=== PATIENT | male | born 1955 | race African-American/Black ===

== ENCOUNTER 2016-03-04 12:33 | Inpatient (IN) | payer MEDICAID ==
[~2016-03-04] VITALS: Ht 193 cm; Wt 129.3 kg
[~2016-03-04 12:33] MED LIST: BACTRIM DS TAB1 EAC1 ORAL; DILAUDID4 MG ORAL; EYE DROPS15 M1 OP; FLOMAX0.4 MG ORAL; METHADONE PO; OPANA ER40 M1 ORAL
[2016-03-04] MEDS ORDERED: Ketorolac 30mg Inj IV ONE (13:15)
[2016-03-04] MEDS ORDERED: Morphine Sulfate 4mg/ml Inj IVP ONE ×2 (13:15→15:00)
[2016-03-04 14:05] LABS: BASOPHILS % (AUTO) 0.6 % (0.0-2.0); EOSINOPHILS % (AUTO) 1.2 % (0.0-3.0); LYMPHOCYTES % (AUTO) 11.2 % (20.0-45.0); MEAN CORPUSCULAR HEMOGLOBIN 26.5 PG (27.0-31.0); MEAN CORPUSCULAR HGB CONC 31.7 G/DL (32.0-36.0); MEAN CORPUSCULAR VOLUME 84 FL (80-99); MEAN PLATELET VOLUME 9.1 FL (6.5-10.1); MONOCYTES % (AUTO) 9.3 % (1.0-10.0); NEUTROPHILS % (AUTO) 77.7 % (45.0-75.0); PLATELET COUNT 272 K/UL (150-450); RED BLOOD COUNT 5.44 M/UL (4.70-6.10); RED CELL DISTRIBUTION WIDTH 13.3 % (11.6-14.8); WHITE BLOOD COUNT 12.5 K/UL (4.8-10.8)
[2016-03-04 15:00] VITALS: BP 149/99
--- NOTE | 2016-03-04 15:16 | Diagnostic Imaging Report ---
Indication: PAIN Technique: Spiral acquisitions obtained through the left hip. No IV contrast, per trauma protocol. Multiplanar reconstructions were generated. Total dose length product 668 mGycm. CTDIvol(s) 26 mGy. Radiation dose was minimized using automated exposure control Comparison: None Findings: There is a fracture of the left femoral neck. This is posteriorly angulated, slightly anteriorly displaced No pelvic fracture demonstrated. There is some overlying contusion of the left lateral hip subcutaneous fat. The included pelvic viscera are remarkable for the presence of colonic diverticulosis. Impression: Positive for left femoral neck fracture Positive for overlying subcutaneous contusion Incidental finding of colonic diverticulosis Findings discussed by phone with Dr. Mora in the emergency room at the time of interpretation The CT scanner at [facility] is accredited by the [employer] and the scans are performed using protocols designed to limit radiation exposure to as low as reasonably achievable to attain images of sufficient resolution adequate for diagnostic evaluation.
[2016-03-04 15:18] LABS: ALANINE AMINOTRANSFERASE 26 U/L (3-41); ALBUMIN/GLOBULIN RATIO 0.8 (1.0-2.7); ANION GAP 17 (5-15); ASPARTATE AMINO TRANSFERASE 32 U/L (5-40); CALCIUM 9.5 mg/dL (8.6-10.2); CARBON DIOXIDE 24 mEQ/L (20-30); CHLORIDE 96 mEQ/L (98-107); CREATININE 0.6 mg/dL (0.7-1.2); GLOMERULAR FILTRATION RATE > 60 mL/min (>60); HEMOLYSIS 52; POTASSIUM 4.4 mEQ/L (3.4-4.9); SODIUM 137 mEQ/L (135-145); TOTAL PROTEIN 8.3 g/dL (6.6-8.7)
[2016-03-04 15:23] VITALS: BP 152/96
[2016-03-04 15:32] LABS: BILIRUBIN,DIRECT 0.3 mg/dL (0.1-0.3)
[2016-03-04] MEDS ORDERED: Mylanta II UD 30ml ORAL PRN (16:00)
[2016-03-04] MEDS ORDERED: Morphine Sulfate 2mg/ml Inj IVP PRN (16:00)
[2016-03-04] MEDS ORDERED: HYDROmorphone 4mg tab ORAL PRN (16:00)
[2016-03-04] MEDS ORDERED: LORazepam Inj 2mg/ml 1ml IV PRN (16:00)
[2016-03-04] MEDS ORDERED: Miralax 17gm pkt ORAL PRN (16:00)
--- NOTE | 2016-03-04 16:01 | History and Physical ---
History of Present Illness General Date patient seen: Mar 04, 2015 Reason for Hospitalization: Lower Extremity Injury Present Illness HPI 61 yo gentleman with pmhx debility HTN who presents to [facility] ED after mechanical fall, initial evaluation reveals a hip fracture and patient also has complaints regarding testicular swelling. Allergies: Coded Allergies: No Known Allergies (Unverified , 02/08/13) Medication History Scheduled Tamsulosin HCl (Flomax), 0.4 MG ORAL DAILY, (Reported) Scheduled PRN Hydromorphone HCl (Dilaudid), 8 MG ORAL THREE TIMES A DAY PRN for For Pain, ( Reported) Methadone HCl (Methadone HCl), 10 MG PO Q6HR PRN for For Pain, (Reported) Oxymorphone Hcl (Opana Er), 40 MG ORAL Q6HR PRN for For Pain, (Reported) Tetrahydrz/Dext 70/Peg 400/Pvp (Eye Drops), 15 ML OP TID PRN for Dry Eyes, ( Reported) Patient History Healthcare decision maker Resuscitation status Advanced Directive on File Review of Systems Genitourinary: Reports: dysuria, frequency, pain, urgency Physical Exam General Appearance: no apparent distress, lethargic Lines, tubes and drains: peripheral HEENT: normocephalic, atraumatic, anicteric, PERRL Neck: non-tender, pain on motion Respiratory/Chest: chest wall non-tender, lungs clear, normal breath sounds, no respiratory distress Breasts: no masses Cardiovascular/Chest: normal peripheral pulses, normal rate, regular rhythm Abdomen: normal bowel sounds, non tender, soft, no organomegaly Genitourinary/Rectal: other - teseticular swelling Extremities: normal range of motion, non-tender, normal inspection, no calf tenderness Skin Exam: normal pigmentation, warm/dry Neurologic: shelter advocate II-XII grossly normal, no motor/sensory deficits Last 24 Hour Vital Signs Date Time Temp Pulse Resp B/P Pulse Ox O2 Delivery O2 Flow Rate FiO2 03/04/16 15:23 98.1 80 17 152/96 93 Room Air 03/04/16 15:00 98.9 85 16 149/99 98 Room Air 03/04/16 13:58 99.3 03/04/16 13:57 99.3 03/04/16 12:21 99.3 94 18 98 Room Air Laboratory Tests Test 03/04/16 13:30 03/04/16 14:50 White Blood Count 12.5 K/UL (4.8-10.8) H Red Blood Count 5.44 M/UL (4.70-6.10) Hemoglobin 14.4 G/DL (14.2-18.0) Hematocrit 45.4 % (42.0-52.0) Mean Corpuscular Volume 84 FL (80-99) Mean Corpuscular Hemoglobin 26.5 PG (27.0-31.0) L Mean Corpuscular Hemoglobin Concent 31.7 G/DL (32.0-36.0) L Red Cell Distribution Width 13.3 % (11.6-14.8) Platelet Count 272 K/UL (150-450) Mean Platelet Volume 9.1 FL (6.5-10.1) Neutrophils (%) (Auto) 77.7 % (45.0-75.0) H Lymphocytes (%) (Auto) 11.2 % (20.0-45.0) L Monocytes (%) (Auto) 9.3 % (1.0-10.0) Eosinophils (%) (Auto) 1.2 % (0.0-3.0) Basophils (%) (Auto) 0.6 % (0.0-2.0) Sodium Level 137 mEQ/L (135-145) Potassium Level 4.4 mEQ/L (3.4-4.9) Chloride Level 96 mEQ/L (98-107) L Carbon Dioxide Level 24 mEQ/L (20-30) Anion Gap 17 (5-15) H Blood Urea Nitrogen 12 mg/dL (7-23) Creatinine 0.6 mg/dL (0.7-1.2) L Estimat Glomerular Filtration Rate > 60 mL/min (>60) Glucose Level 105 mg/dL (74-106) Calcium Level 9.5 mg/dL (8.6-10.2) Total Bilirubin 1.5 mg/dL (0.0-1.2) H Direct Bilirubin 0.3 mg/dL (0.1-0.3) Aspartate Amino Transf (AST/SGOT) 32 U/L (5-40) Alanine Aminotransferase (ALT/SGPT) 26 U/L (3-41) Alkaline Phosphatase 75 U/L (40-129) Total Protein 8.3 g/dL (6.6-8.7) Albumin 3.7 g/dL (3.5-5.2) Globulin 4.6 g/dL Albumin/Globulin Ratio 0.8 (1.0-2.7) L Height (Feet): 6 Height (Inches): 1.00 Weight (Pounds): 285 Medications Current Medications Medications (Trade) Dose Ordered Sig/Dmitriy Route PRN Reason Start Time Stop Time Status Last Admin Dose Admin Acetaminophen (Tylenol) 650 mg Q4H PRN ORAL fever 03/04/16 16:00 04/03/16 15:59 UNV Al Hydroxide/Mg Hydroxide (Mylanta II) 30 ml Q6H PRN ORAL dyspepsia 03/04/16 16:00 04/03/16 15:59 UNV Dextrose (Dextrose 50%) STAT PRN IV Hypoglycemia 03/04/16 16:00 04/03/16 15:59 UNV Heparin Sodium (Porcine) (Heparin 5000 units/ml) 5,000 units EVERY 12 HOURS SUBQ 03/04/16 21:00 04/03/16 20:59 UNV Lorazepam (Ativan 2mg/ml 1ml) 0.5 mg Q4H PRN IV For Anxiety 03/04/16 16:00 03/11/16 15:59 UNV Morphine Sulfate (Morphine Sulfate) 2 mg EVERY 4 HOURS PRN IVP For Pain 4-6 03/04/16 16:00 03/11/16 15:59 UNV Ondansetron HCl (Zofran) 4 mg Q6H PRN IVP Nausea & Vomiting 03/04/16 16:00 04/03/16 15:59 UNV Polyethylene Glycol (Miralax) 17 gm HSPRN PRN ORAL Constipation 03/04/16 16:00 04/03/16 15:59 UNV Zolpidem Tartrate (Ambien) 5 mg HSPRN PRN ORAL Insomnia 03/04/16 16:00 04/03/16 15:59 UNV Assessment/Plan Status: stable, progressing Assessment/Plan Assessment/Plan Assessment/Plan ASSESSMENT leukocytosis UTI possible epididymitis vs orchitis s/p mechanical fall left femoral neck fracture left hip pain BPH venous stasis BLE R foot ulcer ( POA) PLAN OF CARE Orthopedic evaluation Pain management empiric abx, ID consult urine cx + Staph aureus US scrotal/testicular - r/o epididymitis/orchitis nasima Epperson dc IVF , monitor DIEGO Muniz Mar 04, 2016 16:01
--- NOTE | 2016-03-04 17:23 | Emergency Room Report ---
History of Present Illness General Chief Complaint: Lower Extremity Injury Source: Patient, Medical Record Present Illness HPI Patient is a 61-year-old male brought in by ambulance after increased pain to his left hip. The patient had prior history of chronic pain to his knees. Patient had previously been hospitalized for degenerative arthritis of his knees. Patient reported falling several days ago and was assisted to his bed by time buyer. Patient reports not being able to ambulate. The patient states that he had not been having bowel movements. He denies any fevers. Allergies: Coded Allergies: No Known Allergies (Unverified , 02/08/13) Patient History Past Medical History: see triage record Reviewed Nursing Documentation: PMH: Agreed, PSxH: Agreed Nursing Documentation-PMH Past Medical History: No History, Except For Hx Cardiac Problems: No Hx Hypertension: No Hx Pacemaker: No Hx Asthma: No Hx COPD: No Hx Diabetes: No Hx Cancer: No Hx Gastrointestinal Problems: No Hx Dialysis: No - HERNIATED DISC IN BACK (X 3) Hx Neurological Problems: Yes - GENERALIZED BODY PAIN Hx Cerebrovascular Accident: No Hx Seizures: No Hx Weakness: Yes Review of Systems All Other Systems: negative except mentioned in HPI Physical Exam Vital Signs Date Time Temp Pulse Resp B/P Pulse Ox O2 Delivery O2 Flow Rate FiO2 03/04/16 12:21 99.3 94 18 98 Room Air 03/04/16 15:00 149/99 General Appearance: alert, GCS 15, moderate distress Neck: full range of motion, supple, thyroid normal Respiratory: chest non-tender, lungs clear, no rhonchi Cardiovascular #1: normal peripheral pulses, regular rate, rhythm, other - venous stasis changes Neurologic: alert, oriented x3, user interface engineer III-XII nml as tested Medical Decision Making Diagnostic Impression: Primary Impression: Fracture of femoral neck, left Additional Impressions: Chronic pain Fall ER Course Patient presented after a fall.Differential diagnosis included was not limited to neck fracture, CVA, close head injury, syncopal episode, basilar ischemia, hip fracture.Because of complexity of patient's case laboratory testing and imaging studies were ordered. The patient was noted to have the decreased range of motion of his left hip. CT of the the pelvis read by radiology showed left hip fracture at the femoral neck. The EKG showed normal sinus rhythm with a slightly prolonged QT interval QTC was 471 there are no acute ST or T wave change. Dr. Cartwright was contacted for inpatient management. Dr. Heriberto Shirley was contacted for orthopedic consult. The patient will likely require operative management of fracture. Labs Test 03/04/16 13:30 03/04/16 14:50 White Blood Count 12.5 K/UL (4.8-10.8) Red Blood Count 5.44 M/UL (4.70-6.10) Hemoglobin 14.4 G/DL (14.2-18.0) Hematocrit 45.4 % (42.0-52.0) Mean Corpuscular Volume 84 FL (80-99) Mean Corpuscular Hemoglobin 26.5 PG (27.0-31.0) Mean Corpuscular Hemoglobin Concent 31.7 G/DL (32.0-36.0) Red Cell Distribution Width 13.3 % (11.6-14.8) Platelet Count 272 K/UL (150-450) Mean Platelet Volume 9.1 FL (6.5-10.1) Neutrophils (%) (Auto) 77.7 % (45.0-75.0) Lymphocytes (%) (Auto) 11.2 % (20.0-45.0) Monocytes (%) (Auto) 9.3 % (1.0-10.0) Eosinophils (%) (Auto) 1.2 % (0.0-3.0) Basophils (%) (Auto) 0.6 % (0.0-2.0) Sodium Level 137 mEQ/L (135-145) Potassium Level 4.4 mEQ/L (3.4-4.9) Chloride Level 96 mEQ/L (98-107) Carbon Dioxide Level 24 mEQ/L (20-30) Anion Gap 17 (5-15) Blood Urea Nitrogen 12 mg/dL (7-23) Creatinine 0.6 mg/dL (0.7-1.2) Estimat Glomerular Filtration Rate > 60 mL/min (>60) Glucose Level 105 mg/dL (74-106) Calcium Level 9.5 mg/dL (8.6-10.2) Total Bilirubin 1.5 mg/dL (0.0-1.2) Direct Bilirubin 0.3 mg/dL (0.1-0.3) Aspartate Amino Transf (AST/SGOT) 32 U/L (5-40) Alanine Aminotransferase (ALT/SGPT) 26 U/L (3-41) Alkaline Phosphatase 75 U/L (40-129) Total Protein 8.3 g/dL (6.6-8.7) Albumin 3.7 g/dL (3.5-5.2) Globulin 4.6 g/dL Albumin/Globulin Ratio 0.8 (1.0-2.7) EKG Diagnostic Results Rate: normal Rhythm: NSR ST Segments: no acute changes Rhythm Strip Diag. Results EP Interpretation: yes Rhythm: NSR, no PVC's, no ectopy Last Vital Signs Date Time Temp Pulse Resp B/P Pulse Ox O2 Delivery O2 Flow Rate FiO2 03/04/16 15:23 98.1 80 17 152/96 93 Room Air Status: unchanged Disposition: ADMITTED INPATIENT Condition: Serious Referrals: [facility],REFERRING (PCP) Carroll Mora Mar 04, 2016 17:23
[2016-03-04 18:30] VITALS: BP 153/88
[2016-03-04 20:00] VITALS: BP 145/81
[2016-03-04] MEDS ORDERED: Morphine Sulfate 2mg/ml Inj IVP ONE (20:35)
[2016-03-04] MEDS: Heparin 5000 units/ml inj SUBQ SCH (20:48)
[2016-03-04] MEDS: Zolpidem 5mg tab ORAL PRN (21:46)
[2016-03-05] VITALS: BP 167/97
[2016-03-05] MEDS: Morphine Sulfate 2mg/ml Inj IVP PRN ×5 (01:54→18:05)
[2016-03-05 04:00] VITALS: BP 149/93
[2016-03-05 07:19] LABS: ALANINE AMINOTRANSFERASE 24 U/L (3-41); ALBUMIN/GLOBULIN RATIO 0.6 (1.0-2.7); ANION GAP 16 (5-15); ASPARTATE AMINO TRANSFERASE 34 U/L (5-40); CALCIUM 9.3 mg/dL (8.6-10.2); CARBON DIOXIDE 21 mEQ/L (20-30); CHLORIDE 98 mEQ/L (98-107); CREATININE 0.7 mg/dL (0.7-1.2); GLOMERULAR FILTRATION RATE > 60 mL/min (>60); HEMOLYSIS 0; POTASSIUM 3.5 mEQ/L (3.4-4.9); SODIUM 135 mEQ/L (135-145); TOTAL PROTEIN 8.4 g/dL (6.6-8.7)
[2016-03-05] MEDS: Tamsulosin 0.4mg cap ORAL SCH (08:13)
[2016-03-05] MEDS: Heparin 5000 units/ml inj SUBQ SCH ×2 (08:14→21:19)
[2016-03-05 08:21] VITALS: BP 155/85
--- NOTE | 2016-03-05 09:39 | Pulmonology Progress Note ---
Assessment/Plan Assessment/Plan ASSESSMENT s/p mechanical fal left femoral neck fracture left hip pain BPH venous stasis BLE R foot ulcer ( POA) PLAN OF CARE MS floor gentle IVF CT hip with evidence of left femoral neck fracture ortho eval done last night ( dr Shirley) discussed with ortho - surgery planned for Monday pain management dc Dilaudid po, already on Morphine antiemetic prn pain specialist consult ( acute on chronic pain) wound nurse eval re R foot ulcer Venous Duplex today DVT, GI prophylaxis Hold Heparin night before surgery start PT/OT after surgery continue Flomax addendum : at 1200 informed by charge nurse WBC -32.8 initiated septic workup, started on empiric abx, ID consult called -dr Cha case discussed and evaluated by supervising physician Subjective Allergies: Coded Allergies: No Known Allergies (Unverified , 02/08/13) Subjective c/o pain Left hip afebrile, no leucocytosis seen by ortho last night vomited x 3 earlier Objective Last 24 Hour Vital Signs Date Time Temp Pulse Resp B/P Pulse Ox O2 Delivery O2 Flow Rate FiO2 03/05/16 08:21 97.3 67 20 155/85 97 Room Air 03/05/16 04:22 100.0 03/05/16 04:00 102.0 104 19 149/93 97 Room Air 03/05/16 00:00 101.1 102 20 167/97 95 Room Air 03/04/16 23:58 101.1 03/04/16 21:15 101.8 03/04/16 20:00 101.8 79 19 145/81 97 Room Air 03/04/16 19:22 98.1 03/04/16 18:30 98.9 89 18 153/88 95 Room Air 03/04/16 17:45 80 17 152/96 93 Room Air 03/04/16 15:23 98.1 80 17 152/96 93 Room Air 03/04/16 15:00 98.9 85 16 149/99 98 Room Air 03/04/16 13:58 99.3 03/04/16 13:57 99.3 03/04/16 12:21 99.3 94 18 98 Room Air Intake and Output 03/04/16 03/05/16 19:00 07:00 Intake Total 120 ml 240 ml Output Total 700 ml Balance 120 ml -460 ml Intake Oral 120 ml 240 ml Output Urine Total 700 ml # Voids 2 General Appearance: no acute distress, other - A/A/O x 3 obese male in NAD HEENT: normocephalic, atraumatic, anicteric, mucous membranes moist Respiratory/Chest: lungs clear, normal breath sounds, no respiratory distress, no accessory muscle use Cardiovascular: normal peripheral pulses, normal rate, regular rhythm, no JVD Abdomen: normal bowel sounds, soft, non tender - obese Genitourinary: normal external genitalia Extremities: no edema, pedal pulses normal, other - Left hip with external rotation, mild TTP at left hip Skin: other - chronic venous stasis changesLE, R foot ulcer Neurologic/Psychiatric: abnormal gait, alert, oriented x 3, responsive, normal mood/affect Musculoskeletal: normal muscle bulk Laboratory Tests 03/04/16 13:30: White Blood Count 12.5H, Red Blood Count 5.44, Hemoglobin 14.4, Hematocrit 45.4 , Mean Corpuscular Volume 84, Mean Corpuscular Hemoglobin 26.5L, Mean Corpuscular Hemoglobin Concent 31.7L, Red Cell Distribution Width 13.3, Platelet Count 272, Mean Platelet Volume 9.1, Neutrophils (%) (Auto) 77.7H, Lymphocytes (%) (Auto) 11.2L, Monocytes (%) (Auto) 9.3, Eosinophils (%) (Auto) 1.2, Basophils (%) (Auto) 0.6 03/04/16 14:50: Sodium Level 137, Potassium Level 4.4, Chloride Level 96L, Carbon Dioxide Level 24, Anion Gap 17H, Blood Urea Nitrogen 12, Creatinine 0.6L, Estimat Glomerular Filtration Rate > 60, Glucose Level 105, Calcium Level 9.5, Total Bilirubin 1.5H , Direct Bilirubin 0.3, Aspartate Amino Transf (AST/SGOT) 32, Alanine Aminotransferase (ALT/SGPT) 26, Alkaline Phosphatase 75, Total Protein 8.3, Albumin 3.7, Globulin 4.6, Albumin/Globulin Ratio 0.8L 03/05/16 04:35: Sodium Level 135, Potassium Level 3.5, Chloride Level 98, Carbon Dioxide Level 21, Anion Gap 16H, Blood Urea Nitrogen 14, Creatinine 0.7, Estimat Glomerular Filtration Rate > 60, Glucose Level 159H, Calcium Level 9.3, Total Bilirubin 2.2H, Direct Bilirubin 1.0H, Aspartate Amino Transf (AST/SGOT) 34, Alanine Aminotransferase (ALT/SGPT) 24, Alkaline Phosphatase 80, Total Protein 8.4, Albumin 3.3L, Globulin 5.1, Albumin/Globulin Ratio 0.6L Current Medications Medications (Trade) Dose Ordered Sig/Dmitriy Route PRN Reason Start Time Stop Time Status Last Admin Dose Admin Acetaminophen (Tylenol) 650 mg Q4H PRN ORAL fever 03/04/16 16:00 04/03/16 15:59 03/05/16 03:23 Al Hydroxide/Mg Hydroxide (Mylanta II) 30 ml Q6H PRN ORAL dyspepsia 03/04/16 16:00 04/03/16 15:59 Clonidine HCl (Catapres) 0.1 mg Q4H PRN ORAL For High Blood Pressure 03/05/16 08:15 04/04/16 08:14 Dextrose (Dextrose 50%) STAT PRN IV Hypoglycemia 03/04/16 16:00 04/03/16 15:59 Heparin Sodium (Porcine) (Heparin 5000 units/ml) 5,000 units EVERY 12 HOURS SUBQ 03/04/16 21:00 04/03/16 20:59 03/05/16 08:14 Hydromorphone HCl (Dilaudid) 8 mg THREE TIMES A DAY PRN ORAL Moderate Pain (Pain Scale 4-6) 03/04/16 16:00 03/11/16 15:59 03/04/16 22:59 Lorazepam (Ativan 2mg/ml 1ml) 0.5 mg Q4H PRN IV For Anxiety 03/04/16 16:00 03/11/16 15:59 Morphine Sulfate (Morphine Sulfate) 4 mg Q4H PRN IVP Severe Pain (Pain Scale 7-10) 03/04/16 20:30 03/11/16 20:29 03/05/16 06:02 Ondansetron HCl (Zofran) 4 mg Q6H PRN IVP Nausea & Vomiting 03/04/16 16:00 04/03/16 15:59 03/05/16 08:13 Polyethylene Glycol (Miralax) 17 gm HSPRN PRN ORAL Constipation 03/04/16 16:00 04/03/16 15:59 Tamsulosin HCl (Flomax) 0.4 mg DAILY ORAL 03/05/16 09:00 04/04/16 08:59 03/05/16 08:13 Zolpidem Tartrate (Ambien) 5 mg HSPRN PRN ORAL Insomnia 03/04/16 16:00 04/03/16 15:59 03/04/16 21:46 Ted ([facility])Lorri NP Mar 05, 2016 09:39
--- NOTE | 2016-03-05 11:19 | Wound Care Consultation ---
Wound Assessment Wound Assessment #1: Wound Number: #1 Wound Present on Admission: Yes New Wound: No Status Change of Wound: No Wound Location Body Site Modif: right, medial Wound Location Body Site: foot Wound Type: vascular wound Manuel Test: Does not Manuel Wound Thickness: Full Thickness Wound Length: 3.0 Wound Width: 3.0 Wound Depth: 0.3 Percent of Wound [place]/Red: 100 Wound Drainage Description: Serosanguineous Wound Drainage Amount: Moderate Wound Drainage Odor: None/Absent Tissue Surrounding Wound: Macerated Wound General Appearance: Reddened, Draining Wound Assessment #2: Wound Number: #2 Wound Present on Admission: Yes New Wound: No Status Change of Wound: No Wound Location Body Site Modif: right Wound Location Body Site: toe - 1ST Wound Type: other - thick,dry, adhered 80%yellow, 20% black callus present to 1st toe. Manuel Test: Does not Manuel Wound Thickness: Full Thickness Wound Length: 5.0 Wound Width: 5.0 Wound Depth: utd Percent of Wound Bed Yellow/Wh: 80 Percent of Wound Black/Brown: 20 Wound Drainage Amount: None Wound Drainage Odor: None/Absent Tissue Surrounding Wound: Intact Wound General Appearance: Open to air Wound Assessment #3: Wound Number: #3 Wound Present on Admission: Yes New Wound: No Status Change of Wound: No Wound Location Body Site Modif: left Wound Location Body Site: toe - 1ST Wound Type: other - Thick,dry,adhered 80%yellow,20% black callus present to 1st toe Manuel Test: Does not Manuel Wound Thickness: Full Thickness Wound Length: 3.0 Wound Width: 3.0 Wound Depth: utd Percent of Wound Bed Yellow/Wh: 80 Percent of Wound Black/Brown: 20 Wound Drainage Amount: None Wound Drainage Odor: None/Absent Tissue Surrounding Wound: Intact Wound General Appearance: Open to air Wound Comment #1 Right Medial Foot Vascular Ulcer. #2 Right 1st toe Thick Callus. #3 Left 1st Toe Thick callus. Recommendation. -Apply Low air loss overlay. -Follow up with Podiatry. -Local wound care as ordered. -Turn and reposition. -Offload both feet and heels. -Heel protectors if needed. -Optimize Nutrition. -Keep clean and dry. -Assess and follow up with MD if any changes noted. BRIAN DUPONT Mar 05, 2016 11:19
[2016-03-05 11:55] VITALS: BP 137/76
[2016-03-05 11:59] LABS: MEAN CORPUSCULAR HEMOGLOBIN 27.3 PG (27.0-31.0); MEAN CORPUSCULAR VOLUME 83 FL (80-99); MEAN PLATELET VOLUME 8.5 FL (6.5-10.1); PLATELET COUNT 268 K/UL (150-450); RED BLOOD COUNT 5.17 M/UL (4.70-6.10); RED CELL DISTRIBUTION WIDTH 13.2 % (11.6-14.8); WHITE BLOOD COUNT 32.8 K/UL (4.8-10.8)
[2016-03-05 12:21] LABS: BAND NEUTROPHILS % (MANUAL) 7 % (0-8); BASOPHILS % (MANUAL) 0 % (0-2); EOSINOPHILS % (MANUAL) 0 % (0-3); LYMPHOCYTES % (MANUAL) 5 % (20-45); NEUTROPHILS % (MANUAL) 80 % (45-75); PLATELET ESTIMATE ADEQUATE; PLATELET MORPHOLOGY NORMAL; TOTAL CELLS COUNTED 100
--- NOTE | 2016-03-05 13:28 | Consultation ---
DATE OF CONSULTATION: 03/04/2016 CONSULTING PHYSICIAN: Campbell Shirley M.D. REQUESTING PHYSICIAN: Ken Cartwright M.D. CHIEF COMPLAINT: Left hip pain. HISTORY OF PRESENT ILLNESS: The patient is a 61-year-old gentleman, who sustained a mechanical fall approximately three days ago. He had progressive pain and difficulty ambulating. He presented to the ER where he was diagnosed with a displaced femoral neck fracture. Orthopedic consultation was obtained for further care and recommendation. PHYSICAL EXAMINATION: The patient has significant pain in the left hip with internal and external rotation. Posterior calf is soft. Neurovascular exam is normal. The left leg examination shows venous stasis ulcer, which is slowly healing and no drainage and no erythema or fluctuance. DIAGNOSTIC DATA: CT scan of the left hip is reviewed. It shows displaced femoral neck fracture with well maintained joint space. ASSESSMENT: Displaced left femoral neck fracture. DISCUSSION: At this point unfortunately, he is going to need a total hip arthroplasty. This is not one that could be fixed given the chronicity of his symptoms. The chance of nonunion with close reduction and percutaneous pinning is very high. At this point, we will try to optimize his medical situation in proceeding with surgery hopefully on Monday, if he is medically cleared. Campbell Shirley M.D. DR: LILY JOB#: [id number] CC: Ken Cartwright M.D. MTDD
[2016-03-05] MEDS: Vancomycin 1.5 GM/D5W 300 ML IVPB SCH ×4 (13:55→22:32)
[2016-03-05 15:46] VITALS: BP 131/72
[2016-03-05 16:20] LABS: APPEARANCE,URINE CLOUDY; KETONES,URINE 2+ (NEGATIVE); LEUKOCYTE ESTERASE ,URINE 2+ (NEGATIVE); NITRITE,URINE POSITIVE (NEGATIVE); PH,URINE 6 (4.5-8.0); PROTEIN,URINE 4+ (NEGATIVE); UROBILINOGEN,URINE 4 MG/DL (0.0-1.0)
[2016-03-05 16:51] LABS: BACTERIA,URINE MANY /HPF; SQUAMOUS EPITHELIAL CELL,UR OCCASIONAL /LPF (NONE/OCC); WBC,URINE 20-30 /HPF (0 - 0)
[2016-03-05 16:52] LABS: AMORPHOUS SEDIMENT,UR MANY /LPF
[2016-03-05] MEDS ORDERED: Tubing IV Secondary IV ONE (17:51)
[2016-03-05 20:00] VITALS: BP 134/76
[2016-03-05] MEDS: Morphine Sulfate 4mg/ml Inj IVP PRN (21:18)
[2016-03-05] MEDS: Zolpidem 5mg tab ORAL PRN (22:32)
[2016-03-06] VITALS: BP 135/68
[2016-03-06] MEDS: Morphine Sulfate 4mg/ml Inj IVP PRN ×3 (00:32→08:01)
[2016-03-06 04:00] VITALS: BP 140/75
[2016-03-06] MEDS: Vancomycin 1.5 GM/D5W 300 ML IVPB SCH ×6 (05:54→22:33)
[2016-03-06 07:19] LABS: MEAN CORPUSCULAR HEMOGLOBIN 26.4 PG (27.0-31.0); MEAN CORPUSCULAR HGB CONC 30.9 G/DL (32.0-36.0); MEAN CORPUSCULAR VOLUME 86 FL (80-99); MEAN PLATELET VOLUME 8.9 FL (6.5-10.1); PLATELET COUNT 264 K/UL (150-450); RED BLOOD COUNT 4.85 M/UL (4.70-6.10); RED CELL DISTRIBUTION WIDTH 13.2 % (11.6-14.8)
[2016-03-06 07:30] LABS: WHITE BLOOD COUNT 32.8 K/UL (4.8-10.8)
[2016-03-06 07:32] LABS: ANION GAP 15 (5-15); CALCIUM 9.3 mg/dL (8.6-10.2); CARBON DIOXIDE 27 mEQ/L (20-30); CHLORIDE 92 mEQ/L (98-107); CREATININE 0.6 mg/dL (0.7-1.2); GLOMERULAR FILTRATION RATE > 60 mL/min (>60); HEMOLYSIS 0; POTASSIUM 3.3 mEQ/L (3.4-4.9); SODIUM 134 mEQ/L (135-145)
[2016-03-06 08:00] VITALS: BP 133/61
[2016-03-06 08:06] LABS: INR 1.3 (0.9-1.1); PROTHROMBIN TIME 13.2 SEC (9.30-11.50)
[2016-03-06] MEDS: Tamsulosin 0.4mg cap ORAL SCH (08:50)
[2016-03-06] MEDS: Heparin 5000 units/ml inj SUBQ SCH ×2 (08:51→20:39)
[2016-03-06 09:55] LABS: BAND NEUTROPHILS % (MANUAL) 5 % (0-8); BASOPHILS % (MANUAL) 0 % (0-2); EOSINOPHILS % (MANUAL) 0 % (0-3); HYPOCHROMASIA 1+; LYMPHOCYTES % (MANUAL) 8 % (20-45); NEUTROPHILS % (MANUAL) 78 % (45-75); PLATELET ESTIMATE ADEQUATE; PLATELET MORPHOLOGY NORMAL; TOTAL CELLS COUNTED 100
--- NOTE | 2016-03-06 09:55 | General Progress Note ---
Assessment/Plan Assessment/Plan (1) Lumbar Herniated Disc (2) Lumbar DDD (3) Lumbar Spondylosis (4) Lumbar Radiculopathy (5) MJ OA and Pain (6) Left hip fx s/p fall (7) Narcotics Dependency He has been seen by Ortho. Pt will be discontinued off the Morphine IV. We will start Morphine ER 30mg Q12H ATC hold for oversedation Dilaudid 2mg IVPB Q4H PRN severe pain and Neurontin 300mg TID. Pt was d/w Dr. Das and concurred. Thank you for the courtesy of this consultation. Subjective Date patient seen: Mar 06, 2016 Time patient seen: 08:30 - am Constitutional: Reports: weakness, Denies: chills, diaphoresis, fever, malaise , no symptoms, other HEENT: Denies: blurred vision, double vision, ear discharge, ear pain, eye pain , mouth pain, mouth swelling, no symptoms, nose congestion, nose pain, other, tearing, throat pain, throat swelling Cardiovascular: Denies: chest pain, edema, irregular heart rate, lightheadedness, no symptoms, other, palpitations, syncope Respiratory: Denies: SOB at rest, SOB with excertion, cough, no symptoms, orthopnea, other, shortness of breath, sputum, stridor, wheezing Gastrointestinal/Abdominal: Reports: nausea, Denies: abdomen distended, abdominal pain, black stools, blood in stool, constipated, diarrhea, difficulty swallowing, no symptoms, other, poor appetite, poor fluid intake, rectal bleeding, tarry stools, vomiting Genitourinary: Denies: burning, discharge, flank pain, frequency, hematuria, incontinence, no symptoms, other, pain, urgency Neurologic/Psychiatric: Reports: numbness, weakness, Denies: anxiety, depressed , emotional problems, headache, no symptoms, other, paresthesia, pre-existing deficit, seizure, tingling, tremors Endocrine: Denies: excessive sweating, flushing, increased hunger, increased thirst, increased urine, intolerance to cold, intolerance to heat, no symptoms, other, unexplained weight gain, unexplained weight loss Hematologic/Lymphatic: Denies: anemia, easy bleeding, easy bruising, no symptoms, other Allergies: Coded Allergies: No Known Allergies (Unverified , 02/08/13) Subjective Patient is a known pt from prior admission and from the office. He has been admitted under the care of Dr. Cartwright after fall found to have a left hip facture. Pain is not tolerated on the current medications. Objective Last 24 Hour Vital Signs Date Time Temp Pulse Resp B/P Pulse Ox O2 Delivery O2 Flow Rate FiO2 03/06/16 08:31 98.8 03/06/16 08:00 98.2 94 18 133/61 94 Room Air 03/06/16 04:00 98.8 90 18 140/75 95 Room Air 03/06/16 00:00 97.7 88 18 135/68 96 Room Air 03/05/16 20:00 99.1 92 19 134/76 94 Room Air 03/05/16 15:46 98.4 93 20 131/72 95 Room Air 03/05/16 11:55 98.0 92 20 137/76 98 Room Air Intake and Output 03/05/16 03/06/16 19:00 07:00 Intake Total 1410 ml 1675 ml Output Total 1000 ml 1450 ml Balance 410 ml 225 ml Intake Oral 960 ml 800 ml IV Total 450 ml 875 ml Output Urine Total 1000 ml 1250 ml Emesis 200 ml Laboratory Tests 03/05/16 11:15: White Blood Count 32.8#*H, Red Blood Count 5.17, Hemoglobin 14.1L, Hematocrit 42.7, Mean Corpuscular Volume 83, Mean Corpuscular Hemoglobin 27.3, Mean Corpuscular Hemoglobin Concent 33.0, Red Cell Distribution Width 13.2, Platelet Count 268, Mean Platelet Volume 8.5, Neutrophils (%) (Auto) , Lymphocytes (%) ( Auto) , Monocytes (%) (Auto) , Eosinophils (%) (Auto) , Basophils (%) (Auto) , Differential Total Cells Counted 100, Neutrophils % (Manual) 80H, Lymphocytes % (Manual) 5L, Monocytes % (Manual) 8, Eosinophils % (Manual) 0, Basophils % ( Manual) 0, Band Neutrophils 7, Platelet Estimate Adequate, Platelet Morphology Normal, Red Blood Cell Morphology Normal 03/05/16 14:00: Urine Color Yellow, Urine Appearance Cloudy, Urine pH 6, Urine Specific Labelle 1.020, Urine Protein 4+H, Urine Glucose (UA) Negative, Urine Ketones 2+H, Urine Occult Blood 5+H, Urine Nitrite PositiveH, Urine Bilirubin 2+H, Urine Ictotest , Urine Urobilinogen 4H, Urine Leukocyte Esterase 2+H, Urine RBC 10-15H, Urine WBC 20-30H, Urine Squamous Epithelial Cells Occasional, Urine Amorphous Sediment ManyH, Urine Bacteria ManyH 03/06/16 04:35: White Blood Count 32.8*H, Red Blood Count 4.85, Hemoglobin 12.8L, Hematocrit 41.4L, Mean Corpuscular Volume 86, Mean Corpuscular Hemoglobin 26.4L, Mean Corpuscular Hemoglobin Concent 30.9L, Red Cell Distribution Width 13.2, Platelet Count 264, Mean Platelet Volume 8.9, Neutrophils (%) (Auto) , Lymphocytes (%) (Auto) , Monocytes (%) (Auto) , Eosinophils (%) (Auto) , Basophils (%) (Auto) , Neutrophils % (Manual) [Pending], Lymphocytes % (Manual) [Pending], Platelet Estimate [Pending], Platelet Morphology [Pending], Prothrombin Time 13.2H, Prothromb Time International Ratio 1.3H, Sodium Level 134L, Potassium Level 3.3L, Chloride Level 92L, Carbon Dioxide Level 27, Anion Gap 15, Blood Urea Nitrogen 11, Creatinine 0.6L, Estimat Glomerular Filtration Rate > 60, Glucose Level 119H, Calcium Level 9.3 Height (Feet): 6 Height (Inches): 1.00 Weight (Pounds): 285 General Appearance: no apparent distress, alert EENT: PERRL/EOMI, normal ENT inspection Neck: non-tender, normal alignment Cardiovascular: normal rate, regular rhythm Respiratory/Chest: chest wall non-tender, decreased breath sounds Abdomen: non tender Extremities: inflammation, swelling - tenderness to palpation of left hip Neurologic: alert, oriented x 3 LESLIE BRAY PTiffani Mar 06, 2016 09:54
[2016-03-06] MEDS: MS Contin 30mg tab ORAL SCH ×2 (10:50→21:47)
[2016-03-06] MEDS ORDERED: NS IVPB PRN (12:00)
[2016-03-06] MEDS ORDERED: HYDROMORPHONE IVPB PRN (12:00)
[2016-03-06] MEDS: HYDROMORPHONE IVPB PRN ×3 (12:08→20:34)
[2016-03-06] MEDS: NS IVPB PRN ×3 (12:08→20:34)
--- NOTE | 2016-03-06 14:06 | Consultation ---
Consult Note Consult Note ID Dic # [id number] Assessment/Plan A: Fever Leukocytosis UTI UCx : Staph TREVOR Probable epidemitis vs testicular abscess DJD P: cont pt on Cefepime and Vanco d# 2 Monitor CBC Monitor BMP Monitor Cultures ( Bl, Ur ) will hold Sx at this time US of testicles ADELFO JOHANSEN M.D. Mar 06, 2016 14:06
--- NOTE | 2016-03-06 14:14 | Pulmonology Progress Note ---
Assessment/Plan Assessment/Plan ASSESSMENT leukocytosis UTI possible epididymitis vs orchitis s/p mechanical fal left femoral neck fracture left hip pain BPH venous stasis BLE R foot ulcer ( POA) PLAN OF CARE [facility] floor empiric abx, ID consult urine cx + Staph aureus US scrotal/testicular - r/o epididymitis/orchitis replace K dc IVF , monitor lytes CT hip with evidence of left femoral neck fracture ortho eval done last night ( dr Shirley) discussed with ortho - surgery planned for Monday, inliue of infection need to be postponed and rescheduled when cleared by ID pain management pain specialist consult appreciated -acute on chronic pain antiemetic prn wound nurse eval re R foot ulcer Venous Duplex BLE DVT, GI prophylaxis Hold Heparin night before surgery start PT/OT after surgery continue Flomax addendum : at 1200 informed by charge nurse WBC -32.8 initiated septic workup, started on empiric abx, ID consult called -dr Cha case discussed and evaluated by supervising physician Subjective Allergies: Coded Allergies: No Known Allergies (Unverified , 02/08/13) Subjective afebrile, leucocytosis -32.8 no signs of respiratory distress pain intermittently controlled with analgesics regimen no further vomiting Objective Last 24 Hour Vital Signs Date Time Temp Pulse Resp B/P Pulse Ox O2 Delivery O2 Flow Rate FiO2 03/06/16 12:38 98.8 03/06/16 11:49 98.8 03/06/16 08:31 98.8 03/06/16 08:00 98.2 94 18 133/61 94 Room Air 03/06/16 04:00 98.8 90 18 140/75 95 Room Air 03/06/16 00:00 97.7 88 18 135/68 96 Room Air 03/05/16 20:00 99.1 92 19 134/76 94 Room Air 03/05/16 15:46 98.4 93 20 131/72 95 Room Air Intake and Output 03/05/16 03/06/16 19:00 07:00 Intake Total 1410 ml 1675 ml Output Total 1000 ml 1450 ml Balance 410 ml 225 ml Intake Oral 960 ml 800 ml IV Total 450 ml 875 ml Output Urine Total 1000 ml 1250 ml Emesis 200 ml Objective General Appearance: no acute distress, other - A/A/O x 3 obese male in NAD HEENT: normocephalic, atraumatic, anicteric, mucous membranes moist Respiratory/Chest: lungs clear, normal breath sounds, no respiratory distress, no accessory muscle use Cardiovascular: normal peripheral pulses, normal rate, regular rhythm, no JVD Abdomen: normal bowel sounds, soft, non tender - obese Genitourinary: scrotal edema, mild TTP, Extremities: no edema, pedal pulses normal, other - Left hip with external rotation, mild TTP at left hip Skin: other - chronic venous stasis changesLE, R foot ulcer Neurologic/Psychiatric: abnormal gait, alert, oriented x 3, responsive, normal mood/affect Musculoskeletal: normal muscle bulk Microbiology Date/Time Source Procedure Growth Status 03/05/16 14:00 Urine,Clean Catch Urine Culture - Preliminary Staphylococcus Aureus Resulted 03/04/16 20:03 Foot Right Gram Stain - Final Resulted 03/04/16 20:03 Foot Right Wound Culture Pending Resulted Laboratory Tests 03/06/16 04:35: White Blood Count 32.8*H, Red Blood Count 4.85, Hemoglobin 12.8L, Hematocrit 41.4L, Mean Corpuscular Volume 86, Mean Corpuscular Hemoglobin 26.4L, Mean Corpuscular Hemoglobin Concent 30.9L, Red Cell Distribution Width 13.2, Platelet Count 264, Mean Platelet Volume 8.9, Neutrophils (%) (Auto) , Lymphocytes (%) (Auto) , Monocytes (%) (Auto) , Eosinophils (%) (Auto) , Basophils (%) (Auto) , Differential Total Cells Counted 100, Neutrophils % ( Manual) 78H, Lymphocytes % (Manual) 8L, Monocytes % (Manual) 9, Eosinophils % ( Manual) 0, Basophils % (Manual) 0, Band Neutrophils 5, Platelet Estimate Adequate, Platelet Morphology Normal, Hypochromasia 1+, Prothrombin Time 13.2H, Prothromb Time International Ratio 1.3H, Sodium Level 134L, Potassium Level 3.3L , Chloride Level 92L, Carbon Dioxide Level 27, Anion Gap 15, Blood Urea Nitrogen 11, Creatinine 0.6L, Estimat Glomerular Filtration Rate > 60, Glucose Level 119H, Calcium Level 9.3 03/06/16 13:40: Vancomycin Level Trough [Pending] Current Medications Medications (Trade) Dose Ordered Sig/Dmitriy Route PRN Reason Start Time Stop Time Status Last Admin Dose Admin Acetaminophen (Tylenol) 650 mg Q4H PRN ORAL fever 03/04/16 16:00 04/03/16 15:59 03/06/16 05:55 Al Hydroxide/Mg Hydroxide (Mylanta II) 30 ml Q6H PRN ORAL dyspepsia 03/04/16 16:00 04/03/16 15:59 Cefepime HCl 1 gm/ Dextrose 50 ml @ 100 mls/hr EVERY 12 HOURS IVPB 03/05/16 21:00 03/12/16 20:59 03/06/16 08:50 Clonidine HCl 0.1 mg 0.1 mg Q4H PRN ORAL For High Blood Pressure 03/05/16 08:15 04/04/16 08:14 Dextrose (Dextrose 50%) STAT PRN IV Hypoglycemia 03/04/16 16:00 04/03/16 15:59 Gabapentin 300 mg 300 mg THREE TIMES A DAY ORAL 03/06/16 10:00 04/05/16 09:59 03/06/16 10:50 Heparin Sodium (Porcine) (Heparin 5000 units/ml) 5,000 units EVERY 12 HOURS SUBQ 03/04/16 21:00 04/03/16 20:59 03/06/16 08:51 Hydromorphone HCl/ Sodium Chloride (Dilaudid/Sodium Chloride 50ml bag) 51 ml @ 204 mls/hr Q4H PRN IVPB Severe Pain (Pain Scale 7-10) 03/06/16 12:00 03/13/16 11:59 03/06/16 12:08 Lorazepam (Ativan 2mg/ml 1ml) 0.5 mg Q4H PRN IV For Anxiety 03/04/16 16:00 03/11/16 15:59 03/06/16 02:06 Morphine Sulfate (MS Contin) 30 mg EVERY 12 HOURS ORAL 03/06/16 10:00 03/13/16 09:59 03/06/16 10:50 Ondansetron HCl (Zofran) 4 mg Q6H PRN IVP Nausea & Vomiting 03/04/16 16:00 04/03/16 15:59 03/06/16 04:03 Polyethylene Glycol (Miralax) 17 gm HSPRN PRN ORAL Constipation 03/04/16 16:00 04/03/16 15:59 Sodium Chloride (Sodium Chloride 1000ml bag) 1,000 ml @ 50 mls/hr Q20H IV 03/05/16 09:45 04/04/16 09:44 03/06/16 04:04 Tamsulosin HCl (Flomax) 0.4 mg DAILY ORAL 03/05/16 09:00 04/04/16 08:59 03/06/16 08:50 Vancomycin HCl 1 ea 1 ea DAILY PRN MISC Per rx protocol 03/05/16 12:15 04/04/16 12:14 Vancomycin HCl/ Dextrose (Vancomycin/D5W 250ml) 300 ml @ 150 mls/hr Q8H IVPB 03/05/16 14:00 03/10/16 13:59 03/06/16 05:54 Zolpidem Tartrate (Ambien) 5 mg HSPRN PRN ORAL Insomnia 03/04/16 16:00 04/03/16 15:59 03/05/16 22:32 Ted (Lydia)Lorri NP Mar 06, 2016 14:14
[2016-03-06] MEDS ORDERED: KCl 10% 40mEq/30ml liquid NG ONE (15:00)
[2016-03-06 16:00] VITALS: BP 140/84
[2016-03-06 20:00] VITALS: BP 137/79
[2016-03-07] VITALS: BP 135/79
[2016-03-07] MEDS: HYDROMORPHONE IVPB PRN ×3 (00:36→12:02)
[2016-03-07] MEDS: NS IVPB PRN ×3 (00:36→12:02)
[2016-03-07] MEDS: Zolpidem 5mg tab ORAL PRN (01:17)
--- NOTE | 2016-03-07 02:27 | Consultation ---
DATE OF CONSULTATION: REQUESTED BY: Nurse practitioner, Lorri Morales. REASON FOR CONSULTATION: Evaluation of the patient for sepsis possibly urinary tract infection, antibiotic management. HISTORY OF PRESENT ILLNESS: The patient is a 61-year-old male with multiple medical problems as below, who was admitted after the patient had a fall and was found to have a left hip fracture. The patient is scheduled for the surgery tomorrow, however, the patient's white blood cells increased. The patient has been complaining also of testicular pain and also gave a history of hematuria x2 prior to admission. The patient has been started on IV antibiotics. has improved in for further evaluation of the patient and antibiotic management. PAST MEDICAL HISTORY: 1. History of decreased hearing of the right ear. 2. History of BPH. 3. History of bilateral knee pain and DJD. ALLERGIES: No known drug allergies. MEDICATIONS: IV cefepime and vancomycin. REVIEW OF SYSTEMS: HEENT: No recent change in vision or hearing. Pulmonary: No cough or shortness of breath. Cardiovascular: No chest pain or palpitations. GI/Abdomen: No nausea or vomiting. Genitourinary: The patient has mild dysuria, history of hematuria. SOCIAL HISTORY: Negative for alcohol, drug abuse, or smoking. FAMILY HISTORY: Noncontributory. PHYSICAL EXAMINATION: VITAL SIGNS: Temperature 98.8, pulse 86, respiratory rate 18, blood pressure 133/61, and T-max is 101.8. HEENT: Mild pallor conjunctivae. No icterus. CHEST: Coarse breathing sounds. HEART: S1 and S2. ABDOMEN: Soft. EXTREMITIES: The patient has superficial ulceration of bilateral big toes. No discharge. No erythema. GENITOURINARY: The patient has swelling and tenderness of left testicle. NEUROLOGIC: Awake and alert. LABORATORY AND DIAGNOSTIC DATA: White blood cells 32, hemoglobin 12, and platelets 267,000. UA shows 20 to 30 white blood cells and 10 to 15 red blood cells. Urine nitrite is positive, and many bacteria. BUN [address] scan showed left femoral neck fracture. ASSESSMENT: The patient is a 61-year-old male with multiple medical problems, who came with left hip fracture. The patient has increase of white blood cells, a fever, pyuria and increase of swelling of the left testicle concerning for epididymitis and possible testicular abscess. The patient did benefit from broad-spectrum antibiotics . We will get further information from the cultures. Urine culture at this time is growing Staphylococcus aureus. PLAN: 1. We will continue the patient on IV vancomycin and cefepime. 2. Blood culture. 3. Urine culture. 4. Testicular ultrasound. 5. We will hold surgery for now until the patient's infection improves. 6. Monitor CBC and BMP. 7. The patient is further recommendations. Thank you, nurse practitioner, Dr. Morales, for allowing me to participate in the care of this patient. I will follow the patient with you during this hospitalization. John Cha M.D. DR: Ramesh JOB#: [id number] CC:
[2016-03-07 04:00] VITALS: BP 139/80
[2016-03-07] MEDS: Vancomycin 1.5 GM/D5W 300 ML IVPB SCH ×6 (06:22→21:57)
[2016-03-07 08:00] VITALS: BP 140/80
--- NOTE | 2016-03-07 08:33 | General Progress Note ---
Assessment/Plan Assessment/Plan (1) Lumbar Herniated Disc (2) Lumbar DDD (3) Lumbar Spondylosis (4) Lumbar Radiculopathy (5) MJ OA and Pain (6) Left hip fx s/p fall (7) Narcotics Dependency We will continue Morphine ER, Dilaudid and Neurontin. Pt was d/w Dr. Das and concurred. Subjective Date patient seen: Mar 07, 2016 Time patient seen: 07:30 - am Allergies: Coded Allergies: No Known Allergies (Unverified , 02/08/13) Subjective Constitutional: Reports: weakness, Denies: chills, diaphoresis, fever, malaise , no symptoms, other HEENT: Denies: blurred vision, double vision, ear discharge, ear pain, eye pain , mouth pain, mouth swelling, no symptoms, nose congestion, nose pain, other, tearing, throat pain, throat swelling Cardiovascular: Denies: chest pain, edema, irregular heart rate, lightheadedness, no symptoms, other, palpitations, syncope Respiratory: Denies: SOB at rest, SOB with excertion, cough, no symptoms, orthopnea, other, shortness of breath, sputum, stridor, wheezing Gastrointestinal/Abdominal: Reports: nausea, Denies: abdomen distended, abdominal pain, black stools, blood in stool, constipated, diarrhea, difficulty swallowing, no symptoms, other, poor appetite, poor fluid intake, rectal bleeding, tarry stools, vomiting Genitourinary: Denies: burning, discharge, flank pain, frequency, hematuria, incontinence, no symptoms, other, pain, urgency Neurologic/Psychiatric: Reports: numbness, weakness, Denies: anxiety, depressed , emotional problems, headache, no symptoms, other, paresthesia, pre-existing deficit, seizure, tingling, tremors Endocrine: Denies: excessive sweating, flushing, increased hunger, increased thirst, increased urine, intolerance to cold, intolerance to heat, no symptoms, other, unexplained weight gain, unexplained weight loss Hematologic/Lymphatic: Denies: anemia, easy bleeding, easy bruising, no symptoms, other Subjective: Pain as been unchanged and reduced on the current medication regimen to a 6/10, while on the medications. Objective Last 24 Hour Vital Signs Date Time Temp Pulse Resp B/P Pulse Ox O2 Delivery O2 Flow Rate FiO2 03/07/16 04:00 98.2 88 18 139/80 93 Room Air 03/07/16 00:00 98.4 89 18 135/79 92 Room Air 03/06/16 20:00 98.6 89 18 137/79 95 Room Air 03/06/16 16:00 98.2 94 20 140/84 94 Room Air 03/06/16 12:38 98.8 03/06/16 11:49 98.8 Intake and Output 03/06/16 03/07/16 19:00 07:00 Intake Total 801 ml 1462 ml Output Total 300 ml 1050 ml Balance 501 ml 412 ml Intake Oral 450 ml 1310 ml IV Total 351 ml 152 ml Output Urine Total 300 ml 1050 ml # Voids 1 2 Laboratory Tests 03/06/16 13:40: Vancomycin Level Trough 9.5 Height (Feet): 6 Height (Inches): 1.00 Weight (Pounds): 285 Objective General Appearance: no apparent distress, alert EENT: PERRL/EOMI, normal ENT inspection Neck: non-tender, normal alignment Cardiovascular: normal rate, regular rhythm Respiratory/Chest: chest wall non-tender, decreased breath sounds Abdomen: non tender Extremities: inflammation, swelling - tenderness to palpation of left hip Neurologic: alert, oriented x 3 LESLIE BRAY Mar 07, 2016 08:32
[2016-03-07] MEDS: Tamsulosin 0.4mg cap ORAL SCH (09:02)
[2016-03-07] MEDS: MS Contin 30mg tab ORAL SCH ×3 (09:03→21:09)
[2016-03-07] MEDS: Heparin 5000 units/ml inj SUBQ SCH ×2 (09:06→21:12)
[2016-03-07 10:55] LABS: MEAN CORPUSCULAR HEMOGLOBIN 27.2 PG (27.0-31.0); MEAN CORPUSCULAR HGB CONC 32.1 G/DL (32.0-36.0); MEAN CORPUSCULAR VOLUME 85 FL (80-99); MEAN PLATELET VOLUME 8.5 FL (6.5-10.1); PLATELET COUNT 275 K/UL (150-450); RED BLOOD COUNT 4.74 M/UL (4.70-6.10)
[2016-03-07 11:02] LABS: WHITE BLOOD COUNT 26.3 K/UL (4.8-10.8)
[2016-03-07 11:04] LABS: ANION GAP 15 (5-15); CALCIUM 8.7 mg/dL (8.6-10.2); CARBON DIOXIDE 26 mEQ/L (20-30); CHLORIDE 91 mEQ/L (98-107); CREATININE 0.5 mg/dL (0.7-1.2); GLOMERULAR FILTRATION RATE > 60 mL/min (>60); HEMOLYSIS 1; POTASSIUM 3.5 mEQ/L (3.4-4.9); SODIUM 132 mEQ/L (135-145)
[2016-03-07 12:00] VITALS: BP 143/82
[2016-03-07 12:01] LABS: BAND NEUTROPHILS % (MANUAL) 1 % (0-8); BASOPHILS % (MANUAL) 0 % (0-2); EOSINOPHILS % (MANUAL) 2 % (0-3); LYMPHOCYTES % (MANUAL) 6 % (20-45); NEUTROPHILS % (MANUAL) 88 % (45-75); PLATELET ESTIMATE ADEQUATE; PLATELET MORPHOLOGY NORMAL; TOTAL CELLS COUNTED 100
--- NOTE | 2016-03-07 17:30 | Pulmonology Progress Note ---
Assessment/Plan Problems: (1) Fracture of femoral neck, left (2) Sepsis (3) Scrotal fullness (4) Chronic pain Assessment/Plan IV antibiotics check wbc pain management urology and US of scrotum Subjective ROS Limited/Unobtainable: No Interval Events: c/o pain in hip, wants more frequent pain meds. Constitutional: Reports: no symptoms Allergies: Coded Allergies: No Known Allergies (Unverified , 02/08/13) Objective Last 24 Hour Vital Signs Date Time Temp Pulse Resp B/P Pulse Ox O2 Delivery O2 Flow Rate FiO2 03/07/16 12:00 100.2 85 19 143/82 95 Room Air 03/07/16 08:00 97.0 80 19 140/80 95 Room Air 03/07/16 04:00 98.2 88 18 139/80 93 Room Air 03/07/16 00:00 98.4 89 18 135/79 92 Room Air 03/06/16 20:00 98.6 89 18 137/79 95 Room Air Intake and Output 03/06/16 03/07/16 19:00 07:00 Intake Total 801 ml 1462 ml Output Total 300 ml 1050 ml Balance 501 ml 412 ml Intake Oral 450 ml 1310 ml IV Total 351 ml 152 ml Output Urine Total 300 ml 1050 ml # Voids 1 2 General Appearance: WD/WN HEENT: normocephalic Respiratory/Chest: chest wall non-tender, lungs clear Cardiovascular: normal peripheral pulses, normal rate Abdomen: normal bowel sounds, no organomegaly Extremities: no cyanosis 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9L, Hematocrit 40.1L, Mean Corpuscular Volume 85, Mean Corpuscular Hemoglobin 27.2, Mean Corpuscular Hemoglobin Concent 32.1, Red Cell Distribution Width 13.0, Platelet Count 275, Mean Platelet Volume 8.5, Neutrophils (%) (Auto) , Lymphocytes (%) ( Auto) , Monocytes (%) (Auto) , Eosinophils (%) (Auto) , Basophils (%) (Auto) , Differential Total Cells Counted 100, Neutrophils % (Manual) 88H, Lymphocytes % (Manual) 6L, Monocytes % (Manual) 3, Eosinophils % (Manual) 2, Basophils % ( Manual) 0, Band Neutrophils 1, Platelet Estimate Adequate, Platelet Morphology Normal, Red Blood Cell Morphology Normal, Sodium Level 132L, Potassium Level 3.5 , Chloride Level 91L, Carbon Dioxide Level 26, Anion Gap 15, Blood Urea Nitrogen 9, Creatinine 0.5L, Estimat Glomerular Filtration Rate > 60, Glucose Level 110H, Calcium Level 8.7 Current Medications Medications (Trade) Dose Ordered Sig/Dmitriy Route PRN Reason Start Time Stop Time Status Last Admin Dose Admin Acetaminophen (Tylenol) 650 mg Q4H PRN ORAL fever 03/04/16 16:00 04/03/16 15:59 03/06/16 05:55 Al Hydroxide/Mg Hydroxide (Mylanta II) 30 ml Q6H PRN ORAL dyspepsia 03/04/16 16:00 04/03/16 15:59 Cefepime HCl 1 gm/ Dextrose 50 ml @ 100 mls/hr EVERY 12 HOURS IVPB 03/05/16 21:00 03/12/16 20:59 03/07/16 09:02 Clonidine HCl (Catapres) 0.1 mg Q4H PRN ORAL For High Blood Pressure 03/05/16 08:15 04/04/16 08:14 Dextrose (Dextrose 50%) STAT PRN IV Hypoglycemia 03/04/16 16:00 04/03/16 15:59 Gabapentin 300 mg 300 mg THREE TIMES A DAY ORAL 03/06/16 10:00 04/05/16 09:59 03/07/16 14:40 Heparin Sodium (Porcine) (Heparin 5000 units/ml) 5,000 units EVERY 12 HOURS SUBQ 03/04/16 21:00 04/03/16 20:59 03/07/16 09:06 Hydromorphone HCl/ Sodium Chloride (Dilaudid/Sodium Chloride 50ml bag) 51 ml @ 204 mls/hr Q4H PRN IVPB Severe Pain (Pain Scale 7-10) 03/06/16 12:00 03/13/16 11:59 03/07/16 12:02 Lorazepam (Ativan 2mg/ml 1ml) 0.5 mg Q4H PRN IV For Anxiety 03/04/16 16:00 03/11/16 15:59 03/06/16 02:06 Morphine Sulfate (MS Contin) 30 mg EVERY 12 HOURS ORAL 03/06/16 10:00 03/13/16 09:59 03/07/16 10:02 Ondansetron HCl (Zofran) 4 mg Q6H PRN IVP Nausea & Vomiting 03/04/16 16:00 04/03/16 15:59 03/06/16 04:03 Polyethylene Glycol (Miralax) 17 gm HSPRN PRN ORAL Constipation 03/04/16 16:00 04/03/16 15:59 Tamsulosin HCl (Flomax) 0.4 mg DAILY ORAL 03/05/16 09:00 04/04/16 08:59 03/07/16 09:02 Vancomycin HCl 1 ea 1 ea DAILY PRN MISC Per rx protocol 03/05/16 12:15 04/04/16 12:14 Vancomycin HCl/ Dextrose (Vancomycin/D5W 250ml) 300 ml @ 150 mls/hr Q8H IVPB 03/05/16 14:00 03/10/16 13:59 03/07/16 14:41 Zolpidem Tartrate (Ambien) 5 mg HSPRN PRN ORAL Insomnia 03/04/16 16:00 04/03/16 15:59 03/07/16 01:17 DIEGO WALKER Mar 07, 2016 17:30
[2016-03-07] MEDS: HYDROmorphone 2 MG in NS 50 ML IVPB PRN (18:20)
[2016-03-07 18:22] VITALS: BP 118/72
--- NOTE | 2016-03-07 18:41 | Infectious Diseases Prog Note ---
Assessment/Plan Assessment/Plan ASSESSMENT: 61 y/o male with: Probable epididymitis vs testicular abscess r/o Janna's gangrene - US, urology pending MSSA UTI Sepsis Fever - improved Leukocytosis - improved Acute left femoral neck fracture - pending CATIA Chronic pain syndrome NKDA Full Code PLAN: continue Cefepime and Vanco d# 3 delay CATIA surgery urology eval f/u cultures f/u US Monitor CBC, temperatures Monitor BMP Subjective Allergies: Coded Allergies: No Known Allergies (Unverified , 02/08/13) Subjective fevers improved. c/o pain Objective Vital Signs Last 24 Hour Vital Signs Date Time Temp Pulse Resp B/P Pulse Ox O2 Delivery O2 Flow Rate FiO2 03/07/16 18:22 97.3 84 20 118/72 99 Room Air 03/07/16 12:00 100.2 85 19 143/82 95 Room Air 03/07/16 08:00 97.0 80 19 140/80 95 Room Air 03/07/16 04:00 98.2 88 18 139/80 93 Room Air 03/07/16 00:00 98.4 89 18 135/79 92 Room Air 03/06/16 20:00 98.6 89 18 137/79 95 Room Air Height (Feet): 6 Height (Inches): 1.00 Weight (Pounds): 285 General Appearance: no acute distress Respiratory/Chest: no respiratory distress Cardiovascular: normal rate, regular rhythm Abdomen: normal bowel sounds, soft, non tender, non distended Microbiology Date/Time Source Procedure Growth Status 03/05/16 11:15 Blood Blood Culture - Preliminary NO GROWTH AFTER 24 HOURS Resulted 03/05/16 11:00 Blood Blood Culture - Preliminary NO GROWTH AFTER 24 HOURS Resulted 03/05/16 14:00 Urine,Clean Catch Urine Culture - Final Staphylococcus Aureus Complete 03/04/16 20:03 Foot Right Gram Stain - Final Resulted 03/04/16 20:03 Wound Culture - Preliminary Gram Negative Bacillus 1 Staphylococcus Aureus Resulted Laboratory Tests Test 03/07/16 10:05 White Blood Count 26.3 K/UL (4.8-10.8) *H Red Blood Count 4.74 M/UL (4.70-6.10) Hemoglobin 12.9 G/DL (14.2-18.0) L Hematocrit 40.1 % (42.0-52.0) L Mean Corpuscular Volume 85 FL (80-99) Mean Corpuscular Hemoglobin 27.2 PG (27.0-31.0) Mean Corpuscular Hemoglobin Concent 32.1 G/DL (32.0-36.0) Red Cell Distribution Width 13.0 % (11.6-14.8) Platelet Count 275 K/UL (150-450) Mean Platelet Volume 8.5 FL (6.5-10.1) Neutrophils (%) (Auto) % (45.0-75.0) Lymphocytes (%) (Auto) % (20.0-45.0) Monocytes (%) (Auto) % (1.0-10.0) Eosinophils (%) (Auto) % (0.0-3.0) Basophils (%) (Auto) % (0.0-2.0) Differential Total Cells Counted 100 Neutrophils % (Manual) 88 % (45-75) H Lymphocytes % (Manual) 6 % (20-45) L Monocytes % (Manual) 3 % (1-10) Eosinophils % (Manual) 2 % (0-3) Basophils % (Manual) 0 % (0-2) Band Neutrophils 1 % (0-8) Platelet Estimate Adequate Platelet Morphology Normal Red Blood Cell Morphology Normal Sodium Level 132 mEQ/L (135-145) L Potassium Level 3.5 mEQ/L (3.4-4.9) Chloride Level 91 mEQ/L (98-107) L Carbon Dioxide Level 26 mEQ/L (20-30) Anion Gap 15 (5-15) Blood Urea Nitrogen 9 mg/dL (7-23) Creatinine 0.5 mg/dL (0.7-1.2) L Estimat Glomerular Filtration Rate > 60 mL/min (>60) Glucose Level 110 mg/dL (74-106) H Calcium Level 8.7 mg/dL (8.6-10.2) Current Medications Medications (Trade) Dose Ordered Sig/Dmitriy Route PRN Reason Start Time Stop Time Status Last Admin Dose Admin Acetaminophen (Tylenol) 650 mg Q4H PRN ORAL fever 03/04/16 16:00 04/03/16 15:59 03/06/16 05:55 Al Hydroxide/Mg Hydroxide (Mylanta II) 30 ml Q6H PRN ORAL dyspepsia 03/04/16 16:00 04/03/16 15:59 Cefepime HCl 1 gm/ Dextrose 50 ml @ 100 mls/hr EVERY 12 HOURS IVPB 03/05/16 21:00 03/12/16 20:59 03/07/16 09:02 Clonidine HCl (Catapres) 0.1 mg Q4H PRN ORAL For High Blood Pressure 03/05/16 08:15 04/04/16 08:14 Dextrose (Dextrose 50%) STAT PRN IV Hypoglycemia 03/04/16 16:00 04/03/16 15:59 Gabapentin 300 mg 300 mg THREE TIMES A DAY ORAL 03/06/16 10:00 04/05/16 09:59 03/07/16 17:46 Heparin Sodium (Porcine) (Heparin 5000 units/ml) 5,000 units EVERY 12 HOURS SUBQ 03/04/16 21:00 04/03/16 20:59 03/07/16 09:06 Hydromorphone HCl/ Sodium Chloride (Dilaudid/Sodium Chloride 50ml bag) 51 ml @ 204 mls/hr EVERY 3 HOURS PRN IVPB Severe Pain (Pain Scale 7-10) 03/07/16 18:00 03/14/16 17:59 03/07/16 18:20 Lorazepam (Ativan 2mg/ml 1ml) 0.5 mg Q4H PRN IV For Anxiety 03/04/16 16:00 03/11/16 15:59 03/06/16 02:06 Morphine Sulfate (MS Contin) 30 mg EVERY 12 HOURS ORAL 03/06/16 10:00 03/13/16 09:59 03/07/16 09:03 Ondansetron HCl (Zofran) 4 mg Q6H PRN IVP Nausea & Vomiting 03/04/16 16:00 04/03/16 15:59 03/06/16 04:03 Polyethylene Glycol (Miralax) 17 gm HSPRN PRN ORAL Constipation 03/04/16 16:00 04/03/16 15:59 Tamsulosin HCl (Flomax) 0.4 mg DAILY ORAL 03/05/16 09:00 04/04/16 08:59 03/07/16 09:02 Vancomycin HCl 1 ea 1 ea DAILY PRN MISC Per rx protocol 03/05/16 12:15 04/04/16 12:14 Vancomycin HCl/ Dextrose (Vancomycin/D5W 250ml) 300 ml @ 150 mls/hr Q8H IVPB 03/05/16 14:00 03/10/16 13:59 03/07/16 14:41 Zolpidem Tartrate (Ambien) 5 mg HSPRN PRN ORAL Insomnia 03/04/16 16:00 04/03/16 15:59 03/07/16 01:17 LINDSAY ABARCA Mar 07, 2016 18:41
[2016-03-07 20:00] VITALS: BP 145/80
[2016-03-08] VITALS: BP 122/80
[2016-03-08] MEDS: HYDROmorphone 2 MG in NS 50 ML IVPB PRN ×5 (00:06→20:46)
[2016-03-08] MEDS: Zolpidem 5mg tab ORAL PRN (00:07)
[2016-03-08 04:00] VITALS: BP 127/69
[2016-03-08] MEDS: Vancomycin 1.5 GM/D5W 300 ML IVPB SCH ×8 (06:29→14:00)
--- NOTE | 2016-03-08 08:24 | General Progress Note ---
Assessment/Plan Assessment/Plan (1) Lumbar Herniated Disc (2) Lumbar DDD (3) Lumbar Spondylosis (4) Lumbar Radiculopathy (5) MJ OA and Pain (6) Left hip fx s/p fall (7) Narcotics Dependency We will continue Morphine ER, Dilaudid and Neurontin. Pt was d/w Dr. Das and concurred. Subjective Date patient seen: Mar 08, 2016 Time patient seen: 08:00 - am Allergies: Coded Allergies: No Known Allergies (Unverified , 02/08/13) Subjective Constitutional: Reports: weakness, Denies: chills, diaphoresis, fever, malaise , no symptoms, other HEENT: Denies: blurred vision, double vision, ear discharge, ear pain, eye pain , mouth pain, mouth swelling, no symptoms, nose congestion, nose pain, other, tearing, throat pain, throat swelling Cardiovascular: Denies: chest pain, edema, irregular heart rate, lightheadedness, no symptoms, other, palpitations, syncope Respiratory: Denies: SOB at rest, SOB with excertion, cough, no symptoms, orthopnea, other, shortness of breath, sputum, stridor, wheezing Gastrointestinal/Abdominal: Reports: nausea, Denies: abdomen distended, abdominal pain, black stools, blood in stool, constipated, diarrhea, difficulty swallowing, no symptoms, other, poor appetite, poor fluid intake, rectal bleeding, tarry stools, vomiting Genitourinary: Denies: burning, discharge, flank pain, frequency, hematuria, incontinence, no symptoms, other, pain, urgency Neurologic/Psychiatric: Reports: numbness, weakness, Denies: anxiety, depressed , emotional problems, headache, no symptoms, other, paresthesia, pre-existing deficit, seizure, tingling, tremors Endocrine: Denies: excessive sweating, flushing, increased hunger, increased thirst, increased urine, intolerance to cold, intolerance to heat, no symptoms, other, unexplained weight gain, unexplained weight loss Hematologic/Lymphatic: Denies: anemia, easy bleeding, easy bruising, no symptoms, other Subjective: He continues to have pain which is a 8/10 reduced to a 5/10. worse with movement and is waiting for surgery. Objective Last 24 Hour Vital Signs Date Time Temp Pulse Resp B/P Pulse Ox O2 Delivery O2 Flow Rate FiO2 03/08/16 05:50 98.2 03/08/16 04:00 97.9 74 19 127/69 96 Room Air 03/08/16 00:00 98.4 78 18 122/80 96 Room Air 03/07/16 20:00 98.2 79 20 145/80 95 Room Air 03/07/16 18:22 97.3 84 20 118/72 99 Room Air 03/07/16 12:00 100.2 85 19 143/82 95 Room Air Intake and Output 03/07/16 03/08/16 19:00 07:00 Intake Total 291 ml 452 ml Output Total 700 ml 1200 ml Balance -409 ml -748 ml Intake Oral 240 ml IV Total 51 ml 452 ml Output Urine Total 700 ml 300 ml Gastric Drainage Total 900 ml # Voids 1 Laboratory Tests 03/07/16 10:05: White Blood Count 26.3*H, Red Blood Count 4.74, Hemoglobin 12.9L, Hematocrit 40.1L, Mean Corpuscular Volume 85, Mean Corpuscular Hemoglobin 27.2, Mean Corpuscular Hemoglobin Concent 32.1, Red Cell Distribution Width 13.0, Platelet Count 275, Mean Platelet Volume 8.5, Neutrophils (%) (Auto) , Lymphocytes (%) ( Auto) , Monocytes (%) (Auto) , Eosinophils (%) (Auto) , Basophils (%) (Auto) , Differential Total Cells Counted 100, Neutrophils % (Manual) 88H, Lymphocytes % (Manual) 6L, Monocytes % (Manual) 3, Eosinophils % (Manual) 2, Basophils % ( Manual) 0, Band Neutrophils 1, Platelet Estimate Adequate, Platelet Morphology Normal, Red Blood Cell Morphology Normal, Sodium Level 132L, Potassium Level 3.5 , Chloride Level 91L, Carbon Dioxide Level 26, Anion Gap 15, Blood Urea Nitrogen 9, Creatinine 0.5L, Estimat Glomerular Filtration Rate > 60, Glucose Level 110H, Calcium Level 8.7 Height (Feet): 6 Height (Inches): 1.00 Weight (Pounds): 285 Objective General Appearance: no apparent distress, alert EENT: PERRL/EOMI, normal ENT inspection Neck: non-tender, normal alignment Cardiovascular: normal rate, regular rhythm Respiratory/Chest: chest wall non-tender, decreased breath sounds Abdomen: non tender Extremities: inflammation, swelling - tenderness to palpation of left hip Neurologic: alert, oriented x 3 LESLIE BRAY Mar 08, 2016 08:24
[2016-03-08 08:35] VITALS: BP 139/78
[2016-03-08] MEDS: Heparin 5000 units/ml inj SUBQ SCH ×2 (08:56→20:52)
[2016-03-08] MEDS: MS Contin 30mg tab ORAL SCH ×2 (08:57→21:41)
[2016-03-08] MEDS: Tamsulosin 0.4mg cap ORAL SCH (08:58)
--- NOTE | 2016-03-08 09:01 | Diagnostic Imaging Report ---
Indications: Bilateral testicular pain and swelling Technique: Trans-scrotal real-time grayscale and duplex Doppler imaging was performed Findings: Comparison: 05/23/2009 Right testis 4.1 x 3 x 2.9 cm. diffusely heterogeneous parenchymal echogenicity again noted.. Right epididymis enlarged, heterogeneous, contains 5 mm cyst. Both demonstrate normal blood flow on duplex Doppler imaging. Normal adjacent fluid. Small varicocele. Scrotal wall edema. Left testis 5 x 3.3 x 3.5 cm. Diffusely heterogeneous parenchymal echogenicity again noted. Contains 2 mm cyst in the periphery. Questionable second 8 mm circumscribed hypoechoic focus in opposite periphery. Left epididymis enlarged, heterogeneous. Both demonstrate increased blood flow on duplex Doppler imaging. Noadjacent fluid. Moderate varicocele. Wall edema Impression: Right-sided findings compatible with persistent, chronic epididymo-orchitis with suggestion of mild testicular atrophy Left-sided findings compatible with persistent versus recurrent epididymo-orchitis, likely acute on chronic Small right epididymal, left testicular cysts Second hypoechoic nodule in the left testis questionable significance. Neoplasm not excludable. Bilateral varicoceles, left greater than right
[2016-03-08 11:36] LABS: MEAN CORPUSCULAR HEMOGLOBIN 26.3 PG (27.0-31.0); MEAN CORPUSCULAR HGB CONC 31.2 G/DL (32.0-36.0); MEAN CORPUSCULAR VOLUME 84 FL (80-99); MEAN PLATELET VOLUME 8.1 FL (6.5-10.1); PLATELET COUNT 312 K/UL (150-450); RED BLOOD COUNT 4.94 M/UL (4.70-6.10); RED CELL DISTRIBUTION WIDTH 13.5 % (11.6-14.8); WHITE BLOOD COUNT 19.7 K/UL (4.8-10.8)
[2016-03-08 12:04] VITALS: BP 136/72
[2016-03-08 12:15] LABS: BAND NEUTROPHILS % (MANUAL) 5 % (0-8); BASOPHILS % (MANUAL) 0 % (0-2); EOSINOPHILS % (MANUAL) 2 % (0-3); HYPOCHROMASIA 1+; LYMPHOCYTES % (MANUAL) 3 % (20-45); NEUTROPHILS % (MANUAL) 75 % (45-75); PLATELET ESTIMATE ADEQUATE; PLATELET MORPHOLOGY NORMAL; TOTAL CELLS COUNTED 100
[2016-03-08 12:30] LABS: OTHERS PATHOLOGIST COMMENT
--- NOTE | 2016-03-08 14:12 | Consultation ---
History of Present Illness General Date patient seen: Mar 08, 2016 Time patient seen: 13:30 Chief Complaint: scrotal swelling Present Illness HPI 61 yo male with hx of BPH, UTI, admitted for multiple medical issues including but not limited to cellulitis of foot. Noted acute onset of left scrotal swelling and pain. Had epididymitis before responded to abx. denies fever/ chills/nausea/vomiting Allergies: Coded Allergies: No Known Allergies (Unverified , 02/08/13) Medication History Scheduled Tamsulosin HCl (Flomax), 0.4 MG ORAL DAILY, (Reported) Scheduled PRN Hydromorphone HCl (Dilaudid), 8 MG ORAL THREE TIMES A DAY PRN for For Pain, ( Reported) Methadone HCl (Methadone HCl), 10 MG PO Q6HR PRN for For Pain, (Reported) Oxymorphone Hcl (Opana Er), 40 MG ORAL Q6HR PRN for For Pain, (Reported) Tetrahydrz/Dext 70/Peg 400/Pvp (Eye Drops), 15 ML OP TID PRN for Dry Eyes, ( Reported) Discontinued Medications Trimethoprim/Sulfamethoxazole 160/800* (Bactrim Ds Tablet*), 1 TAB ORAL TWICE A DAY Discontinued Reason: Therapy completed Patient History History Provided By: Patient Healthcare decision maker Resuscitation status Advanced Directive on File Past Medical/Surgical History Past Medical/Surgical History: (1) Cellulitis of right foot (2) Venous stasis of lower extremity (3) Pain in limb (4) OA (osteoarthritis) of knee (5) Drug abuse Review of Systems Constitutional: Reports: weakness Eye: Denies: acuity changes, blurred vision, discharge, double vision, eye pain , no symptoms, nose congestion, nose pain, other, see HPI, tearing ENT: Denies: ear discharge, ear pain, hearing loss, mouth pain, nasal discharge , no symptoms, nose congestion, nose pain, other, see HPI, throat pain, throat swelling Respiratory: Denies: CARDONA, cough, no symptoms, orthopnea, other, see HPI, shortness of breath, sputum, stridor, wheezing Cardiovascular: Denies: PND, chest pain, edema, no symptoms, other, palpitations, see HPI, syncope Gastrointestinal: Denies: abdominal pain, constipation, diarrhea, hematemesis, melena, nausea, no symptoms, other, see HPI, vomiting Genitourinary: Reports: other - scrotal pain Musculoskeletal: Denies: back pain, gout, joint pain, joint swelling, muscle pain, muscle stiffness, no symptoms, other, see HPI Skin: Denies: change in color, change in hair/nails, dryness, lesions, no symptoms, other, rash, see HPI Psychiatric: Denies: HI, SI, anxiety, depressed feelings, emotional problems, hallucinations, no symptoms, other, prior hx, see HPI Neurological: Denies: dizziness, focal weakness, headache, no symptoms, numbness, other, paresthesia, see HPI, seizure, syncope, tingling, tremors Endocrine: Denies: excessive sweating, flushing, increased thirst, increased urine, intolerance to temperature, no symptoms, other, see HPI, unexplained weight loss Hematologic/Lymphatic: Denies: anemia, blood clots, diathesis, easy bleeding, easy bruising, no symptoms, other, see HPI, swollen glands Physical Exam General Appearance: WD/WN HEENT: atraumatic Cardiovascular/Chest: normal rate, regular rhythm Abdomen: non tender, soft Genitourinary/Rectal: other - increased TTP on left testicle, firm Neurologic: alert, oriented x 3 Last 24 Hour Vital Signs Date Time Temp Pulse Resp B/P Pulse Ox O2 Delivery O2 Flow Rate FiO2 03/08/16 12:04 98.0 72 20 136/72 96 Room Air 03/08/16 08:35 97.8 75 20 139/78 96 Room Air 03/08/16 05:50 98.2 03/08/16 04:00 97.9 74 19 127/69 96 Room Air 03/08/16 00:00 98.4 78 18 122/80 96 Room Air 03/07/16 20:00 98.2 79 20 145/80 95 Room Air 03/07/16 18:22 97.3 84 20 118/72 99 Room Air Intake and Output 03/07/16 03/08/16 19:00 07:00 Intake Total 291 ml 452 ml Output Total 700 ml 1200 ml Balance -409 ml -748 ml Intake Oral 240 ml IV Total 51 ml 452 ml Output Urine Total 700 ml 300 ml Gastric Drainage Total 900 ml # Voids 1 Laboratory Tests Test 03/08/16 11:30 White Blood Count 19.7 K/UL (4.8-10.8) H Red Blood Count 4.94 M/UL (4.70-6.10) Hemoglobin 13.0 G/DL (14.2-18.0) L Hematocrit 41.7 % (42.0-52.0) L Mean Corpuscular Volume 84 FL (80-99) Mean Corpuscular Hemoglobin 26.3 PG (27.0-31.0) L Mean Corpuscular Hemoglobin Concent 31.2 G/DL (32.0-36.0) L Red Cell Distribution Width 13.5 % (11.6-14.8) Platelet Count 312 K/UL (150-450) Mean Platelet Volume 8.1 FL (6.5-10.1) Neutrophils (%) (Auto) % (45.0-75.0) Lymphocytes (%) (Auto) % (20.0-45.0) Monocytes (%) (Auto) % (1.0-10.0) Eosinophils (%) (Auto) % (0.0-3.0) Basophils (%) (Auto) % (0.0-2.0) Differential Total Cells Counted 100 Neutrophils % (Manual) 75 % (45-75) Lymphocytes % (Manual) 3 % (20-45) L Monocytes % (Manual) 15 % (1-10) H Eosinophils % (Manual) 2 % (0-3) Basophils % (Manual) 0 % (0-2) Band Neutrophils 5 % (0-8) Platelet Estimate Adequate Platelet Morphology Normal Hypochromasia 1+ Height (Feet): 6 Height (Inches): 1.00 Weight (Pounds): 285 Medications Current Medications Medications (Trade) Dose Ordered Sig/Dmitriy Route PRN Reason Start Time Stop Time Status Last Admin Dose Admin Acetaminophen (Tylenol) 650 mg Q4H PRN ORAL fever 03/04/16 16:00 04/03/16 15:59 03/06/16 05:55 Al Hydroxide/Mg Hydroxide (Mylanta II) 30 ml Q6H PRN ORAL dyspepsia 03/04/16 16:00 04/03/16 15:59 Cefepime HCl 1 gm/ Dextrose 50 ml @ 100 mls/hr EVERY 12 HOURS IVPB 03/05/16 21:00 03/12/16 20:59 03/08/16 08:59 Clonidine HCl (Catapres) 0.1 mg Q4H PRN ORAL For High Blood Pressure 03/05/16 08:15 04/04/16 08:14 Dextrose (Dextrose 50%) STAT PRN IV Hypoglycemia 03/04/16 16:00 04/03/16 15:59 Gabapentin 300 mg 300 mg THREE TIMES A DAY ORAL 03/06/16 10:00 04/05/16 09:59 03/08/16 13:48 Heparin Sodium (Porcine) (Heparin 5000 units/ml) 5,000 units EVERY 12 HOURS SUBQ 03/04/16 21:00 04/03/16 20:59 03/08/16 08:56 Hydromorphone HCl/ Sodium Chloride (Dilaudid/Sodium Chloride 50ml bag) 51 ml @ 204 mls/hr EVERY 3 HOURS PRN IVPB Severe Pain (Pain Scale 7-10) 03/07/16 18:00 03/14/16 17:59 03/08/16 10:21 Lorazepam (Ativan 2mg/ml 1ml) 0.5 mg Q4H PRN IV For Anxiety 03/04/16 16:00 03/11/16 15:59 03/06/16 02:06 Morphine Sulfate (MS Contin) 30 mg EVERY 12 HOURS ORAL 03/06/16 10:00 03/13/16 09:59 03/08/16 08:57 Ondansetron HCl (Zofran) 4 mg Q6H PRN IVP Nausea & Vomiting 03/04/16 16:00 04/03/16 15:59 03/06/16 04:03 Polyethylene Glycol (Miralax) 17 gm HSPRN PRN ORAL Constipation 03/04/16 16:00 04/03/16 15:59 Tamsulosin HCl (Flomax) 0.4 mg DAILY ORAL 03/05/16 09:00 04/04/16 08:59 03/08/16 08:58 Vancomycin HCl 1 ea 1 ea DAILY PRN MISC Per rx protocol 03/05/16 12:15 04/04/16 12:14 Vancomycin HCl/ Dextrose (Vancomycin/D5W 250ml) 300 ml @ 150 mls/hr Q8H IVPB 03/05/16 14:00 03/10/16 13:59 03/08/16 13:51 Zolpidem Tartrate (Ambien) 5 mg HSPRN PRN ORAL Insomnia 03/04/16 16:00 04/03/16 15:59 03/08/16 00:07 Objective Narrative Scrotal ultrasound: acute on chronic epididymo-orchitis. left more than right. no abscess, no hydrocele Assessment/Plan Status: stable Assessment/Plan 61 yo male with likely UTI mediated left epididymitis. UTI positive for MSSA. On appropriate abx. recommend 2 weeks culture specific abx, ice pack to area. 1. abx for 2 weeks depending on MSSA culture sensitivities 2. F/U 2 weeks office visit. 3. ice packs prn Teodoro Gupta M.D. Mar 08, 2016 14:12
[2016-03-08 16:00] VITALS: BP 137/109
--- NOTE | 2016-03-08 17:08 | Infectious Diseases Prog Note ---
Assessment/Plan Assessment/Plan ASSESSMENT: 61 y/o male with: Recurrent bilateral epididymitis - urology following - US: Right-sided findings compatible with persistent, chronic epididymo- orchitis, Left-sided findings compatible with persistent versus recurrent epididymo-orchitis, likely acute on chronic. Small right epididymal, left testicular cysts. Second hypoechoic nodule in the left testis questionable significance. Neoplasm not excludable. Bilateral varicoceles, left greater than right MSSA UTI Sepsis Fever - afebrile >24hrs Leukocytosis - improving Acute left femoral neck fracture - pending CATIA Chronic pain syndrome NKDA Full Code PLAN: de-escalate Cefepime and Vanco to ancef ABX d# 4 / based on cultures. Ok to complete course with PO keflex at discharge clear for CATIA tomorrow from ID standpoint outpt urology follow up f/u final cultures Monitor CBC, temperatures Monitor BMP d/w Dr. Cartwright Subjective Allergies: Coded Allergies: No Known Allergies (Unverified , 02/08/13) Subjective fevers resolved, WBC improved. c/o pain seen by urology Objective Vital Signs Last 24 Hour Vital Signs Date Time Temp Pulse Resp B/P Pulse Ox O2 Delivery O2 Flow Rate FiO2 03/08/16 16:00 97.7 75 22 137/109 95 Room Air 03/08/16 12:04 98.0 72 20 136/72 96 Room Air 03/08/16 08:35 97.8 75 20 139/78 96 Room Air 03/08/16 05:50 98.2 03/08/16 04:00 97.9 74 19 127/69 96 Room Air 03/08/16 00:00 98.4 78 18 122/80 96 Room Air 03/07/16 20:00 98.2 79 20 145/80 95 Room Air 03/07/16 18:22 97.3 84 20 118/72 99 Room Air Height (Feet): 6 Height (Inches): 1.00 Weight (Pounds): 285 General Appearance: no acute distress Respiratory/Chest: no respiratory distress Cardiovascular: normal rate, regular rhythm Abdomen: normal bowel sounds, soft, non tender, non distended Genitourinary: other - scrotal swelling Laboratory Tests Test 03/08/16 11:30 White Blood Count 19.7 K/UL (4.8-10.8) H Red Blood Count 4.94 M/UL (4.70-6.10) Hemoglobin 13.0 G/DL (14.2-18.0) L Hematocrit 41.7 % (42.0-52.0) L Mean Corpuscular Volume 84 FL (80-99) Mean Corpuscular Hemoglobin 26.3 PG (27.0-31.0) L Mean Corpuscular Hemoglobin Concent 31.2 G/DL (32.0-36.0) L Red Cell Distribution Width 13.5 % (11.6-14.8) Platelet Count 312 K/UL (150-450) Mean Platelet Volume 8.1 FL (6.5-10.1) Neutrophils (%) (Auto) % (45.0-75.0) Lymphocytes (%) (Auto) % (20.0-45.0) Monocytes (%) (Auto) % (1.0-10.0) Eosinophils (%) (Auto) % (0.0-3.0) Basophils (%) (Auto) % (0.0-2.0) Differential Total Cells Counted 100 Neutrophils % (Manual) 75 % (45-75) Lymphocytes % (Manual) 3 % (20-45) L Monocytes % (Manual) 15 % (1-10) H Eosinophils % (Manual) 2 % (0-3) Basophils % (Manual) 0 % (0-2) Band Neutrophils 5 % (0-8) Platelet Estimate Adequate Platelet Morphology Normal Hypochromasia 1+ Current Medications Medications (Trade) Dose Ordered Sig/Dmitriy Route PRN Reason Start Time Stop Time Status Last Admin Dose Admin Acetaminophen (Tylenol) 650 mg Q4H PRN ORAL fever 03/04/16 16:00 04/03/16 15:59 03/06/16 05:55 Al Hydroxide/Mg Hydroxide (Mylanta II) 30 ml Q6H PRN ORAL dyspepsia 03/04/16 16:00 04/03/16 15:59 Cefepime HCl 1 gm/ Dextrose 50 ml @ 100 mls/hr EVERY 12 HOURS IVPB 03/05/16 21:00 03/12/16 20:59 03/08/16 08:59 Clonidine HCl (Catapres) 0.1 mg Q4H PRN ORAL For High Blood Pressure 03/05/16 08:15 04/04/16 08:14 Dextrose (Dextrose 50%) STAT PRN IV Hypoglycemia 03/04/16 16:00 04/03/16 15:59 Gabapentin 300 mg 300 mg THREE TIMES A DAY ORAL 03/06/16 10:00 04/05/16 09:59 03/08/16 13:48 Heparin Sodium (Porcine) (Heparin 5000 units/ml) 5,000 units EVERY 12 HOURS SUBQ 03/04/16 21:00 04/03/16 20:59 03/08/16 08:56 Hydromorphone HCl/ Sodium Chloride (Dilaudid/Sodium Chloride 50ml bag) 51 ml @ 204 mls/hr EVERY 3 HOURS PRN IVPB Severe Pain (Pain Scale 7-10) 03/07/16 18:00 03/14/16 17:59 03/08/16 10:21 Lorazepam (Ativan 2mg/ml 1ml) 0.5 mg Q4H PRN IV For Anxiety 03/04/16 16:00 03/11/16 15:59 03/06/16 02:06 Morphine Sulfate (MS Contin) 30 mg EVERY 12 HOURS ORAL 03/06/16 10:00 03/13/16 09:59 03/08/16 08:57 Ondansetron HCl (Zofran) 4 mg Q6H PRN IVP Nausea & Vomiting 03/04/16 16:00 04/03/16 15:59 03/06/16 04:03 Polyethylene Glycol (Miralax) 17 gm HSPRN PRN ORAL Constipation 03/04/16 16:00 04/03/16 15:59 Tamsulosin HCl (Flomax) 0.4 mg DAILY ORAL 03/05/16 09:00 04/04/16 08:59 03/08/16 08:58 Vancomycin HCl 1 ea 1 ea DAILY PRN MISC Per rx protocol 03/05/16 12:15 04/04/16 12:14 Vancomycin HCl/ Dextrose (Vancomycin/D5W 250ml) 300 ml @ 150 mls/hr Q8H IVPB 03/05/16 14:00 03/10/16 13:59 03/08/16 06:29 Zolpidem Tartrate (Ambien) 5 mg HSPRN PRN ORAL Insomnia 03/04/16 16:00 04/03/16 15:59 03/08/16 00:07 LINDSAY ABARCA 10, 2017 17:08
--- NOTE | 2016-03-08 17:56 | Pulmonology Progress Note ---
Assessment/Plan Problems: (1) Fracture of femoral neck, left (2) Sepsis (3) Chronic epididymitis (4) Chronic pain (5) Scrotal fullness Assessment/Plan IV antibiotics check wbc, decreasing pain management urology consult and US of scrotum reviewed Pt is cleared from ID and medicine point of view to have surgery. Subjective ROS Limited/Unobtainable: No Interval Events: feeling better Constitutional: Reports: no symptoms HEENT: Repors: no symptoms Respiratory: Reports: no symptoms Allergies: Coded Allergies: No Known Allergies (Unverified , 02/08/13) Objective Last 24 Hour Vital Signs Date Time Temp Pulse Resp B/P Pulse Ox O2 Delivery O2 Flow Rate FiO2 03/08/16 16:00 97.7 75 22 137/109 95 Room Air 03/08/16 12:04 98.0 72 20 136/72 96 Room Air 03/08/16 08:35 97.8 75 20 139/78 96 Room Air 03/08/16 05:50 98.2 03/08/16 04:00 97.9 74 19 127/69 96 Room Air 03/08/16 00:00 98.4 78 18 122/80 96 Room Air 03/07/16 20:00 98.2 79 20 145/80 95 Room Air 03/07/16 18:22 97.3 84 20 118/72 99 Room Air Intake and Output 03/07/16 03/08/16 19:00 07:00 Intake Total 291 ml 452 ml Output Total 700 ml 1200 ml Balance -409 ml -748 ml Intake Oral 240 ml IV Total 51 ml 452 ml Output Urine Total 700 ml 300 ml Gastric Drainage Total 900 ml # Voids 1 General Appearance: WD/WN HEENT: normocephalic Respiratory/Chest: chest wall non-tender Cardiovascular: normal peripheral pulses, regular rhythm Abdomen: normal bowel sounds, soft, non tender Extremities: no cyanosis Skin: no rash Neurologic/Psychiatric: 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 normal, no motor/sensory deficits Laboratory Tests 03/08/16 11:30: White Blood Count 19.7H, Red Blood Count 4.94, Hemoglobin 13.0L, Hematocrit 41.7L, Mean Corpuscular Volume 84, Mean Corpuscular Hemoglobin 26.3L, Mean Corpuscular Hemoglobin Concent 31.2L, Red Cell Distribution Width 13.5, Platelet Count 312, Mean Platelet Volume 8.1, Neutrophils (%) (Auto) , Lymphocytes (%) (Auto) , Monocytes (%) (Auto) , Eosinophils (%) (Auto) , Basophils (%) (Auto) , Differential Total Cells Counted 100, Neutrophils % ( Manual) 75, Lymphocytes % (Manual) 3L, Monocytes % (Manual) 15H, Eosinophils % ( Manual) 2, Basophils % (Manual) 0, Band Neutrophils 5, Platelet Estimate Adequate, Platelet Morphology Normal, Hypochromasia 1+ Current Medications Medications (Trade) Dose Ordered Sig/Dmitriy Route PRN Reason Start Time Stop Time Status Last Admin Dose Admin Acetaminophen (Tylenol) 650 mg Q4H PRN ORAL fever 03/04/16 16:00 04/03/16 15:59 03/06/16 05:55 Al Hydroxide/Mg Hydroxide (Mylanta II) 30 ml Q6H PRN ORAL dyspepsia 03/04/16 16:00 04/03/16 15:59 Cefazolin Sodium/ Dextrose (Ancef/D5W 50ml) 50 ml @ 100 mls/hr Q8HR IVPB 03/08/16 22:00 03/15/16 21:59 UNV Clonidine HCl (Catapres) 0.1 mg Q4H PRN ORAL For High Blood Pressure 03/05/16 08:15 04/04/16 08:14 Dextrose (Dextrose 50%) STAT PRN IV Hypoglycemia 03/04/16 16:00 04/03/16 15:59 Gabapentin 300 mg 300 mg THREE TIMES A DAY ORAL 03/06/16 10:00 04/05/16 09:59 03/08/16 17:30 Heparin Sodium (Porcine) (Heparin 5000 units/ml) 5,000 units EVERY 12 HOURS SUBQ 03/04/16 21:00 04/03/16 20:59 03/08/16 08:56 Hydromorphone HCl 2 mg/Sodium Chloride 51 ml @ 204 mls/hr EVERY 3 HOURS PRN IVPB Severe Pain (Pain Scale 7-10) 03/07/16 18:00 03/14/16 17:59 03/08/16 17:31 Lorazepam (Ativan 2mg/ml 1ml) 0.5 mg Q4H PRN IV For Anxiety 03/04/16 16:00 03/11/16 15:59 03/06/16 02:06 Morphine Sulfate (MS Contin) 30 mg EVERY 12 HOURS ORAL 03/06/16 10:00 03/13/16 09:59 03/08/16 08:57 Ondansetron HCl (Zofran) 4 mg Q6H PRN IVP Nausea & Vomiting 03/04/16 16:00 04/03/16 15:59 03/06/16 04:03 Polyethylene Glycol (Miralax) 17 gm HSPRN PRN ORAL Constipation 03/04/16 16:00 04/03/16 15:59 Tamsulosin HCl (Flomax) 0.4 mg DAILY ORAL 03/05/16 09:00 04/04/16 08:59 03/08/16 08:58 Zolpidem Tartrate (Ambien) 5 mg HSPRN PRN ORAL Insomnia 03/04/16 16:00 04/03/16 15:59 03/08/16 00:07 DIEGO WALKER Mar 08, 2016 17:56
--- NOTE | 2016-03-08 18:05 | Cardiology Report ---
APPROVED REPORT EKG Measurement Heart [id number] [id number] Normal sinus rhythm Normal ECG
[2016-03-08 20:00] VITALS: BP 137/71
[2016-03-09 00:04] VITALS: BP 133/70
[2016-03-09] MEDS: HYDROmorphone 2 MG in D5W 50 ML IVPB PRN ×3 (00:10→06:23)
[2016-03-09] MEDS: Zolpidem 5mg tab ORAL PRN (00:12)
[2016-03-09 04:00] VITALS: BP 138/76
[2016-03-09 08:32] VITALS: BP 129/64
[2016-03-09] MEDS: Tamsulosin 0.4mg cap ORAL SCH (08:58)
[2016-03-09] MEDS: Heparin 5000 units/ml inj SUBQ SCH ×2 (09:03→20:54)
[2016-03-09] MEDS: MS Contin 30mg tab ORAL SCH ×2 (10:42→20:52)
[2016-03-09 11:54] VITALS: BP 132/65
[2016-03-09] MEDS: HYDROmorphone 4mg tab ORAL PRN ×3 (12:35→23:54)
--- NOTE | 2016-03-09 12:56 | Urology Progress Note ---
Assessment/Plan Status: stable Assessment/Plan left epididymitis. being treated appropriately. Patient has UTI noted on culture. 1. continue abx for 2 weeks Subjective Date patient seen: Mar 09, 2016 Time patient seen: 12:54 Constitutional: Denies: chills, diaphoresis, fever, malaise, no symptoms, other , weakness HEENT: Denies: blurred vision, double vision, ear discharge, ear pain, eye pain , mouth pain, mouth swelling, no symptoms, nose congestion, nose pain, other, tearing, throat pain, throat swelling Cardiovascular: Denies: chest pain, edema, irregular heart rate, lightheadedness, no symptoms, other, palpitations, syncope Respiratory: Denies: SOB at rest, SOB with excertion, cough, no symptoms, orthopnea, other, shortness of breath, sputum, stridor, wheezing Gastrointestinal/Abdominal: Denies: abdomen distended, abdominal pain, black stools, blood in stool, constipated, diarrhea, difficulty swallowing, nausea, no symptoms, other, poor appetite, poor fluid intake, rectal bleeding, tarry stools, vomiting Allergies: Coded Allergies: No Known Allergies (Unverified , 02/08/13) Subjective no change in scrotal symptoms Objective Last 24 Hour Vital Signs Date Time Temp Pulse Resp B/P Pulse Ox O2 Delivery O2 Flow Rate FiO2 03/09/16 11:54 98.4 75 20 132/65 96 Room Air 03/09/16 11:41 98.2 03/09/16 08:32 98.2 78 20 129/64 96 Room Air 03/09/16 06:53 97.9 03/09/16 04:00 97.9 75 18 138/76 96 Room Air 03/09/16 00:04 97.8 69 20 133/70 98 Room Air 03/08/16 20:00 97.7 70 23 137/71 98 Room Air 03/08/16 16:00 97.7 75 22 137/109 95 Room Air Intake and Output 03/08/16 03/09/16 19:00 07:00 Intake Total 360 ml 1178 ml Output Total 1050 ml 1790 ml Balance -690 ml -612 ml Intake Oral 360 ml 1025 ml IV Total 153 ml Output Urine Total 1050 ml 1790 ml # Voids 3 Height (Feet): 6 Height (Inches): 1.00 Weight (Pounds): 285 Genitourinary/Rectal: other - left hemiscrotum, tender/firm, no change from yesterday Teodoro Gupta M.D. Mar 09, 2016 12:56
[2016-03-09 15:24] LABS: MEAN CORPUSCULAR HEMOGLOBIN 25.8 PG (27.0-31.0); MEAN CORPUSCULAR HGB CONC 30.7 G/DL (32.0-36.0); MEAN CORPUSCULAR VOLUME 84 FL (80-99); MEAN PLATELET VOLUME 7.7 FL (6.5-10.1); PLATELET COUNT 370 K/UL (150-450); RED BLOOD COUNT 4.96 M/UL (4.70-6.10); RED CELL DISTRIBUTION WIDTH 13.5 % (11.6-14.8); WHITE BLOOD COUNT 18.1 K/UL (4.8-10.8)
[2016-03-09 16:30] VITALS: BP 130/68
--- NOTE | 2016-03-09 16:40 | Infectious Diseases Prog Note ---
Assessment/Plan Assessment/Plan ASSESSMENT: 61 y/o male with: Recurrent bilateral epididymitis - urology following - US: Right-sided findings compatible with persistent, chronic epididymo- orchitis, Left-sided findings compatible with persistent versus recurrent epididymo-orchitis, likely acute on chronic. Small right epididymal, left testicular cysts. Second hypoechoic nodule in the left testis questionable significance. Neoplasm not excludable. Bilateral varicoceles, left greater than right MSSA UTI Chronic right ankle, bilateral hallux ulcers, not grossly infected - WCx MSSA, qS-PSA = colonizers Sepsis Fever - resolved Leukocytosis - improving Acute left femoral neck fracture - pending CATIA Chronic pain syndrome NKDA Full Code PLAN: continue ancef d# 2 ( ABX d# ). Ok to complete course with PO keflex at discharge ( 03/08 SP Cefepime and Vancod# 4 ) clear for CATIA from ID standpoint outpt urology follow up f/u final cultures Monitor CBC, temperatures Monitor BMP Subjective Allergies: Coded Allergies: No Known Allergies (Unverified , 02/08/13) Subjective fevers resolved, WBC improved. c/o pain awaiting surgery Objective Vital Signs Last 24 Hour Vital Signs Date Time Temp Pulse Resp B/P Pulse Ox O2 Delivery O2 Flow Rate FiO2 03/09/16 16:30 98.2 72 20 130/68 96 Room Air 03/09/16 13:34 98.4 03/09/16 11:54 98.4 75 20 132/65 96 Room Air 03/09/16 11:41 98.2 03/09/16 08:32 98.2 78 20 129/64 96 Room Air 03/09/16 06:53 97.9 03/09/16 04:00 97.9 75 18 138/76 96 Room Air 03/09/16 00:04 97.8 69 20 133/70 98 Room Air 03/08/16 20:00 97.7 70 23 137/71 98 Room Air Height (Feet): 6 Height (Inches): 1.00 Weight (Pounds): 285 General Appearance: no acute distress Respiratory/Chest: no respiratory distress Cardiovascular: normal rate, regular rhythm Abdomen: normal bowel sounds, soft, non tender, non distended Genitourinary: other - testicular swelling, tenderness improved Laboratory Tests Test 03/09/16 14:50 White Blood Count 18.1 K/UL (4.8-10.8) H Red Blood Count 4.96 M/UL (4.70-6.10) Hemoglobin 12.8 G/DL (14.2-18.0) L Hematocrit 41.6 % (42.0-52.0) L Mean Corpuscular Volume 84 FL (80-99) Mean Corpuscular Hemoglobin 25.8 PG (27.0-31.0) L Mean Corpuscular Hemoglobin Concent 30.7 G/DL (32.0-36.0) L Red Cell Distribution Width 13.5 % (11.6-14.8) Platelet Count 370 K/UL (150-450) Mean Platelet Volume 7.7 FL (6.5-10.1) Neutrophils (%) (Auto) % (45.0-75.0) Lymphocytes (%) (Auto) % (20.0-45.0) Monocytes (%) (Auto) % (1.0-10.0) Eosinophils (%) (Auto) % (0.0-3.0) Basophils (%) (Auto) % (0.0-2.0) Neutrophils % (Manual) Pending Lymphocytes % (Manual) Pending Platelet Estimate Pending Platelet Morphology Pending Sodium Level Pending Potassium Level Pending Chloride Level Pending Carbon Dioxide Level Pending Blood Urea Nitrogen Pending Creatinine Pending Estimat Glomerular Filtration Rate Pending Glucose Level Pending Calcium Level Pending Current Medications Medications (Trade) Dose Ordered Sig/Dmitriy Route PRN Reason Start Time Stop Time Status Last Admin Dose Admin Acetaminophen (Tylenol) 650 mg Q4H PRN ORAL fever 03/04/16 16:00 04/03/16 15:59 03/06/16 05:55 Al Hydroxide/Mg Hydroxide (Mylanta II) 30 ml Q6H PRN ORAL dyspepsia 03/04/16 16:00 04/03/16 15:59 Cefazolin Sodium/ Dextrose (Ancef/D5W 50ml) 50 ml @ 100 mls/hr Q8HR IVPB 03/08/16 22:00 03/15/16 21:59 03/09/16 13:12 Clonidine HCl (Catapres) 0.1 mg Q4H PRN ORAL For High Blood Pressure 03/05/16 08:15 04/04/16 08:14 Dextrose (Dextrose 50%) STAT PRN IV Hypoglycemia 03/04/16 16:00 04/03/16 15:59 Gabapentin 300 mg 300 mg THREE TIMES A DAY ORAL 03/06/16 10:00 04/05/16 09:59 03/09/16 13:12 Heparin Sodium (Porcine) (Heparin 5000 units/ml) 5,000 units EVERY 12 HOURS SUBQ 03/04/16 21:00 04/03/16 20:59 03/09/16 09:03 Hydromorphone HCl (Dilaudid) 4 mg Q4H PRN ORAL severe pain 03/09/16 09:15 03/16/16 09:14 03/09/16 16:13 Lorazepam (Ativan 2mg/ml 1ml) 0.5 mg Q4H PRN IV For Anxiety 03/04/16 16:00 03/11/16 15:59 03/06/16 02:06 Morphine Sulfate (MS Contin) 30 mg EVERY 12 HOURS ORAL 03/06/16 10:00 03/13/16 09:59 03/09/16 10:42 Ondansetron HCl (Zofran) 4 mg Q6H PRN IVP Nausea & Vomiting 03/04/16 16:00 04/03/16 15:59 03/06/16 04:03 Polyethylene Glycol (Miralax) 17 gm HSPRN PRN ORAL Constipation 03/04/16 16:00 04/03/16 15:59 Tamsulosin HCl (Flomax) 0.4 mg DAILY ORAL 03/05/16 09:00 04/04/16 08:59 03/09/16 08:58 Zolpidem Tartrate (Ambien) 5 mg HSPRN PRN ORAL Insomnia 03/04/16 16:00 04/03/16 15:59 03/09/16 00:12 LINDSAY ABARCA Mar 09, 2016 16:40
[2016-03-09 16:46] LABS: ANION GAP 14 (5-15); CARBON DIOXIDE 28 mEQ/L (20-30); CHLORIDE 93 mEQ/L (98-107); CREATININE 0.5 mg/dL (0.7-1.2); GLOMERULAR FILTRATION RATE > 60 mL/min (>60); HEMOLYSIS 15; POTASSIUM 4.2 mEQ/L (3.4-4.9); SODIUM 135 mEQ/L (135-145)
[2016-03-09 16:59] LABS: BAND NEUTROPHILS % (MANUAL) 0 % (0-8); BASOPHILS % (MANUAL) 0 % (0-2); EOSINOPHILS % (MANUAL) 2 % (0-3); LYMPHOCYTES % (MANUAL) 17 % (20-45); NEUTROPHILS % (MANUAL) 68 % (45-75); PLATELET ESTIMATE ADEQUATE; PLATELET MORPHOLOGY NORMAL; TOTAL CELLS COUNTED 100
[2016-03-09] MEDS ORDERED: Tubing IV Secondary IV ONE (18:38)
[2016-03-09] MEDS ORDERED: 1/2 NS 1000ml IV ONE (18:38)
[2016-03-09] MEDS ORDERED: NS 275ml ONE (18:38)
--- NOTE | 2016-03-09 18:48 | Pulmonology Progress Note ---
Assessment/Plan Problems: (1) Fracture of femoral neck, left (2) Sepsis (3) Chronic epididymitis (4) Chronic pain (5) Scrotal fullness Assessment/Plan IV antibiotics check wbc, decreasing pain management urology consult and US of scrotum reviewed Pt is cleared from ID and medicine point of view to have surgery. Subjective ROS Limited/Unobtainable: No Constitutional: Reports: anorexia, fatigue Genitourinary: Reports: dysuria, urgency Musculoskeletal: Reports: pain, stiffness, swelling Allergies: Coded Allergies: No Known Allergies (Unverified , 02/08/13) Objective Last 24 Hour Vital Signs Date Time Temp Pulse Resp B/P Pulse Ox O2 Delivery O2 Flow Rate FiO2 03/09/16 17:12 98.2 03/09/16 16:30 98.2 72 20 130/68 96 Room Air 03/09/16 11:54 98.4 75 20 132/65 96 Room Air 03/09/16 11:41 98.2 03/09/16 08:32 98.2 78 20 129/64 96 Room Air 03/09/16 06:53 97.9 03/09/16 04:00 97.9 75 18 138/76 96 Room Air 03/09/16 00:04 97.8 69 20 133/70 98 Room Air 03/08/16 20:00 97.7 70 23 137/71 98 Room Air Intake and Output 03/08/16 03/09/16 19:00 07:00 Intake Total 360 ml 1178 ml Output Total 1050 ml 1790 ml Balance -690 ml -612 ml Intake Oral 360 ml 1025 ml IV Total 153 ml Output Urine Total 1050 ml 1790 ml # Voids 3 General Appearance: no acute distress HEENT: normocephalic, atraumatic, anicteric, PERRL Respiratory/Chest: chest wall non-tender, normal breath sounds, no respiratory distress Cardiovascular: normal peripheral pulses, normal rate, regular rhythm, no JVD Abdomen: normal bowel sounds, soft, non tender, no organomegaly, tender Genitourinary: other - severe pain upon palpation appears grossly swollen testicules bilaterally Extremities: no cyanosis Skin: no rash, lesions Neurologic/Psychiatric: 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 normal, no motor/sensory deficits Laboratory Tests 03/09/16 14:50: White Blood Count 18.1H, Red Blood Count 4.96, Hemoglobin 12.8L, Hematocrit 41.6L, Mean Corpuscular Volume 84, Mean Corpuscular Hemoglobin 25.8L, Mean Corpuscular Hemoglobin Concent 30.7L, Red Cell Distribution Width 13.5, Platelet Count 370, Mean Platelet Volume 7.7, Neutrophils (%) (Auto) , Lymphocytes (%) (Auto) , Monocytes (%) (Auto) , Eosinophils (%) (Auto) , Basophils (%) (Auto) , Differential Total Cells Counted 100, Neutrophils % ( Manual) 68, Lymphocytes % (Manual) 17L, Monocytes % (Manual) 13H, Eosinophils % (Manual) 2, Basophils % (Manual) 0, Band Neutrophils 0, Platelet Estimate Adequate, Platelet Morphology Normal, Red Blood Cell Morphology Normal, Sodium Level 135, Potassium Level 4.2, Chloride Level 93L, Carbon Dioxide Level 28, Anion Gap 14, Blood Urea Nitrogen 8, Creatinine 0.5L, Estimat Glomerular Filtration Rate > 60, Glucose Level 126H, Calcium Level 9.0 Current Medications Medications (Trade) Dose Ordered Sig/Dmitriy Route PRN Reason Start Time Stop Time Status Last Admin Dose Admin Acetaminophen (Tylenol) 650 mg Q4H PRN ORAL fever 03/04/16 16:00 04/03/16 15:59 03/06/16 05:55 Al Hydroxide/Mg Hydroxide (Mylanta II) 30 ml Q6H PRN ORAL dyspepsia 03/04/16 16:00 04/03/16 15:59 Cefazolin Sodium/ Dextrose (Ancef/D5W 50ml) 50 ml @ 100 mls/hr Q8HR IVPB 03/08/16 22:00 03/15/16 21:59 03/09/16 13:12 Clonidine HCl (Catapres) 0.1 mg Q4H PRN ORAL For High Blood Pressure 03/05/16 08:15 04/04/16 08:14 Dextrose (Dextrose 50%) STAT PRN IV Hypoglycemia 03/04/16 16:00 04/03/16 15:59 Gabapentin 300 mg 300 mg THREE TIMES A DAY ORAL 03/06/16 10:00 04/05/16 09:59 03/09/16 17:15 Heparin Sodium (Porcine) (Heparin 5000 units/ml) 5,000 units EVERY 12 HOURS SUBQ 03/04/16 21:00 04/03/16 20:59 03/09/16 09:03 Hydromorphone HCl (Dilaudid) 4 mg Q4H PRN ORAL severe pain 03/09/16 09:15 03/16/16 09:14 03/09/16 16:13 Lorazepam (Ativan 2mg/ml 1ml) 0.5 mg Q4H PRN IV For Anxiety 03/04/16 16:00 03/11/16 15:59 03/06/16 02:06 Morphine Sulfate (MS Contin) 30 mg EVERY 12 HOURS ORAL 03/06/16 10:00 03/13/16 09:59 03/09/16 10:42 Ondansetron HCl (Zofran) 4 mg Q6H PRN IVP Nausea & Vomiting 03/04/16 16:00 04/03/16 15:59 03/06/16 04:03 Polyethylene Glycol (Miralax) 17 gm HSPRN PRN ORAL Constipation 03/04/16 16:00 04/03/16 15:59 Tamsulosin HCl (Flomax) 0.4 mg DAILY ORAL 03/05/16 09:00 04/04/16 08:59 03/09/16 08:58 Zolpidem Tartrate (Ambien) 5 mg HSPRN PRN ORAL Insomnia 03/04/16 16:00 04/03/16 15:59 03/09/16 00:12 DIEGO WALKER Mar 09, 2016 18:48
--- NOTE | 2016-03-09 18:57 | Progress Note ---
DATE: 03/09/2016 SUBJECTIVE: The patient is diagnosed with left femoral neck fracture. He is pending operative fixation. He had medical issues as well as increased leukocytosis. This has not been managed and it has been improved. He has been cleared by the Infectious Disease. He still has significant pain in the left hip area and difficulty ambulating. OBJECTIVE: Examination shows short and internally rotated left leg. Posterior calf is soft. Neurovascular exam is normal. ASSESSMENT: Femoral neck fracture. DISCUSSION: At this point, he is medically optimized. Additionally, he has been cleared by Infectious Disease. Leukocytosis improved. What I am going to do is proceed with a left total hip arthroplasty on Monday. We are going to order the special equipment and put him on the schedule. Risks, limitations, expectations, and complications related to procedure were discussed in detail again with the patient. All questions were addressed. We will proceed with surgery. The patient will be scheduled. Campbell Shirley M.D. DR: LILY JOB#: [id number] CC:
[2016-03-09 20:00] VITALS: BP 140/74
--- NOTE | 2016-03-09 21:02 | General Progress Note ---
Assessment/Plan Assessment/Plan (1) Lumbar Herniated Disc (2) Lumbar DDD (3) Lumbar Spondylosis (4) Lumbar Radiculopathy (5) MJ OA and Pain (6) Left hip fx s/p fall (7) Narcotics Dependency We will continue Morphine ER, Dilaudid changed to 4mg PO 1 tab Q4H PRN pain and Neurontin. Pt was d/w Dr. Das and concurred. Subjective Date patient seen: Mar 09, 2016 Time patient seen: 07:30 - am Allergies: Coded Allergies: No Known Allergies (Unverified , 02/08/13) Subjective Constitutional: Reports: weakness, Denies: chills, diaphoresis, fever, malaise , no symptoms, other HEENT: Denies: blurred vision, double vision, ear discharge, ear pain, eye pain , mouth pain, mouth swelling, no symptoms, nose congestion, nose pain, other, tearing, throat pain, throat swelling Cardiovascular: Denies: chest pain, edema, irregular heart rate, lightheadedness, no symptoms, other, palpitations, syncope Respiratory: Denies: SOB at rest, SOB with excertion, cough, no symptoms, orthopnea, other, shortness of breath, sputum, stridor, wheezing Gastrointestinal/Abdominal: Reports: nausea, Denies: abdomen distended, abdominal pain, black stools, blood in stool, constipated, diarrhea, difficulty swallowing, no symptoms, other, poor appetite, poor fluid intake, rectal bleeding, tarry stools, vomiting Genitourinary: Denies: burning, discharge, flank pain, frequency, hematuria, incontinence, no symptoms, other, pain, urgency Neurologic/Psychiatric: Reports: numbness, weakness, Denies: anxiety, depressed , emotional problems, headache, no symptoms, other, paresthesia, pre-existing deficit, seizure, tingling, tremors Endocrine: Denies: excessive sweating, flushing, increased hunger, increased thirst, increased urine, intolerance to cold, intolerance to heat, no symptoms, other, unexplained weight gain, unexplained weight loss Hematologic/Lymphatic: Denies: anemia, easy bleeding, easy bruising, no symptoms, other Subjective: Pain has been severe more so with movement. The Dilaudid IVPB was changed to Q3H PRN, I d/w pt about changing to tabs and he agrees. Objective Last 24 Hour Vital Signs Date Time Temp Pulse Resp B/P Pulse Ox O2 Delivery O2 Flow Rate FiO2 03/09/16 17:12 98.2 03/09/16 16:30 98.2 72 20 130/68 96 Room Air 03/09/16 11:54 98.4 75 20 132/65 96 Room Air 03/09/16 11:41 98.2 03/09/16 08:32 98.2 78 20 129/64 96 Room Air 03/09/16 06:53 97.9 03/09/16 04:00 97.9 75 18 138/76 96 Room Air 03/09/16 00:04 97.8 69 20 133/70 98 Room Air Intake and Output 03/08/16 03/09/16 18:59 06:59 Intake Total 360 ml 1178 ml Output Total 1050 ml 1790 ml Balance -690 ml -612 ml Intake Oral 360 ml 1025 ml IV Total 153 ml Output Urine Total 1050 ml 1790 ml # Voids 3 Laboratory Tests 03/09/16 14:50: White Blood Count 18.1H, Red Blood Count 4.96, Hemoglobin 12.8L, Hematocrit 41.6L, Mean Corpuscular Volume 84, Mean Corpuscular Hemoglobin 25.8L, Mean Corpuscular Hemoglobin Concent 30.7L, Red Cell Distribution Width 13.5, Platelet Count 370, Mean Platelet Volume 7.7, Neutrophils (%) (Auto) , Lymphocytes (%) (Auto) , Monocytes (%) (Auto) , Eosinophils (%) (Auto) , Basophils (%) (Auto) , Differential Total Cells Counted 100, Neutrophils % ( Manual) 68, Lymphocytes % (Manual) 17L, Monocytes % (Manual) 13H, Eosinophils % (Manual) 2, Basophils % (Manual) 0, Band Neutrophils 0, Platelet Estimate Adequate, Platelet Morphology Normal, Red Blood Cell Morphology Normal, Sodium Level 135, Potassium Level 4.2, Chloride Level 93L, Carbon Dioxide Level 28, Anion Gap 14, Blood Urea Nitrogen 8, Creatinine 0.5L, Estimat Glomerular Filtration Rate > 60, Glucose Level 126H, Calcium Level 9.0 Height (Feet): 6 Height (Inches): 1.00 Weight (Pounds): 285 Objective General Appearance: no apparent distress, alert EENT: PERRL/EOMI, normal ENT inspection Neck: non-tender, normal alignment Cardiovascular: normal rate, regular rhythm Respiratory/Chest: chest wall non-tender, decreased breath sounds Abdomen: non tender Extremities: inflammation, swelling - tenderness to palpation of left hip Neurologic: alert, oriented x 3 LESLIE BRAY Mar 09, 2016 21:02
[2016-03-10] VITALS (7 sets, daily range): BP systolic 126–154; BP diastolic 70–86
[2016-03-10] MEDS: Zolpidem 5mg tab ORAL PRN (02:21)
[2016-03-10] MEDS: HYDROmorphone 4mg tab ORAL PRN ×4 (05:26→22:45)
[2016-03-10] MEDS: Tamsulosin 0.4mg cap ORAL SCH (08:30)
[2016-03-10] MEDS: MS Contin 30mg tab ORAL SCH ×2 (08:31→20:34)
[2016-03-10] MEDS: Heparin 5000 units/ml inj SUBQ SCH ×2 (08:34→20:35)
--- NOTE | 2016-03-10 08:56 | General Progress Note ---
Assessment/Plan Assessment/Plan (1) Lumbar Herniated Disc (2) Lumbar DDD (3) Lumbar Spondylosis (4) Lumbar Radiculopathy (5) MJ OA and Pain (6) Left hip fx s/p fall (7) Narcotics Dependency We will continue Morphine ER, Dilaudid and Neurontin. Pt was d/w Dr. Das and concurred. Subjective Date patient seen: Mar 10, 2016 Time patient seen: 08:15 - am Allergies: Coded Allergies: No Known Allergies (Unverified , 02/08/13) Subjective Constitutional: Reports: weakness, Denies: chills, diaphoresis, fever, malaise , no symptoms, other HEENT: Denies: blurred vision, double vision, ear discharge, ear pain, eye pain , mouth pain, mouth swelling, no symptoms, nose congestion, nose pain, other, tearing, throat pain, throat swelling Cardiovascular: Denies: chest pain, edema, irregular heart rate, lightheadedness, no symptoms, other, palpitations, syncope Respiratory: Denies: SOB at rest, SOB with excertion, cough, no symptoms, orthopnea, other, shortness of breath, sputum, stridor, wheezing Gastrointestinal/Abdominal: Reports: nausea, Denies: abdomen distended, abdominal pain, black stools, blood in stool, constipated, diarrhea, difficulty swallowing, no symptoms, other, poor appetite, poor fluid intake, rectal bleeding, tarry stools, vomiting Genitourinary: Denies: burning, discharge, flank pain, frequency, hematuria, incontinence, no symptoms, other, pain, urgency Neurologic/Psychiatric: Reports: numbness, weakness, Denies: anxiety, depressed , emotional problems, headache, no symptoms, other, paresthesia, pre-existing deficit, seizure, tingling, tremors Endocrine: Denies: excessive sweating, flushing, increased hunger, increased thirst, increased urine, intolerance to cold, intolerance to heat, no symptoms, other, unexplained weight gain, unexplained weight loss Hematologic/Lymphatic: Denies: anemia, easy bleeding, easy bruising, no symptoms, other Subjective: He continues to c/o pain worse with movement and reduced to a 6/10 on the current medications. Objective Last 24 Hour Vital Signs Date Time Temp Pulse Resp B/P Pulse Ox O2 Delivery O2 Flow Rate FiO2 03/10/16 08:20 97.8 85 20 146/84 96 Room Air 03/10/16 06:25 98.1 03/10/16 04:00 99.7 76 18 149/75 96 Room Air 03/10/16 00:00 98.1 74 18 143/78 97 Room Air 03/09/16 21:51 98.2 03/09/16 20:00 98.7 73 20 140/74 94 Room Air 03/09/16 16:30 98.2 72 20 130/68 96 Room Air 03/09/16 11:54 98.4 75 20 132/65 96 Room Air Intake and Output 03/09/16 03/10/16 19:00 07:00 Intake Total 1160 ml 675 ml Output Total 960 ml 1280 ml Balance 200 ml -605 ml Intake Oral 960 ml 475 ml IV Total 200 ml 200 ml Output Urine Total 960 ml 1280 ml Laboratory Tests 03/09/16 14:50: White Blood Count 18.1H, Red Blood Count 4.96, Hemoglobin 12.8L, Hematocrit 41.6L, Mean Corpuscular Volume 84, Mean Corpuscular Hemoglobin 25.8L, Mean Corpuscular Hemoglobin Concent 30.7L, Red Cell Distribution Width 13.5, Platelet Count 370, Mean Platelet Volume 7.7, Neutrophils (%) (Auto) , Lymphocytes (%) (Auto) , Monocytes (%) (Auto) , Eosinophils (%) (Auto) , Basophils (%) (Auto) , Differential Total Cells Counted 100, Neutrophils % ( Manual) 68, Lymphocytes % (Manual) 17L, Monocytes % (Manual) 13H, Eosinophils % (Manual) 2, Basophils % (Manual) 0, Band Neutrophils 0, Platelet Estimate Adequate, Platelet Morphology Normal, Red Blood Cell Morphology Normal, Sodium Level 135, Potassium Level 4.2, Chloride Level 93L, Carbon Dioxide Level 28, Anion Gap 14, Blood Urea Nitrogen 8, Creatinine 0.5L, Estimat Glomerular Filtration Rate > 60, Glucose Level 126H, Calcium Level 9.0 Height (Feet): 6 Height (Inches): 1.00 Weight (Pounds): 285 Objective General Appearance: no apparent distress, alert EENT: PERRL/EOMI, normal ENT inspection Neck: non-tender, normal alignment Cardiovascular: normal rate, regular rhythm Respiratory/Chest: chest wall non-tender, decreased breath sounds Abdomen: non tender Extremities: inflammation, swelling - tenderness to palpation of left hip Neurologic: alert, oriented x 3 LESLIE BRAY Mar 10, 2016 08:56
[2016-03-10 12:42] LABS: BASOPHILS % (AUTO) 1.1 % (0.0-2.0); LYMPHOCYTES % (AUTO) 9.9 % (20.0-45.0); MEAN CORPUSCULAR HEMOGLOBIN 27.3 PG (27.0-31.0); MEAN CORPUSCULAR HGB CONC 33.1 G/DL (32.0-36.0); MEAN CORPUSCULAR VOLUME 83 FL (80-99); MEAN PLATELET VOLUME 8.6 FL (6.5-10.1); MONOCYTES % (AUTO) 10.4 % (1.0-10.0); NEUTROPHILS % (AUTO) 77.6 % (45.0-75.0); PLATELET COUNT 385 K/UL (150-450); RED BLOOD COUNT 4.78 M/UL (4.70-6.10); RED CELL DISTRIBUTION WIDTH 12.7 % (11.6-14.8); WHITE BLOOD COUNT 16.4 K/UL (4.8-10.8)
[2016-03-10 13:17] LABS: ANION GAP 17 (5-15); CALCIUM 9.6 mg/dL (8.6-10.2); CARBON DIOXIDE 25 mEQ/L (20-30); CHLORIDE 95 mEQ/L (98-107); CREATININE 0.6 mg/dL (0.7-1.2); GLOMERULAR FILTRATION RATE > 60 mL/min (>60); HEMOLYSIS 0; POTASSIUM 3.9 mEQ/L (3.4-4.9); SODIUM 137 mEQ/L (135-145)
--- NOTE | 2016-03-10 14:18 | Anethesia Preoperative Eval ---
Anesthesia Pre-op PMH/ROS General Date of Evaluation: Mar 10, 2016 Time of Evaluation: 13:36 Anesthesiologist: Jimmy ASA Score: ASA 3 Mallampati Score Class I : Soft palate, uvula, fauces, pillars visible Class II: Soft palate, uvula, fauces visible Class III: Soft palate, base of uvula visible Class IV: Only hard plate visible Mallampati Classification: Class III Surgeon: Casper Diagnosis: L Hip Fracture Surgical Procedure: L THR Anesthesia History: none Social History: drug use Family History: no anesthesia problems Allergies: Coded Allergies: No Known Allergies (Unverified , 02/08/13) Medications: see eMAR Past Medical History Cardiovascular: Reports: HTN Gastrointestinal/Genitourinary: Reports: other - BPH Neurologic/Psychiatric: Reports: other - IVDA Musculoskeletal/Integumentary: Reports: OA, other - L Hip Fracture Other: obesity - BMI 38 Anesthesia Pre-op Phys. Exam Physician Exam Last Vital Signs Date Time Temp Pulse Resp B/P Pulse Ox O2 Delivery O2 Flow Rate FiO2 03/10/16 12:15 98.0 78 20 143/70 97 Room Air Constitutional: NAD Neurologic: CN 2-12 intact Cardiovascular: RRR Respiratory: CTA Gastrointestinal: S/NT/ND Airway Exam Mallampati Score: Class III MO: limited ROM: limited Teeth: missing, intact Anesthesia Pre-op A/P Labs Hematology Test 03/09/16 14:50 03/10/16 12:00 White Blood Count 18.1 K/UL (4.8-10.8) H 16.4 K/UL (4.8-10.8) H Red Blood Count 4.96 M/UL (4.70-6.10) 4.78 M/UL (4.70-6.10) Hemoglobin 12.8 G/DL (14.2-18.0) L 13.1 G/DL (14.2-18.0) L Hematocrit 41.6 % (42.0-52.0) L 39.5 % (42.0-52.0) L Mean Corpuscular Volume 84 FL (80-99) 83 FL (80-99) Mean Corpuscular Hemoglobin 25.8 PG (27.0-31.0) L 27.3 PG (27.0-31.0) Mean Corpuscular Hemoglobin Concent 30.7 G/DL (32.0-36.0) L 33.1 G/DL (32.0-36.0) Red Cell Distribution Width 13.5 % (11.6-14.8) 12.7 % (11.6-14.8) Platelet Count 370 K/UL (150-450) 385 K/UL (150-450) Mean Platelet Volume 7.7 FL (6.5-10.1) 8.6 FL (6.5-10.1) Neutrophils (%) (Auto) % (45.0-75.0) 77.6 % (45.0-75.0) H Lymphocytes (%) (Auto) % (20.0-45.0) 9.9 % (20.0-45.0) L Monocytes (%) (Auto) % (1.0-10.0) 10.4 % (1.0-10.0) H Eosinophils (%) (Auto) % (0.0-3.0) 1.0 % (0.0-3.0) Basophils (%) (Auto) % (0.0-2.0) 1.1 % (0.0-2.0) Differential Total Cells Counted 100 Neutrophils % (Manual) 68 % (45-75) Lymphocytes % (Manual) 17 % (20-45) L Monocytes % (Manual) 13 % (1-10) H Eosinophils % (Manual) 2 % (0-3) Basophils % (Manual) 0 % (0-2) Band Neutrophils 0 % (0-8) Platelet Estimate Adequate Platelet Morphology Normal Red Blood Cell Morphology Normal Chemistry Test 03/09/16 14:50 03/10/16 12:00 Sodium Level 135 mEQ/L (135-145) 137 mEQ/L (135-145) Potassium Level 4.2 mEQ/L (3.4-4.9) 3.9 mEQ/L (3.4-4.9) Chloride Level 93 mEQ/L (98-107) L 95 mEQ/L (98-107) L Carbon Dioxide Level 28 mEQ/L (20-30) 25 mEQ/L (20-30) Anion Gap 14 (5-15) 17 (5-15) H Blood Urea Nitrogen 8 mg/dL (7-23) 9 mg/dL (7-23) Creatinine 0.5 mg/dL (0.7-1.2) L 0.6 mg/dL (0.7-1.2) L Estimat Glomerular Filtration Rate > 60 mL/min (>60) > 60 mL/min (>60) Glucose Level 126 mg/dL (74-106) H 114 mg/dL (74-106) H Calcium Level 9.0 mg/dL (8.6-10.2) 9.6 mg/dL (8.6-10.2) Risk Assessment & Plan Assessment: ASA 3 Plan: GA, Spinal Status Change Before Surgery: No Pre-Antibiotics Drug: Leonardo Jimenez MD Mar 10, 2016 14:18
--- NOTE | 2016-03-10 15:53 | Infectious Diseases Prog Note ---
Assessment/Plan Assessment/Plan ASSESSMENT: 61 y/o male with: Recurrent bilateral epididymitis - urology following - US: Right-sided findings compatible with persistent, chronic epididymo- orchitis, Left-sided findings compatible with persistent versus recurrent epididymo-orchitis, likely acute on chronic. Small right epididymal, left testicular cysts. Second hypoechoic nodule in the left testis questionable significance. Neoplasm not excludable. Bilateral varicoceles, left greater than right MSSA UTI Chronic right ankle, bilateral hallux ulcers, not grossly infected - WCx MSSA, qS-PSA = colonizers Sepsis Fever - resolved Leukocytosis - improving Acute left femoral neck fracture - pending CATIA Chronic pain syndrome NKDA Full Code PLAN: continue ancef d# 3 ( ABX d# ). Ok to complete course with PO keflex at discharge ( 03/08 SP Cefepime and Vancod# 4 ) clear for CATIA from ID standpoint outpt urology follow up f/u final cultures Monitor CBC, temperatures Monitor BMP Subjective Allergies: Coded Allergies: No Known Allergies (Unverified , 02/08/13) Subjective fevers resolved, WBC improved. c/o pain awaiting surgery Objective Vital Signs Last 24 Hour Vital Signs Date Time Temp Pulse Resp B/P Pulse Ox O2 Delivery O2 Flow Rate FiO2 03/10/16 14:08 98.0 03/10/16 12:15 98.0 78 20 143/70 97 Room Air 03/10/16 09:30 97.8 03/10/16 08:20 97.8 85 20 146/84 96 Room Air 03/10/16 04:00 99.7 76 18 149/75 96 Room Air 03/10/16 00:00 98.1 74 18 143/78 97 Room Air 03/09/16 20:00 98.7 73 20 140/74 94 Room Air 03/09/16 16:30 98.2 72 20 130/68 96 Room Air Height (Feet): 6 Height (Inches): 1.00 Weight (Pounds): 285 General Appearance: no acute distress Respiratory/Chest: no respiratory distress Cardiovascular: normal rate, regular rhythm Abdomen: normal bowel sounds, soft, non tender, non distended Laboratory Tests Test 03/10/16 12:00 White Blood Count 16.4 K/UL (4.8-10.8) H Red Blood Count 4.78 M/UL (4.70-6.10) Hemoglobin 13.1 G/DL (14.2-18.0) L Hematocrit 39.5 % (42.0-52.0) L Mean Corpuscular Volume 83 FL (80-99) Mean Corpuscular Hemoglobin 27.3 PG (27.0-31.0) Mean Corpuscular Hemoglobin Concent 33.1 G/DL (32.0-36.0) Red Cell Distribution Width 12.7 % (11.6-14.8) Platelet Count 385 K/UL (150-450) Mean Platelet Volume 8.6 FL (6.5-10.1) Neutrophils (%) (Auto) 77.6 % (45.0-75.0) H Lymphocytes (%) (Auto) 9.9 % (20.0-45.0) L Monocytes (%) (Auto) 10.4 % (1.0-10.0) H Eosinophils (%) (Auto) 1.0 % (0.0-3.0) Basophils (%) (Auto) 1.1 % (0.0-2.0) Sodium Level 137 mEQ/L (135-145) Potassium Level 3.9 mEQ/L (3.4-4.9) Chloride Level 95 mEQ/L (98-107) L Carbon Dioxide Level 25 mEQ/L (20-30) Anion Gap 17 (5-15) H Blood Urea Nitrogen 9 mg/dL (7-23) Creatinine 0.6 mg/dL (0.7-1.2) L Estimat Glomerular Filtration Rate > 60 mL/min (>60) Glucose Level 114 mg/dL (74-106) H Calcium Level 9.6 mg/dL (8.6-10.2) Current Medications Medications (Trade) Dose Ordered Sig/Dmitriy Route PRN Reason Start Time Stop Time Status Last Admin Dose Admin Acetaminophen (Tylenol) 650 mg Q4H PRN ORAL fever 03/04/16 16:00 04/03/16 15:59 03/06/16 05:55 Al Hydroxide/Mg Hydroxide (Mylanta II) 30 ml Q6H PRN ORAL dyspepsia 03/04/16 16:00 04/03/16 15:59 Cefazolin Sodium/ Dextrose (Ancef/D5W 50ml) 50 ml @ 100 mls/hr Q8HR IVPB 03/08/16 22:00 03/15/16 21:59 03/10/16 05:04 Clonidine HCl (Catapres) 0.1 mg Q4H PRN ORAL For High Blood Pressure 03/05/16 08:15 04/04/16 08:14 Dextrose (Dextrose 50%) STAT PRN IV Hypoglycemia 03/04/16 16:00 04/03/16 15:59 Gabapentin 300 mg 300 mg THREE TIMES A DAY ORAL 03/06/16 10:00 04/05/16 09:59 03/10/16 13:09 Heparin Sodium (Porcine) (Heparin 5000 units/ml) 5,000 units EVERY 12 HOURS SUBQ 03/04/16 21:00 04/03/16 20:59 03/10/16 08:34 Hydromorphone HCl (Dilaudid) 4 mg Q4H PRN ORAL severe pain 03/09/16 09:15 03/16/16 09:14 03/10/16 13:09 Lorazepam (Ativan 2mg/ml 1ml) 0.5 mg Q4H PRN IV For Anxiety 03/04/16 16:00 03/11/16 15:59 03/06/16 02:06 Morphine Sulfate (MS Contin) 30 mg EVERY 12 HOURS ORAL 03/06/16 10:00 03/13/16 09:59 03/10/16 08:31 Ondansetron HCl (Zofran) 4 mg Q6H PRN IVP Nausea & Vomiting 03/04/16 16:00 04/03/16 15:59 03/06/16 04:03 Polyethylene Glycol (Miralax) 17 gm HSPRN PRN ORAL Constipation 03/04/16 16:00 04/03/16 15:59 Tamsulosin HCl (Flomax) 0.4 mg DAILY ORAL 03/05/16 09:00 04/04/16 08:59 03/10/16 08:30 Zolpidem Tartrate (Ambien) 5 mg HSPRN PRN ORAL Insomnia 03/04/16 16:00 04/03/16 15:59 03/10/16 02:21 LINDSAY ABARCA Mar 10, 2016 15:53
--- NOTE | 2016-03-10 19:15 | Pulmonology Progress Note ---
Assessment/Plan Problems: (1) Fracture of femoral neck, left (2) Sepsis (3) Chronic epididymitis (4) Chronic pain (5) Scrotal fullness Assessment/Plan IV antibiotics check wbc, decreasing pain management urology consult and US of scrotum reviewed Pt is cleared from ID and medicine point of view to have surgery. Subjective ROS Limited/Unobtainable: No Constitutional: Reports: anorexia, chills, fatigue, fever Genitourinary: Reports: dysuria, frequency, urgency Skin: Reports: rash, ulcer Musculoskeletal: Reports: pain, stiffness, swelling Allergies: Coded Allergies: No Known Allergies (Unverified , 02/08/13) Objective Last 24 Hour Vital Signs Date Time Temp Pulse Resp B/P Pulse Ox O2 Delivery O2 Flow Rate FiO2 03/10/16 16:18 97.9 79 20 126/86 96 Room Air 03/10/16 14:08 98.0 03/10/16 12:15 98.0 78 20 143/70 97 Room Air 03/10/16 09:30 97.8 03/10/16 08:20 97.8 85 20 146/84 96 Room Air 03/10/16 04:00 99.7 76 18 149/75 96 Room Air 03/10/16 00:00 98.1 74 18 143/78 97 Room Air 03/09/16 20:00 98.7 73 20 140/74 94 Room Air Intake and Output 03/09/16 03/10/16 19:00 07:00 Intake Total 1160 ml 675 ml Output Total 960 ml 1280 ml Balance 200 ml -605 ml Intake Oral 960 ml 475 ml IV Total 200 ml 200 ml Output Urine Total 960 ml 1280 ml General Appearance: no acute distress HEENT: normocephalic, atraumatic, mucous membranes moist Respiratory/Chest: chest wall non-tender, decreased breath sounds, accessory muscle use Cardiovascular: normal peripheral pulses, normal rate, regular rhythm Abdomen: normal bowel sounds, soft, non tender, no organomegaly, non distended Genitourinary: other - scrotal swelling Extremities: no cyanosis Skin: rash, lesions 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, no motor/sensory deficits Laboratory Tests 03/10/16 12:00: White Blood Count 16.4H, Red Blood Count 4.78, Hemoglobin 13.1L, Hematocrit 39.5L, Mean Corpuscular Volume 83, Mean Corpuscular Hemoglobin 27.3, Mean Corpuscular Hemoglobin Concent 33.1, Red Cell Distribution Width 12.7, Platelet Count 385, Mean Platelet Volume 8.6, Neutrophils (%) (Auto) 77.6H, Lymphocytes ( %) (Auto) 9.9L, Monocytes (%) (Auto) 10.4H, Eosinophils (%) (Auto) 1.0, Basophils (%) (Auto) 1.1, Sodium Level 137, Potassium Level 3.9, Chloride Level 95L, Carbon Dioxide Level 25, Anion Gap 17H, Blood Urea Nitrogen 9, Creatinine 0.6L, Estimat Glomerular Filtration Rate > 60, Glucose Level 114H, Calcium Level 9.6 Current Medications Medications (Trade) Dose Ordered Sig/Dmitriy Route PRN Reason Start Time Stop Time Status Last Admin Dose Admin Acetaminophen (Tylenol) 650 mg Q4H PRN ORAL fever 03/04/16 16:00 04/03/16 15:59 03/06/16 05:55 Al Hydroxide/Mg Hydroxide (Mylanta II) 30 ml Q6H PRN ORAL dyspepsia 03/04/16 16:00 04/03/16 15:59 Cefazolin Sodium/ Dextrose (Ancef/D5W 50ml) 50 ml @ 100 mls/hr Q8HR IVPB 03/08/16 22:00 03/15/16 21:59 03/10/16 05:04 Cephalexin (Keflex) 500 mg FOUR TIMES A DAY ORAL 03/10/16 21:00 03/17/16 20:59 UNV Clonidine HCl (Catapres) 0.1 mg Q4H PRN ORAL For High Blood Pressure 03/05/16 08:15 04/04/16 08:14 Dextrose (Dextrose 50%) STAT PRN IV Hypoglycemia 03/04/16 16:00 04/03/16 15:59 Gabapentin 300 mg 300 mg THREE TIMES A DAY ORAL 03/06/16 10:00 04/05/16 09:59 03/10/16 17:18 Heparin Sodium (Porcine) (Heparin 5000 units/ml) 5,000 units EVERY 12 HOURS SUBQ 03/04/16 21:00 04/03/16 20:59 03/10/16 08:34 Heparin Sodium/ Sodium Chloride (Heparin 2000 units/Ns 1000ml premix) 2,000 unit ONCE ONCE INJ 03/10/16 16:00 03/10/16 16:01 UNV Hydromorphone HCl (Dilaudid) 4 mg Q4H PRN ORAL severe pain 03/09/16 09:15 03/16/16 09:14 03/10/16 17:17 Lidocaine HCl (Xylocaine 1% 30ml) 30 ml ONCE ONCE INJ 03/10/16 16:00 03/10/16 16:01 UNV Lorazepam (Ativan 2mg/ml 1ml) 0.5 mg Q4H PRN IV For Anxiety 03/04/16 16:00 03/11/16 15:59 03/06/16 02:06 Morphine Sulfate (MS Contin) 30 mg EVERY 12 HOURS ORAL 03/06/16 10:00 03/13/16 09:59 03/10/16 08:31 Ondansetron HCl (Zofran) 4 mg Q6H PRN IVP Nausea & Vomiting 03/04/16 16:00 04/03/16 15:59 03/06/16 04:03 Polyethylene Glycol (Miralax) 17 gm HSPRN PRN ORAL Constipation 03/04/16 16:00 04/03/16 15:59 Tamsulosin HCl (Flomax) 0.4 mg DAILY ORAL 03/05/16 09:00 04/04/16 08:59 03/10/16 08:30 Zolpidem Tartrate (Ambien) 5 mg HSPRN PRN ORAL Insomnia 03/04/16 16:00 04/03/16 15:59 03/10/16 02:21 DIEGO WALKER Mar 10, 2016 19:15
[2016-03-10] MEDS: Cephalexin 500mg cap ORAL SCH (21:17)
[2016-03-11] VITALS (10 sets, daily range): BP systolic 95–139; BP diastolic 38–88
[2016-03-11] MEDS: Zolpidem 5mg tab ORAL PRN (01:10)
[2016-03-11] MEDS: HYDROmorphone 4mg tab ORAL PRN ×3 (03:18→21:06)
[2016-03-11] MEDS: MS Contin 30mg tab ORAL SCH (08:15)
[2016-03-11] MEDS: Tamsulosin 0.4mg cap ORAL SCH (08:16)
[2016-03-11] MEDS: Cephalexin 500mg cap ORAL SCH ×4 (08:16→21:06)
[2016-03-11] MEDS: Heparin 2000 units/Ns 1000ml INJ ONE ×2 (08:42→10:00)
[2016-03-11] MEDS: Heparin 5000 units/ml inj SUBQ SCH ×2 (08:43→21:00)
[2016-03-11] MEDS ORDERED: Bacitracin 50000 Units Vial ONE (09:04)
[2016-03-11] MEDS ORDERED: Lidocaine 1% Plain 30 ml INJ ONE (10:00)
--- NOTE | 2016-03-11 10:08 | General Progress Note ---
Assessment/Plan Assessment/Plan (1) Lumbar Herniated Disc (2) Lumbar DDD (3) Lumbar Spondylosis (4) Lumbar Radiculopathy (5) MJ OA and Pain (6) Left hip fx s/p fall (7) Narcotics Dependency Will be going for THR later this morning medications and pain will be reassessed after surgery. We will continue Morphine ER, Dilaudid and Neurontin. Pt was d/w Dr. Das and concurred. Subjective Date patient seen: Mar 11, 2016 Time patient seen: 08:30 - am Allergies: Coded Allergies: No Known Allergies (Unverified , 02/08/13) Subjective Constitutional: Reports: weakness, Denies: chills, diaphoresis, fever, malaise , no symptoms, other HEENT: Denies: blurred vision, double vision, ear discharge, ear pain, eye pain , mouth pain, mouth swelling, no symptoms, nose congestion, nose pain, other, tearing, throat pain, throat swelling Cardiovascular: Denies: chest pain, edema, irregular heart rate, lightheadedness, no symptoms, other, palpitations, syncope Respiratory: Denies: SOB at rest, SOB with excertion, cough, no symptoms, orthopnea, other, shortness of breath, sputum, stridor, wheezing Gastrointestinal/Abdominal: Reports: nausea, Denies: abdomen distended, abdominal pain, black stools, blood in stool, constipated, diarrhea, difficulty swallowing, no symptoms, other, poor appetite, poor fluid intake, rectal bleeding, tarry stools, vomiting Genitourinary: Denies: burning, discharge, flank pain, frequency, hematuria, incontinence, no symptoms, other, pain, urgency Neurologic/Psychiatric: Reports: numbness, weakness, Denies: anxiety, depressed , emotional problems, headache, no symptoms, other, paresthesia, pre-existing deficit, seizure, tingling, tremors Endocrine: Denies: excessive sweating, flushing, increased hunger, increased thirst, increased urine, intolerance to cold, intolerance to heat, no symptoms, other, unexplained weight gain, unexplained weight loss Hematologic/Lymphatic: Denies: anemia, easy bleeding, easy bruising, no symptoms, other Subjective: Pain has been well tolerated on the Morphine ER and Dilaudid. He will be going for Hip replacement later this morning. Objective Last 24 Hour Vital Signs Date Time Temp Pulse Resp B/P Pulse Ox O2 Delivery O2 Flow Rate FiO2 03/11/16 08:21 97.7 79 20 120/85 96 Room Air 03/10/16 23:45 96.6 74 18 154/82 97 Room Air 03/10/16 20:00 98.1 78 18 148/74 95 Room Air 03/10/16 16:18 97.9 79 20 126/86 96 Room Air 03/10/16 14:08 98.0 03/10/16 12:15 98.0 78 20 143/70 97 Room Air Intake and Output 03/10/16 03/11/16 18:59 06:59 Intake Total 1200 ml 475 ml Output Total 1000 ml 600 ml Balance 200 ml -125 ml Intake Oral 1200 ml 475 ml Output Urine Total 1000 ml 600 ml # Voids 5 # Bowel Movements 1 1 Laboratory Tests 03/10/16 12:00: White Blood Count 16.4H, Red Blood Count 4.78, Hemoglobin 13.1L, Hematocrit 39.5L, Mean Corpuscular Volume 83, Mean Corpuscular Hemoglobin 27.3, Mean Corpuscular Hemoglobin Concent 33.1, Red Cell Distribution Width 12.7, Platelet Count 385, Mean Platelet Volume 8.6, Neutrophils (%) (Auto) 77.6H, Lymphocytes ( %) (Auto) 9.9L, Monocytes (%) (Auto) 10.4H, Eosinophils (%) (Auto) 1.0, Basophils (%) (Auto) 1.1, Sodium Level 137, Potassium Level 3.9, Chloride Level 95L, Carbon Dioxide Level 25, Anion Gap 17H, Blood Urea Nitrogen 9, Creatinine 0.6L, Estimat Glomerular Filtration Rate > 60, Glucose Level 114H, Calcium Level 9.6 Height (Feet): 6 Height (Inches): 4.00 Weight (Pounds): 285 Objective General Appearance: no apparent distress, alert EENT: PERRL/EOMI, normal ENT inspection Neck: non-tender, normal alignment Cardiovascular: normal rate, regular rhythm Respiratory/Chest: chest wall non-tender, decreased breath sounds Abdomen: non tender Extremities: inflammation, swelling - tenderness to palpation of left hip Neurologic: alert, oriented x 3 LESLIE BRAY Mar 11, 2016 10:08
[2016-03-11] MEDS ORDERED: Duramorph PF 5mg/10ml amp ONE (10:21)
[2016-03-11] MEDS ORDERED: Propofol 10mg/ml 20ml IV ONE (10:21)
[2016-03-11] MEDS ORDERED: Kenalog-10 5ml Inj ONE (10:29)
[2016-03-11] MEDS ORDERED: Morphine Sulfate PF 10 ML ONE (10:29)
[2016-03-11] MEDS ORDERED: Bupivacaine w/Epi 0.25% 30ml Vial INJ ONE (10:30)
[2016-03-11] MEDS ORDERED: Ketorolac 30mg Inj ONE (10:30)
[2016-03-11] MEDS ORDERED: Dexamethasone 4mg/ml vial ONE (11:00)
[2016-03-11] MEDS ORDERED: NS Irrig 1000ml ONE (11:00)
[2016-03-11] MEDS ORDERED: fentaNYL 100 mcg/2 mL IV ONE (11:00)
[2016-03-11] MEDS ORDERED: Sterile Water Irrig 1000ml IRRIG ONE (11:00)
[2016-03-11] MEDS ORDERED: Duramorph PF 10mg/10ml amp EPIDUR ONE (11:30)
[2016-03-11] MEDS ORDERED: Vancomycin 1gm inj IVPB ONE (11:42)
--- NOTE | 2016-03-11 12:21 | Anethesia Preoperative Eval ---
Anesthesia Pre-op PMH/ROS General Date of Evaluation: Mar 11, 2016 Time of Evaluation: 11:06 Anesthesiologist: Kelly ASA Score: ASA 3 Mallampati Score Class I : Soft palate, uvula, fauces, pillars visible Class II: Soft palate, uvula, fauces visible Class III: Soft palate, base of uvula visible Class IV: Only hard plate visible Mallampati Classification: Class II Surgeon: Casper Diagnosis: Hip Fracture Surgical Procedure: Total Hip replacement Anesthesia History: none Family History: no anesthesia problems Allergies: Coded Allergies: No Known Allergies (Unverified , 02/08/13) Past Medical History Cardiovascular: Reports: CAD, HTN Pulmonary: Reports: COPD Gastrointestinal/Genitourinary: Denies: CRI, ESRD, GERD, other Neurologic/Psychiatric: Denies: CVA, TIA, dementia, depression/anxiety, other Endocrine: Denies: DM, hypothyroidism, other, steroids HEENT: Denies: [place] (L), [place] (R), cataract (L), cataract (R), glaucoma, other Hematology/Immune: Denies: DVT, anemia, bleeding disorder, other Musculoskeletal/Integumentary: Reports: DJD Anesthesia Pre-op Phys. Exam Physician Exam Last Vital Signs Date Time Temp Pulse Resp B/P Pulse Ox O2 Delivery O2 Flow Rate FiO2 03/11/16 09:14 97.7 03/11/16 08:21 79 20 120/85 96 Room Air Constitutional: other - pain poorly controlled Neurologic: CN 2-12 intact Cardiovascular: RRR Respiratory: other - distant Airway Exam Mallampati Score: Class III MO: full NAPOLEON ARROYO M.D. Mar 11, 2016 12:21
[2016-03-11] MEDS ORDERED: Norco 5mg/325mg tab ORAL PRN ×2 (12:30→12:45)
[2016-03-11] MEDS ORDERED: fentaNYL 100 mcg/2 mL IV PRN (12:30)
[2016-03-11] MEDS ORDERED: Hydromorphone 0.5mg/0.5ml inj IVP PRN (12:30)
[2016-03-11] MEDS ORDERED: Ketorolac 30mg Inj IV PRN (12:30)
[2016-03-11] MEDS: D5 1/2NS w/KCl 20mEq 1,000 ML IV SCH ×3 (12:42→22:42)
--- NOTE | 2016-03-11 12:42 | Operative Note - PDOC ---
Operative Note Operative Note Pre-op Diagnosis: left femoral neck fracture Procedure: left breana Post-op Diagnosis: same as pre-op Operative Findings: consistent w/pre-op dx studies Anesthesia: regional Specimen: none Complications: none Condition: stable Estimated Blood Loss: none Implant(s) used?: Yes SUSAN BATRES Mar 11, 2016 12:42
--- NOTE | 2016-03-11 12:42 | Pre-Procedure Note/Attestation ---
Pre-Procedure Note/Attestation Complete Prior to Procedure Planned Procedure: left Procedure Narrative: breana Indications for Procedure Pre-Operative Diagnosis: left femoral neck fracture Attestation I attest that I discussed the nature of the procedure; its benefits; risks and complications; and alternatives (and the risks and benefits of such alternatives ), prior to the procedure, with the patient (or the patient's legal technical support representative). I attest that, if there was a reasonable possibility of needing a blood transfusion, the patient (or the patient's legal technical support representative) was given the [facility] standardized written summary, pursuant to the Wilbert Deborah Blood Safety Act ([place] Health and Safety Code # 1645, as amended). I attest that I re-evaluated the patient just prior to the surgery and that there has been no change in the patient's H&P, except as documented below: SUSAN BATRES Mar 11, 2016 12:42
[2016-03-11] MEDS ORDERED: Morphine Sulfate 4mg/ml Inj IVP PRN (12:45)
[2016-03-11] MEDS ORDERED: Milk of Magnesia 30ml Ud ORAL PRN (12:45)
[2016-03-11] MEDS ORDERED: Norco 7.5mg/325mg tab ORAL PRN (12:45)
[2016-03-11] MEDS ORDERED: Morphine Sulfate 2mg/ml Inj IVP PRN (12:45)
--- NOTE | 2016-03-11 12:58 | Immediate Post-Op Evaluation ---
Immediate Post-Op Evalulation Immediate Post-Op Evalulation Procedure: Total hip Replacement Date of Evaluation: Mar 11, 2016 Time of Evaluation: 12:55 IV Fluids: 1l Blood Products: 0 Estimated Blood Loss: 20 Urinary Output: 200 Blood Pressure Systolic: 126 Blood Pressure Diastolic: 74 Pulse Rate: 90 Respiratory Rate: 20 O2 Sat by Pulse Oximetry: 98 Temperature (Fahrenheit): 98 Pain Score (1-10): 2 Nausea: No Vomiting: No Complications na Patient Status: awake Hydration Status: adequate Drug: ancef 2 G Given Within 1 Hr of Incision: Yes Time Given: 11:15 NAPOLEON ARROYO M.D. Mar 11, 2016 12:57
[2016-03-11] MEDS ORDERED: Docusate 100mg cap ORAL SCH (13:00)
--- NOTE | 2016-03-11 14:08 | Infectious Diseases Prog Note ---
Assessment/Plan Assessment/Plan ASSESSMENT: 61 y/o male with: Recurrent bilateral epididymitis - urology following - US: Right-sided findings compatible with persistent, chronic epididymo- orchitis, Left-sided findings compatible with persistent versus recurrent epididymo-orchitis, likely acute on chronic. Small right epididymal, left testicular cysts. Second hypoechoic nodule in the left testis questionable significance. Neoplasm not excludable. Bilateral varicoceles, left greater than right MSSA UTI Chronic right ankle, bilateral hallux ulcers, not grossly infected - WCx MSSA, qS-PSA = colonizers Sepsis Fever - recurrent x1 Leukocytosis - improved. No repeat CBC Acute left femoral neck fracture SP CATIA 03/11 Chronic pain syndrome NKDA Full Code PLAN: continue ancef-->keflex d# 4 ( ABX d# ). IV vancomycin per SCIP ( 03/08 SP Cefepime and Vancod# 4 ) outpt urology follow up f/u final cultures Monitor CBC, temperatures Monitor BMP Subjective Allergies: Coded Allergies: No Known Allergies (Unverified , 02/08/13) Subjective recurrent fever x1 SP CATIA Objective Vital Signs Last 24 Hour Vital Signs Date Time Temp Pulse Resp B/P Pulse Ox O2 Delivery O2 Flow Rate FiO2 03/11/16 13:45 98.5 80 17 133/70 100 Nasal Cannula 3.0 03/11/16 13:30 78 15 133/81 100 Nasal Cannula 3.0 03/11/16 13:25 79 16 128/75 100 Nasal Cannula 3.0 03/11/16 13:15 80 15 139/76 99 Nasal Cannula 3.0 03/11/16 13:05 82 14 130/70 100 Simple Mask 6.0 03/11/16 13:00 77 14 138/84 100 Simple Mask 6.0 03/11/16 12:57 90 20 98 03/11/16 12:53 101.0 82 15 131/88 100 Simple Mask 6.0 03/11/16 09:14 97.7 03/11/16 08:21 97.7 79 20 120/85 96 Room Air 03/10/16 23:45 96.6 74 18 154/82 97 Room Air 03/10/16 20:00 98.1 78 18 148/74 95 Room Air 03/10/16 16:18 97.9 79 20 126/86 96 Room Air 03/10/16 14:08 98.0 Height (Feet): 6 Height (Inches): 4.00 Weight (Pounds): 285 General Appearance: no acute distress Respiratory/Chest: no respiratory distress Cardiovascular: normal rate, regular rhythm Abdomen: normal bowel sounds, soft, non tender, non distended Current Medications Medications (Trade) Dose Ordered Sig/Dmitriy Route PRN Reason Start Time Stop Time Status Last Admin Dose Admin Acetaminophen (Tylenol) 650 mg Q4H PRN ORAL fever 03/04/16 16:00 04/03/16 15:59 03/06/16 05:55 Acetaminophen/ Hydrocodone Bitart ([place] 5/325) 1 tab Q1H PRN ORAL Mild Pain (Pain Scale 1-3) 03/11/16 12:30 03/11/16 16:00 Acetaminophen/ Hydrocodone Bitart ([place] 5/325) 2 tab Q6H PRN ORAL Severe Pain (Pain Scale 7-10) 03/11/16 12:45 03/18/16 12:44 UNV Acetaminophen/ Hydrocodone Bitart ([place] 7.5/325) 1 ea Q4H PRN ORAL Moderate Pain (Pain Scale 4-6) 03/11/16 12:45 03/18/16 12:44 UNV Al Hydroxide/Mg Hydroxide (Mylanta II) 30 ml Q6H PRN ORAL dyspepsia 03/04/16 16:00 04/03/16 15:59 Cephalexin (Keflex) 500 mg FOUR TIMES A DAY ORAL 03/10/16 21:00 03/17/16 20:59 03/11/16 08:16 Clonidine HCl (Catapres) 0.1 mg Q4H PRN ORAL For High Blood Pressure 03/05/16 08:15 04/04/16 08:14 Dextrose (Dextrose 50%) STAT PRN IV Hypoglycemia 03/04/16 16:00 04/03/16 15:59 Dextrose/ Electrolytes 1,000 ml @ 200 mls/hr Q5H IV 03/11/16 12:42 04/10/16 12:41 UNV Docusate Sodium (Colace) 100 mg THREE TIMES A DAY ORAL 03/11/16 13:00 04/10/16 12:59 UNV Enoxaparin Sodium (Lovenox) 40 mg DAILY SUBQ 03/12/16 09:00 03/22/16 08:59 UNV Fentanyl Citrate (Sublimaze 100 mcg/2 mL) 25 mcg Q10M PRN IV Moderate Pain (Pain Scale 4-6) 03/11/16 12:30 03/11/16 16:00 Gabapentin (Neurontin) 300 mg THREE TIMES A DAY ORAL 03/06/16 10:00 04/05/16 09:59 03/11/16 08:16 Heparin Sodium (Porcine) (Heparin 5000 units/ml) 5,000 units EVERY 12 HOURS SUBQ 03/04/16 21:00 04/03/16 20:59 03/10/16 08:34 Hydromorphone HCl (Dilaudid) 0.5 mg Q15M PRN IVP Severe Pain (Pain Scale 7-10) 03/11/16 12:30 03/11/16 16:00 Hydromorphone HCl (Dilaudid) 4 mg Q4H PRN ORAL severe pain 03/09/16 09:15 03/16/16 09:14 03/11/16 03:18 Ketorolac Tromethamine 15 mg 15 mg Q1H PRN IV Moderate Breakthru Pain (5-7) 03/11/16 12:30 03/11/16 16:00 Lorazepam (Ativan 2mg/ml 1ml) 0.5 mg Q4H PRN IV For Anxiety 03/04/16 16:00 03/11/16 15:59 03/06/16 02:06 Magnesium Hydroxide (Mom) 30 ml DAILYPRN PRN ORAL Constipation 03/11/16 12:45 04/10/16 12:44 UNV Morphine Sulfate (Morphine Sulfate) 2 mg Q3H PRN IVP Moderate Pain (Pain Scale 4-6) 03/11/16 12:45 03/18/16 12:44 UNV Morphine Sulfate (Morphine Sulfate) 4 mg Q3H PRN IVP Severe Pain (Pain Scale 7-10) 03/11/16 12:45 03/18/16 12:44 UNV Ondansetron HCl (Zofran) 4 mg Q6H PRN IVP Nausea & Vomiting 03/04/16 16:00 04/03/16 15:59 03/06/16 04:03 Ondansetron HCl (Zofran) 4 mg Q6HR PRN IVP Nausea & Vomiting 03/11/16 12:45 2/12/17 12:44 UNV Oxycodone HCl (OxyCONTIN) 20 mg EVERY 12 HOURS ORAL 03/11/16 21:00 03/18/16 20:59 UNV Oxycodone HCl (Roxicodone) 5 mg Q4H PRN ORAL Breakthrough Pain 03/11/16 12:45 03/18/16 12:44 UNV Polyethylene Glycol (Miralax) 17 gm HSPRN PRN ORAL Constipation 03/04/16 16:00 04/03/16 15:59 Tamsulosin HCl (Flomax) 0.4 mg DAILY ORAL 03/05/16 09:00 04/04/16 08:59 03/11/16 08:16 Temazepam (Restoril) 7.5 mg DAILY PRN ORAL Insomnia 03/11/16 12:45 03/18/16 12:44 UNV Vancomycin HCl/ Dextrose (Vancomycin/D5W 250ml) 250 ml @ 167 mls/hr EVERY 12 HOURS IV 03/11/16 21:00 03/11/16 22:30 UNV Zolpidem Tartrate (Ambien) 5 mg HSPRN PRN ORAL Insomnia 03/04/16 16:00 04/03/16 15:59 03/11/16 01:10 LINDSAY ABARCA Mar 11, 2016 14:08
--- NOTE | 2016-03-11 16:53 | Pulmonology Progress Note ---
Assessment/Plan Problems: (1) Fracture of femoral neck, left (2) Sepsis (3) Chronic epididymitis (4) Chronic pain (5) Scrotal fullness Assessment/Plan IV antibiotics check wbc, decreasing pain management urology consult and US of scrotum reviewed Pt is cleared from ID and medicine point of view to have surgery. Subjective Musculoskeletal: Reports: pain, stiffness Allergies: Coded Allergies: No Known Allergies (Unverified , 02/08/13) Objective Last 24 Hour Vital Signs Date Time Temp Pulse Resp B/P Pulse Ox O2 Delivery O2 Flow Rate FiO2 03/11/16 13:45 98.5 80 17 133/70 100 Nasal Cannula 3.0 03/11/16 13:30 78 15 133/81 100 Nasal Cannula 3.0 03/11/16 13:25 79 16 128/75 100 Nasal Cannula 3.0 03/11/16 13:15 80 15 139/76 99 Nasal Cannula 3.0 03/11/16 13:05 82 14 130/70 100 Simple Mask 6.0 03/11/16 13:00 77 14 138/84 100 Simple Mask 6.0 03/11/16 12:57 90 20 98 03/11/16 12:53 101.0 82 15 131/88 100 Simple Mask 6.0 03/11/16 09:14 97.7 03/11/16 08:21 97.7 79 20 120/85 96 Room Air 03/10/16 23:45 96.6 74 18 154/82 97 Room Air 03/10/16 20:00 98.1 78 18 148/74 95 Room Air Intake and Output 03/10/16 03/11/16 19:00 07:00 Intake Total 1200 ml 475 ml Output Total 1000 ml 600 ml Balance 200 ml -125 ml Intake Oral 1200 ml 475 ml Output Urine Total 1000 ml 600 ml # Voids 5 # Bowel Movements 1 1 General Appearance: no acute distress HEENT: normocephalic, atraumatic, PERRL Respiratory/Chest: chest wall non-tender, decreased breath sounds, accessory muscle use Cardiovascular: normal peripheral pulses, normal rate, regular rhythm, no JVD Abdomen: normal bowel sounds, soft, non tender, no organomegaly Genitourinary: normal external genitalia Extremities: no cyanosis Skin: no rash, no lesions 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, no motor/sensory deficits Current Medications Medications (Trade) Dose Ordered Sig/Dmitriy Route PRN Reason Start Time Stop Time Status Last Admin Dose Admin Acetaminophen (Tylenol) 650 mg Q4H PRN ORAL fever 03/04/16 16:00 04/03/16 15:59 03/06/16 05:55 Acetaminophen/ Hydrocodone Bitart ([place] 5/325) 2 tab Q6H PRN ORAL Severe Pain (Pain Scale 7-10) 03/11/16 12:45 03/18/16 12:44 Acetaminophen/ Hydrocodone Bitart ([place] 7.5/325) 1 ea Q4H PRN ORAL Moderate Pain (Pain Scale 4-6) 03/11/16 12:45 03/18/16 12:44 Al Hydroxide/Mg Hydroxide (Mylanta II) 30 ml Q6H PRN ORAL dyspepsia 03/04/16 16:00 04/03/16 15:59 Cephalexin 500 mg 500 mg FOUR TIMES A DAY ORAL 03/10/16 21:00 03/17/16 20:59 03/11/16 08:16 Clonidine HCl (Catapres) 0.1 mg Q4H PRN ORAL For High Blood Pressure 03/05/16 08:15 04/04/16 08:14 Dextrose (Dextrose 50%) STAT PRN IV Hypoglycemia 03/04/16 16:00 04/03/16 15:59 Dextrose/ Electrolytes 1,000 ml @ 200 mls/hr Q5H IV 03/11/16 12:42 04/10/16 12:41 03/11/16 16:51 Docusate Sodium (Colace) 100 mg THREE TIMES A DAY ORAL 03/11/16 18:00 04/10/16 17:59 Enoxaparin Sodium (Lovenox) 40 mg DAILY SUBQ 03/12/16 09:00 03/22/16 08:59 Gabapentin (Neurontin) 300 mg THREE TIMES A DAY ORAL 03/06/16 10:00 04/05/16 09:59 03/11/16 08:16 Heparin Sodium (Porcine) (Heparin 5000 units/ml) 5,000 units EVERY 12 HOURS SUBQ 03/04/16 21:00 04/03/16 20:59 03/10/16 08:34 Hydromorphone HCl (Dilaudid) 4 mg Q4H PRN ORAL severe pain 03/09/16 09:15 03/16/16 09:14 03/11/16 16:51 Magnesium Hydroxide (Mom) 30 ml DAILYPRN PRN ORAL Constipation 03/11/16 12:45 04/10/16 12:44 Morphine Sulfate (Morphine Sulfate) 2 mg Q3H PRN IVP Moderate Pain (Pain Scale 4-6) 03/11/16 12:45 03/18/16 12:44 Morphine Sulfate (Morphine Sulfate) 4 mg Q3H PRN IVP Severe Pain (Pain Scale 7-10) 03/11/16 12:45 03/18/16 12:44 Ondansetron HCl (Zofran) 4 mg Q6H PRN IVP Nausea & Vomiting 03/11/16 12:45 04/10/16 12:44 Ondansetron HCl (Zofran) 4 mg Q6H PRN IVP Nausea & Vomiting 03/04/16 16:00 04/03/16 15:59 03/06/16 04:03 Oxycodone HCl (OxyCONTIN) 20 mg EVERY 12 HOURS ORAL 03/11/16 21:00 03/18/16 20:59 Oxycodone HCl (Roxicodone) 5 mg Q4H PRN ORAL Breakthrough Pain 03/11/16 12:45 03/18/16 12:44 Polyethylene Glycol (Miralax) 17 gm HSPRN PRN ORAL Constipation 03/04/16 16:00 04/03/16 15:59 Tamsulosin HCl (Flomax) 0.4 mg DAILY ORAL 03/05/16 09:00 04/04/16 08:59 03/11/16 08:16 Temazepam (Restoril) 7.5 mg QHS PRN ORAL Insomnia 03/11/16 12:45 03/18/16 12:44 Vancomycin HCl/ Dextrose (Vancomycin/D5W 250ml) 250 ml @ 167 mls/hr EVERY 12 HOURS IVPB 03/11/16 21:00 03/11/16 22:30 Zolpidem Tartrate (Ambien) 5 mg HSPRN PRN ORAL Insomnia 03/04/16 16:00 04/03/16 15:59 03/11/16 01:10 DIEGO WALKER Mar 11, 2016 16:53
[2016-03-11] MEDS: Docusate 100mg cap ORAL SCH (17:22)
[2016-03-11] MEDS: oxyCODONE 5mg IR tab ORAL PRN (18:14)
[2016-03-11] MEDS: oxyCONTIN 20mg tab ORAL SCH (21:00)
[2016-03-12] MEDS: oxyCONTIN 20mg tab ORAL SCH ×3 (00:29→12:53)
[2016-03-12] MEDS: Zolpidem 5mg tab ORAL PRN (00:34)
[2016-03-12] MEDS: HYDROmorphone 4mg tab ORAL PRN ×6 (03:24→23:50)
[2016-03-12] MEDS: D5 1/2NS w/KCl 20mEq 1,000 ML IV SCH ×4 (03:42→17:33)
--- NOTE | 2016-03-12 04:08 | Operative Note - Dictated ---
DATE OF OPERATION: 03/11/2016 PREOPERATIVE DIAGNOSIS: Left femoral neck fracture. POSTOPERATIVE DIAGNOSIS: Left femoral neck fracture. PROCEDURE: Left total hip arthroplasty. SURGEON: Campbell Shirley M.D. ANESTHESIA: General. INDICATION FOR PROCEDURE: The patient is a pleasant gentleman, who sustained mechanical fall, who is diagnosed with left femoral neck fracture. He is indicative of operative fixation. Risks, limitations, expectations, and complications of procedure were discussed in detail including the possibility of an partial hip replacement versus full hip replacement. All questions were addressed. Given his age and activity level, we elected to undergo total hip replacement. Risks, limitations, expectations, and complication of procedure were discussed in detail. All questions addressed. DESCRIPTION OF PROCEDURE: An informed consent was obtained. The patient was taken to the operative room and placed under general anesthesia. The patient was then carefully placed in the beach-chair position. Right hip was prepped and draped in a sterile manner. Time-out was performed. Ancef was administered. The patient then carefully placed in lateral decubitus position. The posterolateral skin incision was then marked out. The skin was incised. Fascia also was incised. Piriformis and short external rotators were teed and capsule was tagged with #2 FiberWire. I then sutured the neck cut below the femoral neck was performed. Femoral head was removed. Sequential reaming up to 54 was performed and a 56 cup was selected and placed in approximately 45 degrees abduction and 15 degrees of anteversion. Neutral liner was also placed. Once that was completed, sequential broaching up to size 8 was performed and 8-0 head neck option was selected. Hip was reduced. Flexed to 120 degrees of flexion, and internal rotation to 45 extension with flexion at 90, and extension external rotation was stable. With a trial with a +4 neck was selected this improved the stability with the hip flexed to 90 degrees and internal rotation to 60. It is felt that there is +4 neck option was reasonable and it seemed to improve stability clinically. At this point, the trial components removed. Final implants were impacted into place. The capsule was to be passed into the greater trochanter. fascia mckenna was closed with #1 Vicryl suture, 2-0 Vicryl suture, and 3-0 Monocryl suture. Dermabond dressing were applied. The patient was awoken and taken to recovery room with stable vital signs. ESTIMATED BLOOD LOSS: 50 mL. COMPLICATIONS: None. SPECIMENS: Femoral head. IMPLANTS: Ryder 56 acetabular component, 8 high offset Accolade stem with a +4 head and neck combo. Campbell Shirley M.D. DR: JOSE JOB#: [id number] CC: CARMELLA
[2016-03-12 04:15] VITALS: BP 120/75
[2016-03-12] MEDS: oxyCODONE 5mg IR tab ORAL PRN ×3 (08:12→21:39)
[2016-03-12 08:19] VITALS: BP 137/77
[2016-03-12] MEDS: Cephalexin 500mg cap ORAL SCH ×4 (08:25→20:39)
[2016-03-12] MEDS: Tamsulosin 0.4mg cap ORAL SCH (08:25)
[2016-03-12] MEDS: Enoxaparin 40mg Inj SUBQ SCH (08:26)
--- NOTE | 2016-03-12 08:29 | Diagnostic Imaging Report ---
Indication: pain Findings: Single AP view of the pelvis was performed. There is a bipolar left moe-arthroplasty demonstrated. On the single projection obtained there is no significant abnormality identified. A Cortes catheter is present. A single view of the right hip is unremarkable. The upper part of the pelvis is not imaged on this study. Impression: Status post recent left hip hemiarthroplasty
[2016-03-12] MEDS: Heparin 5000 units/ml inj SUBQ SCH (09:00)
[2016-03-12] MEDS: Docusate 100mg cap ORAL SCH ×3 (09:43→17:33)
--- NOTE | 2016-03-12 09:47 | 48 Hour Post Anesthesia Eval ---
Post Anesthesia Evaluation Procedure: Total hip Replacement Date of Evaluation: Mar 12, 2016 Time of Evaluation: 09:43 Blood Pressure Systolic: 124 0: 72 Pulse Rate: 68 Respiratory Rate: 20 Temperature (Fahrenheit): 97.6 O2 Sat by Pulse Oximetry: 98 Airway: patent Nausea: No Vomiting: No Pain Intensity: 2 Hydration Status: adequate Cardiopulmonary Status: stable Mental Status/LOC: patient returned to baseline Follow-up Care/Observations: n/a Post-Anesthesia Complications: none Follow-up care needed: N/A JAMES CANNON M.D. Mar 12, 2016 09:47
--- NOTE | 2016-03-12 11:12 | Wound Care Consultation ---
Wound Assessment Wound Assessment #1: Wound Number: #1 Wound Present on Admission: Yes New Wound: No Status Change of Wound: No Wound Location Body Site Modif: right, medial Wound Location Body Site: foot Wound Type: vascular wound Manuel Test: Does not Manuel Wound Thickness: Full Thickness Wound Length: 2.0 Wound Width: 2.0 Wound Depth: utd Percent of Wound Bed Yellow/Wh: 100 Wound Drainage Amount: None Wound Drainage Odor: None/Absent Tissue Surrounding Wound: Intact Wound General Appearance: Clean/Dry - noted significant decrease in size , scar tissue appearing. Wound Assessment #2: Wound Number: #2 Wound Present on Admission: Yes New Wound: No Status Change of Wound: No Wound Location Body Site Modif: right Wound Location Body Site: toe - 1st toe Wound Type: other - callus Manuel Test: Does not Manuel Wound Thickness: Full Thickness Wound Length: 3.0 Wound Width: 3.0 Percent of Wound Bed Yellow/Wh: 100 - dry thick callus noted with good progress. Wound Drainage Amount: None Wound Drainage Odor: None/Absent Tissue Surrounding Wound: Intact Wound General Appearance: Open to air Wound Assessment #3: Wound Number: #3 Wound Present on Admission: Yes New Wound: No Status Change of Wound: No Wound Location Body Site Modif: left Wound Location Body Site: toe - 1st Wound Type: other - callus Manuel Test: Does not Manuel Wound Thickness: Full Thickness Wound Length: 2.0 Wound Width: 2.0 Wound Depth: utd Percent of Wound Bed Yellow/Wh: 100 - dry callus noted with good progress. noted decrease in size, surrouding skin intact,moist, no s/s of infection. Wound Drainage Amount: None Wound Drainage Odor: None/Absent Tissue Surrounding Wound: Intact Wound General Appearance: Open to air Wound Comment Upon assessment noted good progress to right medial foot wound, noted decrease in size, current wound treatment is effective, no s/s of infection to site, no foul odor, no erythema present, surrounding skin color WNL, skin temperature WNL , patient tolerated treatment well as ordered, denies any pain to site at this time. Right and left 1st toe callus remains present dry , intact, continue to keep moisturized. no s/s of infection to callus sites. BRIAN DUPONT Mar 12, 2016 11:12
[2016-03-12 11:51] VITALS: BP 147/96
[2016-03-12 15:54] VITALS: BP 120/74
--- NOTE | 2016-03-12 16:10 | Pulmonology Progress Note ---
Assessment/Plan Problems: (1) Fracture of femoral neck, left (2) Sepsis (3) Chronic epididymitis (4) Chronic pain (5) Scrotal fullness Assessment/Plan IV antibiotics check wbc, decreasing pain management urology consult and US of scrotum reviewed Pt is cleared from ID and medicine point of view to have surgery. Subjective Allergies: Coded Allergies: No Known Allergies (Unverified , 02/08/13) Objective Last 24 Hour Vital Signs Date Time Temp Pulse Resp B/P Pulse Ox O2 Delivery O2 Flow Rate FiO2 03/12/16 15:54 98.2 83 20 120/74 96 Room Air 03/12/16 11:51 97.0 82 20 147/96 98 Room Air 03/12/16 09:47 68 20 98 03/12/16 08:19 98.2 83 20 137/77 97 Room Air 03/12/16 04:15 96.5 84 19 120/75 95 Room Air 03/11/16 23:45 98.2 80 19 127/68 95 Room Air Intake and Output 03/11/16 03/12/16 19:00 07:00 Intake Total 1550 ml 2777 ml Output Total 500 ml 775 ml Balance 1050 ml 2002 ml Intake Oral 860 ml IV Total 1550 ml 1917 ml Output Urine Total 500 ml 775 ml Estimated Blood Loss 0 ml General Appearance: no acute distress HEENT: normocephalic, atraumatic, PERRL Respiratory/Chest: chest wall non-tender, decreased breath sounds, accessory muscle use Cardiovascular: normal peripheral pulses, normal rate, regular rhythm, no JVD Abdomen: normal bowel sounds, soft, non tender, no organomegaly Genitourinary: other - scrotal edema Extremities: no cyanosis Skin: rash, lesions 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, no motor/sensory deficits Microbiology Date/Time Source Procedure Growth Status 03/11/16 10:00 Stool Clostridium difficile Toxin Assay - Final Complete Current Medications Medications (Trade) Dose Ordered Sig/Dmitriy Route PRN Reason Start Time Stop Time Status Last Admin Dose Admin Acetaminophen (Tylenol) 650 mg Q4H PRN ORAL fever 03/04/16 16:00 04/03/16 15:59 03/06/16 05:55 Acetaminophen/ Hydrocodone Bitart ([place] 5/325) 2 tab Q6H PRN ORAL Severe Pain (Pain Scale 7-10) 03/11/16 12:45 03/18/16 12:44 Acetaminophen/ Hydrocodone Bitart ([place] 7.5/325) 1 ea Q4H PRN ORAL Moderate Pain (Pain Scale 4-6) 03/11/16 12:45 03/18/16 12:44 Al Hydroxide/Mg Hydroxide (Mylanta II) 30 ml Q6H PRN ORAL dyspepsia 03/04/16 16:00 04/03/16 15:59 Cephalexin 500 mg 500 mg FOUR TIMES A DAY ORAL 03/10/16 21:00 03/17/16 20:59 03/12/16 13:29 Clonidine HCl (Catapres) 0.1 mg Q4H PRN ORAL For High Blood Pressure 03/05/16 08:15 04/04/16 08:14 Dextrose (Dextrose 50%) STAT PRN IV Hypoglycemia 03/04/16 16:00 04/03/16 15:59 Dextrose/ Electrolytes (D5 0.45%NS W/ KCl 20mEq) 1,000 ml @ 200 mls/hr Q5H IV 03/11/16 12:42 04/10/16 12:41 03/12/16 12:43 Docusate Sodium (Colace) 100 mg THREE TIMES A DAY ORAL 03/11/16 18:00 04/10/16 17:59 03/12/16 13:30 Enoxaparin Sodium (Lovenox) 40 mg DAILY SUBQ 03/12/16 09:00 03/22/16 08:59 03/12/16 08:26 Gabapentin (Neurontin) 300 mg THREE TIMES A DAY ORAL 03/06/16 10:00 04/05/16 09:59 03/12/16 13:29 Hydromorphone HCl (Dilaudid) 4 mg Q3H PRN ORAL severe pain 03/11/16 18:00 03/18/16 17:59 03/12/16 09:43 Magnesium Hydroxide (Mom) 30 ml DAILYPRN PRN ORAL Constipation 03/11/16 12:45 04/10/16 12:44 Morphine Sulfate (Morphine Sulfate) 2 mg Q3H PRN IVP Moderate Pain (Pain Scale 4-6) 03/11/16 12:45 03/18/16 12:44 Morphine Sulfate (Morphine Sulfate) 4 mg Q3H PRN IVP Severe Pain (Pain Scale 7-10) 03/11/16 12:45 03/18/16 12:44 Ondansetron HCl (Zofran) 4 mg Q6H PRN IVP Nausea & Vomiting 03/11/16 12:45 04/10/16 12:44 Ondansetron HCl (Zofran) 4 mg Q6H PRN IVP Nausea & Vomiting 03/04/16 16:00 04/03/16 15:59 03/12/16 12:09 Oxycodone HCl (OxyCONTIN) 20 mg EVERY 12 HOURS ORAL 03/11/16 21:00 03/18/16 20:59 03/12/16 12:53 Oxycodone HCl (Roxicodone) 5 mg Q4H PRN ORAL Breakthrough Pain 03/11/16 12:45 03/18/16 12:44 03/12/16 08:12 Polyethylene Glycol (Miralax) 17 gm HSPRN PRN ORAL Constipation 03/04/16 16:00 04/03/16 15:59 Tamsulosin HCl (Flomax) 0.4 mg DAILY ORAL 03/05/16 09:00 04/04/16 08:59 03/12/16 08:25 Temazepam (Restoril) 7.5 mg QHS PRN ORAL Insomnia 03/11/16 12:45 03/18/16 12:44 Zolpidem Tartrate (Ambien) 5 mg HSPRN PRN ORAL Insomnia 03/04/16 16:00 04/03/16 15:59 03/12/16 00:34 DIEGO WALKER Mar 12, 2016 16:10
[2016-03-12 20:00] VITALS: BP 156/79
[2016-03-13] VITALS: BP 157/87
[2016-03-13] MEDS: oxyCODONE 5mg IR tab ORAL PRN (01:52)
[2016-03-13] MEDS: HYDROmorphone 4mg tab ORAL PRN ×3 (03:10→17:17)
[2016-03-13 04:00] VITALS: BP 139/85
[2016-03-13 08:37] VITALS: BP 129/73
[2016-03-13] MEDS: Docusate 100mg cap ORAL SCH ×3 (09:19→17:16)
[2016-03-13] MEDS: Tamsulosin 0.4mg cap ORAL SCH (09:19)
[2016-03-13] MEDS: Enoxaparin 40mg Inj SUBQ SCH (09:20)
[2016-03-13] MEDS: oxyCONTIN 20mg tab ORAL SCH ×3 (09:20→21:11)
[2016-03-13] MEDS: Cephalexin 500mg cap ORAL SCH ×4 (09:21→21:10)
--- NOTE | 2016-03-13 10:03 | General Progress Note ---
Assessment/Plan Assessment/Plan (1) Lumbar Herniated Disc (2) Lumbar DDD (3) Lumbar Spondylosis (4) Lumbar Radiculopathy (5) MJ OA and Pain (6) Left hip fx s/p fall (7) Narcotics Dependency (8) Left total hip arthroplasty We will continued on Dilaudid Q3H PRN and Neurontin. Oxycontin 20mg will be changed to Q8H, [place], Oxycodone and Morphine IV will be discontinued. Pt was d/ w Dr. Das and concurred. Subjective Date patient seen: Mar 13, 2016 Time patient seen: 07:15 - am Allergies: Coded Allergies: No Known Allergies (Unverified , 02/08/13) Subjective Constitutional: Reports: weakness, Denies: chills, diaphoresis, fever, malaise , no symptoms, other HEENT: Denies: blurred vision, double vision, ear discharge, ear pain, eye pain , mouth pain, mouth swelling, no symptoms, nose congestion, nose pain, other, tearing, throat pain, throat swelling Cardiovascular: Denies: chest pain, edema, irregular heart rate, lightheadedness, no symptoms, other, palpitations, syncope Respiratory: Denies: SOB at rest, SOB with excertion, cough, no symptoms, orthopnea, other, shortness of breath, sputum, stridor, wheezing Gastrointestinal/Abdominal: Reports: nausea, Denies: abdomen distended, abdominal pain, black stools, blood in stool, constipated, diarrhea, difficulty swallowing, no symptoms, other, poor appetite, poor fluid intake, rectal bleeding, tarry stools, vomiting Genitourinary: Denies: burning, discharge, flank pain, frequency, hematuria, incontinence, no symptoms, other, pain, urgency Neurologic/Psychiatric: Reports: numbness, weakness, Denies: anxiety, depressed , emotional problems, headache, no symptoms, other, paresthesia, pre-existing deficit, seizure, tingling, tremors Endocrine: Denies: excessive sweating, flushing, increased hunger, increased thirst, increased urine, intolerance to cold, intolerance to heat, no symptoms, other, unexplained weight gain, unexplained weight loss Hematologic/Lymphatic: Denies: anemia, easy bleeding, easy bruising, no symptoms, other Subjective: Pt is s/p THR and reports his pain has been severe and is unable to ambulate. Medications were changed by ortho. I d/w him about medication regimen. He understands. Objective Last 24 Hour Vital Signs Date Time Temp Pulse Resp B/P Pulse Ox O2 Delivery O2 Flow Rate FiO2 03/13/16 08:37 97.9 94 18 129/73 95 Room Air 03/13/16 07:53 95.9 03/13/16 05:25 95.9 03/13/16 04:00 98.9 99 22 139/85 94 Room Air 03/13/16 00:00 95.9 98 22 157/87 97 Room Air 03/12/16 20:00 99.3 92 22 156/79 97 Room Air 03/12/16 15:54 98.2 83 20 120/74 96 Room Air 03/12/16 11:51 97.0 82 20 147/96 98 Room Air Intake and Output 03/12/16 03/13/16 19:00 07:00 Intake Total 2720 ml 480 ml Output Total 2000 ml 1600 ml Balance 720 ml -1120 ml Intake Oral 1320 ml 480 ml IV Total 1400 ml Output Urine Total 2000 ml 1600 ml Height (Feet): 6 Height (Inches): 4.00 Weight (Pounds): 285 Objective General Appearance: no apparent distress, alert EENT: PERRL/EOMI, normal ENT inspection Neck: non-tender, normal alignment Cardiovascular: normal rate, regular rhythm Respiratory/Chest: chest wall non-tender, decreased breath sounds Abdomen: non tender Extremities: swelling - tenderness to palpation of left hip Neurologic: alert, oriented x 3 LESLIE BRAY Mar 13, 2016 10:03
--- NOTE | 2016-03-13 10:20 | Infectious Diseases Prog Note ---
Assessment/Plan Assessment/Plan ASSESSMENT: 61 y/o male with: Recurrent bilateral epididymitis - improving, urology following - US: Right-sided findings compatible with persistent, chronic epididymo- orchitis, Left-sided findings compatible with persistent versus recurrent epididymo-orchitis, likely acute on chronic. Small right epididymal, left testicular cysts. Second hypoechoic nodule in the left testis questionable significance. Neoplasm not excludable. Bilateral varicoceles, left greater than right MSSA UTI Chronic right ankle, bilateral hallux ulcers, not grossly infected - WCx MSSA, qS-PSA = colonizers Sepsis Fever - recurrent x1 resolved Leukocytosis - improved. No repeat CBC Acute left femoral neck fracture SP CATIA 03/11 Chronic pain syndrome NKDA Full Code PLAN: continue ancef-->keflex d# 6 ( ABX d# ). ( SP IV vancomycin per SCIP ) ( 03/08 SP Cefepime and Vancod# 4 ) outpt urology follow up Monitor CBC, temperatures, re-culture if acute change Monitor BMP Subjective Allergies: Coded Allergies: No Known Allergies (Unverified , 02/08/13) Subjective recurrent fever x1 resolved c/o hip pain no labs Objective Vital Signs Last 24 Hour Vital Signs Date Time Temp Pulse Resp B/P Pulse Ox O2 Delivery O2 Flow Rate FiO2 03/13/16 08:37 97.9 94 18 129/73 95 Room Air 03/13/16 07:53 95.9 03/13/16 05:25 95.9 03/13/16 04:00 98.9 99 22 139/85 94 Room Air 03/13/16 00:00 95.9 98 22 157/87 97 Room Air 03/12/16 20:00 99.3 92 22 156/79 97 Room Air 03/12/16 15:54 98.2 83 20 120/74 96 Room Air 03/12/16 11:51 97.0 82 20 147/96 98 Room Air Height (Feet): 6 Height (Inches): 4.00 Weight (Pounds): 285 General Appearance: no acute distress Respiratory/Chest: no respiratory distress Cardiovascular: normal rate, regular rhythm Abdomen: normal bowel sounds, soft, non tender, non distended Microbiology Date/Time Source Procedure Growth Status 03/11/16 10:00 Stool Clostridium difficile Toxin Assay - Final Complete Current Medications Medications (Trade) Dose Ordered Sig/Dmitriy Route PRN Reason Start Time Stop Time Status Last Admin Dose Admin Acetaminophen (Tylenol) 650 mg Q4H PRN ORAL fever 03/04/16 16:00 04/03/16 15:59 03/06/16 05:55 Al Hydroxide/Mg Hydroxide (Mylanta II) 30 ml Q6H PRN ORAL dyspepsia 03/04/16 16:00 04/03/16 15:59 Cephalexin (Keflex) 500 mg FOUR TIMES A DAY ORAL 03/10/16 21:00 03/17/16 20:59 03/13/16 09:21 Clonidine HCl (Catapres) 0.1 mg Q4H PRN ORAL For High Blood Pressure 03/05/16 08:15 04/04/16 08:14 Dextrose (Dextrose 50%) STAT PRN IV Hypoglycemia 03/04/16 16:00 04/03/16 15:59 Docusate Sodium (Colace) 100 mg THREE TIMES A DAY ORAL 03/11/16 18:00 04/10/16 17:59 03/13/16 09:19 Enoxaparin Sodium (Lovenox) 40 mg DAILY SUBQ 03/12/16 09:00 03/22/16 08:59 03/13/16 09:20 Gabapentin (Neurontin) 300 mg THREE TIMES A DAY ORAL 03/06/16 10:00 04/05/16 09:59 03/13/16 09:19 Hydromorphone HCl (Dilaudid) 4 mg Q3H PRN ORAL severe pain 03/11/16 18:00 03/18/16 17:59 03/13/16 06:54 Magnesium Hydroxide (Mom) 30 ml DAILYPRN PRN ORAL Constipation 03/11/16 12:45 04/10/16 12:44 Ondansetron HCl (Zofran) 4 mg Q6H PRN IVP Nausea & Vomiting 03/11/16 12:45 04/10/16 12:44 Ondansetron HCl (Zofran) 4 mg Q6H PRN IVP Nausea & Vomiting 03/04/16 16:00 04/03/16 15:59 03/12/16 12:09 Oxycodone HCl (OxyCONTIN) 20 mg Q8H ORAL 03/13/16 13:00 03/20/16 12:59 UNV Polyethylene Glycol (Miralax) 17 gm HSPRN PRN ORAL Constipation 03/04/16 16:00 04/03/16 15:59 Tamsulosin HCl (Flomax) 0.4 mg DAILY ORAL 03/05/16 09:00 04/04/16 08:59 03/13/16 09:19 Temazepam (Restoril) 7.5 mg QHS PRN ORAL Insomnia 03/11/16 12:45 03/18/16 12:44 Zolpidem Tartrate (Ambien) 5 mg HSPRN PRN ORAL Insomnia 03/04/16 16:00 04/03/16 15:59 03/12/16 00:34 LINDSAY ABARCA Mar 13, 2016 10:20
[2016-03-13 12:00] VITALS: BP 163/82
[2016-03-13 16:00] VITALS: BP 138/72
--- NOTE | 2016-03-13 19:10 | Pulmonology Progress Note ---
Assessment/Plan Problems: (1) Fracture of femoral neck, left (2) Sepsis (3) Chronic epididymitis (4) Chronic pain (5) Scrotal fullness Assessment/Plan IV antibiotics check wbc, decreasing pain management urology consult and US of scrotum reviewed Pt is cleared from ID and medicine point of view to have surgery. Subjective Constitutional: Reports: anorexia, fatigue HEENT: Repors: no symptoms - neck pain and stiffness Neurologic: Reports: confusion, weakness Allergies: Coded Allergies: No Known Allergies (Unverified , 02/08/13) Objective Last 24 Hour Vital Signs Date Time Temp Pulse Resp B/P Pulse Ox O2 Delivery O2 Flow Rate FiO2 03/13/16 16:00 98.4 90 24 138/72 97 03/13/16 12:58 163/82 03/13/16 12:00 97.9 92 20 163/82 95 Room Air 03/13/16 08:37 97.9 94 18 129/73 95 Room Air 03/13/16 07:53 95.9 03/13/16 05:25 95.9 03/13/16 04:00 98.9 99 22 139/85 94 Room Air 03/13/16 00:00 95.9 98 22 157/87 97 Room Air 03/12/16 20:00 99.3 92 22 156/79 97 Room Air Intake and Output 03/12/16 03/13/16 19:00 07:00 Intake Total 2720 ml 480 ml Output Total 2000 ml 1600 ml Balance 720 ml -1120 ml Intake Oral 1320 ml 480 ml IV Total 1400 ml Output Urine Total 2000 ml 1600 ml General Appearance: no acute distress HEENT: normocephalic, atraumatic, PERRL Respiratory/Chest: chest wall non-tender, decreased breath sounds, accessory muscle use, crackles/rales Cardiovascular: normal peripheral pulses, normal rate, regular rhythm, no JVD Abdomen: normal bowel sounds, soft, non tender, no organomegaly, non distended Genitourinary: other - scrotal edema and inflammation Extremities: no cyanosis Skin: rash, lesions 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1 mg Q4H PRN ORAL For High Blood Pressure 03/05/16 08:15 04/04/16 08:14 03/13/16 12:58 Dextrose (Dextrose 50%) STAT PRN IV Hypoglycemia 03/04/16 16:00 04/03/16 15:59 Docusate Sodium (Colace) 100 mg THREE TIMES A DAY ORAL 03/11/16 18:00 04/10/16 17:59 03/13/16 17:16 Enoxaparin Sodium (Lovenox) 40 mg DAILY SUBQ 03/12/16 09:00 03/22/16 08:59 03/13/16 09:20 Gabapentin (Neurontin) 300 mg THREE TIMES A DAY ORAL 03/06/16 10:00 04/05/16 09:59 03/13/16 17:16 Hydromorphone HCl (Dilaudid) 4 mg Q3H PRN ORAL severe pain 03/11/16 18:00 03/18/16 17:59 03/13/16 17:17 Magnesium Hydroxide (Mom) 30 ml DAILYPRN PRN ORAL Constipation 03/11/16 12:45 04/10/16 12:44 Ondansetron HCl (Zofran) 4 mg Q6H PRN IVP Nausea & Vomiting 03/11/16 12:45 04/10/16 12:44 Oxycodone HCl (OxyCONTIN) 20 mg Q8H ORAL 03/13/16 14:00 03/20/16 13:59 03/13/16 12:58 Polyethylene Glycol (Miralax) 17 gm HSPRN PRN ORAL Constipation 03/04/16 16:00 04/03/16 15:59 Tamsulosin HCl (Flomax) 0.4 mg DAILY ORAL 03/05/16 09:00 04/04/16 08:59 03/13/16 09:19 Temazepam (Restoril) 7.5 mg QHS PRN ORAL Insomnia 03/11/16 12:45 03/18/16 12:44 Zolpidem Tartrate (Ambien) 5 mg HSPRN PRN ORAL Insomnia 03/04/16 16:00 04/03/16 15:59 03/12/16 00:34 DIEGO WALKER Mar 13, 2016 19:10
[2016-03-13 20:00] VITALS: BP 124/82
[2016-03-14] VITALS: BP 138/76
[2016-03-14] MEDS: HYDROmorphone 4mg tab ORAL PRN ×5 (00:05→23:43)
[2016-03-14] MEDS: Zolpidem 5mg tab ORAL PRN ×2 (02:39→23:39)
[2016-03-14 04:12] VITALS: BP 147/79
[2016-03-14] MEDS: oxyCONTIN 20mg tab ORAL SCH ×3 (06:31→22:11)
--- NOTE | 2016-03-14 07:51 | General Progress Note ---
Assessment/Plan Assessment/Plan (1) Lumbar Herniated Disc (2) Lumbar DDD (3) Lumbar Spondylosis (4) Lumbar Radiculopathy (5) MJ OA and Pain (6) Left hip fx s/p fall (7) Narcotics Dependency (8) Left total hip arthroplasty We will continued on Dilaudid, Neurontin and Oxycontin. Pt was d/w Dr. Das and concurred. Subjective Date patient seen: Mar 14, 2016 Time patient seen: 07:45 - am Allergies: Coded Allergies: No Known Allergies (Unverified , 02/08/13) Subjective Constitutional: Reports: weakness, Denies: chills, diaphoresis, fever, malaise , no symptoms, other HEENT: Denies: blurred vision, double vision, ear discharge, ear pain, eye pain , mouth pain, mouth swelling, no symptoms, nose congestion, nose pain, other, tearing, throat pain, throat swelling Cardiovascular: Denies: chest pain, edema, irregular heart rate, lightheadedness, no symptoms, other, palpitations, syncope Respiratory: Denies: SOB at rest, SOB with excertion, cough, no symptoms, orthopnea, other, shortness of breath, sputum, stridor, wheezing Gastrointestinal/Abdominal: Reports: nausea, Denies: abdomen distended, abdominal pain, black stools, blood in stool, constipated, diarrhea, difficulty swallowing, no symptoms, other, poor appetite, poor fluid intake, rectal bleeding, tarry stools, vomiting Genitourinary: Denies: burning, discharge, flank pain, frequency, hematuria, incontinence, no symptoms, other, pain, urgency Neurologic/Psychiatric: Reports: numbness, weakness, Denies: anxiety, depressed , emotional problems, headache, no symptoms, other, paresthesia, pre-existing deficit, seizure, tingling, tremors Endocrine: Denies: excessive sweating, flushing, increased hunger, increased thirst, increased urine, intolerance to cold, intolerance to heat, no symptoms, other, unexplained weight gain, unexplained weight loss Hematologic/Lymphatic: Denies: anemia, easy bleeding, easy bruising, no symptoms, other Subjective: Pt is in bed in no acute distress. Pain does reach 8/10 at it worse worse with movement. The pain has been reduced and tolerated on the increase of Oxycontin and continues to use the Dilaudid. Objective Last 24 Hour Vital Signs Date Time Temp Pulse Resp B/P Pulse Ox O2 Delivery O2 Flow Rate FiO2 03/14/16 04:15 99.6 03/14/16 04:12 99.6 94 22 147/79 97 Room Air 03/14/16 00:00 96.1 93 22 138/76 96 Room Air 03/13/16 20:00 97.9 93 20 124/82 94 Room Air 03/13/16 16:00 98.4 90 24 138/72 97 03/13/16 12:58 163/82 03/13/16 12:00 97.9 92 20 163/82 95 Room Air 03/13/16 08:37 97.9 94 18 129/73 95 Room Air Intake and Output 03/13/16 03/14/16 19:00 07:00 Intake Total 740 ml 660 ml Output Total 1600 ml 1150 ml Balance -860 ml -490 ml Intake Oral 740 ml 660 ml Output Urine Total 1600 ml 1150 ml # Bowel Movements 1 Height (Feet): 6 Height (Inches): 4.00 Weight (Pounds): 285 Objective General Appearance: no apparent distress, alert EENT: PERRL/EOMI, normal ENT inspection Neck: non-tender, normal alignment Cardiovascular: normal rate, regular rhythm Respiratory/Chest: chest wall non-tender, decreased breath sounds Abdomen: non tender Extremities: swelling - tenderness to palpation of left hip Neurologic: alert, oriented x 3 LESLIE BRAY Mar 14, 2016 07:51
[2016-03-14 08:09] VITALS: BP 130/78
[2016-03-14] MEDS: Cephalexin 500mg cap ORAL SCH ×4 (08:34→20:53)
[2016-03-14] MEDS: Docusate 100mg cap ORAL SCH ×3 (08:34→18:52)
[2016-03-14] MEDS: Tamsulosin 0.4mg cap ORAL SCH (08:34)
[2016-03-14] MEDS: Enoxaparin 40mg Inj SUBQ SCH (08:38)
[2016-03-14 11:53] VITALS: BP 161/89
[2016-03-14 16:00] VITALS: BP 146/77
--- NOTE | 2016-03-14 16:24 | Pulmonology Progress Note ---
Assessment/Plan Problems: (1) Fracture of femoral neck, left (2) Sepsis (3) Chronic epididymitis (4) Chronic pain (5) Scrotal fullness Assessment/Plan IV antibiotics check wbc, decreasing pain management urology consult and US of scrotum reviewed Pt is cleared from ID and medicine point of view to have surgery. Subjective ROS Limited/Unobtainable: Yes Neurologic: Reports: headache, weakness Allergies: Coded Allergies: No Known Allergies (Unverified , 02/08/13) Objective Last 24 Hour Vital Signs Date Time Temp Pulse Resp B/P Pulse Ox O2 Delivery O2 Flow Rate FiO2 03/14/16 13:00 161/89 03/14/16 11:53 99.0 90 18 161/89 96 Room Air 03/14/16 08:09 98.1 95 18 130/78 94 Room Air 03/14/16 04:15 99.6 03/14/16 04:12 99.6 94 22 147/79 97 Room Air 03/14/16 00:00 96.1 93 22 138/76 96 Room Air 03/13/16 20:00 97.9 93 20 124/82 94 Room Air Intake and Output 03/13/16 03/14/16 19:00 07:00 Intake Total 740 ml 660 ml Output Total 1600 ml 1150 ml Balance -860 ml -490 ml Intake Oral 740 ml 660 ml Output Urine Total 1600 ml 1150 ml # Bowel Movements 1 General Appearance: no acute distress HEENT: normocephalic, PERRL, other - neck brace c-spine stabilization Respiratory/Chest: chest wall non-tender, decreased breath sounds, accessory muscle use Cardiovascular: normal peripheral pulses, normal rate, regular rhythm, no JVD Abdomen: normal bowel sounds, soft, non tender, no organomegaly, non distended Genitourinary: other - scrotal swelling and edema Extremities: no cyanosis Skin: no rash 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, responsive, abnormal CN, motor weakness Current Medications Medications (Trade) Dose Ordered Sig/Dmitriy Route PRN Reason Start Time Stop Time Status Last Admin Dose Admin Acetaminophen (Tylenol) 650 mg Q4H PRN ORAL fever 03/04/16 16:00 04/03/16 15:59 03/06/16 05:55 Al Hydroxide/Mg Hydroxide (Mylanta II) 30 ml Q6H PRN ORAL dyspepsia 1/6/17 16:00 04/03/16 15:59 Cephalexin (Keflex) 500 mg FOUR TIMES A DAY ORAL 03/10/16 21:00 03/17/16 20:59 03/14/16 13:03 Clonidine HCl (Catapres) 0.1 mg Q4H PRN ORAL For High Blood Pressure 03/05/16 08:15 04/04/16 08:14 03/14/16 13:00 Dextrose (Dextrose 50%) STAT PRN IV Hypoglycemia 03/04/16 16:00 04/03/16 15:59 Docusate Sodium (Colace) 100 mg THREE TIMES A DAY ORAL 03/11/16 18:00 04/10/16 17:59 03/14/16 13:00 Enoxaparin Sodium (Lovenox) 40 mg DAILY SUBQ 03/12/16 09:00 03/22/16 08:59 03/14/16 08:38 Gabapentin (Neurontin) 300 mg THREE TIMES A DAY ORAL 03/06/16 10:00 04/05/16 09:59 03/14/16 13:01 Hydromorphone HCl (Dilaudid) 4 mg Q3H PRN ORAL severe pain 03/11/16 18:00 03/18/16 17:59 03/14/16 10:57 Magnesium Hydroxide (Mom) 30 ml DAILYPRN PRN ORAL Constipation 03/11/16 12:45 04/10/16 12:44 Ondansetron HCl (Zofran) 4 mg Q6H PRN IVP Nausea & Vomiting 03/11/16 12:45 04/10/16 12:44 Oxycodone HCl (OxyCONTIN) 20 mg Q8H ORAL 03/13/16 14:00 03/20/16 13:59 03/14/16 13:00 Polyethylene Glycol (Miralax) 17 gm HSPRN PRN ORAL Constipation 03/04/16 16:00 04/03/16 15:59 Tamsulosin HCl (Flomax) 0.4 mg DAILY ORAL 03/05/16 09:00 04/04/16 08:59 03/14/16 08:34 Temazepam (Restoril) 7.5 mg QHS PRN ORAL Insomnia 03/11/16 12:45 03/18/16 12:44 Zolpidem Tartrate (Ambien) 5 mg HSPRN PRN ORAL Insomnia 03/04/16 16:00 04/03/16 15:59 03/14/16 02:39 DIEGO WALKER Mar 14, 2016 16:24
--- NOTE | 2016-03-14 17:20 | Infectious Diseases Prog Note ---
Assessment/Plan Assessment/Plan ASSESSMENT: 61 y/o male with: Recurrent bilateral epididymitis - improving, urology following - US: Right-sided findings compatible with persistent, chronic epididymo- orchitis, Left-sided findings compatible with persistent versus recurrent epididymo-orchitis, likely acute on chronic. Small right epididymal, left testicular cysts. Second hypoechoic nodule in the left testis questionable significance. Neoplasm not excludable. Bilateral varicoceles, left greater than right MSSA UTI Chronic right ankle, bilateral hallux ulcers, not grossly infected - WCx MSSA, qS-PSA = colonizers Sepsis Fever - recurrent x1 resolved Leukocytosis - improved. No repeat CBC Acute left femoral neck fracture SP CATIA 03/11 Chronic pain syndrome NKDA Full Code PLAN: continue ancef-->keflex d# 7 ( ABX d# ). ( SP IV vancomycin per SCIP ) ( 03/08 SP Cefepime and Vancod# 4 ) outpt urology follow up Monitor CBC, temperatures, re-culture if acute change Monitor BMP Subjective Allergies: Coded Allergies: No Known Allergies (Unverified , 02/08/13) Subjective remains afebrile. pain better controlled Objective Vital Signs Last 24 Hour Vital Signs Date Time Temp Pulse Resp B/P Pulse Ox O2 Delivery O2 Flow Rate FiO2 03/14/16 16:00 97.3 96 24 146/77 98 Room Air 03/14/16 13:00 161/89 03/14/16 11:53 99.0 90 18 161/89 96 Room Air 03/14/16 08:09 98.1 95 18 130/78 94 Room Air 03/14/16 04:15 99.6 03/14/16 04:12 99.6 94 22 147/79 97 Room Air 03/14/16 00:00 96.1 93 22 138/76 96 Room Air 03/13/16 20:00 97.9 93 20 124/82 94 Room Air Height (Feet): 6 Height (Inches): 4.00 Weight (Pounds): 285 General Appearance: no acute distress Respiratory/Chest: no respiratory distress Cardiovascular: normal rate, regular rhythm Abdomen: normal bowel sounds, soft, non tender, non distended Current Medications Medications (Trade) Dose Ordered Sig/Dmitriy Route PRN Reason Start Time Stop Time Status Last Admin Dose Admin Acetaminophen (Tylenol) 650 mg Q4H PRN ORAL fever 03/04/16 16:00 04/03/16 15:59 03/06/16 05:55 Al Hydroxide/Mg Hydroxide (Mylanta II) 30 ml Q6H PRN ORAL dyspepsia 03/04/16 16:00 04/03/16 15:59 Cephalexin (Keflex) 500 mg FOUR TIMES A DAY ORAL 03/10/16 21:00 03/17/16 20:59 03/14/16 13:03 Clonidine HCl (Catapres) 0.1 mg Q4H PRN ORAL For High Blood Pressure 03/05/16 08:15 04/04/16 08:14 03/14/16 13:00 Dextrose (Dextrose 50%) STAT PRN IV Hypoglycemia 03/04/16 16:00 04/03/16 15:59 Docusate Sodium (Colace) 100 mg THREE TIMES A DAY ORAL 03/11/16 18:00 04/10/16 17:59 03/14/16 13:00 Enoxaparin Sodium (Lovenox) 40 mg DAILY SUBQ 03/12/16 09:00 03/22/16 08:59 03/14/16 08:38 Gabapentin (Neurontin) 300 mg THREE TIMES A DAY ORAL 03/06/16 10:00 04/05/16 09:59 03/14/16 13:01 Hydromorphone HCl (Dilaudid) 4 mg Q3H PRN ORAL severe pain 03/11/16 18:00 03/18/16 17:59 03/14/16 10:57 Magnesium Hydroxide (Mom) 30 ml DAILYPRN PRN ORAL Constipation 03/11/16 12:45 04/10/16 12:44 Ondansetron HCl (Zofran) 4 mg Q6H PRN IVP Nausea & Vomiting 03/11/16 12:45 04/10/16 12:44 Oxycodone HCl (OxyCONTIN) 20 mg Q8H ORAL 03/13/16 14:00 03/20/16 13:59 03/14/16 13:00 Polyethylene Glycol (Miralax) 17 gm HSPRN PRN ORAL Constipation 03/04/16 16:00 04/03/16 15:59 Tamsulosin HCl (Flomax) 0.4 mg DAILY ORAL 03/05/16 09:00 2/6/17 08:59 03/14/16 08:34 Temazepam (Restoril) 7.5 mg QHS PRN ORAL Insomnia 03/11/16 12:45 03/18/16 12:44 Zolpidem Tartrate (Ambien) 5 mg HSPRN PRN ORAL Insomnia 03/04/16 16:00 04/03/16 15:59 03/14/16 02:39 LINDSAY ABARCA Mar 14, 2016 17:20
[2016-03-14 20:00] VITALS: BP 139/91
[2016-03-15 00:12] VITALS: BP 168/68
[2016-03-15 00:32] VITALS: BP 149/70
[2016-03-15] MEDS: HYDROmorphone 4mg tab ORAL PRN ×3 (03:50→16:25)
[2016-03-15 04:05] VITALS: BP 123/68
[2016-03-15] MEDS: oxyCONTIN 20mg tab ORAL SCH ×2 (05:31→14:42)
[2016-03-15] MEDS: Docusate 100mg cap ORAL SCH ×3 (08:06→17:43)
[2016-03-15] MEDS: Cephalexin 500mg cap ORAL SCH ×3 (08:06→17:44)
[2016-03-15] MEDS: Tamsulosin 0.4mg cap ORAL SCH (08:06)
[2016-03-15 08:07] VITALS: BP 122/60
[2016-03-15] MEDS: Enoxaparin 40mg Inj SUBQ SCH (08:07)
--- NOTE | 2016-03-15 08:07 | General Progress Note ---
Assessment/Plan Assessment/Plan (1) Lumbar Herniated Disc (2) Lumbar DDD (3) Lumbar Spondylosis (4) Lumbar Radiculopathy (5) MJ OA and Pain (6) Left hip fx s/p fall (7) Narcotics Dependency (8) Left total hip arthroplasty We will continued on Dilaudid, Neurontin and Oxycontin. Pt was d/w Dr. Das and concurred. Subjective Date patient seen: Mar 15, 2016 Time patient seen: 07:00 - am Allergies: Coded Allergies: No Known Allergies (Unverified , 02/08/13) Subjective Constitutional: Reports: weakness, Denies: chills, diaphoresis, fever, malaise , no symptoms, other HEENT: Denies: blurred vision, double vision, ear discharge, ear pain, eye pain , mouth pain, mouth swelling, no symptoms, nose congestion, nose pain, other, tearing, throat pain, throat swelling Cardiovascular: Denies: chest pain, edema, irregular heart rate, lightheadedness, no symptoms, other, palpitations, syncope Respiratory: Denies: SOB at rest, SOB with excertion, cough, no symptoms, orthopnea, other, shortness of breath, sputum, stridor, wheezing Gastrointestinal/Abdominal: Reports: nausea, Denies: abdomen distended, abdominal pain, black stools, blood in stool, constipated, diarrhea, difficulty swallowing, no symptoms, other, poor appetite, poor fluid intake, rectal bleeding, tarry stools, vomiting Genitourinary: Denies: burning, discharge, flank pain, frequency, hematuria, incontinence, no symptoms, other, pain, urgency Neurologic/Psychiatric: Reports: numbness, weakness, Denies: anxiety, depressed , emotional problems, headache, no symptoms, other, paresthesia, pre-existing deficit, seizure, tingling, tremors Endocrine: Denies: excessive sweating, flushing, increased hunger, increased thirst, increased urine, intolerance to cold, intolerance to heat, no symptoms, other, unexplained weight gain, unexplained weight loss Hematologic/Lymphatic: Denies: anemia, easy bleeding, easy bruising, no symptoms, other Subjective: He continues to have pain which has been tolerated on the Oxycontin and Dilaudid. Now pain is a 6/10. Objective Last 24 Hour Vital Signs Date Time Temp Pulse Resp B/P Pulse Ox O2 Delivery O2 Flow Rate FiO2 03/15/16 04:05 97.0 90 20 123/68 94 Room Air 03/15/16 00:32 99.0 96 20 149/70 95 Room Air 03/15/16 00:12 99.0 96 20 168/68 95 Room Air 03/14/16 20:00 98.1 84 20 139/91 100 Room Air 03/14/16 16:00 97.3 96 24 146/77 98 Room Air 03/14/16 13:00 161/89 03/14/16 11:53 99.0 90 18 161/89 96 Room Air 03/14/16 08:09 98.1 95 18 130/78 94 Room Air Intake and Output 03/14/16 03/15/16 19:00 07:00 Intake Total 720 ml 1000 ml Output Total 800 ml 1000 ml Balance -80 ml 0 ml Intake Oral 720 ml 1000 ml Output Urine Total 800 ml 1000 ml # Voids 2 Height (Feet): 6 Height (Inches): 4.00 Weight (Pounds): 285 Objective General Appearance: no apparent distress, alert EENT: PERRL/EOMI, normal ENT inspection Neck: non-tender, normal alignment Cardiovascular: normal rate, regular rhythm Respiratory/Chest: chest wall non-tender, decreased breath sounds Abdomen: non tender Extremities: swelling - tenderness to palpation of left hip Neurologic: alert, oriented x 3 LESLIE BRAY PTiffani Mar 15, 2016 08:07
[2016-03-15 12:00] VITALS: BP 129/67
--- NOTE | 2016-03-15 15:20 | Infectious Diseases Prog Note ---
Assessment/Plan Assessment/Plan ASSESSMENT: 61 y/o male with: Recurrent bilateral epididymitis - improving, urology following - US: Right-sided findings compatible with persistent, chronic epididymo- orchitis, Left-sided findings compatible with persistent versus recurrent epididymo-orchitis, likely acute on chronic. Small right epididymal, left testicular cysts. Second hypoechoic nodule in the left testis questionable significance. Neoplasm not excludable. Bilateral varicoceles, left greater than right MSSA UTI Chronic right ankle, bilateral hallux ulcers, not grossly infected - WCx MSSA, qS-PSA = colonizers Sepsis Fever - recurrent x1 resolved Leukocytosis - improved. No repeat CBC Acute left femoral neck fracture SP CATIA 03/11 Chronic pain syndrome NKDA Full Code PLAN: ok to DC on PO keflex x3 more days from ID standpoint ( ABX d# ). ( SP IV vancomycin per SCIP ) ( 03/08 SP Cefepime and Vancod# 4 ) outpt urology follow up Monitor CBC, temperatures, re-culture if acute change Monitor BMP Subjective Allergies: Coded Allergies: No Known Allergies (Unverified , 02/08/13) Subjective remains afebrile. for possible DC Objective Vital Signs Last 24 Hour Vital Signs Date Time Temp Pulse Resp B/P Pulse Ox O2 Delivery O2 Flow Rate FiO2 03/15/16 12:00 98.3 81 18 129/67 96 Room Air 03/15/16 08:07 97.6 82 20 122/60 95 Room Air 03/15/16 04:05 97.0 90 20 123/68 94 Room Air 03/15/16 00:32 99.0 96 20 149/70 95 Room Air 03/15/16 00:12 99.0 96 20 168/68 95 Room Air 03/14/16 20:00 98.1 84 20 139/91 100 Room Air 03/14/16 16:00 97.3 96 24 146/77 98 Room Air Height (Feet): 6 Height (Inches): 4.00 Weight (Pounds): 285 General Appearance: no acute distress Respiratory/Chest: no respiratory distress Cardiovascular: normal rate, regular rhythm Abdomen: normal bowel sounds, soft, non tender, non distended Current Medications Medications (Trade) Dose Ordered Sig/Dmitriy Route PRN Reason Start Time Stop Time Status Last Admin Dose Admin Acetaminophen (Tylenol) 650 mg Q4H PRN ORAL fever 03/04/16 16:00 04/03/16 15:59 03/06/16 05:55 Al Hydroxide/Mg Hydroxide (Mylanta II) 30 ml Q6H PRN ORAL dyspepsia 03/04/16 16:00 04/03/16 15:59 Cephalexin (Keflex) 500 mg FOUR TIMES A DAY ORAL 03/10/16 21:00 03/17/16 20:59 03/15/16 13:44 Clonidine HCl (Catapres) 0.1 mg Q4H PRN ORAL For High Blood Pressure 03/05/16 08:15 04/04/16 08:14 03/14/16 13:00 Dextrose (Dextrose 50%) STAT PRN IV Hypoglycemia 03/04/16 16:00 04/03/16 15:59 Docusate Sodium (Colace) 100 mg THREE TIMES A DAY ORAL 03/11/16 18:00 04/10/16 17:59 03/15/16 13:43 Enoxaparin Sodium (Lovenox) 40 mg DAILY SUBQ 03/12/16 09:00 03/22/16 08:59 03/15/16 08:07 Gabapentin (Neurontin) 300 mg THREE TIMES A DAY ORAL 03/06/16 10:00 04/05/16 09:59 03/15/16 13:43 Hydromorphone HCl (Dilaudid) 4 mg Q3H PRN ORAL severe pain 03/11/16 18:00 03/18/16 17:59 03/15/16 08:08 Magnesium Hydroxide (Mom) 30 ml DAILYPRN PRN ORAL Constipation 03/11/16 12:45 04/10/16 12:44 Ondansetron HCl (Zofran) 4 mg Q6H PRN IVP Nausea & Vomiting 03/11/16 12:45 04/10/16 12:44 Oxycodone HCl (OxyCONTIN) 20 mg Q8H ORAL 03/13/16 14:00 03/20/16 13:59 03/15/16 14:42 Polyethylene Glycol (Miralax) 17 gm HSPRN PRN ORAL Constipation 03/04/16 16:00 04/03/16 15:59 Tamsulosin HCl (Flomax) 0.4 mg DAILY ORAL 03/05/16 09:00 04/04/16 08:59 03/15/16 08:06 Temazepam (Restoril) 7.5 mg QHS PRN ORAL Insomnia 03/11/16 12:45 03/18/16 12:44 Zolpidem Tartrate (Ambien) 5 mg HSPRN PRN ORAL Insomnia 03/04/16 16:00 04/03/16 15:59 03/14/16 23:39 LINDSAY ABARCA Mar 15, 2016 15:20
[2016-03-15 16:00] VITALS: BP 129/72
--- NOTE | 2016-03-15 16:49 | Pulmonology Progress Note ---
Assessment/Plan Problems: (1) Fracture of femoral neck, left (2) Sepsis (3) Chronic epididymitis (4) Chronic pain (5) Scrotal fullness Assessment/Plan IV antibiotics check wbc, decreasing pain management urology consult and US of scrotum reviewed Pt is cleared from ID and medicine point of view to have surgery. Subjective Respiratory: Reports: dyspnea at rest, productive cough, shortness of breath, sputum Genitourinary: Reports: dysuria, frequency, nocturia, urgency Allergies: Coded Allergies: No Known Allergies (Unverified , 02/08/13) Objective Last 24 Hour Vital Signs Date Time Temp Pulse Resp B/P Pulse Ox O2 Delivery O2 Flow Rate FiO2 03/15/16 16:00 98.2 88 18 129/72 96 Room Air 03/15/16 12:00 98.3 81 18 129/67 96 Room Air 03/15/16 08:07 97.6 82 20 122/60 95 Room Air 03/15/16 04:05 97.0 90 20 123/68 94 Room Air 03/15/16 00:32 99.0 96 20 149/70 95 Room Air 03/15/16 00:12 99.0 96 20 168/68 95 Room Air 03/14/16 20:00 98.1 84 20 139/91 100 Room Air Intake and Output 03/14/16 03/15/16 19:00 07:00 Intake Total 720 ml 1000 ml Output Total 800 ml 1000 ml Balance -80 ml 0 ml Intake Oral 720 ml 1000 ml Output Urine Total 800 ml 1000 ml # Voids 2 General Appearance: no acute distress HEENT: normocephalic, atraumatic, PERRL Respiratory/Chest: chest wall non-tender, decreased breath sounds, accessory muscle use Cardiovascular: normal peripheral pulses, normal rate, regular rhythm, no JVD Abdomen: normal bowel sounds, soft, non tender, no organomegaly Genitourinary: other - scrotal edema and irritation Extremities: no cyanosis Neurologic/Psychiatric: clinical nurse occupational medicine II-XII grossly normal, no motor/sensory deficits Current Medications Medications (Trade) Dose Ordered Sig/Dmitriy Route PRN Reason Start Time Stop Time Status Last Admin Dose Admin Acetaminophen (Tylenol) 650 mg Q4H PRN ORAL fever 03/04/16 16:00 04/03/16 15:59 03/06/16 05:55 Al Hydroxide/Mg Hydroxide (Mylanta II) 30 ml Q6H PRN ORAL dyspepsia 03/04/16 16:00 04/03/16 15:59 Cephalexin (Keflex) 500 mg FOUR TIMES A DAY ORAL 03/10/16 21:00 03/17/16 20:59 03/15/16 13:44 Clonidine HCl (Catapres) 0.1 mg Q4H PRN ORAL For High Blood Pressure 03/05/16 08:15 04/04/16 08:14 03/14/16 13:00 Dextrose (Dextrose 50%) STAT PRN IV Hypoglycemia 03/04/16 16:00 04/03/16 15:59 Docusate Sodium (Colace) 100 mg THREE TIMES A DAY ORAL 03/11/16 18:00 04/10/16 17:59 03/15/16 13:43 Enoxaparin Sodium (Lovenox) 40 mg DAILY SUBQ 03/12/16 09:00 03/22/16 08:59 03/15/16 08:07 Gabapentin (Neurontin) 300 mg THREE TIMES A DAY ORAL 03/06/16 10:00 04/05/16 09:59 03/15/16 13:43 Hydromorphone HCl (Dilaudid) 4 mg Q3H PRN ORAL severe pain 03/11/16 18:00 03/18/16 17:59 03/15/16 16:25 Magnesium Hydroxide (Mom) 30 ml DAILYPRN PRN ORAL Constipation 03/11/16 12:45 04/10/16 12:44 Ondansetron HCl (Zofran) 4 mg Q6H PRN IVP Nausea & Vomiting 03/11/16 12:45 04/10/16 12:44 Oxycodone HCl (OxyCONTIN) 20 mg Q8H ORAL 03/13/16 14:00 03/20/16 13:59 03/15/16 14:42 Polyethylene Glycol (Miralax) 17 gm HSPRN PRN ORAL Constipation 03/04/16 16:00 04/03/16 15:59 Tamsulosin HCl (Flomax) 0.4 mg DAILY ORAL 03/05/16 09:00 04/04/16 08:59 03/15/16 08:06 Temazepam (Restoril) 7.5 mg QHS PRN ORAL Insomnia 03/11/16 12:45 03/18/16 12:44 Zolpidem Tartrate (Ambien) 5 mg HSPRN PRN ORAL Insomnia 03/04/16 16:00 04/03/16 15:59 03/14/16 23:39 DIEGO WALKER Mar 15, 2016 16:49
[2016-03-15] MEDS ORDERED: Tubing IV Secondary IV ONE (19:04)
[2016-03-15] MEDS ORDERED: NS 275ml ONE (19:04)
[2016-03-16] MEDS ORDERED: CEPHALEXIN500 MG ORAL (11:42)
--- NOTE | 2016-03-16 11:50 | Discharge Summary ---
Discharge Summary Hospital Course Date of Admission Mar 04, 2016 at 15:23 Date of Discharge Mar 15, 2016 at 19:05 Admitting Diagnosis Left hip fracture HPI Bryce Lu is a 61 year old male who was admitted on Mar 04, 2016 at 15:23 for Left Hip Fracture Hospital Course dc summary dictated #[id number] Discharge Medications New Medications: Cephalexin* (Keflex*) 500 Mg Capsule 500 MG ORAL EVERY 6 HOURS, #12 CAP Continued Medications: Hydromorphone HCl (Dilaudid) 4 Mg Tab 8 MG ORAL THREE TIMES A DAY PRN for For Pain, #20 TAB 0 Refills Methadone HCl (Methadone HCl) 10 Mg/1 Ml Disp.syrin 10 MG PO Q6HR PRN for For Pain, EA Oxymorphone Hcl (Opana Er) 40 Mg Tab.er.12h 40 MG ORAL Q6HR PRN for For Pain, #30 TAB 0 Refills Tamsulosin HCl (Flomax) 0.4 Mg Cap 0.4 MG ORAL DAILY, #30 CAP 0 Refills Tetrahydrz/Dext 70/Peg 400/Pvp (Eye Drops) 15 Ml Drops 15 ML OP TID PRN for Dry Eyes, ML Discharge Condition Upon Discharge: improving, stable Discharge Disposition Patient was discharged to SNF/Subacute Facility(03) Discharge Diagnoses: Ted (Lydia)Lorri NP Mar 16, 2016 11:50
--- NOTE | 2016-03-17 01:07 | Discharge Summary 2 SIG ---
DATE OF ADMISSION: 03/04/2016 DATE OF DISCHARGE: 03/15/2016 The patient is admitted under Dr. Cartwright. REASON FOR ADMISSION: 61-year-old male, was brought by ambulance with increased pain in the left hip. The patient chronically with chronic pain in bilateral knees due to degenerative arthritis of both knees. The patient reported a slip and fall a few days ago, and was assisted to his bed. The patient reported not being able to ambulate after that event. CT of the pelvis revealed left hip fracture of the femoral neck. The patient was admitted for further management. HOSPITAL COURSE: Surgery consult requested, surgeon seen and evaluated the patient and confirmed that the patient needs the surgery. Initially surgery was planned for 03/07/2016. The patient was started on gentle IV fluids. Pain management provided. Pain specialist consulted and followed the patient throughout the stay in the hospital. Wound nurse evaluation requested regarding right foot ulcer. Venous duplex of bilateral lower extremities was negative. DVT and GI prophylaxis provided. The next day the patient had leukocytosis of 32.8. Septic workup initiated. The patient was started on empiric antibiotics. ID consult requested, and the surgeon notified. Surgery was postponed until cleared by medical doctor and ID. Urinalysis revealed urine culture with Staphylococcus aureus. Testicular ultrasound revealed chronic right epididymo-orchitis and left persistent versus recurrent epididymal orchitis, likely acute on chronic. The patient was treated with antibiotics. Urology consult was requested. Urologist confirmed the need for treatment. Leukocytosis was trending donw. Finally, the ID and primary medical doctor cleared the patient for surgery. The patient undergone on the 03/11/2016 left total hip arthroplasty. The patient's course of recovery was uneventful. Pain was managed with the current regimen. Pain specialist followed. The patient was working with the physical and occupational therapy. Fall precautions were maintained. The bowel regimen instituted and the patient was able to have bowel movement. Urinates freely. ID cleared for discharge on oral antibiotics . Wound care as per wound care nurse recommendations. DISCHARGE MEDICATIONS: See medication reconciliation list. FINAL DIAGNOSES: 1. Status post mechanical fall. 2. Left femoral neck fracture. 3. Left hip pain status post left total hip arthroplasty on 03/11/2016. 4. Sepsis. 5. Recurrent bilateral epididymal orchitis with acute on chronic left epididymo-orchitis. 6. Urinary tract infection. 7. Venous stasis of bilateral lower extremities. 8. Right foot ulcer, present on admission. 9. Chronic pain syndrome. 10. Benign prostatic hypertrophy. DISCHARGE INSTRUCTIONS: The patient is [facility] for [facility] and OT. Continue oral antibiotic as specified by ID. Ken Cartwright M.D. Lorri DietrichUnited Health ServicesYuki N.PCal DR: SARA JOB#: [id number] CC: CARMELLA
--- NOTE | 2016-03-25 10:03 | Diagnostic Imaging Report ---
APPROVED REPORT CPT Code: 41979 Present Symptoms Lower Extremity Pain: Bilateral Shortness of breath BILATERAL: Imaging reveals a patent deep venous system bilaterally. There is no evidence of thrombus within the femoral, popliteal or tibial segments. The greater saphenous veins are also within normal limits. Doppler indicates normal spontaneous flow within these segments.
== END 2016-03-15 19:05 | DRG 301 ==
LOC: ENRESERVDT → ENRESERVTM → EDBD 12:33 → EMR 13:00 → 4W 15:23 → EDBEDREQ 15:40 → 4W 03-06 15:30
PROC: 0SRB01A Replacement of Left Hip Joint with Metal Synthetic Substitute, Uncemented, Open Approach (ICD-10-PCS; principal; 2016-03-11 11:15)
DX: S72.002A Fracture of unspecified part of neck of left femur, initial encounter for closed fracture (principal); A41.9 Sepsis, unspecified organism; N39.0 Urinary tract infection, site not specified; F11.20 Opioid dependence, uncomplicated; N40.0 Benign prostatic hyperplasia without lower urinary tract symptoms; D72.829 Elevated white blood cell count, unspecified; W01.0XXA Fall on same level from slipping, tripping and stumbling without subsequent striking against object, initial encounter; I10 Essential (primary) hypertension; I87.8 Other specified disorders of veins; M17.0 Bilateral primary osteoarthritis of knee; N45.3 Epididymo-orchitis; G89.4 Chronic pain syndrome; I83.029 Varicose veins of left lower extremity with ulcer of unspecified site; L97.929 Non-pressure chronic ulcer of unspecified part of left lower leg with unspecified severity; L03.115 Cellulitis of right lower limb; B95.61 Methicillin susceptible Staphylococcus aureus infection as the cause of diseases classified elsewhere; M51.16 Intervertebral disc disorders with radiculopathy, lumbar region; M47.896 Other spondylosis, lumbar region; L97.319 Non-pressure chronic ulcer of right ankle with unspecified severity; L97.529 Non-pressure chronic ulcer of other part of left foot with unspecified severity; L97.519 Non-pressure chronic ulcer of other part of right foot with unspecified severity
CPT/HCPCS: 36415; 72170; 76870; 80048; 80053; 80202; 81001; 82248; 85007; 85025; 85610; 87040; 87070; 87086; 87181; 87205; 87493; 93005; 93970; 94003; 94150; J2405

== ENCOUNTER 2018-09-11 03:09 | Inpatient (IN) | payer MEDICAID ==
[~2018-09-11] VITALS: Ht 193 cm; Wt 130.2 kg
[~2018-09-11 03:09] MED LIST changes: +CEPHALEXIN500 MG ORAL
[2018-09-11] MEDS ORDERED: GABAPENTIN100 MG ORAL (03:14)
[2018-09-11 03:15] VITALS: BP 178/78
--- NOTE | 2018-09-11 03:15 | NUR ---
ED Nurse Note: Pt BIBA from home c/o 12/06 bilateral knee pain as well as R medial ankle pain r/t ulcer. Pt is diaphoretic, restless, moaning and having difficulty keeping eyes open or answering questions. Pt's pupils are pinpoint. Pt stated taking dilauded, morphine and gabapentin at home. VSS. A&Ox2
[2018-09-11 04:05] LABS: BASOPHILS % (AUTO) 0.5 % (0.0-2.0); HEMATOCRIT 40.9 % (42.0-52.0); HEMOGLOBIN 12.9 G/DL (14.2-18.0); LYMPHOCYTES % (AUTO) 4.9 % (20.0-45.0); MEAN CORPUSCULAR VOLUME 82 FL (80-99); MONOCYTES % (AUTO) 9.6 % (1.0-10.0); NEUTROPHILS % (AUTO) 84.1 % (45.0-75.0); PLATELET COUNT 237 K/UL (150-450); RED BLOOD COUNT 4.96 M/UL (4.70-6.10); RED CELL DISTRIBUTION WIDTH 13.9 % (11.6-14.8)
[2018-09-11 04:22] LABS: APPEARANCE,URINE CLEAR; BILIRUBIN, URINE NEGATIVE (NEGATIVE); GLUCOSE, URINE (UA) NEGATIVE (NEGATIVE); KETONES,URINE NEGATIVE (NEGATIVE); LEUKOCYTE ESTERASE ,URINE NEGATIVE (NEGATIVE); NITRITE,URINE NEGATIVE (NEGATIVE); PH,URINE 5 (4.5-8.0); PROTEIN,URINE 3+ (NEGATIVE); UROBILINOGEN,URINE 1 MG/DL (0.0-1.0)
[2018-09-11 04:24] LABS: ANION GAP 8 mmol/L (5-15); BLOOD UREA NITROGEN 15 mg/dL (7-18); CALCIUM 9.2 MG/DL (8.5-10.1); CARBON DIOXIDE 27 MMOL/L (21-32); CHLORIDE 103 MMOL/L (98-107); CREATININE 0.9 MG/DL (0.55-1.30); POTASSIUM 3.8 MMOL/L (3.5-5.1); SODIUM 138 MMOL/L (136-145)
[2018-09-11 04:25] LABS: COLOR,URINE YELLOW
[2018-09-11 04:35] LABS: ALANINE AMINOTRANSFERASE 46 U/L (12-78); ALBUMIN 3.7 G/DL (3.4-5.0); ALBUMIN/GLOBULIN RATIO 0.8 (1.0-2.7); ALKALINE PHOSPHATASE 89 U/L (46-116); ASPARTATE AMINO TRANSFERASE 46 U/L (15-37); BILIRUBIN,TOTAL 0.7 MG/DL (0.2-1.0)
[2018-09-11] MEDS ORDERED: Piperacillin/Tazobactam 3.375 GM in NS 110 ML IVPB ONE (05:00)
--- NOTE | 2018-09-11 05:34 | Emergency Room Report ---
History of Present Illness General Chief Complaint: Pain Source: Patient Present Illness HPI 63-year-old male presents ED for evaluation. Brought in by EMS from home. Having generalized pain to his lower extremities. History of arthritis. States there is an ulcer on his right leg which is causing him lots of pain. Per EMS patient does appear somewhat lethargic and diaphoretic. Patient admits to taking pain medication prior to arrival. Denies fevers or chills. States that he did have wound care initially for his leg but does not have it at this time. No other aggravating relieving factors. Denies any other associated symptoms Allergies: Coded Allergies: No Known Allergies (Unverified , 02/08/13) Patient History Past Medical History: none Past Surgical History: none Pertinent Family History: none Social History: Denies: smoking, alcohol use, drug use Immunizations: UTD Reviewed Nursing Documentation: PMH: Agreed; PSxH: Agreed Nursing Documentation-PMH Past Medical History: No History, Except For Hx Cardiac Problems: No Hx Hypertension: No Hx Pacemaker: No Hx Asthma: No Hx COPD: No Hx Diabetes: No Hx Cancer: No Hx Gastrointestinal Problems: No Hx Dialysis: No Hx Neurological Problems: Yes - GENERALIZED BODY PAIN Hx Cerebrovascular Accident: No Hx Seizures: No Hx Weakness: Yes Review of Systems All Other Systems: negative except mentioned in HPI Physical Exam Vital Signs Date Time Temp Pulse Resp B/P (MAP) Pulse Ox O2 Delivery O2 Flow Rate FiO2 09/11/18 03:10 99.0 108 14 178/78 (111) 98 Room Air Sp02 EP Interpretation: reviewed, normal General Appearance: no apparent distress, GCS 15, non-toxic, lethargic, obese Head: normocephalic Eyes: bilateral eye normal inspection, bilateral eye PERRL ENT: normal ENT inspection Neck: normal inspection Respiratory: chest non-tender, lungs clear, normal breath sounds, speaking full sentences Cardiovascular #1: regular rate, rhythm, no edema Gastrointestinal: normal inspection Rectal: deferred Genitourinary: no CVA tenderness Musculoskeletal: tender - bilateral knees Neurologic: other - lethargic Psychiatric: other - lethargic Skin: other - 3x3cm ulcer to R ankle. surrounding erythema/induration Lymphatic: no adenopathy Medical Decision Making Diagnostic Impression: Primary Impression: Venous stasis of lower extremity Additional Impressions: Ankle ulcer Qualified Codes: L97.319 - Non-pressure chronic ulcer of right ankle with unspecified severity Substance abuse ER Course Hospital Course 63 yo M presents to ED with bilateral knee pain. ulcer to R ankle Differential diagnoses include: Cellulitis, abscess, rash. Clinical course Patient placed on stretcher. After initial history and physical I ordered labs , blood Cx, UA, IVFs, wound culture labs reviewed - leukocytosis, Hb/Hct stable, no electrolyte abnormalities, lactic acid 2. Utox + cocaine + opiates CXR - no acute process antibiotics given. Case discussed with Dr King and he agreed to accept the patient to his service for further care and support Diagnosis - venous stasis of lower extremity, ankle ulcer, substance abuse Patient admitted to floor in serious condition Labs Test 09/11/18 03:50 09/11/18 04:14 09/11/18 05:00 White Blood Count 12.0 K/UL (4.8-10.8) Red Blood Count 4.96 M/UL (4.70-6.10) Hemoglobin 12.9 G/DL (14.2-18.0) Hematocrit 40.9 % (42.0-52.0) Mean Corpuscular Volume 82 FL (80-99) Mean Corpuscular Hemoglobin 26.1 PG (27.0-31.0) Mean Corpuscular Hemoglobin Concent 31.6 G/DL (32.0-36.0) Red Cell Distribution Width 13.9 % (11.6-14.8) Platelet Count 237 K/UL (150-450) Mean Platelet Volume 7.5 FL (6.5-10.1) Neutrophils (%) (Auto) 84.1 % (45.0-75.0) Lymphocytes (%) (Auto) 4.9 % (20.0-45.0) Monocytes (%) (Auto) 9.6 % (1.0-10.0) Eosinophils (%) (Auto) 1.0 % (0.0-3.0) Basophils (%) (Auto) 0.5 % (0.0-2.0) Sodium Level 138 MMOL/L (136-145) Potassium Level 3.8 MMOL/L (3.5-5.1) Chloride Level 103 MMOL/L (98-107) Carbon Dioxide Level 27 MMOL/L (21-32) Anion Gap 8 mmol/L (5-15) Blood Urea Nitrogen 15 mg/dL (7-18) Creatinine 0.9 MG/DL (0.55-1.30) Estimat Glomerular Filtration Rate > 60 mL/min (>60) Glucose Level 133 MG/DL (74-106) Lactic Acid Level 2.00 mmol/L (0.4-2.0) 0.80 mmol/L (0.4-2.0) Calcium Level 9.2 MG/DL (8.5-10.1) Total Bilirubin 0.7 MG/DL (0.2-1.0) Aspartate Amino Transf (AST/SGOT) 46 U/L (15-37) Alanine Aminotransferase (ALT/SGPT) 46 U/L (12-78) Alkaline Phosphatase 89 U/L (46-116) Pro-B-Type Natriuretic Peptide 248 pg/mL (0-125) Total Protein 8.3 G/DL (6.4-8.2) Albumin 3.7 G/DL (3.4-5.0) Globulin 4.6 g/dL Albumin/Globulin Ratio 0.8 (1.0-2.7) Urine Color Yellow Urine Appearance Clear Urine pH 5 (4.5-8.0) Urine Specific Smoot 1.025 (1.005-1.035) Urine Protein 3+ (NEGATIVE) Urine Glucose (UA) Negative (NEGATIVE) Urine Ketones Negative (NEGATIVE) Urine Blood 1+ (NEGATIVE) Urine Nitrite Negative (NEGATIVE) Urine Bilirubin Negative (NEGATIVE) Urine Urobilinogen 1 MG/DL (0.0-1.0) Urine Leukocyte Esterase Negative (NEGATIVE) Urine RBC 0-2 /HPF (0 - 0) Urine WBC 0 /HPF (0 - 0) Urine Squamous Epithelial Cells Few /LPF (NONE/OCC) Urine Bacteria None /HPF (NONE) Urine Opiates Screen Positive (NEGATIVE) Urine Barbiturates Screen Negative (NEGATIVE) Phencyclidine (PCP) Screen Negative (NEGATIVE) Urine Amphetamines Screen Negative (NEGATIVE) Urine Benzodiazepines Screen Negative (NEGATIVE) Urine Cocaine Screen Positive (NEGATIVE) Urine Marijuana (THC) Screen Negative (NEGATIVE) Chest X-Ray Diagnostic Results Chest X-Ray Diagnostic Results : Chest X-Ray Ordered: Yes # of Views/Limited/Complete: 1 View Indication: Other EP Interpretation: Yes Interpretation: no consolidation, no effusion, no pneumothorax, no acute cardiopulmonary disease Impression: No acute disease Electronically Signed by: Electronically signed by Noe Flores MD Last Vital Signs Date Time Temp Pulse Resp B/P (MAP) Pulse Ox O2 Delivery O2 Flow Rate FiO2 09/11/18 03:15 99.0 98 14 178/78 98 Room Air Status: improved Disposition: ADMITTED INPATIENT Condition: Serious Referrals: [facility],REFERRING (PCP) Noe Flores MD Sep 11, 2018 05:34
--- NOTE | 2018-09-11 05:47 | NUR ---
TRANSFER TO FLOOR: Patient transferred to as ordered, per Dr King. Report given to PAVEL Grey. Belongings and medications given to . Family and or S/O informed of transfer.
--- NOTE | 2018-09-11 06:30 | NUR ---
NURSE NOTES: Patient admitted alert and oriented x4, from ER for ulcer/joint pain and R foot ulcer. Skin assessment done. Wound pictures taken. IV in the right hand 22g intact. On room air. No complaint of pain or discomfort. No signs of respiratory distress. MRSA swab done per ER nurse. Oriented to wound, belongings checked and signed with the patient. Bed in lowest position, with call light in reach. Will continue to monitor.
--- NOTE | 2018-09-11 07:01 | NUR ---
NURSE NOTES: Called MD regarding admission orders. said he would be in the unit this morning to put in admission orders.
--- NOTE | 2018-09-11 07:55 | NUR ---
HAND-OFF: Report given to PAVEL Christian.
--- NOTE | 2018-09-11 07:55 | NUR ---
NURSE NOTES: Patient asleep, on room air, no sign of distress and shortness of breath; no sign of chest pain; IV R-Hand flushes well; PM nurse didn't receive admission order, will follow up on that; side rails up x2, breaks engaged, bed at lowest position, call light within reach; will keep monitoring.
[2018-09-11 08:00] VITALS: BP 122/68
[2018-09-11] MEDS: Enoxaparin 40mg Inj SUBQ SCH (09:19)
[2018-09-11] MEDS: Morphine Sulfate 2mg/ml Inj(IV/IM USE ONLY) IVP PRN ×2 (09:32→21:02)
--- NOTE | 2018-09-11 09:45 | History and Physical Report ---
DATE OF ADMISSION: 09/11/2018 REASON FOR ADMISSION: 1. Right ankle pain. 2. Right ankle ulcer. HISTORY OF PRESENT ILLNESS: The patient is a 63-year-old gentleman brought in by EMS from his home for evaluation of his lower extremities. The patient has had previous admissions for the same concern of worsening ulcer on his right ankle. He says that it has been causing a lot of pain. Drug screen was positive for opioids and cocaine. The patient denies any chest pain, nausea, vomiting, or diarrhea. The patient is hungry and requesting breakfast emergently. PAST MEDICAL HISTORY: 1. Opioid dependency. 2. Neuropathy. 3. Right ankle ulcer/cellulitis. PAST SURGICAL HISTORY: None. ALLERGIES: No known drug allergies.. FAMILY HISTORY: Noncontributory. SOCIAL HISTORY: Positive for illicit drug use. Denies alcohol or tobacco use. REVIEW OF SYSTEMS: NEUROLOGIC: The patient denies headache, change in vision, syncope, or presyncopal episodes. CARDIOVASCULAR: No current chest pain, palpitations, or angina. PULMONARY: No difficulty breathing, productive cough, or sputum. GASTROINTESTINAL/GENITOURINARY: No change in urine or bowel habits. No nausea, vomiting, or diarrhea. ENDOCRINOLOGY: No night sweats, fevers, or chills. MUSCULOSKELETAL: The patient is feeling weak, tired, and fatigued. PHYSICAL EXAMINATION: VITAL SIGNS: Blood pressure 178/78, pulse oximetry 98 percent on room air, respiratory rate 14, pulse 98, and temperature 99. GENERAL: The patient is awake, alert, and not in distress. HEENT: Extraocular muscles intact. No lymphadenopathy noted. Oropharyngeal mucosa is clear and dry. CARDIOVASCULAR: S1, S2. No rubs or gallops. PULMONARY: Clear to auscultation bilaterally. No rales, rhonchi or wheezes. ABDOMEN: Nondistended and nontender. EXTREMITY: Right ankle bandaged and erythematous up to knee. Left leg erythematous from ankle up to knee. LABORATORY DATA: Labs dated 09/11/2018, sodium 138, potassium 3.8, and creatinine 0.9. Toxicology screen positive for opioids and cocaine. White cell count 12, hemoglobin 12.9, and platelet count 237,000. ASSESSMENT AND PLAN: 1. Right ankle ulcer/cellulitis. The patient has been given IV antibiotics and cultures ordered in the emergency room. Infectious Disease has been consulted. Continue tailoring antibiotic therapy. Wound Care has also been asked to evaluate the patient for possible surgical evaluation. 2. Hypertension. Adjust medications as appropriate. 3. Narcotic dependency, opioid in nature along with cocaine positive. At this time, we will be very careful using any pain medications and we will use low doses of intravenous morphine as needed. 4. DVT prophylaxis with Lovenox. Eron King MD DR: SONG JOB#: [id number] CC:
--- NOTE | 2018-09-11 11:08 | NUR ---
NURSE NOTES: Patient is saying been getting Morphine Sulfate 30Mg x2/day and also Dilaudid 4Mgx2/day. I communicated the matter MD King, and gave me to put the order for Pain management Physician consult, ALDO Wynn notified.
[2018-09-11 12:00] VITALS: BP 123/71
--- NOTE | 2018-09-11 13:09 | Diagnostic Imaging Report ---
Indication: Shortness of breath for one day Technique: One view of the chest Comparison: none Findings: The heart is upper limits normal in size. There are bilateral mild interstitial congestive changes. No focal airspace consolidation. The pleural spaces are clear The aorta is tortuous. Impression: Mild interstitial congestion.
--- NOTE | 2018-09-11 14:37 | NUR ---
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 IS:NS x2.4l IVLG ZOSYN 110ml IVPB ADMITTED TO MED/SURG DCP: RETURN HOME
--- NOTE | 2018-09-11 15:00 | NUR ---
RD ASSESSMENT & RECOMMENDATIONS SEE CARE ACTIVITY FOR COMPLETE ASSESSMENT DAILY ESTIMATED NEEDS: Needs based on Wound/ 96kg abw 25-30 kcals/kg 2142-8030 total kcals 1.25-1.5 g protein/kg 120-144 g total protein 25-30 mL/kg 1821-4192 total fluid mLs NUTRITION DIAGNOSIS: 1) Increase kcal and protein needs r/t wound healing as evidenced by R foot ulcer, pending eval. CURRENT DIET:Regular PO DIET RECOMMENDATIONS: Regular as tolerated ADDITIONAL RECOMMENDATIONS: * Standing wt for accurate CBW * Wound healing: add MVI x 1, Vit C 500mg QD add ZnSO4 220mg QD x 10 days add Amador 1ptk BID .
--- NOTE | 2018-09-11 15:27 | NUR ---
NURSE NOTES: Wound care provide on the Right Foot by Wound care nurse and Primary nurse; NS, TeraHoney, Alginate, ABD and Kerlix used. Patient tolerated well. Wound care nurse recommended physician consult for wound. I communicated Wound Care nurse's recommendation to MD King. Waiting for order.
--- NOTE | 2018-09-11 15:33 | NUR ---
NURSE NOTES: Family member brought patient's cell phone charge. Primary nurse included the charge on the list of belonging that patient had.
[2018-09-11 16:00] VITALS: BP 125/67
--- NOTE | 2018-09-11 16:10 | NUR ---
NURSE NOTES:WOUND CARE NOTES:Pt presented on admission with Full thickness ulcer medial R malleolus (L)6.5cm x (W)6.2cm x(D)0.3cm. Scattered slough within base of wound with small area of necrosis(10%) at distal end of wound bed. Edges are macerated . Small amt serous exudate noted. Smaller ulcer proximally but within close proximity noted(L)0.5cm x (W)0.3cm.100% yellow slough at base of wound .Edges are macerated. Xerosis skin noted to padmini-areas of wounds. Pt verbalized having wounds for a year and stated he has been treating wounds himself. Denied having been seen by physician to treat wounds. Pt stated wound exudes heavily at times. Both lower extremities are edematous. Haemosiderin noted to both lower ext. Plantar aspects of both feet and both heels are callused and dry. Recommendations:Cleanse wound with Saline.Apply Therahoney with Calcium Alginate. Apply Cavilon Skin Barrier periwound. Cover with ABD Pad and wrap with Kerlix from Base of toes Daily and prn. Off-load heels with Pillow.
--- NOTE | 2018-09-11 17:31 | Consultation ---
History of Present Illness General Date patient seen: Sep 11, 2018 Chief Complaint: Pain Present Illness HPI 63 y/o M with hx of arthritis, R ankle ulcer/cellulitis, neuropathy, opioid dependency presented to ED on 09/11 with generalized pain in lower extremities, R leg ulcer. Per EMS, patient appeared lethargic and diaphoretic. Denied f/c, n/v/d. Allergies: Coded Allergies: No Known Allergies (Unverified , 02/08/13) Medication History Scheduled Cephalexin* (Keflex*), 500 MG ORAL EVERY 6 HOURS Gabapentin* (Gabapentin*), Unknown Dose ORAL THREE TIMES A DAY, (Reported) Tamsulosin HCl (Flomax), 0.4 MG ORAL DAILY, (Reported) Scheduled PRN Hydromorphone HCl (Dilaudid), 8 MG ORAL THREE TIMES A DAY PRN for For Pain, ( Reported) Methadone HCl (Methadone HCl), 10 MG PO Q6HR PRN for For Pain, (Reported) Oxymorphone Hcl (Opana Er), 40 MG ORAL Q6HR PRN for For Pain, (Reported) Tetrahydrz/Dext 70/Peg 400/Pvp (Eye Drops), 15 ML OP TID PRN for Dry Eyes, ( Reported) Patient History Healthcare decision maker Resuscitation status Advanced Directive on File Patient History Narrative Pmhx: as above Shx: Positive for illicit drug use. Denies alcohol or tobacco use. Fhx: non contributory Review of Systems All Other Systems: negative except mentioned in HPI Physical Exam Physical Exam Narrative GENERAL: The patient is awake, alert, and not in distress. HEENT: Extraocular muscles intact. No lymphadenopathy noted. Oropharyngeal mucosa is clear and dry. CARDIOVASCULAR: S1, S2. No rubs or gallops. PULMONARY: Clear to auscultation bilaterally. No rales, rhonchi or wheezes. ABDOMEN: Nondistended and nontender. EXTREMITY: Right ankle bandaged and erythematous up to knee. Left leg erythematous from ankle up to knee. Last 24 Hour Vital Signs Date Time Temp Pulse Resp B/P (MAP) Pulse Ox O2 Delivery O2 Flow Rate FiO2 09/11/18 17:07 60 125/67 09/11/18 16:00 97.6 60 18 125/67 (86) 98 09/11/18 12:00 97.8 61 18 123/71 (88) 95 09/11/18 10:02 98.9 09/11/18 09:17 73 122/68 09/11/18 09:00 Room Air 09/11/18 08:00 98.9 73 18 122/68 (86) 96 09/11/18 07:00 Room Air 09/11/18 05:47 99.0 98 14 178 98 Room Air 09/11/18 03:15 99.0 98 14 178 98 Room Air 09/11/18 03:10 99.0 108 14 178 (111) 98 Room Air Intake and Output 09/10/18 09/11/18 18:59 06:59 # Voids 1 Laboratory Tests Test 09/11/18 03:50 09/11/18 04:14 09/11/18 05:00 White Blood Count 12.0 K/UL (4.8-10.8) H Red Blood Count 4.96 M/UL (4.70-6.10) Hemoglobin 12.9 G/DL (14.2-18.0) L Hematocrit 40.9 % (42.0-52.0) L Mean Corpuscular Volume 82 FL (80-99) Mean Corpuscular Hemoglobin 26.1 PG (27.0-31.0) L Mean Corpuscular Hemoglobin Concent 31.6 G/DL (32.0-36.0) L Red Cell Distribution Width 13.9 % (11.6-14.8) Platelet Count 237 K/UL (150-450) Mean Platelet Volume 7.5 FL (6.5-10.1) Neutrophils (%) (Auto) 84.1 % (45.0-75.0) H Lymphocytes (%) (Auto) 4.9 % (20.0-45.0) L Monocytes (%) (Auto) 9.6 % (1.0-10.0) Eosinophils (%) (Auto) 1.0 % (0.0-3.0) Basophils (%) (Auto) 0.5 % (0.0-2.0) Sodium Level 138 MMOL/L (136-145) Potassium Level 3.8 MMOL/L (3.5-5.1) Chloride Level 103 MMOL/L (98-107) Carbon Dioxide Level 27 MMOL/L (21-32) Anion Gap 8 mmol/L (5-15) Blood Urea Nitrogen 15 mg/dL (7-18) Creatinine 0.9 MG/DL (0.55-1.30) Estimat Glomerular Filtration Rate > 60 mL/min (>60) Glucose Level 133 MG/DL (74-106) H Lactic Acid Level 2.00 mmol/L (0.4-2.0) 0.80 mmol/L (0.4-2.0) Calcium Level 9.2 MG/DL (8.5-10.1) Total Bilirubin 0.7 MG/DL (0.2-1.0) Aspartate Amino Transf (AST/SGOT) 46 U/L (15-37) H Alanine Aminotransferase (ALT/SGPT) 46 U/L (12-78) Alkaline Phosphatase 89 U/L (46-116) Pro-B-Type Natriuretic Peptide 248 pg/mL (0-125) H Total Protein 8.3 G/DL (6.4-8.2) H Albumin 3.7 G/DL (3.4-5.0) Globulin 4.6 g/dL Albumin/Globulin Ratio 0.8 (1.0-2.7) L Urine Color Yellow Urine Appearance Clear Urine pH 5 (4.5-8.0) Urine Specific [place] 1.025 (1.005-1.035) Urine Protein 3+ (NEGATIVE) H Urine Glucose (UA) Negative (NEGATIVE) Urine Ketones Negative (NEGATIVE) Urine Blood 1+ (NEGATIVE) H Urine Nitrite Negative (NEGATIVE) Urine Bilirubin Negative (NEGATIVE) Urine Urobilinogen 1 MG/DL (0.0-1.0) H Urine Leukocyte Esterase Negative (NEGATIVE) Urine RBC 0-2 /HPF (0 - 0) H Urine WBC 0 /HPF (0 - 0) Urine Squamous Epithelial Cells Few /LPF (NONE/OCC) Urine Bacteria None /HPF (NONE) Urine Opiates Screen Positive (NEGATIVE) H Urine Barbiturates Screen Negative (NEGATIVE) Phencyclidine (PCP) Screen Negative (NEGATIVE) Urine Amphetamines Screen Negative (NEGATIVE) Urine Benzodiazepines Screen Negative (NEGATIVE) Urine Cocaine Screen Positive (NEGATIVE) H Urine Marijuana (THC) Screen Negative (NEGATIVE) Height (Feet): 6 Height (Inches): 4.00 Weight (Pounds): 180 Medications Current Medications Medications (Trade) Dose Ordered Sig/Dmitriy Route PRN Reason Start Time Stop Time Status Last Admin Dose Admin Acetaminophen (Tylenol) 650 mg Q4H PRN ORAL Mild Pain (Pain Scale 1-3) 09/11/18 08:30 10/11/18 08:29 Amlodipine Besylate (Norvasc) 5 mg BID ORAL 09/11/18 09:00 10/11/18 08:59 09/11/18 17:07 Dextrose (Dextrose 50%) 25 ml Q30M PRN IV Hypoglycemia 09/11/18 08:30 10/11/18 08:29 Dextrose (Dextrose 50%) 50 ml Q30M PRN IV Hypoglycemia 09/11/18 08:30 10/11/18 08:29 Enoxaparin Sodium (Lovenox) 40 mg DAILY SUBQ 09/11/18 09:00 10/11/18 08:59 09/11/18 09:19 Famotidine (Pepcid) 40 mg DAILY ORAL 09/11/18 09:00 10/11/18 08:59 09/11/18 09:17 Gabapentin (Neurontin) 100 mg THREE TIMES A DAY ORAL 09/11/18 09:00 10/11/18 08:59 09/11/18 12:16 Morphine Sulfate (Morphine Sulfate) 1 mg Q4H PRN IVP For Pain 09/11/18 08:30 09/18/18 08:29 09/11/18 09:32 Tamsulosin HCl (Flomax) 0.4 mg BEDTIME ORAL 09/11/18 21:00 10/11/18 20:59 Assessment/Plan Assessment/Plan: Abx: Zosyn x 09/11 Assessment: Afebrile Mild leukocytosis -u/a neg -CXR: Mild interstitial congestion. R ankle ulcer w/ mild surrounding cellulitis arthritis R ankle ulcer/cellulitis neuropathy opioid dependency -UDS + cocaine Plan: -Start Ancef for cellulitis -f/u cx -Monitor CBC/CMP, temperatures -wound care per hospital protocol Thank you for this consultation. Will continue to follow along with you. Discussed with Gabrielle Mckeon M.D. Sep 11, 2018 17:31
--- NOTE | 2018-09-11 19:30 | NUR ---
NURSE NOTES: Patient is asleep, no signs of pain, not in acute respiratory distress. Call light in reach. Bed in lowest position. Needs in reach. Will continue to monitor.
--- NOTE | 2018-09-11 19:33 | NUR ---
HAND-OFF: Report given to PAVEL Baird.
[2018-09-11 20:00] VITALS: BP 138/60
[2018-09-11] MEDS: Tamsulosin 0.4mg cap ORAL SCH (20:59)
[2018-09-11] MEDS: ceFAZolin sod 2 GM in D5W 110 ML IVPB SCH (22:07)
[2018-09-12] VITALS: BP 139/62
[2018-09-12] MEDS: Morphine Sulfate 2mg/ml Inj(IV/IM USE ONLY) IVP PRN ×2 (02:29→06:30)
--- NOTE | 2018-09-12 02:51 | NUR ---
NURSE NOTES: Dressing changed on the right foot.
[2018-09-12 04:00] VITALS: BP 142/65
[2018-09-12] MEDS: ceFAZolin sod 2 GM in D5W 110 ML IVPB SCH ×3 (06:27→21:15)
[2018-09-12 06:48] LABS: ANION GAP 8 mmol/L (5-15); BLOOD UREA NITROGEN 10 mg/dL (7-18); CALCIUM 8.8 MG/DL (8.5-10.1); CARBON DIOXIDE 26 MMOL/L (21-32); CHLORIDE 109 MMOL/L (98-107); CREATININE 0.7 MG/DL (0.55-1.30); POTASSIUM 3.8 MMOL/L (3.5-5.1); SODIUM 143 MMOL/L (136-145)
[2018-09-12 06:56] LABS: BASOPHILS % (AUTO) 0.7 % (0.0-2.0); EOSINOPHILS % (AUTO) 1.3 % (0.0-3.0); HEMATOCRIT 33.7 % (42.0-52.0); HEMOGLOBIN 10.7 G/DL (14.2-18.0); LYMPHOCYTES % (AUTO) 26.4 % (20.0-45.0); MEAN CORPUSCULAR VOLUME 83 FL (80-99); MONOCYTES % (AUTO) 15.2 % (1.0-10.0); NEUTROPHILS % (AUTO) 56.6 % (45.0-75.0); PLATELET COUNT 200 K/UL (150-450); RED BLOOD COUNT 4.08 M/UL (4.70-6.10); RED CELL DISTRIBUTION WIDTH 13.8 % (11.6-14.8); WHITE BLOOD COUNT 6.6 K/UL (4.8-10.8)
--- NOTE | 2018-09-12 07:17 | NUR ---
HAND-OFF: Report given to PAVEL Christian.
[2018-09-12 08:00] VITALS: BP 164/68
--- NOTE | 2018-09-12 08:01 | NUR ---
NURSE NOTES: Patient awake, alert x4; on room air, no sign of distress and shortness of breath; IV R-Hand 24G TKO, dressing dry and intact on the R-Foot; bed at lowest position, side rails up x2, breaks engaged; call light within reach; will keep monitoring.
--- NOTE | 2018-09-12 08:36 | General Progress Note ---
Assessment/Plan Assessment/Plan: (1) Lumbar Herniated Disc (2) Lumbar DDD (3) Lumbar Spondylosis (4) Lumbar Radiculopathy (5) Narcotics Dependency (6) Cocaine abuse We will continued on Morphine IV and will be started on Morphine ER 30mg BID ATC hold for oversedation and Dilaudid 4mg PO 1 tab Q4H PRN severe pain D/w patient about stoppage of illegal substances and entering into a detox program as an out. Pt seems to understand Pt was d/w Dr. Das and concurred. Subjective Date patient seen: Sep 12, 2018 Time patient seen: 07:30 - am Allergies: Coded Allergies: No Known Allergies (Unverified , 02/08/13) Subjective Constitutional: Reports: weakness, Denies: chills, diaphoresis, fever, malaise , no symptoms, other HEENT: Denies: blurred vision, double vision, ear discharge, ear pain, eye pain , mouth pain, mouth swelling, no symptoms, nose congestion, nose pain, other, tearing, throat pain, throat swelling Cardiovascular: Denies: chest pain, edema, irregular heart rate, lightheadedness, no symptoms, other, palpitations, syncope Respiratory: Denies: SOB at rest, SOB with excertion, cough, no symptoms, orthopnea, other, shortness of breath, sputum, stridor, wheezing Gastrointestinal/Abdominal: Reports: nausea, Denies: abdomen distended, abdominal pain, black stools, blood in stool, constipated, diarrhea, difficulty swallowing, no symptoms, other, poor appetite, poor fluid intake, rectal bleeding, tarry stools, vomiting Genitourinary: Denies: burning, discharge, flank pain, frequency, hematuria, incontinence, no symptoms, other, pain, urgency Neurologic/Psychiatric: Reports: numbness, weakness, Denies: anxiety, depressed , emotional problems, headache, no symptoms, other, paresthesia, pre-existing deficit, seizure, tingling, tremors Endocrine: Denies: excessive sweating, flushing, increased hunger, increased thirst, increased urine, intolerance to cold, intolerance to heat, no symptoms, other, unexplained weight gain, unexplained weight loss Hematologic/Lymphatic: Denies: anemia, easy bleeding, easy bruising, no symptoms, other Subjective: Patient is a known patient from prior admissions. He was admitted started on Morphine 1mg IV Q4H PRN with minimal pain relief. As an Out pt is on Morphine ER 30mg BID and Dilaudid 4mg BID seen on [facility] PDMP report. Was found to be positive of cocaine on UDS. We were consulted for patient to have adequate pain control while here in the hospital. Objective Last 24 Hour Vital Signs Date Time Temp Pulse Resp B/P (MAP) Pulse Ox O2 Delivery O2 Flow Rate FiO2 09/12/18 08:00 98.8 70 18 164/68 (100) 95 09/12/18 04:00 99.3 55 18 142/65 (90) 100 09/12/18 00:00 98.0 63 20 139/62 (87) 98 09/11/18 21:00 Room Air 09/11/18 20:00 98.4 60 20 138/60 (86) 94 09/11/18 17:07 60 125/67 09/11/18 16:00 97.6 60 18 125/67 (86) 98 09/11/18 12:00 97.8 61 18 123/71 (88) 95 09/11/18 10:02 98.9 09/11/18 09:17 73 122/68 09/11/18 09:00 Room Air Intake and Output 09/11/18 09/12/18 19:00 07:00 Intake Total 480 ml 110 ml Output Total 550 ml 2500 ml Balance -70 ml -2390 ml Intake Oral 480 ml IV Total 110 ml Output Urine Total 550 ml 2500 ml # Bowel Movements 1 1 Laboratory Tests 09/12/18 05:25: White Blood Count 6.6, Red Blood Count 4.08L, Hemoglobin 10.7L, Hematocrit 33.7L , Mean Corpuscular Volume 83, Mean Corpuscular Hemoglobin 26.4L, Mean Corpuscular Hemoglobin Concent 31.9L, Red Cell Distribution Width 13.8, Platelet Count 200, Mean Platelet Volume 7.4, Neutrophils (%) (Auto) 56.6, Lymphocytes (%) (Auto) 26.4, Monocytes (%) (Auto) 15.2H, Eosinophils (%) (Auto) 1.3, Basophils (%) (Auto) 0.7, Sodium Level 143, Potassium Level 3.8, Chloride Level 109H, Carbon Dioxide Level 26, Anion Gap 8, Blood Urea Nitrogen 10, Creatinine 0.7, Estimat Glomerular Filtration Rate > 60, Glucose Level 91, Calcium Level 8.8 Height (Feet): 6 Height (Inches): 4.00 Weight (Pounds): 287 Objective General Appearance: no apparent distress, alert EENT: PERRL/EOMI, normal ENT inspection Neck: non-tender, normal alignment Cardiovascular: normal rate, regular rhythm Respiratory/Chest: chest wall non-tender, decreased breath sounds Abdomen: non tender Extremities: swelling - tenderness to palpation of left hip Neurologic: alert, oriented x 3 Jeffrey Wynn Sep 12, 2018 08:36
[2018-09-12] MEDS: Enoxaparin 40mg Inj SUBQ SCH (08:42)
[2018-09-12] MEDS ORDERED: Morphine Sulfate 2mg/ml Inj(IV/IM USE ONLY) IVP PRN (09:00)
--- NOTE | 2018-09-12 09:04 | Nephrology Progress Note ---
Assessment/Plan Assessment/Plan: A/P 1. Right ankle ulcer/cellulitis. - IV Abx per ID and gen surgery for wound mgmt 2. Hypertension. stable. Cocaine +ve. Adjust meds prn 3. Narcotic dependency, opioid in nature along with cocaine positive. - per pain mgmt 4. DVT prophylaxis with Lovenox. Subjective Date patient seen: Sep 12, 2018 Time patient seen: 09:02 ROS Limited/Unobtainable: No Allergies: Coded Allergies: No Known Allergies (Unverified , 02/08/13) Subjective Patient resting well and in no distress Objective Last 24 Hour Vital Signs Date Time Temp Pulse Resp B/P (MAP) Pulse Ox O2 Delivery O2 Flow Rate FiO2 09/12/18 08:41 70 164/68 09/12/18 08:00 98.8 70 18 164/68 (100) 95 09/12/18 04:00 99.3 55 18 142/65 (90) 100 09/12/18 00:00 98.0 63 20 139/62 (87) 98 09/11/18 21:00 Room Air 09/11/18 20:00 98.4 60 20 138/60 (86) 94 09/11/18 17:07 60 125/67 09/11/18 16:00 97.6 60 18 125/67 (86) 98 09/11/18 12:00 97.8 61 18 123/71 (88) 95 09/11/18 10:02 98.9 09/11/18 09:17 73 122/68 Intake and Output 09/11/18 09/12/18 19:00 07:00 Intake Total 480 ml 110 ml Output Total 550 ml 2500 ml Balance -70 ml -2390 ml Intake Oral 480 ml IV Total 110 ml Output Urine Total 550 ml 2500 ml # Bowel Movements 1 1 Laboratory Tests 09/12/18 05:25: White Blood Count 6.6, Red Blood Count 4.08L, Hemoglobin 10.7L, Hematocrit 33.7L , Mean Corpuscular Volume 83, Mean Corpuscular Hemoglobin 26.4L, Mean Corpuscular Hemoglobin Concent 31.9L, Red Cell Distribution Width 13.8, Platelet Count 200, Mean Platelet Volume 7.4, Neutrophils (%) (Auto) 56.6, Lymphocytes (%) (Auto) 26.4, Monocytes (%) (Auto) 15.2H, Eosinophils (%) (Auto) 1.3, Basophils (%) (Auto) 0.7, Sodium Level 143, Potassium Level 3.8, Chloride Level 109H, Carbon Dioxide Level 26, Anion Gap 8, Blood Urea Nitrogen 10, Creatinine 0.7, Estimat Glomerular Filtration Rate > 60, Glucose Level 91, Calcium Level 8.8 Height (Feet): 6 Height (Inches): 4.00 Weight (Pounds): 287 General Appearance: no apparent distress EENT: normal ENT inspection Neck: normal alignment, supple Cardiovascular: normal rate, regular rhythm Respiratory/Chest: lungs clear, normal breath sounds Abdomen: non tender, soft Edema: 1+ Arm (L), 1+ Arm (R), 1+ Leg (L), 1+ Leg (R), 1+ Pedal (L), 1+ Pedal ( R), 1+ Generalized Eron King MD Sep 12, 2018 09:04
--- NOTE | 2018-09-12 09:51 | NUR ---
*-* INSURANCE *-* ALL AVAILABLE CLINICALS AND REVIEW FAXED TO: DENISE VIVAR:DEMOND Stoner:[phone]
[2018-09-12] MEDS: MS Contin 15mg tab ORAL SCH ×2 (09:55→21:11)
[2018-09-12] MEDS: Carvedilol 6.25mg Tab ORAL SCH ×2 (09:56→21:00)
[2018-09-12 12:00] VITALS: BP 124/69
--- NOTE | 2018-09-12 12:16 | NUR ---
INSURANCE UPDATED CLINICALS and REVIEW HAVE BEEN FAXED PLEASE FAX THE REVIEW AND CLINICAL TO: [facility] AYAD ROMERO:DEMOND Stoner:[phone]
--- NOTE | 2018-09-12 13:24 | Infectious Diseases Prog Note ---
Assessment/Plan Assessment/Plan Abx: Zosyn x 09/11 Assessment: Afebrile Mild leukocytosis, SP -u/a neg -CXR: Mild interstitial congestion. -Bcx NTD R ankle ulcer w/ mild surrounding cellulitis -wound cx GNR arthritis R ankle ulcer/cellulitis neuropathy opioid dependency -UDS + cocaine Plan: -Cont Ancef #2/ for cellulitis -f/u cx -Monitor CBC/CMP, temperatures -wound care per hospital protocol Thank you for this consultation. Will continue to follow along with you. Discussed with RN. Subjective Allergies: Coded Allergies: No Known Allergies (Unverified , 02/08/13) Subjective afebrile no leukocytosis Bcx NTD Objective Vital Signs Last 24 Hour Vital Signs Date Time Temp Pulse Resp B/P (MAP) Pulse Ox O2 Delivery O2 Flow Rate FiO2 09/12/18 12:00 96.8 53 18 124/69 (87) 95 09/12/18 10:25 98.8 09/12/18 09:56 70 164/68 09/12/18 09:00 Room Air 09/12/18 08:41 70 164/68 09/12/18 08:00 98.8 70 18 164/68 (100) 95 09/12/18 04:00 99.3 55 18 142/65 (90) 100 09/12/18 00:00 98.0 63 20 139/62 (87) 98 09/11/18 21:00 Room Air 09/11/18 20:00 98.4 60 20 138/60 (86) 94 09/11/18 17:07 60 125/67 09/11/18 16:00 97.6 60 18 125/67 (86) 98 Height (Feet): 6 Height (Inches): 4.00 Weight (Pounds): 287 Objective GENERAL: The patient is awake, alert, and not in distress. HEENT: Extraocular muscles intact. No lymphadenopathy noted. Oropharyngeal mucosa is clear and dry. CARDIOVASCULAR: S1, S2. No rubs or gallops. PULMONARY: Clear to auscultation bilaterally. No rales, rhonchi or wheezes. ABDOMEN: Nondistended and nontender. EXTREMITY: Right ankle bandaged and erythematous up to knee. Left leg erythematous from ankle up to knee. Microbiology Date/Time Source Procedure Growth Status 09/11/18 03:40 Blood Blood Culture - Preliminary NO GROWTH AFTER 24 HOURS Resulted 09/11/18 03:15 Blood Blood Culture - Preliminary NO GROWTH AFTER 24 HOURS Resulted 09/11/18 05:30 Ankle Right Gram Stain - Final Resulted 09/11/18 05:30 Wound Culture - Preliminary Gram Negative Qasim Resulted Laboratory Tests Test 09/12/18 05:25 White Blood Count 6.6 K/UL (4.8-10.8) Red Blood Count 4.08 M/UL (4.70-6.10) L Hemoglobin 10.7 G/DL (14.2-18.0) L Hematocrit 33.7 % (42.0-52.0) L Mean Corpuscular Volume 83 FL (80-99) Mean Corpuscular Hemoglobin 26.4 PG (27.0-31.0) L Mean Corpuscular Hemoglobin Concent 31.9 G/DL (32.0-36.0) L Red Cell Distribution Width 13.8 % (11.6-14.8) Platelet Count 200 K/UL (150-450) Mean Platelet Volume 7.4 FL (6.5-10.1) Neutrophils (%) (Auto) 56.6 % (45.0-75.0) Lymphocytes (%) (Auto) 26.4 % (20.0-45.0) Monocytes (%) (Auto) 15.2 % (1.0-10.0) H Eosinophils (%) (Auto) 1.3 % (0.0-3.0) Basophils (%) (Auto) 0.7 % (0.0-2.0) Sodium Level 143 MMOL/L (136-145) Potassium Level 3.8 MMOL/L (3.5-5.1) Chloride Level 109 MMOL/L (98-107) H Carbon Dioxide Level 26 MMOL/L (21-32) Anion Gap 8 mmol/L (5-15) Blood Urea Nitrogen 10 mg/dL (7-18) Creatinine 0.7 MG/DL (0.55-1.30) Estimat Glomerular Filtration Rate > 60 mL/min (>60) Glucose Level 91 MG/DL (74-106) Calcium Level 8.8 MG/DL (8.5-10.1) Current Medications Medications (Trade) Dose Ordered Sig/Dmitriy Route PRN Reason Start Time Stop Time Status Last Admin Dose Admin Acetaminophen (Tylenol) 650 mg Q4H PRN ORAL Mild Pain (Pain Scale 1-3) 09/11/18 08:30 10/11/18 08:29 Amlodipine Besylate (Norvasc) 5 mg BID ORAL 09/11/18 09:00 10/11/18 08:59 09/12/18 08:41 Carvedilol (Coreg) 6.25 mg EVERY 12 HOURS ORAL 09/12/18 09:15 10/12/18 09:14 09/12/18 09:56 Cefazolin Sodium 2 gm/Dextrose 110 ml @ 220 mls/hr Q8HR IVPB 09/11/18 22:00 09/18/18 21:59 09/12/18 06:27 Dextrose (Dextrose 50%) 25 ml Q30M PRN IV Hypoglycemia 09/11/18 08:30 10/11/18 08:29 Dextrose (Dextrose 50%) 50 ml Q30M PRN IV Hypoglycemia 09/11/18 08:30 10/11/18 08:29 Enoxaparin Sodium (Lovenox) 40 mg DAILY SUBQ 09/11/18 09:00 10/11/18 08:59 09/12/18 08:42 Famotidine (Pepcid) 40 mg DAILY ORAL 09/11/18 09:00 10/11/18 08:59 09/12/18 08:41 Gabapentin (Neurontin) 100 mg THREE TIMES A DAY ORAL 09/11/18 09:00 10/11/18 08:59 09/12/18 12:38 Hydromorphone HCl (Dilaudid) 4 mg Q4H PRN ORAL severe pain 09/12/18 08:50 09/19/18 08:49 Morphine Sulfate (MS Contin) 30 mg Q12HR ORAL 09/12/18 09:00 09/19/18 08:59 09/12/18 09:55 Morphine Sulfate (Morphine Sulfate) 1 mg Q4H PRN IVP MODERATE PAIN 09/12/18 09:00 09/18/18 08:29 Tamsulosin HCl (Flomax) 0.4 mg BEDTIME ORAL 09/11/18 21:00 10/11/18 20:59 09/11/18 20:59 Gabrielle Oro M.D. Sep 12, 2018 13:24
[2018-09-12] MEDS: HYDROmorphone 4mg tab ORAL PRN ×2 (14:47→23:21)
[2018-09-12 16:00] VITALS: BP 112/52
--- NOTE | 2018-09-12 16:24 | Consultation ---
History of Present Illness General Date patient seen: Sep 12, 2018 Reason for Hospitalization: Pain Present Illness HPI This is a very pleasant 63-year-old male with chronic long-standing wound on his right lower extremity ulcer who presented to the emergency room [facility] complaining of worsening right lower extremity pain discomfort and overall generalized weakness. On admission patient was identified to have abnormal labs and cellulitis of the right lower extremity around a chronic wound. Surgery was called to evaluate and assist with care. Patient seen, patient evaluate, chart reviewed. When patient seen he states that he has had an ulcer on his lower extremity for over a year now that occasionally gets better and worse. He states that intermittently every few months he has an episode of cellulitis requiring antibiotics and care. States that he does not receive good care to his wound as he attempts to care for himself sometimes but also neglected. No nausea vomiting fever chills. Otherwise well. Allergies: Coded Allergies: No Known Allergies (Unverified , 02/08/13) Medication History Scheduled Cephalexin* (Keflex*), 500 MG ORAL EVERY 6 HOURS Gabapentin* (Gabapentin*), Unknown Dose ORAL THREE TIMES A DAY, (Reported) Tamsulosin HCl (Flomax), 0.4 MG ORAL DAILY, (Reported) Scheduled PRN Hydromorphone HCl (Dilaudid), 8 MG ORAL THREE TIMES A DAY PRN for For Pain, ( Reported) Methadone HCl (Methadone HCl), 10 MG PO Q6HR PRN for For Pain, (Reported) Oxymorphone Hcl (Opana Er), 40 MG ORAL Q6HR PRN for For Pain, (Reported) Tetrahydrz/Dext 70/Peg 400/Pvp (Eye Drops), 15 ML OP TID PRN for Dry Eyes, ( Reported) Patient History History Provided By: Patient, Medical Record, PMD Healthcare decision maker Resuscitation status Advanced Directive on File Past Medical/Surgical History Past Medical/Surgical History: (1) Hyponatremia (2) Leukocytosis (3) Cellulitis and abscess (4) Cellulitis of left upper extremity (5) Calluse (6) Lumbar radiculopathy (7) DDD (degenerative disc disease), lumbar (8) Narcotic dependence (9) Sepsis (10) Scrotal fullness (11) Pain in limb (12) Drug abuse (13) OA (osteoarthritis) of knee (14) Cellulitis of right foot (15) Femoral neck fracture (16) Chronic epididymitis (17) Chronic pain (18) Substance abuse (19) Venous stasis of lower extremity (20) Ankle ulcer Review of Systems Review of Symptoms General ROS: no weight loss or fever Psychological ROS: no depression or mood changes, no memory loss Ophthalmic ROS: no visual changes or eye irritation ENT ROS: no nasal congestion, hearing loss, dizziness Allergy and Immunology ROS: no allergic symptoms or urticaria Hematological and Lymphatic ROS: no swollen glands, unusual bleeding or bruising Endocrine ROS: no polyuria, polydipsia, weight changes, temperature intolerance Respiratory ROS: no cough, shortness of breath, or wheezing Cardiovascular ROS: no chest pain or dyspnea on exertion Gastrointestinal ROS: denies abdominal pain, no bright red blood in stool. Musculoskeletal ROS: no myalgias or arthralgias Neurological ROS: no TIA or stroke symptoms Dermatological ROS: no new or changing skin lesions, rashes or pruritis Physical Exam Physical Exam General appearance: alert, cooperative, no distress, appears stated age Head: Normocephalic, without obvious abnormality, atraumatic Eyes: conjunctivae/corneas clear. PERRL, EOM's intact. Fundi benign Throat: Lips, mucosa, and tongue normal. Teeth and gums normal Neck: supple, symmetrical, trachea midline, no adenopathy, thyroid: not enlarged, symmetric, no tenderness/mass/nodules, no carotid bruit and no JVD Lungs: clear to auscultation bilaterally Heart: regular rate and rhythm, S1, S2 normal, no murmur, click, rub or gallop Abdomen: soft, non-tender. Bowel sounds normal. No masses, no organomegaly Extremities: extremities normal, atraumatic, no cyanosis, edema, ulcer, cellulitis, skin changes Pulses: 2+ and symmetric Skin: Skin color, texture, turgor normal. No rashes or lesions Neurologic: Grossly normal Last 24 Hour Vital Signs Date Time Temp Pulse Resp B/P (MAP) Pulse Ox O2 Delivery O2 Flow Rate FiO2 09/12/18 16:00 97.7 52 18 112/52 (72) 95 09/12/18 15:17 96.8 09/12/18 12:00 96.8 53 18 124/69 (87) 95 09/12/18 10:25 98.8 09/12/18 09:56 70 164/68 09/12/18 09:00 Room Air 09/12/18 08:41 70 164/68 09/12/18 08:00 98.8 70 18 164/68 (100) 95 09/12/18 04:00 99.3 55 18 142/65 (90) 100 09/12/18 00:00 98.0 63 20 139/62 (87) 98 09/11/18 21:00 Room Air 09/11/18 20:00 98.4 60 20 138/60 (86) 94 09/11/18 17:07 60 125/67 Intake and Output 09/11/18 09/12/18 19:00 07:00 Intake Total 480 ml 110 ml Output Total 550 ml 2500 ml Balance -70 ml -2390 ml Intake Oral 480 ml IV Total 110 ml Output Urine Total 550 ml 2500 ml # Bowel Movements 1 1 Laboratory Tests Test 09/12/18 05:25 White Blood Count 6.6 K/UL (4.8-10.8) Red Blood Count 4.08 M/UL (4.70-6.10) L Hemoglobin 10.7 G/DL (14.2-18.0) L Hematocrit 33.7 % (42.0-52.0) L Mean Corpuscular Volume 83 FL (80-99) Mean Corpuscular Hemoglobin 26.4 PG (27.0-31.0) L Mean Corpuscular Hemoglobin Concent 31.9 G/DL (32.0-36.0) L Red Cell Distribution Width 13.8 % (11.6-14.8) Platelet Count 200 K/UL (150-450) Mean Platelet Volume 7.4 FL (6.5-10.1) Neutrophils (%) (Auto) 56.6 % (45.0-75.0) Lymphocytes (%) (Auto) 26.4 % (20.0-45.0) Monocytes (%) (Auto) 15.2 % (1.0-10.0) H Eosinophils (%) (Auto) 1.3 % (0.0-3.0) Basophils (%) (Auto) 0.7 % (0.0-2.0) Sodium Level 143 MMOL/L (136-145) Potassium Level 3.8 MMOL/L (3.5-5.1) Chloride Level 109 MMOL/L (98-107) H Carbon Dioxide Level 26 MMOL/L (21-32) Anion Gap 8 mmol/L (5-15) Blood Urea Nitrogen 10 mg/dL (7-18) Creatinine 0.7 MG/DL (0.55-1.30) Estimat Glomerular Filtration Rate > 60 mL/min (>60) Glucose Level 91 MG/DL (74-106) Calcium Level 8.8 MG/DL (8.5-10.1) Height (Feet): 6 Height (Inches): 4.00 Weight (Pounds): 287 Medications Current Medications Medications (Trade) Dose Ordered Sig/Dmitriy Route PRN Reason Start Time Stop Time Status Last Admin Dose Admin Acetaminophen (Tylenol) 650 mg Q4H PRN ORAL Mild Pain (Pain Scale 1-3) 09/11/18 08:30 10/11/18 08:29 Amlodipine Besylate (Norvasc) 5 mg BID ORAL 09/11/18 09:00 10/11/18 08:59 09/12/18 08:41 Carvedilol (Coreg) 6.25 mg EVERY 12 HOURS ORAL 09/12/18 09:15 10/12/18 09:14 09/12/18 09:56 Cefazolin Sodium 2 gm/Dextrose 110 ml @ 220 mls/hr Q8HR IVPB 09/11/18 22:00 09/18/18 21:59 09/12/18 14:42 Dextrose (Dextrose 50%) 25 ml Q30M PRN IV Hypoglycemia 09/11/18 08:30 10/11/18 08:29 Dextrose (Dextrose 50%) 50 ml Q30M PRN IV Hypoglycemia 09/11/18 08:30 10/11/18 08:29 Enoxaparin Sodium (Lovenox) 40 mg DAILY SUBQ 09/11/18 09:00 10/11/18 08:59 09/12/18 08:42 Famotidine (Pepcid) 40 mg DAILY ORAL 09/11/18 09:00 10/11/18 08:59 09/12/18 08:41 Gabapentin (Neurontin) 100 mg THREE TIMES A DAY ORAL 09/11/18 09:00 10/11/18 08:59 09/12/18 12:38 Hydromorphone HCl (Dilaudid) 4 mg Q4H PRN ORAL severe pain 09/12/18 08:50 09/19/18 08:49 09/12/18 14:47 Morphine Sulfate (MS Contin) 30 mg Q12HR ORAL 09/12/18 09:00 09/19/18 08:59 09/12/18 09:55 Morphine Sulfate (Morphine Sulfate) 1 mg Q4H PRN IVP MODERATE PAIN 09/12/18 09:00 09/18/18 08:29 Tamsulosin HCl (Flomax) 0.4 mg BEDTIME ORAL 09/11/18 21:00 10/11/18 20:59 09/11/18 20:59 Assessment/Plan Problem List: (1) Venous stasis of lower extremity Assessment & Plan: US ordered ICD Codes: I87.8 - Venous stasis of lower extremity SNOMED: 62002670 (2) Pain in limb ICD Codes: M79.609 - Pain in limb SNOMED: 66045043 (3) Cellulitis and abscess ICD Codes: L03.90 - Cellulitis and abscess SNOMED: 28525146 (4) Cellulitis of right foot Assessment & Plan: Pt presented on admission with Full thickness ulcer medial R malleolus (L)6.5cm x (W)6.2cm x(D)0.3cm. Scattered slough within base of wound with small area of necrosis(10%) at distal end of wound bed. Edges are macerated . Small amt serous exudate noted. Smaller ulcer proximally but within close proximity noted(L)0.5cm x (W)0.3cm.100% yellow slough at base of wound .Edges are macerated. Xerosis skin noted to padmini-areas of wounds. Pt verbalized having wounds for a year and stated he has been treating wounds himself. Denied having been seen by physician to treat wounds. Pt stated wound exudes heavily at times. Both lower extremities are edematous. Haemosiderin noted to both lower ext. Plantar aspects of both feet and both heels are callused and dry. Recommendations: Cleanse wound with Saline.Apply Therahoney with Calcium Alginate. Apply Cavilon Skin Barrier periwound Cover with ABD Pad and wrap with Kerlix from Base of toes Daily and prn. Off-load heels with Pillow. IV abx as per ID will monitor ICD Codes: L03.115 - Cellulitis of right lower limb SNOMED: 875671682 (5) Ankle ulcer ICD Codes: L97.309 - Ankle ulcer SNOMED: 564144016 Qualifiers: Qualified Codes: L97.319 - Non-pressure chronic ulcer of right ankle with unspecified severity Harman Varela Sep 12, 2018 16:24
--- NOTE | 2018-09-12 19:04 | NUR ---
HAND-OFF: Report given to PAVEL Baird.
--- NOTE | 2018-09-12 19:28 | NUR ---
NURSE NOTES: Patient asleep in bed, no respiratory distress noted. site technician at bedside. Call light and needs in reach. Will continue to monitor.
[2018-09-12 20:30] VITALS: BP 133/71
[2018-09-12] MEDS: Tamsulosin 0.4mg cap ORAL SCH (21:10)
--- NOTE | 2018-09-12 23:48 | NUR ---
NURSE NOTES: Patient moved to Bed 2 with the same bed, in the same room. All belongings with the patient.
[2018-09-13] VITALS: BP 135/53
[2018-09-13 04:01] VITALS: BP 145/71
[2018-09-13] MEDS: HYDROmorphone 4mg tab ORAL PRN ×4 (04:06→21:59)
[2018-09-13] MEDS: ceFAZolin sod 2 GM in D5W 110 ML IVPB SCH ×3 (05:03→21:59)
--- NOTE | 2018-09-13 07:37 | NUR ---
HAND-OFF: Report given to PAVEL Lopez.
--- NOTE | 2018-09-13 08:00 | NUR ---
NURSE NOTES: Patient alert and oriented respirations s unlabored. Dressing on right lower leg intact.patient eating breakfast.call light within reach.
--- NOTE | 2018-09-13 08:23 | Nephrology Progress Note ---
Assessment/Plan Assessment/Plan: A/P 1. Right ankle ulcer/cellulitis. - IV Abx per ID - gen surgery for wound mgmt 2. Hypertension. stable. Cocaine +ve. 3. Narcotic dependency, opioid in nature along with cocaine positive. - per pain mgmt 4. DVT prophylaxis with Lovenox. DC patient once cleared by ID and wound care Subjective Date patient seen: Sep 13, 2018 Time patient seen: 08:21 ROS Limited/Unobtainable: No Allergies: Coded Allergies: No Known Allergies (Unverified , 02/08/13) Subjective Patient resting well. No complaints Objective Last 24 Hour Vital Signs Date Time Temp Pulse Resp B/P (MAP) Pulse Ox O2 Delivery O2 Flow Rate FiO2 09/13/18 04:01 98.5 60 20 145/71 (95) 95 09/13/18 00:00 98.4 62 17 135/53 (80) 95 09/12/18 21:00 Room Air 09/12/18 21:00 56 133/71 09/12/18 20:30 98.5 56 19 133/71 (91) 94 09/12/18 17:17 52 112/52 09/12/18 16:00 97.7 52 18 112/52 (72) 95 09/12/18 15:17 96.8 09/12/18 12:00 96.8 53 18 124/69 (87) 95 09/12/18 10:25 98.8 09/12/18 09:56 70 164/68 09/12/18 09:00 Room Air 09/12/18 08:41 70 164/68 Intake and Output 09/12/18 09/13/18 19:00 07:00 Intake Total 720 ml 810 ml Balance 720 ml 810 ml Intake Oral 500 ml 700 ml IV Total 220 ml 110 ml # Voids 4 # Bowel Movements 1 Height (Feet): 6 Height (Inches): 4.00 Weight (Pounds): 287 General Appearance: no apparent distress, alert EENT: normal ENT inspection Neck: normal alignment, supple Cardiovascular: normal rate, regularly irregular Respiratory/Chest: lungs clear, normal breath sounds Abdomen: non tender, soft Edema: no edema noted Arm (L), no edema noted Arm (R), no edema noted Leg (L), no edema noted Leg (R), no edema noted Pedal (L), no edema noted Pedal (R), no edema noted Generalized Eron King MD Sep 13, 2018 08:23
--- NOTE | 2018-09-13 08:38 | General Progress Note ---
Assessment/Plan Assessment/Plan: (1) Lumbar Herniated Disc (2) Lumbar DDD (3) Lumbar Spondylosis (4) Lumbar Radiculopathy (5) Narcotics Dependency (6) Cocaine abuse We will continued on Morphine IV, Morphine ER and Dilaudid Pt was d/w Dr. Das and concurred. Subjective Date patient seen: Sep 13, 2018 Time patient seen: 07:00 - am Allergies: Coded Allergies: No Known Allergies (Unverified , 02/08/13) Subjective Constitutional: Reports: weakness, Denies: chills, diaphoresis, fever, malaise , no symptoms, other HEENT: Denies: blurred vision, double vision, ear discharge, ear pain, eye pain , mouth pain, mouth swelling, no symptoms, nose congestion, nose pain, other, tearing, throat pain, throat swelling Cardiovascular: Denies: chest pain, edema, irregular heart rate, lightheadedness, no symptoms, other, palpitations, syncope Respiratory: Denies: SOB at rest, SOB with excertion, cough, no symptoms, orthopnea, other, shortness of breath, sputum, stridor, wheezing Gastrointestinal/Abdominal: Reports: nausea, Denies: abdomen distended, abdominal pain, black stools, blood in stool, constipated, diarrhea, difficulty swallowing, no symptoms, other, poor appetite, poor fluid intake, rectal bleeding, tarry stools, vomiting Genitourinary: Denies: burning, discharge, flank pain, frequency, hematuria, incontinence, no symptoms, other, pain, urgency Neurologic/Psychiatric: Reports: numbness, weakness, Denies: anxiety, depressed , emotional problems, headache, no symptoms, other, paresthesia, pre-existing deficit, seizure, tingling, tremors Endocrine: Denies: excessive sweating, flushing, increased hunger, increased thirst, increased urine, intolerance to cold, intolerance to heat, no symptoms, other, unexplained weight gain, unexplained weight loss Hematologic/Lymphatic: Denies: anemia, easy bleeding, easy bruising, no symptoms, other Subjective: Patient reports that this pain has been tolerated on the Morphine ER and dilaudid now pain is at a moderate level. No new complaints at this time. Objective Last 24 Hour Vital Signs Date Time Temp Pulse Resp B/P (MAP) Pulse Ox O2 Delivery O2 Flow Rate FiO2 09/13/18 04:01 98.5 60 20 145/71 (95) 95 09/13/18 00:00 98.4 62 17 135/53 (80) 95 09/12/18 21:00 Room Air 09/12/18 21:00 56 133/71 09/12/18 20:30 98.5 56 19 133/71 (91) 94 09/12/18 17:17 52 112/52 09/12/18 16:00 97.7 52 18 112/52 (72) 95 09/12/18 15:17 96.8 09/12/18 12:00 96.8 53 18 124/69 (87) 95 09/12/18 10:25 98.8 09/12/18 09:56 70 164/68 09/12/18 09:00 Room Air 09/12/18 08:41 70 164/68 Intake and Output 09/12/18 09/13/18 19:00 07:00 Intake Total 720 ml 810 ml Balance 720 ml 810 ml Intake Oral 500 ml 700 ml IV Total 220 ml 110 ml # Voids 4 # Bowel Movements 1 Height (Feet): 6 Height (Inches): 4.00 Weight (Pounds): 287 Objective General Appearance: no apparent distress, alert EENT: PERRL/EOMI, normal ENT inspection Neck: non-tender, normal alignment Cardiovascular: normal rate, regular rhythm Respiratory/Chest: chest wall non-tender, decreased breath sounds Abdomen: non tender Extremities: swelling - tenderness to palpation of left hip Neurologic: alert, oriented x 3 Jeffrey Wynn Sep 13, 2018 08:38
[2018-09-13 08:58] VITALS: BP 125/52
[2018-09-13] MEDS: Carvedilol 6.25mg Tab ORAL SCH ×2 (09:03→20:27)
[2018-09-13] MEDS: MS Contin 15mg tab ORAL SCH ×2 (09:03→20:28)
[2018-09-13] MEDS: Enoxaparin 40mg Inj SUBQ SCH (09:05)
[2018-09-13 12:19] VITALS: BP 133/62
--- NOTE | 2018-09-13 13:17 | Infectious Diseases Prog Note ---
Assessment/Plan Assessment/Plan Assessment: Afebrile Mild leukocytosis, SP -u/a neg -CXR: Mild interstitial congestion. -Bcx NTD R ankle ulcer w/ mild surrounding cellulitis -wound cx PsA (white S), gamma hemolytic strep sp, diptheroids; likely colonizers arthritis R ankle ulcer/cellulitis neuropathy opioid dependency -UDS + cocaine Plan: -Cont Ancef #3/7 for cellulitis -09/11 SP Zosyn x1 -f/u cx -Monitor CBC/CMP, temperatures -wound care per hospital protocol Thank you for this consultation. Will continue to follow along with you. Discussed with RN. Subjective Allergies: Coded Allergies: No Known Allergies (Unverified , 02/08/13) Subjective afebrile no leukocytosis Bcx NTD Objective Vital Signs Last 24 Hour Vital Signs Date Time Temp Pulse Resp B/P (MAP) Pulse Ox O2 Delivery O2 Flow Rate FiO2 09/13/18 12:19 98.1 56 18 133/62 (85) 96 09/13/18 09:04 64 125/52 09/13/18 09:03 64 125/52 09/13/18 09:00 Room Air 09/13/18 08:58 98.2 64 18 125/52 (76) 94 09/13/18 04:01 98.5 60 20 145/71 (95) 95 09/13/18 00:00 98.4 62 17 135/53 (80) 95 09/12/18 21:00 Room Air 09/12/18 21:00 56 133/71 09/12/18 20:30 98.5 56 19 133/71 (91) 94 09/12/18 17:17 52 112/52 09/12/18 16:00 97.7 52 18 112/52 (72) 95 09/12/18 15:17 96.8 Height (Feet): 6 Height (Inches): 4.00 Weight (Pounds): 287 Objective GENERAL: The patient is awake, alert, and not in distress. HEENT: Extraocular muscles intact. No lymphadenopathy noted. Oropharyngeal mucosa is clear and dry. CARDIOVASCULAR: S1, S2. No rubs or gallops. PULMONARY: Clear to auscultation bilaterally. No rales, rhonchi or wheezes. ABDOMEN: Nondistended and nontender. EXTREMITY: Right ankle bandaged and erythematous up to knee. Left leg erythematous from ankle up to knee. Microbiology Date/Time Source Procedure Growth Status 09/11/18 03:40 Blood Blood Culture - Preliminary NO GROWTH AFTER 48 HOURS Resulted 09/11/18 03:15 Blood Blood Culture - Preliminary NO GROWTH AFTER 48 HOURS Resulted 09/11/18 05:30 Ankle Right Gram Stain - Final Resulted 09/11/18 05:30 Wound Culture - Preliminary Pseudomonas Aeruginosa Strep Species, Gamma-Hemolytic Diphtheroids Resulted Current Medications Medications (Trade) Dose Ordered Sig/Dmitriy Route PRN Reason Start Time Stop Time Status Last Admin Dose Admin Acetaminophen (Tylenol) 650 mg Q4H PRN ORAL Mild Pain (Pain Scale 1-3) 09/11/18 08:30 10/11/18 08:29 Amlodipine Besylate (Norvasc) 5 mg BID ORAL 09/11/18 09:00 10/11/18 08:59 09/13/18 09:04 Carvedilol (Coreg) 6.25 mg EVERY 12 HOURS ORAL 09/12/18 09:15 10/12/18 09:14 09/13/18 09:03 Cefazolin Sodium 2 gm/Dextrose 110 ml @ 220 mls/hr Q8HR IVPB 09/11/18 22:00 09/18/18 21:59 09/13/18 05:03 Dextrose (Dextrose 50%) 25 ml Q30M PRN IV Hypoglycemia 09/11/18 08:30 10/11/18 08:29 Dextrose (Dextrose 50%) 50 ml Q30M PRN IV Hypoglycemia 09/11/18 08:30 10/11/18 08:29 Enoxaparin Sodium (Lovenox) 40 mg DAILY SUBQ 09/11/18 09:00 10/11/18 08:59 09/13/18 09:05 Famotidine (Pepcid) 40 mg DAILY ORAL 09/11/18 09:00 10/11/18 08:59 09/13/18 09:07 Gabapentin (Neurontin) 100 mg THREE TIMES A DAY ORAL 09/11/18 09:00 10/11/18 08:59 09/13/18 09:04 Hydromorphone HCl (Dilaudid) 4 mg Q4H PRN ORAL severe pain 09/12/18 08:50 09/19/18 08:49 09/13/18 11:43 Morphine Sulfate (MS Contin) 30 mg Q12HR ORAL 09/12/18 09:00 09/19/18 08:59 09/13/18 09:03 Morphine Sulfate (Morphine Sulfate) 1 mg Q4H PRN IVP MODERATE PAIN 09/12/18 09:00 09/18/18 08:29 Tamsulosin HCl (Flomax) 0.4 mg BEDTIME ORAL 09/11/18 21:00 10/11/18 20:59 09/12/18 21:10 Gabrielle Oro M.D. Sep 13, 2018 13:17
--- NOTE | 2018-09-13 15:02 | NUR ---
*-* INSURANCE *-* UPDATED HAVE BEEN FAXED TO [facility]:DEMOND F:[phone]
[2018-09-13] MEDS ORDERED: Artificial Tears 1.4% Op Soln BOTH EYES PRN (15:30)
--- NOTE | 2018-09-13 15:54 | Surgery Progress Note ---
Surgery Progress Note Subjective Additional Comments patient seen and examined. doing well. no acute events comfortable no complaints Objective Last 24 Hour Vital Signs Date Time Temp Pulse Resp B/P (MAP) Pulse Ox O2 Delivery O2 Flow Rate FiO2 09/13/18 12:19 98.1 56 18 133/62 (85) 96 09/13/18 09:04 64 125/52 09/13/18 09:03 64 125/52 09/13/18 09:00 Room Air 09/13/18 08:58 98.2 64 18 125/52 (76) 94 09/13/18 04:01 98.5 60 20 145/71 (95) 95 09/13/18 00:00 98.4 62 17 135/53 (80) 95 09/12/18 21:00 Room Air 09/12/18 21:00 56 133/71 09/12/18 20:30 98.5 56 19 133/71 (91) 94 09/12/18 17:17 52 112/52 09/12/18 16:00 97.7 52 18 112/52 (72) 95 I&O Intake and Output 09/12/18 09/13/18 19:00 07:00 Intake Total 720 ml 810 ml Balance 720 ml 810 ml Intake Oral 500 ml 700 ml IV Total 220 ml 110 ml # Voids 4 # Bowel Movements 1 Dressing: other Wound: other Cardiovascular: RSR Respiratory: clear Abdomen: soft, present bowel sounds Extremities: no cyanosis Plan Problems: (1) Venous stasis of lower extremity Assessment & Plan: US ordered - no dvt arterial duplex ordered (2) Pain in limb (3) Cellulitis and abscess (4) Cellulitis of right foot Assessment & Plan: Pt presented on admission with Full thickness ulcer medial R malleolus (L)6.5cm x (W)6.2cm x(D)0.3cm. Scattered slough within base of wound with small area of necrosis(10%) at distal end of wound bed. Edges are macerated . Small amt serous exudate noted. Smaller ulcer proximally but within close proximity noted(L)0.5cm x (W)0.3cm.100% yellow slough at base of wound .Edges are macerated. Xerosis skin noted to padmini-areas of wounds. Pt verbalized having wounds for a year and stated he has been treating wounds himself. Denied having been seen by physician to treat wounds. Pt stated wound exudes heavily at times. Both lower extremities are edematous. Haemosiderin noted to both lower ext. Plantar aspects of both feet and both heels are callused and dry. Recommendations: Cleanse wound with Saline.Apply Therahoney with Calcium Alginate. Apply Cavilon Skin Barrier periwound Cover with ABD Pad and wrap with Kerlix from Base of toes Daily and prn. Off-load heels with Pillow. IV abx as per ID will monitor (5) Ankle ulcer Harman Varela Sep 13, 2018 15:54
[2018-09-13 16:11] VITALS: BP 127/55
--- NOTE | 2018-09-13 17:06 | NUR ---
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 ANCEF WOUND CARE MED/SURG STATUS
--- NOTE | 2018-09-13 18:00 | NUR ---
NURSE NOTES: Patient ate dinner,no complaints at this time,call light within reach.
--- NOTE | 2018-09-13 19:15 | NUR ---
HAND-OFF: Report given to LUPE ZHAO.
--- NOTE | 2018-09-13 19:57 | NUR ---
NURSE NOTES: Received patient awake,alert,verbal,resting in bed comfortably without complaints.
[2018-09-13 20:17] VITALS: BP 140/76
[2018-09-13] MEDS: Tamsulosin 0.4mg cap ORAL SCH (20:27)
--- NOTE | 2018-09-13 22:09 | NUR ---
NURSE NOTES: Patient refused wound dressing changed.
[2018-09-14] VITALS: BP 137/78
[2018-09-14] MEDS: HYDROmorphone 4mg tab ORAL PRN ×5 (02:23→22:20)
[2018-09-14 04:08] VITALS: BP 159/77
[2018-09-14] MEDS: ceFAZolin sod 2 GM in D5W 110 ML IVPB SCH ×3 (05:20→21:19)
[2018-09-14 07:00] LABS: BASOPHILS % (AUTO) 1.1 % (0.0-2.0); EOSINOPHILS % (AUTO) 1.7 % (0.0-3.0); LYMPHOCYTES % (AUTO) 28.2 % (20.0-45.0); MEAN CORPUSCULAR VOLUME 83 FL (80-99); MONOCYTES % (AUTO) 10.3 % (1.0-10.0); NEUTROPHILS % (AUTO) 58.7 % (45.0-75.0); PLATELET COUNT 264 K/UL (150-450); RED BLOOD COUNT 4.55 M/UL (4.70-6.10); RED CELL DISTRIBUTION WIDTH 13.6 % (11.6-14.8); WHITE BLOOD COUNT 7.5 K/UL (4.8-10.8)
[2018-09-14 07:04] LABS: ANION GAP 6 mmol/L (5-15); BLOOD UREA NITROGEN 13 mg/dL (7-18); CALCIUM 9.1 MG/DL (8.5-10.1); CARBON DIOXIDE 30 MMOL/L (21-32); CHLORIDE 103 MMOL/L (98-107); CREATININE 0.8 MG/DL (0.55-1.30); POTASSIUM 4.3 MMOL/L (3.5-5.1); SODIUM 139 MMOL/L (136-145)
--- NOTE | 2018-09-14 07:09 | NUR ---
HAND-OFF: Report given to Jessica Stone RN.
--- NOTE | 2018-09-14 07:49 | NUR ---
NURSE NOTES: Patient is awake ad alert,respirations unlabored.Dressing to left foot intact,patient sitting up in bed and eating breakfast.Call light within reach.
--- NOTE | 2018-09-14 08:12 | General Progress Note ---
Assessment/Plan Assessment/Plan: (1) Lumbar Herniated Disc (2) Lumbar DDD (3) Lumbar Spondylosis (4) Lumbar Radiculopathy (5) Narcotics Dependency (6) Cocaine abuse We will continued on Morphine IV, Morphine ER and Dilaudid Pt was d/w Dr. Das and concurred. Subjective Date patient seen: Sep 14, 2018 Time patient seen: 07:00 - am Allergies: Coded Allergies: No Known Allergies (Unverified , 02/08/13) Subjective Constitutional: Reports: weakness, Denies: chills, diaphoresis, fever, malaise , no symptoms, other HEENT: Denies: blurred vision, double vision, ear discharge, ear pain, eye pain , mouth pain, mouth swelling, no symptoms, nose congestion, nose pain, other, tearing, throat pain, throat swelling Cardiovascular: Denies: chest pain, edema, irregular heart rate, lightheadedness, no symptoms, other, palpitations, syncope Respiratory: Denies: SOB at rest, SOB with excertion, cough, no symptoms, orthopnea, other, shortness of breath, sputum, stridor, wheezing Gastrointestinal/Abdominal: Reports: nausea, Denies: abdomen distended, abdominal pain, black stools, blood in stool, constipated, diarrhea, difficulty swallowing, no symptoms, other, poor appetite, poor fluid intake, rectal bleeding, tarry stools, vomiting Genitourinary: Denies: burning, discharge, flank pain, frequency, hematuria, incontinence, no symptoms, other, pain, urgency Neurologic/Psychiatric: Reports: numbness, weakness, Denies: anxiety, depressed , emotional problems, headache, no symptoms, other, paresthesia, pre-existing deficit, seizure, tingling, tremors Endocrine: Denies: excessive sweating, flushing, increased hunger, increased thirst, increased urine, intolerance to cold, intolerance to heat, no symptoms, other, unexplained weight gain, unexplained weight loss Hematologic/Lymphatic: Denies: anemia, easy bleeding, easy bruising, no symptoms, other Subjective: Patient is in bed and continues to report pain which has been tolerated on the Morphine as scheduled and 5 doses of the Dilaudid in the last 24hrs. He has no new complaints at this time./ Objective Last 24 Hour Vital Signs Date Time Temp Pulse Resp B/P (MAP) Pulse Ox O2 Delivery O2 Flow Rate FiO2 09/14/18 06:47 98.2 09/14/18 04:08 98.2 50 20 159/77 (104) 100 09/14/18 00:00 97.9 92 20 137/78 (97) 97 09/13/18 20:58 97.6 09/13/18 20:27 56 140/76 09/13/18 20:17 97.6 56 20 140/76 (97) 96 09/13/18 20:05 Room Air 09/13/18 18:00 50 127/55 09/13/18 16:11 98.1 50 18 127/55 (79) 94 09/13/18 12:19 98.1 56 18 133/62 (85) 96 09/13/18 09:04 64 125/52 09/13/18 09:03 64 125/52 09/13/18 09:00 Room Air 09/13/18 08:58 98.2 64 18 125/52 (76) 94 Intake and Output 09/13/18 09/14/18 19:00 07:00 Intake Total 960 ml 220 ml Output Total 1175 ml 800 ml Balance -215 ml -580 ml Intake Oral 960 ml IV Total 220 ml Output Urine Total 1175 ml 800 ml # Voids 3 Laboratory Tests 09/14/18 06:00: White Blood Count 7.5, Red Blood Count 4.55L, Hemoglobin 12.0L, Hematocrit 38.0L , Mean Corpuscular Volume 83, Mean Corpuscular Hemoglobin 26.4L, Mean Corpuscular Hemoglobin Concent 31.6L, Red Cell Distribution Width 13.6, Platelet Count 264, Mean Platelet Volume 7.6, Neutrophils (%) (Auto) 58.7, Lymphocytes (%) (Auto) 28.2, Monocytes (%) (Auto) 10.3H, Eosinophils (%) (Auto) 1.7, Basophils (%) (Auto) 1.1, Sodium Level 139, Potassium Level 4.3, Chloride Level 103, Carbon Dioxide Level 30, Anion Gap 6, Blood Urea Nitrogen 13, Creatinine 0.8, Estimat Glomerular Filtration Rate > 60, Glucose Level 97, Calcium Level 9.1 Height (Feet): 6 Height (Inches): 4.00 Weight (Pounds): 287 Objective General Appearance: no apparent distress, alert EENT: PERRL/EOMI, normal ENT inspection Neck: non-tender, normal alignment Cardiovascular: normal rate, regular rhythm Respiratory/Chest: chest wall non-tender, decreased breath sounds Abdomen: non tender Extremities: swelling - tenderness to palpation of left hip Neurologic: alert, oriented x 3 Jeffrey Wynn Sep 14, 2018 08:12
--- NOTE | 2018-09-14 08:12 | Nephrology Progress Note ---
Assessment/Plan Assessment/Plan: A/P 1. Right ankle ulcer/cellulitis. - IV Abx per ID, gen surgery for wound mgmt 2. Hypertension. stable. Cocaine +ve. 3. Narcotic dependency, opioid in nature along with cocaine positive. - per pain mgmt 4. DVT prophylaxis with Lovenox. DC patient once cleared by ID Subjective Date patient seen: Sep 14, 2018 Time patient seen: 08:10 ROS Limited/Unobtainable: No Allergies: Coded Allergies: No Known Allergies (Unverified , 02/08/13) Subjective Patient improving. No overt distress Objective Last 24 Hour Vital Signs Date Time Temp Pulse Resp B/P (MAP) Pulse Ox O2 Delivery O2 Flow Rate FiO2 09/14/18 06:47 98.2 09/14/18 04:08 98.2 50 20 159/77 (104) 100 09/14/18 00:00 97.9 92 20 137/78 (97) 97 09/13/18 20:58 97.6 09/13/18 20:27 56 140/76 09/13/18 20:17 97.6 56 20 140/76 (97) 96 09/13/18 20:05 Room Air 09/13/18 18:00 50 127/55 09/13/18 16:11 98.1 50 18 127/55 (79) 94 09/13/18 12:19 98.1 56 18 133/62 (85) 96 09/13/18 09:04 64 125/52 09/13/18 09:03 64 125/52 09/13/18 09:00 Room Air 09/13/18 08:58 98.2 64 18 125/52 (76) 94 Intake and Output 09/13/18 09/14/18 19:00 07:00 Intake Total 960 ml 220 ml Output Total 1175 ml 800 ml Balance -215 ml -580 ml Intake Oral 960 ml IV Total 220 ml Output Urine Total 1175 ml 800 ml # Voids 3 Laboratory Tests 09/14/18 06:00: White Blood Count 7.5, Red Blood Count 4.55L, Hemoglobin 12.0L, Hematocrit 38.0L , Mean Corpuscular Volume 83, Mean Corpuscular Hemoglobin 26.4L, Mean Corpuscular Hemoglobin Concent 31.6L, Red Cell Distribution Width 13.6, Platelet Count 264, Mean Platelet Volume 7.6, Neutrophils (%) (Auto) 58.7, Lymphocytes (%) (Auto) 28.2, Monocytes (%) (Auto) 10.3H, Eosinophils (%) (Auto) 1.7, Basophils (%) (Auto) 1.1, Sodium Level 139, Potassium Level 4.3, Chloride Level 103, Carbon Dioxide Level 30, Anion Gap 6, Blood Urea Nitrogen 13, Creatinine 0.8, Estimat Glomerular Filtration Rate > 60, Glucose Level 97, Calcium Level 9.1 Height (Feet): 6 Height (Inches): 4.00 Weight (Pounds): 287 General Appearance: no apparent distress EENT: normal ENT inspection Neck: normal alignment Cardiovascular: normal rate, regular rhythm Respiratory/Chest: lungs clear, normal breath sounds Abdomen: non tender, soft Edema: no edema noted Arm (L), no edema noted Arm (R), no edema noted Leg (L), no edema noted Leg (R), no edema noted Pedal (L), no edema noted Pedal (R), no edema noted Generalized Eron King MD Sep 14, 2018 08:12
[2018-09-14 08:27] VITALS: BP 120/59
[2018-09-14] MEDS: Carvedilol 6.25mg Tab ORAL SCH ×2 (08:36→21:20)
[2018-09-14] MEDS: MS Contin 15mg tab ORAL SCH ×2 (08:36→21:20)
[2018-09-14] MEDS: Enoxaparin 40mg Inj SUBQ SCH (08:38)
--- NOTE | 2018-09-14 09:47 | NUR ---
*-* INSURANCE *-* ALL CLINICALS AND REVIEWS HAVE BEEN FAXED TO: IPA: [employer] ([employer]) P: [phone] F: [phone] (FAX CLINICALS) & [facility] WILL TRACK FOR FACILITY FAX CLINICALS TO [phone]
[2018-09-14 12:09] VITALS: BP 125/67
--- NOTE | 2018-09-14 14:01 | NUR ---
[facility] [employer] ESTATE ATTORNEY SI:ANKLE ULCER . LUMBAR HERNIATED DISC VS: BP 159/77, P 50, T 97.2, RR 20, SpO2 95 RBC 4.55, H&H 12.0/38.0 IS:GABAPENTIN 100mg DILAUDID 4mg LOVENOX 40mg MORPHINE SULFATE 30mg COREG 6.25mg CEFAZOLIN 110ml IVPB MED/SURG STATUS
--- NOTE | 2018-09-14 14:46 | Infectious Diseases Prog Note ---
Assessment/Plan Assessment/Plan Assessment: Afebrile Mild leukocytosis, SP -u/a neg -CXR: Mild interstitial congestion. -Bcx NTD R ankle ulcer w/ mild surrounding cellulitis -wound cx PsA (white S), gamma hemolytic strep sp, diptheroids; likely colonizers arthritis R ankle ulcer/cellulitis neuropathy opioid dependency -UDS + cocaine Plan: -Cont Ancef #4/ for cellulitis -ok to discharge on PO Keflex 500mg bid for 4 more days -09/11 SP Zosyn x1 -f/u cx -Monitor CBC/CMP, temperatures -wound care per hospital protocol Thank you for this consultation. Will continue to follow along with you. Discussed with RN. Subjective Allergies: Coded Allergies: No Known Allergies (Unverified , 02/08/13) Subjective afebrile no leukocytosis Bcx NTD Objective Vital Signs Last 24 Hour Vital Signs Date Time Temp Pulse Resp B/P (MAP) Pulse Ox O2 Delivery O2 Flow Rate FiO2 09/14/18 12:09 97.2 56 18 125/67 (86) 95 09/14/18 09:00 Room Air 09/14/18 08:36 62 120/59 09/14/18 08:27 98.7 62 18 120/59 (79) 95 09/14/18 06:47 98.2 09/14/18 04:08 98.2 50 20 159/77 (104) 100 09/14/18 00:00 97.9 92 20 137/78 (97) 97 09/13/18 20:58 97.6 09/13/18 20:27 56 140/76 09/13/18 20:17 97.6 56 20 140/76 (97) 96 09/13/18 20:05 Room Air 09/13/18 18:00 50 127/55 09/13/18 16:11 98.1 50 18 127/55 (79) 94 Height (Feet): 6 Height (Inches): 4.00 Weight (Pounds): 287 Objective GENERAL: The patient is awake, alert, and not in distress. HEENT: Extraocular muscles intact. No lymphadenopathy noted. Oropharyngeal mucosa is clear and dry. CARDIOVASCULAR: S1, S2. No rubs or gallops. PULMONARY: Clear to auscultation bilaterally. No rales, rhonchi or wheezes. ABDOMEN: Nondistended and nontender. EXTREMITY: Right ankle bandaged and erythematous up to knee. Left leg erythematous from ankle up to knee. Laboratory Tests Test 09/14/18 06:00 White Blood Count 7.5 K/UL (4.8-10.8) Red Blood Count 4.55 M/UL (4.70-6.10) L Hemoglobin 12.0 G/DL (14.2-18.0) L Hematocrit 38.0 % (42.0-52.0) L Mean Corpuscular Volume 83 FL (80-99) Mean Corpuscular Hemoglobin 26.4 PG (27.0-31.0) L Mean Corpuscular Hemoglobin Concent 31.6 G/DL (32.0-36.0) L Red Cell Distribution Width 13.6 % (11.6-14.8) Platelet Count 264 K/UL (150-450) Mean Platelet Volume 7.6 FL (6.5-10.1) Neutrophils (%) (Auto) 58.7 % (45.0-75.0) Lymphocytes (%) (Auto) 28.2 % (20.0-45.0) Monocytes (%) (Auto) 10.3 % (1.0-10.0) H Eosinophils (%) (Auto) 1.7 % (0.0-3.0) Basophils (%) (Auto) 1.1 % (0.0-2.0) Sodium Level 139 MMOL/L (136-145) Potassium Level 4.3 MMOL/L (3.5-5.1) Chloride Level 103 MMOL/L (98-107) Carbon Dioxide Level 30 MMOL/L (21-32) Anion Gap 6 mmol/L (5-15) Blood Urea Nitrogen 13 mg/dL (7-18) Creatinine 0.8 MG/DL (0.55-1.30) Estimat Glomerular Filtration Rate > 60 mL/min (>60) Glucose Level 97 MG/DL (74-106) Calcium Level 9.1 MG/DL (8.5-10.1) Current Medications Medications (Trade) Dose Ordered Sig/Dmitriy Route PRN Reason Start Time Stop Time Status Last Admin Dose Admin Acetaminophen (Tylenol) 650 mg Q4H PRN ORAL Mild Pain (Pain Scale 1-3) 09/11/18 08:30 10/11/18 08:29 Amlodipine Besylate (Norvasc) 5 mg BID ORAL 09/11/18 09:00 10/11/18 08:59 09/13/18 09:04 Artificial Tears (Akwa-Tears) 2 drop Q2H PRN BOTH EYES Dry Eyes 09/13/18 15:30 10/13/18 15:29 09/14/18 11:42 Carvedilol (Coreg) 6.25 mg EVERY 12 HOURS ORAL 09/12/18 09:15 10/12/18 09:14 09/14/18 08:36 Cefazolin Sodium 2 gm/Dextrose 110 ml @ 220 mls/hr Q8HR IVPB 09/11/18 22:00 09/18/18 21:59 09/14/18 14:15 Dextrose (Dextrose 50%) 25 ml Q30M PRN IV Hypoglycemia 09/11/18 08:30 10/11/18 08:29 Dextrose (Dextrose 50%) 50 ml Q30M PRN IV Hypoglycemia 09/11/18 08:30 10/11/18 08:29 Enoxaparin Sodium (Lovenox) 40 mg DAILY SUBQ 09/11/18 09:00 10/11/18 08:59 09/14/18 08:38 Famotidine (Pepcid) 40 mg DAILY ORAL 09/11/18 09:00 10/11/18 08:59 09/14/18 08:41 Gabapentin (Neurontin) 100 mg THREE TIMES A DAY ORAL 09/11/18 09:00 10/11/18 08:59 09/14/18 13:42 Hydromorphone HCl (Dilaudid) 4 mg Q4H PRN ORAL severe pain 09/12/18 08:50 09/19/18 08:49 09/14/18 11:38 Morphine Sulfate (MS Contin) 30 mg Q12HR ORAL 09/12/18 09:00 09/19/18 08:59 09/14/18 08:36 Morphine Sulfate (Morphine Sulfate) 1 mg Q4H PRN IVP MODERATE PAIN 09/12/18 09:00 09/18/18 08:29 Tamsulosin HCl (Flomax) 0.4 mg BEDTIME ORAL 09/11/18 21:00 10/11/18 20:59 09/13/18 20:27 Gabrielle Oro M.D. Sep 14, 2018 14:46
[2018-09-14] MEDS ORDERED: CEPHALEXIN500 MG ORAL (14:59)
--- NOTE | 2018-09-14 15:03 | Surgery Progress Note ---
Surgery Progress Note Subjective Symptoms: improved Objective Last 24 Hour Vital Signs Date Time Temp Pulse Resp B/P (MAP) Pulse Ox O2 Delivery O2 Flow Rate FiO2 09/14/18 12:09 97.2 56 18 125/67 (86) 95 09/14/18 09:00 Room Air 09/14/18 08:36 62 120/59 09/14/18 08:27 98.7 62 18 120/59 (79) 95 09/14/18 06:47 98.2 09/14/18 04:08 98.2 50 20 159/77 (104) 100 09/14/18 00:00 97.9 92 20 137/78 (97) 97 09/13/18 20:58 97.6 09/13/18 20:27 56 140/76 09/13/18 20:17 97.6 56 20 140/76 (97) 96 09/13/18 20:05 Room Air 09/13/18 18:00 50 127/55 09/13/18 16:11 98.1 50 18 127/55 (79) 94 I&O Intake and Output 09/13/18 09/14/18 19:00 07:00 Intake Total 960 ml 220 ml Output Total 1175 ml 800 ml Balance -215 ml -580 ml Intake Oral 960 ml IV Total 220 ml Output Urine Total 1175 ml 800 ml # Voids 3 Dressing: dry Wound: clean Cardiovascular: RSR Respiratory: clear Abdomen: soft, non-tender, present bowel sounds, non-distended Extremities: no cyanosis Laboratory Tests Test 09/14/18 06:00 White Blood Count 7.5 K/UL (4.8-10.8) Red Blood Count 4.55 M/UL (4.70-6.10) L Hemoglobin 12.0 G/DL (14.2-18.0) L Hematocrit 38.0 % (42.0-52.0) L Mean Corpuscular Volume 83 FL (80-99) Mean Corpuscular Hemoglobin 26.4 PG (27.0-31.0) L Mean Corpuscular Hemoglobin Concent 31.6 G/DL (32.0-36.0) L Red Cell Distribution Width 13.6 % (11.6-14.8) Platelet Count 264 K/UL (150-450) Mean Platelet Volume 7.6 FL (6.5-10.1) Neutrophils (%) (Auto) 58.7 % (45.0-75.0) Lymphocytes (%) (Auto) 28.2 % (20.0-45.0) Monocytes (%) (Auto) 10.3 % (1.0-10.0) H Eosinophils (%) (Auto) 1.7 % (0.0-3.0) Basophils (%) (Auto) 1.1 % (0.0-2.0) Sodium Level 139 MMOL/L (136-145) Potassium Level 4.3 MMOL/L (3.5-5.1) Chloride Level 103 MMOL/L (98-107) Carbon Dioxide Level 30 MMOL/L (21-32) Anion Gap 6 mmol/L (5-15) Blood Urea Nitrogen 13 mg/dL (7-18) Creatinine 0.8 MG/DL (0.55-1.30) Estimat Glomerular Filtration Rate > 60 mL/min (>60) Glucose Level 97 MG/DL (74-106) Calcium Level 9.1 MG/DL (8.5-10.1) Plan Problems: (1) Venous stasis of lower extremity Assessment & Plan: US ordered - no dvt arterial duplex ordered (2) Pain in limb (3) Cellulitis and abscess (4) Cellulitis of right foot Assessment & Plan: Pt presented on admission with Full thickness ulcer medial R malleolus (L)6.5cm x (W)6.2cm x(D)0.3cm. Scattered slough within base of wound with small area of necrosis(10%) at distal end of wound bed. Edges are macerated . Small amt serous exudate noted. Smaller ulcer proximally but within close proximity noted(L)0.5cm x (W)0.3cm.100% yellow slough at base of wound .Edges are macerated. Xerosis skin noted to padmini-areas of wounds. Pt verbalized having wounds for a year and stated he has been treating wounds himself. Denied having been seen by physician to treat wounds. Pt stated wound exudes heavily at times. Both lower extremities are edematous. Haemosiderin noted to both lower ext. Plantar aspects of both feet and both heels are callused and dry. Recommendations: Cleanse wound with Saline.Apply Therahoney with Calcium Alginate. Apply Cavilon Skin Barrier periwound Cover with ABD Pad and wrap with Kerlix from Base of toes Daily and prn. Off-load heels with Pillow. IV abx as per ID will monitor (5) Ankle ulcer Harman Varela Sep 14, 2018 15:03
[2018-09-14 17:00] VITALS: BP 147/83
--- NOTE | 2018-09-14 17:52 | NUR ---
NURSE NOTES: notified regarding patient discharge,patient asking if he will have Home Health services for dressing change.DR Marcano state he will be in tomorrow DR will discuss with DR Varela regarding wound care. DR Marcano state that there is a issue with patient insurance.Patient will stay until tomorrow when DR Marcano see patient.
--- NOTE | 2018-09-14 18:34 | NUR ---
Social Service Note Discharge order entered at [address] King. Nursing informed CM that patient may require home health upon discharge at 1800 however home health order not obtained from MD. Primary nurse indicated Dr. King will see patient tomorrow. SW spoke with [employer] after CM Izabella, who states [facility] to provide auth for home health. SW unable to reach an after hours CM from [facility]. planner faxed referral to [facility] [phone] (p) however they will require authorization and MD order. Recommend dressing change teaching be provided to patient.
--- NOTE | 2018-09-14 19:20 | NUR ---
HAND-OFF: Report given to LUPE ZHAO
--- NOTE | 2018-09-14 20:00 | NUR ---
NURSE NOTES: Received patient awake,alert,verbal,resting in bed watching television.
[2018-09-14 20:05] VITALS: BP 127/63
[2018-09-14] MEDS: Tamsulosin 0.4mg cap ORAL SCH (21:20)
[2018-09-15] VITALS: BP 118/57
[2018-09-15] MEDS: HYDROmorphone 4mg tab ORAL PRN ×3 (03:57→17:17)
[2018-09-15 04:00] VITALS: BP 129/63
[2018-09-15] MEDS: ceFAZolin sod 2 GM in D5W 110 ML IVPB SCH ×2 (05:40→13:08)
[2018-09-15 08:00] VITALS: BP 142/76
--- NOTE | 2018-09-15 08:00 | NUR ---
NURSE NOTES: Patient awake alert x4, on room air, no sign of distress and shortness of breath; no sign of chest pain; dressing on the Right-Lower leg dry and intact. IV FRA 22G TKO; head of the bed elevated, side rails up x2, breaks engaged; patient's own cane within reach; call light within reach; will keep monitoring.
--- NOTE | 2018-09-15 08:02 | NUR ---
HAND-OFF: Report given to Anahi Gomez RN.
--- NOTE | 2018-09-15 08:43 | Nephrology Progress Note ---
Assessment/Plan Assessment/Plan: A/P 1. Right ankle ulcer/cellulitis. - IV Abx per ID, gen surgery for wound mgmt - DC today 2. Hypertension. stable. Cocaine +ve. 3. Narcotic dependency, opioid in nature along with cocaine positive. - per pain mgmt 4. DVT prophylaxis with Lovenox. DC patient today if OK with surgery with wound care instructions Subjective Date patient seen: Sep 15, 2018 Time patient seen: 08:40 ROS Limited/Unobtainable: No Allergies: Coded Allergies: No Known Allergies (Unverified , 02/08/13) Subjective Patient doing well Objective Last 24 Hour Vital Signs Date Time Temp Pulse Resp B/P (MAP) Pulse Ox O2 Delivery O2 Flow Rate FiO2 09/15/18 04:28 97.4 09/15/18 04:00 97.4 51 19 129/63 (85) 95 09/15/18 00:00 98.2 57 19 118/57 (77) 95 09/14/18 21:59 Room Air 09/14/18 21:58 98.5 09/14/18 21:20 54 127/63 09/14/18 20:05 98.5 54 19 127/63 (84) 95 09/14/18 18:00 79 119/53 09/14/18 17:00 98.1 51 20 147/83 (104) 09/14/18 12:09 97.2 56 18 125/67 (86) 95 09/14/18 09:00 Room Air Intake and Output 09/14/18 09/15/18 19:00 07:00 Intake Total 960 ml 220 ml Output Total 1500 ml Balance -540 ml 220 ml Intake Oral 960 ml IV Total 220 ml Output Urine Total 1500 ml # Voids 5 Height (Feet): 6 Height (Inches): 4.00 Weight (Pounds): 287 General Appearance: no apparent distress, alert EENT: normal ENT inspection Neck: normal alignment, supple Cardiovascular: normal rate, regular rhythm Respiratory/Chest: lungs clear, normal breath sounds Abdomen: non tender, soft Edema: no edema noted Arm (L), no edema noted Arm (R), no edema noted Leg (L), no edema noted Leg (R), no edema noted Pedal (L), no edema noted Pedal (R), no edema noted Generalized Eron King MD Sep 15, 2018 08:43
[2018-09-15] MEDS: Carvedilol 6.25mg Tab ORAL SCH (08:55)
[2018-09-15] MEDS: MS Contin 15mg tab ORAL SCH (08:55)
[2018-09-15] MEDS: Enoxaparin 40mg Inj SUBQ SCH (08:57)
[2018-09-15 12:00] VITALS: BP 134/82
--- NOTE | 2018-09-15 14:59 | Surgery Progress Note ---
Surgery Progress Note Subjective Additional Comments no acute events discussed discharge plan with patient. he has chronic wound and states he does not receive adequate care for it. he attempts to take care of it himself but states he does not. overall has improved while inpatient with care but will need continued outpatient care okay to d/c from surgical standpoint i gave clear instructions for care to patient he is also instructed to follow up with PCP and outpatiet clinic anneliese upon discharge will provide some supplies until can obtain care as outpatient f/u with pcp thank you Objective Last 24 Hour Vital Signs Date Time Temp Pulse Resp B/P (MAP) Pulse Ox O2 Delivery O2 Flow Rate FiO2 09/15/18 12:00 98.6 53 18 134/82 (99) 94 09/15/18 11:54 98.2 09/15/18 09:25 98.2 09/15/18 09:00 Room Air 09/15/18 08:55 62 142/76 09/15/18 08:55 62 142/76 09/15/18 08:00 98.2 62 19 142/76 (98) 94 09/15/18 04:00 97.4 51 19 129/63 (85) 95 09/15/18 00:00 98.2 57 19 118/57 (77) 95 09/14/18 21:59 Room Air 09/14/18 21:20 54 127/63 09/14/18 20:05 98.5 54 19 127/63 (84) 95 09/14/18 18:00 79 119/53 09/14/18 17:00 98.1 51 20 147/83 (104) I&O Intake and Output 09/14/18 09/15/18 19:00 07:00 Intake Total 960 ml 220 ml Output Total 1500 ml Balance -540 ml 220 ml Intake Oral 960 ml IV Total 220 ml Output Urine Total 1500 ml # Voids 5 Plan Problems: (1) Venous stasis of lower extremity Assessment & Plan: US ordered - no dvt arterial duplex ordered (2) Pain in limb (3) Cellulitis and abscess (4) Cellulitis of right foot Assessment & Plan: Pt presented on admission with Full thickness ulcer medial R malleolus (L)6.5cm x (W)6.2cm x(D)0.3cm. Scattered slough within base of wound with small area of necrosis(10%) at distal end of wound bed. Edges are macerated . Small amt serous exudate noted. Smaller ulcer proximally but within close proximity noted(L)0.5cm x (W)0.3cm.100% yellow slough at base of wound .Edges are macerated. Xerosis skin noted to padmini-areas of wounds. Pt verbalized having wounds for a year and stated he has been treating wounds himself. Denied having been seen by physician to treat wounds. Pt stated wound exudes heavily at times. Both lower extremities are edematous. Haemosiderin noted to both lower ext. Plantar aspects of both feet and both heels are callused and dry. Recommendations: Cleanse wound with Saline.Apply Therahoney with Calcium Alginate. Apply Cavilon Skin Barrier periwound Cover with ABD Pad and wrap with Kerlix from Base of toes Daily and prn. Off-load heels with Pillow. IV abx as per ID will monitor (5) Ankle ulcer Harman Varela Sep 15, 2018 14:59
[2018-09-15 16:00] VITALS: BP 129/67
[2018-09-15 17:17] VITALS: BP 129/67
--- NOTE | 2018-09-15 19:01 | NUR ---
NURSE NOTES: Patient discharged around 183, left the floor by wheelchair with primary nonfarm animal caretaker nurse. Patient's belongings crossed matched and signed by patient and nurse. Prescribed medication order and printed package given. Wound care provided and pictures taken upon discharge. Wound care supplies provided. IV access and name tag removed. Patient was stable upon discharge.
--- NOTE | 2018-09-16 15:26 | Diagnostic Imaging Report ---
APPROVED REPORT CPT Code: 66313 Symptoms Comments: Right foot cellulitis BILATERAL: Common femoral artery waveform analysis is within normal limits at rest. Color flow duplex sonography reveals patency of the superficial femoral, popliteal, and tibial arteries, there is no evidence of stenosis or occlusion within these segments. Doppler tibial artery waveform analysis is within normal limits, bilaterally. There is no evidence of significant arterial occlusive disease, bilaterally.
--- NOTE | 2018-09-16 15:27 | Diagnostic Imaging Report ---
APPROVED REPORT CPT Code: 60704 Present Symptoms Comments: BILATERAL LEGS PAIN. BILATERAL: Imaging reveals a patent deep venous system bilaterally. There is no evidence of thrombus within the femoral, popliteal or tibial segments. The greater saphenous veins are also within normal limits. Doppler indicates normal spontaneous flow within these segments.
--- NOTE | 2018-09-17 09:09 | Discharge Summary ---
Discharge Summary Discharge Summary _ DATE OF ADMISSION: 09/11/2018 DATE OF DISCHARGE: 09/15/2018 DISCHARGED BY: dr. Tompkins REASON FOR ADMISSION: 53 years old male with past medical history of right ankle ulcer, neuropathy, opioid dependency, presented from home for evaluation of his lower extremity. Patient reported ulcer in his right ankle , that was causing him pain. Patient denied chest pain , nausea, vomiting , diarrhea. Upon evaluation blood pressure was slightly elevated 178/78 , and patient was tachycardic with heart rate of 108 Laboratory work-up revealed mild leukocytosis WBC 12, hemoglobin 12.9, hematocrit 40.9, stable platelet count. Stable electrolytes and renal parameters. Glucose 133. Lactic acid 2.0. Urinalysis revealed no evidence of urinary tract infection, +3 protein. Urine toxicology screen was positive for opiates and cocaine. EKG revealed sinus tachycardia, no acute ischemic changes. Chest x-ray revealed no acute cardiopulmonary pathology. Patient started on empiric antibiotic and admitted to medical surgical floor for further management. CONSULTANTS: ID specialist Dr. Oro surgery Dr. Varela pain specialist Dr. Das HOSPITAL COURSE: Patient admitted to medical surgical floor and started on empiric antibiotics. ID specialist followed. Blood cultures were negative. Wound culture revealed Pseudomonas and Enterococci. Antibiotic regimen was optimized as per ID specialist recommendation. Leukocytosis resolved, no fevers. While in the hospital patient was on IV Ancef and discharged on oral Keflex to complete the course of treatment as outpatient at home. Venous duplex bilateral lower extremity revealed no evidence of acute DVT. Arterial duplex bilateral lower extremity reveal no evidence of significant arterial occlusive disease bilaterally. Wound care provided as per surgeon recommendation. Pain management was addressed as per pain specialist recommendation. DVT and GI prophylaxis provided. Neurontin continued. Blood pressure was managed with beta-timothy and remained stable. Patient clinically stabilized and was ready for discharge home. Patient was counseled on abstinence from illicit street drugs. FINAL DIAGNOSES: Right ankle ulcer with mild surrounding cellulitis Hypertension Venous stasis of lower extremity Neuropathy Opioid dependency Cocaine abuse Lumbar DDD Lumbar radiculopathy DISCHARGE MEDICATIONS: See Medication Reconciliation list. DISCHARGE INSTRUCTIONS: Patient was discharged home. Follow up with primary care provider in one week. I have been assigned to dictate discharge summary for this account. I was not involved in the patient's management. Lorri Jean NP Sep 17, 2018 09:09
--- NOTE | 2018-09-17 13:17 | NUR ---
*-* INSURANCE *-* UPDATED CLINICALS AND REVIEWS HAVE BEEN FAXED TO: IPA: [employer] ([employer]) P: [phone] F: [phone] (FAX CLINICALS) & [facility] WILL TRACK FOR FACILITY FAX CLINICALS TO [phone]
== END 2018-09-15 18:40 | disposition home or self-care (01) | DRG 380 ==
LOC: EDBD 03:09 → EMR 03:25 → 4E 03:55 → EDBEDREQ 05:09 → 4E 09-12 20:53
DX: L97.318 Non-pressure chronic ulcer of right ankle with other specified severity (principal); F11.20 Opioid dependence, uncomplicated; L03.115 Cellulitis of right lower limb; I87.8 Other specified disorders of veins; G62.9 Polyneuropathy, unspecified; F14.10 Cocaine abuse, uncomplicated; M51.16 Intervertebral disc disorders with radiculopathy, lumbar region
CPT/HCPCS: 36415; 71045; 80048; 80053; 80307; 81003; 83605; 83880; 85025; 87040; 87070; 87181; 87205; 93925; 93970; 96361; 96365; 99285

== ENCOUNTER 2019-11-28 22:46 | Inpatient (IN) | payer MEDICARE, MEDICAID ==
[~2019-11-28] VITALS: Ht 193 cm; Wt 112.1 kg
[~2019-11-28 22:46] MED LIST changes: +GABAPENTIN100 MG ORAL
--- NOTE | 2019-11-28 22:56 | NUR ---
ED Nurse Note: Pt walked in to ED c/o right ankle pain x7-8 years, chronic pain. AAOx4, verbally responsive. Afebrile. No SOB, on room air.
[2019-11-28 23:00] VITALS: BP 145/76
--- NOTE | 2019-11-28 23:10 | NUR ---
ED Nurse Note: ERMD at bedside
[2019-11-28] MEDS ORDERED: Cefepime HCl 1 GM in NS 55 ML IV ONE (23:30)
[2019-11-28] MEDS ORDERED: Vancomycin 750 MG in NS 275 ML IVPB ONE (23:30)
[2019-11-28] MEDS ORDERED: cefTRIAXone 2 GM in NS 110 ML IV ONE (23:30)
--- NOTE | 2019-11-28 23:30 | NUR ---
ED Nurse Note: pt taken to xray and ct
--- NOTE | 2019-11-29 00:20 | NUR ---
ED Nurse Note: all medications administered, pt tolerated well no ss of distress noted. will continue to monitor.
--- NOTE | 2019-11-29 00:25 | NUR ---
ED Nurse Note: all blood work sent to lab
--- NOTE | 2019-11-29 00:35 | Diagnostic Imaging Report ---
EXAM: CT Right Lower Extremity Without Intravenous Contrast, Ankle CLINICAL HISTORY: OSTEOMY TECHNIQUE: Axial computed tomography images of the right ankle without intravenous contrast. CTDI is 3.3 mGy and DLP is 142.4 mGy-cm. One or more of the following dose reduction techniques were used: automated exposure control, adjustment of the mA and/or kV according to patient size, use of iterative reconstruction technique. COMPARISON: Right ankle radiograph dated 08/29/13. FINDINGS: Bones/joints: The patient is status post amputation at this distal phalanx of the right first toe. At the site of amputation no destructive bony lesion is seen. Degenerative changes of the ankle. No acute fracture. No dislocation. Soft tissues: There is edema involving the cutaneous and subcutaneous tissue of the right ankle and foot consistent with cellulitis. Other findings: No abscess. No other fluid collection. IMPRESSION: 1. 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 No CT evidence of osteomyelitis. No abscess collection. 2. Cellulitis of the right ankle foot with degenerative changes of the ankle.
[2019-11-29 00:37] LABS: EOSINOPHILS % (AUTO) 1.3 % (0.0-3.0); HEMATOCRIT 37.4 % (42.0-52.0); HEMOGLOBIN 12.4 G/DL (14.2-18.0); LYMPHOCYTES % (AUTO) 17.5 % (20.0-45.0); MEAN CORPUSCULAR VOLUME 82 FL (80-99); MONOCYTES % (AUTO) 14.1 % (1.0-10.0); NEUTROPHILS % (AUTO) 65.1 % (45.0-75.0); PLATELET COUNT 190 K/UL (150-450); RED BLOOD COUNT 4.57 M/UL (4.70-6.10); RED CELL DISTRIBUTION WIDTH 13.8 % (11.6-14.8); WHITE BLOOD COUNT 7.7 K/UL (4.8-10.8)
[2019-11-29 00:48] LABS: ANION GAP 6 mmol/L (5-15); BLOOD UREA NITROGEN 11 mg/dL (7-18); CALCIUM 8.9 MG/DL (8.5-10.1); CARBON DIOXIDE 30 MMOL/L (21-32); CHLORIDE 105 MMOL/L (98-107); CREATININE 0.8 MG/DL (0.55-1.30); POTASSIUM 4.3 MMOL/L (3.5-5.1); SODIUM 140 MMOL/L (136-145)
[2019-11-29 00:51] LABS: INR 1.1 (0.9-1.1)
[2019-11-29 00:59] LABS: ALANINE AMINOTRANSFERASE 40 U/L (12-78); ALBUMIN 3.3 G/DL (3.4-5.0); ALBUMIN/GLOBULIN RATIO 0.7 (1.0-2.7); ALKALINE PHOSPHATASE 69 U/L (46-116); ASPARTATE AMINO TRANSFERASE 30 U/L (15-37); BILIRUBIN,TOTAL 0.5 MG/DL (0.2-1.0)
[2019-11-29 01:30] VITALS: BP 136/76
--- NOTE | 2019-11-29 02:16 | NUR ---
ED Nurse Note: Report given to Chen on MS unit.
--- NOTE | 2019-11-29 02:24 | NUR ---
ER DISCHARGE NOTE: Patient is cleared to be discharged to MS unit per ERMD, pt is aox4, 98% on room air, with stable vital signs. pt was able to verbalize understanding. pt is able to ambulate with steady gait with use of personal cane. pt took all belongings. report given to Chen on MS unit. Pt transferred to unit with 1 [employer].
--- NOTE | 2019-11-29 02:26 | Emergency Room Report ---
History of Present Illness General Chief Complaint: Lower Extremity Injury Source: Patient Present Illness HPI 64-year-old male with past medical history of venous stasis presents with nonhealing right ankle ulceration. Patient was sent by his guitar technician due to failure of outpatient antibiotic. Patient has been taking antibiotic with the last one given about a month ago. He has had worsening swelling and edema to the right medial ankle. He has tried to do wound care at home, however it saturates through the gauze. He was told to come to the emergency department for further evaluation. He endorses intermittent fevers and chills and nausea. Denies chest pain, abdominal pain, cough, hemoptysis or other symptoms. The patient's symptoms were gradual onset, severity was moderate, duration since 30 days, but worse over the last 1 week. Quality: Swollen with leaking Past medical history: Chronic venous stasis Past surgical history: Right ankle debridement Smoking: Denies Alcohol use: Denies Drug use: Denies Review of systems: CONST: ++ fevers ++ chills, No night sweats PULMONARY: No productive cough, No shortness of breath CARDIAC: No chest pain, No palpitations GI: No vomiting, No diarrhea , No melena_or_BRBPR : No dysuria, No hematuria, No discharge NEURO: No new_focal_weakness_or_numbness, No confusion, No vision changes 14 point Review of Systems is otherwise negative except per HPI Physical Exam: GENERAL: Awake_alert_ nontoxic, no acute distress Spo2 94% on RA -normal EYES: Extraocular muscles are intact. Conjunctivae clear. Lids without swelling ENT: External nose and ear normal_in_appearance. Oropharynx clear. Head_atraumatic, Moist_oral_mucosa NECK: No JVD. No meningismus. No thyromegaly. Supple. Trachea midline RESP: Normal respiratory effort. Symmetric rise. No stridor. Clear_to_auscultation_No_rales_No_wheezes CARDIAC: Regular rate and regular rhytm. No_significant pedal edema. ABDOMEN: Soft. Nondistended. Nontender_No_rebound_or_guarding. MSK: Normal muscle tone, without rigidity. Extremities without asymmetric deformity or swelling. SKIN: Warm and dry. No visible cyanosis or pallor Chronic venous stasis to the bilateral lower extremity. Ulcerative lesion to the right medial ankle with serosanguineous drainage. There is surrounding cellulitis and macerated wound edges. No palpable crepitus. There is a trace amount of edema in comparison to the left, however negative Homans sign. Pulses are plus 2 out of 4 bilateral lower extremity No exquisite pain with movement in plantar or dorsiflexion of the right lower ankle Fungal infection of right great toe NEUROLOGIC: Alert, oriented x3. Motor_and_sensation_grossly_intact. No truncal ataxia. Gait_normal Psych: Normal mood and affect, normal judgment and insight - COORDINATION OF CARE Case was discussed with: Patient , Patient's Physician Any labs and imaging that were ordered were interpreted as part of the medical decision making: Medical Decision Making/Plan: Differential diagnosis includes renal failure, congestive heart failure, ar thritis, venous stasis without evidence of: Soft tissue infection such as cellulitis or abscess, compartment syndrome, septic arthritis, arterial occlusion, deep venous thrombosis, among others. Patient is afebrile with stable vital signs. Exam is notable for large right medial ankle ulceration with surrounding cellulitis and mild edema. It does not extend up to the calf. Low suspicion for deep venous thrombosis. I did review patient's previous wound cultures and grew polymicrobial, with Pseudomonas. He has failed outpatient antibiotics and is now here at the request of his guitar technician. Today he was treated with vancomycin and cefepime as his previous wound cultures were sensitive to this. CT scan of the right ankle is negative for necrotizing fasciitis or osteomyelitis. He will need to be continued on antibiotics as inpatient and seen by wound management, most likely podiatry for debridement. Distally the patient has capillary refill <2 seconds and strong pulses. There is no pallor or pain out of proportion to exam. There is mild swelling with negative Homans sign The patient has no significant DVT risk factors or known hypercoagulable disorder. No evidence of arterial occlusion or deep venous thrombosis. The associated joints have full range of motion without any significant pain or restriction in mobility. There is no crepitus or pain out of proportion to exam and the patient is afebrile and nontoxic. No evidence of septic arthritis, necrotizing fasciitis, or soft tissue infection such as abscess or cellulitis. No trauma, no injury , compartments are soft, the patient is able to bear weight and has no neurologic deficits. No evidence of fracture, dislocation or compartment syndrome at this time. I spoke with Dr. Reddy, and reviewed the patients presentation, workup, results, and treatment. They will admit the patient for further care and evaluation, and assume care of the patient at this time. Allergies: Coded Allergies: No Known Allergies (Unverified , 02/08/13) COVID-19 Screening Contact w/high risk pt: No Experienced COVID-19 symptoms?: No COVID-19 Testing performed SENIOR WRITER: No Nursing Documentation-PMH Hx Cardiac Problems: Yes - BPH, chronic pain Hx Hypertension: No Hx Pacemaker: No Hx Asthma: No Hx COPD: No Hx Diabetes: No Hx Cancer: No Hx Gastrointestinal Problems: No Hx Dialysis: No History Of Psychiatric Problem: No Hx Neurological Problems: No Hx Cerebrovascular Accident: No Hx Seizures: No Hx Weakness: Yes Physical Exam Vital Signs Date Time Temp Pulse Resp B/P (MAP) Pulse Ox O2 Delivery O2 Flow Rate FiO2 11/28/19 22:51 98.2 84 20 142/80 (100) 94 Room Air Sp02 EP Interpretation: reviewed, normal Medical Decision Making Diagnostic Impression: Primary Impression: Cellulitis of right foot Additional Impression: Ankle ulcer CT/MRI/US Diagnostic Results CT/MRI/US Diagnostic Results : Impression CT Right Lower Extremity Without Intravenous Contrast, Ankle COMPARISON: Right ankle radiograph dated 08/29/13. FINDINGS: Bones/joints: The patient is status post amputation at this distal phalanx of the right first toe. At the site of amputation no destructive bony lesion is seen. Degenerative changes of the ankle. No acute fracture. No dislocation. Soft tissues: There is edema involving the cutaneous and subcutaneous tissue of the right ankle and foot consistent with cellulitis. Other findings: No abscess. No other fluid collection. IMPRESSION: 1. 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 No CT evidence of osteomyelitis. No abscess collection. 2. Cellulitis of the right ankle foot with degenerative changes of the ankle. Reevaluation Time: 02:26 Last Vital Signs Date Time Temp Pulse Resp B/P (MAP) Pulse Ox O2 Delivery O2 Flow Rate FiO2 11/29/19 01:30 98.2 81 18 136/76 99 Room Air Status: improved Disposition: ADMITTED INPATIENT Admit Decision Time: 23:19 Condition: Stable Referrals: NON PHYSICIAN (PCP) Jeannette Holloway D.O. Nov 29, 2019 02:26
--- NOTE | 2019-11-29 02:40 | NUR ---
NURSE NOTES: ADMITTED 64 YEAR OLD MALE TO ROOM 411 BED 1 VIA GURNEY FROM EMERGENCY DEPARTMENT WITH DIAGNOSIS RIGHT ANKLE OSTEOMYELITIS, ADMITTING MD DR. CARRIZALES. PATIENT AWAKE, ALERT/ORIENTED X4, VERBALLY RESPONSIVE, DENIES PAIN. NO SIGNS AND SYMPTOMS OF ACUTE CARDIO RESPIRATORY DISTRESS/SHORTNESS OF BREATH, DENIES CHEST PAIN, NOTED WITH TRACE EDEMA TO BILATERAL LOWER EXTREMITIES/NON PITTED. DENIES GI DISCOMFORT, NO N/V/D, URINAL PROVIDED. PATIENT NOTED WITH VASCULAR ULCER TO RIGHT MEDIAL ANKLE, CALLUS NOTED TO LEFT GREAT TOE - RIGHT GREAT TOE NOTED WITH DRY BLOOD, PATIENT STATED THAT HE REMOVED SKIN FROM WHAT WAS A CALLUS, APPEAR TO BE FUNGUS COVERING ANTERIOR ASPECT OF TOE. ORIENTATED PATIENT TO ROOM/ENVIRONMENT. SIDE RAILS UP X2 FOR MOBILITY, CANE AT BEDSIDE, BED IN LOWEST POSITION FOR SAFETY, ENCOURAGED PATIENT TO UTILIZE CALL LIGHT FOR ASSISTANCE, VERBALIZED UNDERSTANDING. VSS. NAD.
[2019-11-29] MEDS ORDERED: OXYCONTIN20 MG ORAL (03:21)
--- NOTE | 2019-11-29 03:30 | NUR ---
NURSE NOTES: MESSAGE LEFT FOR DR. CARRIZALES REGARDING ADMITTING ORDERS-
[2019-11-29 04:00] VITALS: BP 124/73
[2019-11-29] MEDS ORDERED: Albuterol/Ipratropium 3ml neb HHN PRN (07:15)
[2019-11-29] MEDS ORDERED: Miralax 17gm pkt ORAL PRN (07:15)
--- NOTE | 2019-11-29 07:15 | NUR ---
NURSE NOTES: Received report from MIKE Siddiqui. Patient was admitted on previous shift. Patient is AAO x 4, able to make needs known, ambulatory using a cane, unsteady gait. Pt has no c/o pain at this time, on RA in no apparent respiratory distress. Pt is continent x 2, uses bathroom independdently. LBM on 11/28/19. Pt has callus of R great toe and L great toe. Pt apparently peeled his L great toe which cause trauma to tissue and created open wound. pIV to L hand 20g, asymptomatic. Bed in lowest position, locked, call light within reach. Will continue POC.
[2019-11-29] MEDS ORDERED: HYDROmorphone 2mg tab ORAL PRN (07:45)
[2019-11-29 08:00] VITALS: BP 128/61
[2019-11-29] MEDS ORDERED: Tetrahydrozoline 0.05% Opth 15ml BOTH EYES PRN (08:00)
[2019-11-29] MEDS: Tamsulosin 0.4mg cap ORAL SCH (08:48)
[2019-11-29] MEDS ORDERED: Cefepime HCl 2 GM in D5W 110 ML IV SCH (09:00)
[2019-11-29] MEDS ORDERED: Heparin 5000 units/ml inj SUBQ SCH (09:00)
[2019-11-29 12:00] VITALS: BP 130/67
--- NOTE | 2019-11-29 12:04 | Consultation ---
History of Present Illness General Date patient seen: Nov 29, 2019 Chief Complaint: Lower Extremity Injury Present Illness HPI 64-year-old male with past medical history of venous stasis presented to ER with CC of nonhealing and worsening right ankle ulceration. 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 He has had worsening swelling and edema to the right medial ankle. He has intermittent fevers and chills and nausea. Allergies: Coded Allergies: No Known Allergies (Unverified , 02/08/13) Medication History Scheduled Cephalexin* (Keflex*), 500 MG ORAL EVERY 6 HOURS Cephalexin* (Keflex*), 500 MG ORAL QID, (Reported) Gabapentin* (Gabapentin*), Unknown Dose ORAL THREE TIMES A DAY, (Reported) Tamsulosin HCl (Flomax), 0.4 MG ORAL DAILY, (Reported) Scheduled PRN Hydromorphone HCl (Dilaudid), 8 MG ORAL THREE TIMES A DAY PRN for For Pain, (Reported) Methadone HCl (Methadone HCl), 10 MG PO Q6HR PRN for For Pain, (Reported) Oxycodone Hcl Er* (Oxycontin*), 30 MG ORAL EVERY 12 HOURS PRN for Severe Pain (Pain Scale 7-10), (Reported) Oxymorphone Hcl (Opana Er), 40 MG ORAL Q6HR PRN for For Pain, (Reported) Tetrahydrz/Dext 70/Peg 400/Pvp (Eye Drops), 15 ML OP TID PRN for Dry Eyes, (Reported) Patient History Healthcare decision maker Resuscitation status Advanced Directive on File Past Medical/Surgical History Past Medical/Surgical History: (1) Ankle ulcer (2) Chronic epididymitis (3) DDD (degenerative disc disease), lumbar (4) OA (osteoarthritis) of knee (5) Narcotic dependence (6) Lumbar radiculopathy Review of Systems All Other Systems: negative except mentioned in HPI Physical Exam General Appearance: WD/WN, no apparent distress Lines, tubes and drains: peripheral HEENT: normocephalic, atraumatic Neck: non-tender, supple Respiratory/Chest: chest wall non-tender, lungs clear Cardiovascular/Chest: normal peripheral pulses, normal rate Abdomen: normal bowel sounds Genitourinary/Rectal: normal genital exam Extremities: normal range of motion Last 24 Hour Vital Signs Date Time Temp Pulse Resp B/P (MAP) Pulse Ox O2 Delivery O2 Flow Rate FiO2 11/29/19 08:00 98.4 62 16 128/61 (83) 98 11/29/19 04:00 98.3 72 18 124/73 (90) 96 11/29/19 02:24 98.3 61 18 118/72 96 Room Air 11/29/19 01:30 98.2 81 18 136/76 99 Room Air 11/28/19 23:00 98.2 79 18 145/76 96 Room Air 11/28/19 22:51 98.2 84 20 142/80 (100) 94 Room Air Intake and Output 11/28/19 11/29/19 19:00 07:00 Intake Total 665 ml Balance 665 ml Intake Oral 500 ml IV Total 165 ml # Voids 2 Laboratory Tests Test 11/29/19 00:07 White Blood Count 7.7 K/UL (4.8-10.8) Red Blood Count 4.57 M/UL (4.70-6.10) L Hemoglobin 12.4 G/DL (14.2-18.0) L Hematocrit 37.4 % (42.0-52.0) L Mean Corpuscular Volume 82 FL (80-99) Mean Corpuscular Hemoglobin 27.0 PG (27.0-31.0) Mean Corpuscular Hemoglobin Concent 33.0 G/DL (32.0-36.0) Red Cell Distribution Width 13.8 % (11.6-14.8) Platelet Count 190 K/UL (150-450) Mean Platelet Volume 8.1 FL (6.5-10.1) Neutrophils (%) (Auto) 65.1 % (45.0-75.0) Lymphocytes (%) (Auto) 17.5 % (20.0-45.0) L Monocytes (%) (Auto) 14.1 % (1.0-10.0) H Eosinophils (%) (Auto) 1.3 % (0.0-3.0) Basophils (%) (Auto) 2.0 % (0.0-2.0) Erythrocyte Sedimentation Rate 60 MM/HR (0-20) H Prothrombin Time 12.0 SEC (9.30-11.50) H Prothromb Time International Ratio 1.1 (0.9-1.1) Activated Partial Thromboplast Time 28 SEC (23-33) Sodium Level 140 MMOL/L (136-145) Potassium Level 4.3 MMOL/L (3.5-5.1) Chloride Level 105 MMOL/L (98-107) Carbon Dioxide Level 30 MMOL/L (21-32) Anion Gap 6 mmol/L (5-15) Blood Urea Nitrogen 11 mg/dL (7-18) Creatinine 0.8 MG/DL (0.55-1.30) Estimat Glomerular Filtration Rate > 60 mL/min (>60) Glucose Level 112 MG/DL (74-106) H Lactic Acid Level 1.40 mmol/L (0.4-2.0) Calcium Level 8.9 MG/DL (8.5-10.1) Total Bilirubin 0.5 MG/DL (0.2-1.0) Aspartate Amino Transf (AST/SGOT) 30 U/L (15-37) Alanine Aminotransferase (ALT/SGPT) 40 U/L (12-78) Alkaline Phosphatase 69 U/L (46-116) C-Reactive Protein, Quantitative 1.2 mg/dL (0.00-0.90) H Total Protein 7.9 G/DL (6.4-8.2) Albumin 3.3 G/DL (3.4-5.0) L Globulin 4.6 g/dL Albumin/Globulin Ratio 0.7 (1.0-2.7) L Height (Feet): 6 Height (Inches): 4.00 Weight (Pounds): 239 Medications Current Medications Medications (Trade) Dose Ordered Sig/Dmitriy Route PRN Reason Start Time Stop Time Status Last Admin Dose Admin Acetaminophen (Tylenol) 650 mg Q4H PRN ORAL fever 11/29/19 07:15 12/29/19 07:14 Acetaminophen (Tylenol) 650 mg Q6H PRN ORAL Mild Pain (Pain Scale 1-3) 11/29/19 07:45 12/29/19 07:44 Albuterol/ Ipratropium (Albuterol/ Ipratropium) 3 ml Q4H PRN HHN Shortness of Breath 11/29/19 07:15 12/04/19 07:14 Cefepime HCl 2 gm/ Dextrose 110 ml @ 220 mls/hr EVERY 12 HOURS IV 11/29/19 09:00 12/06/19 08:59 11/29/19 08:49 Dextrose (Dextrose 50%) 25 ml Q30M PRN IV Hypoglycemia 11/29/19 07:15 02/27/20 07:14 Dextrose (Dextrose 50%) 50 ml Q30M PRN IV Hypoglycemia 11/29/19 07:15 02/27/20 07:14 Gabapentin (Neurontin) 300 mg THREE TIMES A DAY ORAL 11/29/19 09:00 12/29/19 08:59 11/29/19 08:48 Heparin Sodium (Porcine) (Heparin 5000 units/ml) 5,000 units EVERY 8 HOURS SUBQ 11/29/19 14:00 01/13/20 13:59 Hydromorphone HCl (Dilaudid) 2 mg Q4H PRN ORAL For Pain 11/29/19 07:45 12/06/19 07:44 11/29/19 08:48 Ondansetron HCl (Zofran) 4 mg Q6H PRN IVP Nausea & Vomiting 11/29/19 07:15 12/29/19 07:14 Polyethylene Glycol (Miralax) 17 gm DAILYPRN PRN ORAL Constipation 11/29/19 07:15 12/29/19 07:14 Tamsulosin HCl (Flomax) 0.4 mg DAILY ORAL 11/29/19 09:00 12/29/19 08:59 11/29/19 08:48 Temazepam (Restoril) 15 mg HSPRN PRN ORAL Insomnia 11/29/19 07:15 12/06/19 07:14 Tetrahydrozoline HCl (Visine With Dropper) 1 drop TIDPRN PRN BOTH EYES Dry Eyes 11/29/19 08:00 02/27/20 07:59 Vancomycin HCl (Vanco pharmacy to dose) 1 ea DAILY PRN MISC . 11/29/19 07:15 12/29/19 07:14 Vancomycin HCl 1 gm/Sodium Chloride 250 ml @ 167.007 mls/hr Q12HR@0000,1200 IVPB 11/29/19 12:00 12/04/19 11:59 Assessment/Plan Problem List: (1) Ankle ulcer ICD Codes: L97.309 - Ankle ulcer SNOMED: 473912512 (2) Cellulitis of right foot ICD Codes: L03.115 - Cellulitis of right lower limb SNOMED: 113182595 (3) Lumbar radiculopathy ICD Codes: M54.16 - Lumbar radiculopathy SNOMED: 865018208 Assessment/Plan: wound care podiatry to see iv abx rule out osteomyelitis ID consult pain management symptomatic treatment dvt prophylaxis. Ken Cartwright MD Nov 29, 2019 12:04
--- NOTE | 2019-11-29 12:15 | NUR ---
NURSE NOTES: S/w Dr. Rod and confirmed that wound culture needed to be collected on next dressing change (tomorrow, 11/30/19).
--- NOTE | 2019-11-29 12:21 | Consultation ---
History of Present Illness General Date patient seen: Nov 29, 2019 Reason for Hospitalization: Lower Extremity Injury Present Illness HPI This is a very pleasant 64-year-old male with past medical history of venous stasis ulcer who presents with nonhealing right ankle ulceration. 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 He has tried to do wound care at home, however it saturates through the gauze. He was told to come to the emergency department for further evaluation. He endorses intermittent fevers and chills and nausea. Denies chest pain, abdominal pain, cough, hemoptysis or other symptoms. surgery called to evaluate and assist with care. Allergies: Coded Allergies: No Known Allergies (Unverified , 02/08/13) COVID-19 Screening Contact w/high risk pt: No Experienced COVID-19 symptoms?: No Medication History Scheduled Cephalexin* (Keflex*), 500 MG ORAL EVERY 6 HOURS Cephalexin* (Keflex*), 500 MG ORAL QID, (Reported) Gabapentin* (Gabapentin*), Unknown Dose ORAL THREE TIMES A DAY, (Reported) Tamsulosin HCl (Flomax), 0.4 MG ORAL DAILY, (Reported) Scheduled PRN Hydromorphone HCl (Dilaudid), 8 MG ORAL THREE TIMES A DAY PRN for For Pain, (Reported) Methadone HCl (Methadone HCl), 10 MG PO Q6HR PRN for For Pain, (Reported) Oxycodone Hcl Er* (Oxycontin*), 30 MG ORAL EVERY 12 HOURS PRN for Severe Pain (Pain Scale 7-10), (Reported) Oxymorphone Hcl (Opana Er), 40 MG ORAL Q6HR PRN for For Pain, (Reported) Tetrahydrz/Dext 70/Peg 400/Pvp (Eye Drops), 15 ML OP TID PRN for Dry Eyes, (Reported) Patient History History Provided By: Patient, Medical Record, PMD Healthcare decision maker Resuscitation status Advanced Directive on File Past Medical/Surgical History Past Medical/Surgical History: (1) Venous stasis of lower extremity (2) Lumbar radiculopathy (3) Femoral neck fracture (4) Hyponatremia (5) Narcotic dependence (6) Sepsis (7) DDD (degenerative disc disease), lumbar (8) OA (osteoarthritis) of knee (9) Cellulitis of left upper extremity (10) Chronic epididymitis (11) Ankle ulcer (12) Cellulitis of right foot Review of Systems Review of Symptoms General ROS: no weight loss ++fever Psychological ROS: no depression or mood changes, no memory loss Ophthalmic ROS: no visual changes or eye irritation ENT ROS: no nasal congestion, hearing loss, dizziness Allergy and Immunology ROS: no allergic symptoms or urticaria Hematological and Lymphatic ROS: no swollen glands, unusual bleeding or bruising Endocrine ROS: no polyuria, polydipsia, weight changes, temperature intolerance Respiratory ROS: no cough, shortness of breath, or wheezing Cardiovascular ROS: no chest pain or dyspnea on exertion Gastrointestinal ROS: denies abdominal pain, bright red blood in stool. Musculoskeletal ROS: no myalgias or arthralgias Neurological ROS: no TIA or stroke symptoms Dermatological ROS: no new or changing skin lesions, rashes or pruritis Physical Exam Physical Exam General appearance: alert, cooperative, no distress, appears stated age Head: Normocephalic, without obvious abnormality, atraumatic Eyes: conjunctivae/corneas clear. PERRL, EOM's intact. Fundi benign Throat: Lips, mucosa, and tongue normal. Teeth and gums normal Neck: supple, symmetrical, trachea midline, no adenopathy, thyroid: not enlarged, symmetric, no tenderness/mass/nodules, no carotid bruit and no JVD Lungs: clear to auscultation bilaterally Heart: regular rate and rhythm, S1, S2 normal, no murmur, click, rub or gallop Abdomen: soft, non-tender. Bowel sounds normal. No masses, no organomegaly Extremities: extremities r ++ wound with cellulitis and edema Pulses: 2+ and symmetric Skin: Skin color, texture, turgor normal. No rashes or lesions Neurologic: Grossly normal Last 24 Hour Vital Signs Date Time Temp Pulse Resp B/P (MAP) Pulse Ox O2 Delivery O2 Flow Rate FiO2 11/29/19 08:00 98.4 62 16 128/61 (83) 98 11/29/19 04:00 98.3 72 18 124/73 (90) 96 11/29/19 02:24 98.3 61 18 118/72 96 Room Air 11/29/19 01:30 98.2 81 18 136/76 99 Room Air 11/28/19 23:00 98.2 79 18 145/76 96 Room Air 11/28/19 22:51 98.2 84 20 142/80 (100) 94 Room Air Intake and Output 11/28/19 11/29/19 19:00 07:00 Intake Total 665 ml Balance 665 ml Intake Oral 500 ml IV Total 165 ml # Voids 2 Laboratory Tests Test 11/29/19 00:07 White Blood Count 7.7 K/UL (4.8-10.8) Red Blood Count 4.57 M/UL (4.70-6.10) L Hemoglobin 12.4 G/DL (14.2-18.0) L Hematocrit 37.4 % (42.0-52.0) L Mean Corpuscular Volume 82 FL (80-99) Mean Corpuscular Hemoglobin 27.0 PG (27.0-31.0) Mean Corpuscular Hemoglobin Concent 33.0 G/DL (32.0-36.0) Red Cell Distribution Width 13.8 % (11.6-14.8) Platelet Count 190 K/UL (150-450) Mean Platelet Volume 8.1 FL (6.5-10.1) Neutrophils (%) (Auto) 65.1 % (45.0-75.0) Lymphocytes (%) (Auto) 17.5 % (20.0-45.0) L Monocytes (%) (Auto) 14.1 % (1.0-10.0) H Eosinophils (%) (Auto) 1.3 % (0.0-3.0) Basophils (%) (Auto) 2.0 % (0.0-2.0) Erythrocyte Sedimentation Rate 60 MM/HR (0-20) H Prothrombin Time 12.0 SEC (9.30-11.50) H Prothromb Time International Ratio 1.1 (0.9-1.1) Activated Partial Thromboplast Time 28 SEC (23-33) Sodium Level 140 MMOL/L (136-145) Potassium Level 4.3 MMOL/L (3.5-5.1) Chloride Level 105 MMOL/L (98-107) Carbon Dioxide Level 30 MMOL/L (21-32) Anion Gap 6 mmol/L (5-15) Blood Urea Nitrogen 11 mg/dL (7-18) Creatinine 0.8 MG/DL (0.55-1.30) Estimat Glomerular Filtration Rate > 60 mL/min (>60) Glucose Level 112 MG/DL (74-106) H Lactic Acid Level 1.40 mmol/L (0.4-2.0) Calcium Level 8.9 MG/DL (8.5-10.1) Total Bilirubin 0.5 MG/DL (0.2-1.0) Aspartate Amino Transf (AST/SGOT) 30 U/L (15-37) Alanine Aminotransferase (ALT/SGPT) 40 U/L (12-78) Alkaline Phosphatase 69 U/L (46-116) C-Reactive Protein, Quantitative 1.2 mg/dL (0.00-0.90) H Total Protein 7.9 G/DL (6.4-8.2) Albumin 3.3 G/DL (3.4-5.0) L Globulin 4.6 g/dL Albumin/Globulin Ratio 0.7 (1.0-2.7) L Height (Feet): 6 Height (Inches): 4.00 Weight (Pounds): 239 Medications Current Medications Medications (Trade) Dose Ordered Sig/Dmitriy Route PRN Reason Start Time Stop Time Status Last Admin Dose Admin Acetaminophen (Tylenol) 650 mg Q4H PRN ORAL fever 11/29/19 07:15 12/29/19 07:14 Acetaminophen (Tylenol) 650 mg Q6H PRN ORAL Mild Pain (Pain Scale 1-3) 11/29/19 07:45 12/29/19 07:44 Albuterol/ Ipratropium (Albuterol/ Ipratropium) 3 ml Q4H PRN HHN Shortness of Breath 11/29/19 07:15 12/04/19 07:14 Cefepime HCl 2 gm/ Dextrose 110 ml @ 220 mls/hr EVERY 12 HOURS IV 11/29/19 09:00 12/06/19 08:59 11/29/19 08:49 Dextrose (Dextrose 50%) 25 ml Q30M PRN IV Hypoglycemia 11/29/19 07:15 02/27/20 07:14 Dextrose (Dextrose 50%) 50 ml Q30M PRN IV Hypoglycemia 11/29/19 07:15 02/27/20 07:14 Gabapentin (Neurontin) 300 mg THREE TIMES A DAY ORAL 11/29/19 09:00 12/29/19 08:59 11/29/19 08:48 Heparin Sodium (Porcine) (Heparin 5000 units/ml) 5,000 units EVERY 8 HOURS SUBQ 11/29/19 14:00 01/13/20 13:59 Hydromorphone HCl (Dilaudid) 2 mg Q4H PRN ORAL For Pain 11/29/19 07:45 12/06/19 07:44 11/29/19 08:48 Ondansetron HCl (Zofran) 4 mg Q6H PRN IVP Nausea & Vomiting 11/29/19 07:15 12/29/19 07:14 Polyethylene Glycol (Miralax) 17 gm DAILYPRN PRN ORAL Constipation 11/29/19 07:15 12/29/19 07:14 Tamsulosin HCl (Flomax) 0.4 mg DAILY ORAL 11/29/19 09:00 12/29/19 08:59 11/29/19 08:48 Temazepam (Restoril) 15 mg HSPRN PRN ORAL Insomnia 11/29/19 07:15 12/06/19 07:14 Tetrahydrozoline HCl (Visine With Dropper) 1 drop TIDPRN PRN BOTH EYES Dry Eyes 11/29/19 08:00 02/27/20 07:59 Vancomycin HCl (Vanco pharmacy to dose) 1 ea DAILY PRN MISC . 11/29/19 07:15 12/29/19 07:14 Vancomycin HCl 1 gm/Sodium Chloride 250 ml @ 167.007 mls/hr Q12HR@0000,1200 IVPB 11/29/19 12:00 12/04/19 11:59 Assessment/Plan Problem List: (1) Venous stasis of lower extremity ICD Codes: I87.8 - Venous stasis of lower extremity SNOMED: 41222853 (2) Lumbar radiculopathy ICD Codes: M54.16 - Lumbar radiculopathy SNOMED: 350175369 (3) Femoral neck fracture ICD Codes: S72.009A - Fracture of unspecified part of neck of unspecified femur, initial encounter for closed fracture SNOMED: 7647505 (4) Hyponatremia ICD Codes: E87.1 - Hypo-osmolality and hyponatremia SNOMED: 07571132 (5) Narcotic dependence ICD Codes: F19.20 - Narcotic dependence SNOMED: 91016077 (6) Sepsis ICD Codes: A41.9 - Sepsis SNOMED: 41224869 (7) DDD (degenerative disc disease), lumbar ICD Codes: M51.36 - DDD (degenerative disc disease), lumbar SNOMED: 57294703 (8) OA (osteoarthritis) of knee ICD Codes: M17.9 - OA (osteoarthritis) of knee SNOMED: 850650442 (9) Cellulitis of left upper extremity ICD Codes: L03.114 - Cellulitis of left upper limb SNOMED: 688184355 (10) Chronic epididymitis ICD Codes: N45.1 - Epididymitis SNOMED: 989289669 (11) Ankle ulcer ICD Codes: L97.309 - Ankle ulcer SNOMED: 761472841 (12) Cellulitis of right foot Assessment & Plan: Pt presented on admission with Full thickness ulcer medial R malleolus (L)6.5cm x (W)6.2cm x(D)0.3cm. . Edges are macerated . Small amt serou s exudate noted. Smaller ulcer proximally but within close proximity noted(L)0.5cm x (W)0.3cm.100% yellow slough at base of wound .Edges are macerated. Xerosis skin noted to padmini-areas of wounds. Pt verbalized having wounds for a year and stated he has been treating wounds himself. Pt stated wound exudes heavily at times. Both lower extremities are edematous. Haemosiderin noted to both lower ext. Plantar aspects of both feet and both heels are callused and dry. Recommendations: Cleanse wound with Saline.Apply Therahoney with Calcium Alginate. Apply Cavilon Skin Barrier periwound Cover with ABD Pad and wrap with Kerlix from Base of toes Daily and prn. Off-load heels with Pillow. IV abx as per ID will monitor podiatry ICD Codes: L03.115 - Cellulitis of right lower limb SNOMED: 176332654 Harman Varela Nov 29, 2019 12:21
--- NOTE | 2019-11-29 12:36 | NUR ---
NURSE NOTES: Skin/wound assessment:Right medial ankle venous stasis ulcer 8.1x4.5x0.5 with 50% yellow slough and 50%pink granulation tissue wound bed ,large amount serosanguineous drainage noted.Periwound skin dry and darkened +1 edema noted.Calcium alginate,gauze,abd pad and jose wrap applied.Right plantar great toe dry hard black eschar 3.0x2.2x0.1 no drainage dry dressing applied.Left plantar great toe callus noted.RN taking care of patient stated wound consult has been ordered.Patient alert and stated his wound opens and closes periodically.He does not see a wound doctor.Recommended [place] wound clinic post discharge.
[2019-11-29] MEDS ORDERED: Gadavist 7.5mMol/7.5ml vial IV PRN (13:00)
--- NOTE | 2019-11-29 13:06 | Consultation ---
History of Present Illness General Date patient seen: Nov 29, 2019 Chief Complaint: Lower Extremity Injury Reason for Consultation: OM Present Illness HPI Mr. Lu if a 64 yo male with PMHx of venous stasis and chronic right ankle ulcer who presented to the ED on 11/28/19 with increased swelling and drainage from his ulcer. He says that he had venous stasis in the past and that the ulcer developed 5-7 years ago and has not fully healed. If drains material at time and abx Tx has failed. CT scan showed no OM. Patient reports feelign hot at home with some chills. ID was consulted for OM PMHx/PSHx Right ankle debridement Chronic venous stasis SocHx EtOH abuse Allergies: Coded Allergies: No Known Allergies (Unverified , 02/08/13) Medication History Scheduled Cephalexin* (Keflex*), 500 MG ORAL EVERY 6 HOURS Cephalexin* (Keflex*), 500 MG ORAL QID, (Reported) Gabapentin* (Gabapentin*), Unknown Dose ORAL THREE TIMES A DAY, (Reported) Tamsulosin HCl (Flomax), 0.4 MG ORAL DAILY, (Reported) Scheduled PRN Hydromorphone HCl (Dilaudid), 8 MG ORAL THREE TIMES A DAY PRN for For Pain, (Reported) Methadone HCl (Methadone HCl), 10 MG PO Q6HR PRN for For Pain, (Reported) Oxycodone Hcl Er* (Oxycontin*), 30 MG ORAL EVERY 12 HOURS PRN for Severe Pain (Pain Scale 7-10), (Reported) Oxymorphone Hcl (Opana Er), 40 MG ORAL Q6HR PRN for For Pain, (Reported) Tetrahydrz/Dext 70/Peg 400/Pvp (Eye Drops), 15 ML OP TID PRN for Dry Eyes, (Reported) Patient History Healthcare decision maker Resuscitation status Advanced Directive on File Review of Systems ROS Narrative 12 point ROS negative Except as noted in the HPI Physical Exam Last 24 Hour Vital Signs Date Time Temp Pulse Resp B/P (MAP) Pulse Ox O2 Delivery O2 Flow Rate FiO2 11/29/19 12:00 98.1 72 16 130/67 (88) 94 11/29/19 08:00 98.4 62 16 128/61 (83) 98 11/29/19 04:00 98.3 72 18 124/73 (90) 96 11/29/19 02:24 98.3 61 18 118/72 96 Room Air 11/29/19 01:30 98.2 81 18 136/76 99 Room Air 11/28/19 23:00 98.2 79 18 145/76 96 Room Air 11/28/19 22:51 98.2 84 20 142/80 (100) 94 Room Air Intake and Output 11/28/19 11/29/19 19:00 07:00 Intake Total 665 ml Balance 665 ml Intake Oral 500 ml IV Total 165 ml # Voids 2 Laboratory Tests Test 11/29/19 00:07 White Blood Count 7.7 K/UL (4.8-10.8) Red Blood Count 4.57 M/UL (4.70-6.10) L Hemoglobin 12.4 G/DL (14.2-18.0) L Hematocrit 37.4 % (42.0-52.0) L Mean Corpuscular Volume 82 FL (80-99) Mean Corpuscular Hemoglobin 27.0 PG (27.0-31.0) Mean Corpuscular Hemoglobin Concent 33.0 G/DL (32.0-36.0) Red Cell Distribution Width 13.8 % (11.6-14.8) Platelet Count 190 K/UL (150-450) Mean Platelet Volume 8.1 FL (6.5-10.1) Neutrophils (%) (Auto) 65.1 % (45.0-75.0) Lymphocytes (%) (Auto) 17.5 % (20.0-45.0) L Monocytes (%) (Auto) 14.1 % (1.0-10.0) H Eosinophils (%) (Auto) 1.3 % (0.0-3.0) Basophils (%) (Auto) 2.0 % (0.0-2.0) Erythrocyte Sedimentation Rate 60 MM/HR (0-20) H Prothrombin Time 12.0 SEC (9.30-11.50) H Prothromb Time International Ratio 1.1 (0.9-1.1) Activated Partial Thromboplast Time 28 SEC (23-33) Sodium Level 140 MMOL/L (136-145) Potassium Level 4.3 MMOL/L (3.5-5.1) Chloride Level 105 MMOL/L (98-107) Carbon Dioxide Level 30 MMOL/L (21-32) Anion Gap 6 mmol/L (5-15) Blood Urea Nitrogen 11 mg/dL (7-18) Creatinine 0.8 MG/DL (0.55-1.30) Estimat Glomerular Filtration Rate > 60 mL/min (>60) Glucose Level 112 MG/DL (74-106) H Lactic Acid Level 1.40 mmol/L (0.4-2.0) Calcium Level 8.9 MG/DL (8.5-10.1) Total Bilirubin 0.5 MG/DL (0.2-1.0) Aspartate Amino Transf (AST/SGOT) 30 U/L (15-37) Alanine Aminotransferase (ALT/SGPT) 40 U/L (12-78) Alkaline Phosphatase 69 U/L (46-116) C-Reactive Protein, Quantitative 1.2 mg/dL (0.00-0.90) H Total Protein 7.9 G/DL (6.4-8.2) Albumin 3.3 G/DL (3.4-5.0) L Globulin 4.6 g/dL Albumin/Globulin Ratio 0.7 (1.0-2.7) L Height (Feet): 6 Height (Inches): 4.00 Weight (Pounds): 239 Medications Current Medications Medications (Trade) Dose Ordered Sig/Dmitriy Route PRN Reason Start Time Stop Time Status Last Admin Dose Admin Acetaminophen (Tylenol) 650 mg Q4H PRN ORAL fever 11/29/19 07:15 12/29/19 07:14 Acetaminophen (Tylenol) 650 mg Q6H PRN ORAL Mild Pain (Pain Scale 1-3) 11/29/19 07:45 12/29/19 07:44 Albuterol/ Ipratropium (Albuterol/ Ipratropium) 3 ml Q4H PRN HHN Shortness of Breath 11/29/19 07:15 12/04/19 07:14 Cefepime HCl 2 gm/ Dextrose 110 ml @ 220 mls/hr EVERY 12 HOURS IV 11/29/19 09:00 12/06/19 08:59 11/29/19 08:49 Dextrose (Dextrose 50%) 25 ml Q30M PRN IV Hypoglycemia 11/29/19 07:15 02/27/20 07:14 Dextrose (Dextrose 50%) 50 ml Q30M PRN IV Hypoglycemia 11/29/19 07:15 02/27/20 07:14 Gabapentin (Neurontin) 300 mg THREE TIMES A DAY ORAL 11/29/19 09:00 12/29/19 08:59 11/29/19 08:48 Heparin Sodium (Porcine) (Heparin 5000 units/ml) 5,000 units EVERY 8 HOURS SUBQ 11/29/19 14:00 01/13/20 13:59 Hydromorphone HCl (Dilaudid) 4 mg Q6H PRN ORAL Severe Pain (Pain Scale 7-10) 11/29/19 12:37 12/06/19 12:36 Morphine Sulfate (MS Contin) 30 mg BID ORAL 11/29/19 18:00 12/06/19 17:59 Ondansetron HCl (Zofran) 4 mg Q6H PRN IVP Nausea & Vomiting 11/29/19 07:15 12/29/19 07:14 Polyethylene Glycol (Miralax) 17 gm DAILYPRN PRN ORAL Constipation 11/29/19 07:15 12/29/19 07:14 Tamsulosin HCl (Flomax) 0.4 mg DAILY ORAL 11/29/19 09:00 12/29/19 08:59 11/29/19 08:48 Temazepam (Restoril) 15 mg HSPRN PRN ORAL Insomnia 11/29/19 07:15 12/06/19 07:14 Tetrahydrozoline HCl (Visine With Dropper) 1 drop TIDPRN PRN BOTH EYES Dry Eyes 11/29/19 08:00 02/27/20 07:59 Vancomycin HCl (Vanco pharmacy to dose) 1 ea DAILY PRN MISC . 11/29/19 07:15 12/29/19 07:14 Vancomycin HCl 1 gm/Sodium Chloride 250 ml @ 167.007 mls/hr Q12HR@0000,1200 IVPB 11/29/19 12:00 12/04/19 11:59 11/29/19 12:20 Objective Narrative GEN: NAD on RA HEENT: NCAT, MMM, EOMI, No scleral icterus Neck: Supple no LAD HEART: RRR, S1, S2 PULM: CTAB, No W ABD: Soft, NT, ND, +BS EXT: No C/C/E, 2+ Pulses B/L, Right ankle bandage in place - per report large ulcer in lace with some drainage. NEURO: A/O x 3 No focal deficits Assessment/Plan Assessment/Plan: 64 yo male with PMHx of venous stasis and chronic right ankle ulcer who presented to the ED on 11/28/19 with increased swelling and drainage from his ulcer. Right ankle chronic ulcer CT scan showed no OM MRI pending Wound Cx Pend No fever No leukocytosis Hx Right ankle debridement Chronic venous stasis Plan - Continue Vancomycin #2 and Ceftriaxone #2 - f/u wound Cultures - Monitor CBC and Temps Thank you for this consult. [facility] will continue to follow Ms. Welsh with you during her hospitalization. Luigi Rod MD Nov 29, 2019 13:06
--- NOTE | 2019-11-29 13:07 | NUR ---
RD ASSESSMENT & RECOMMENDATIONS SEE CARE ACTIVITY FOR COMPLETE ASSESSMENT DAILY ESTIMATED NEEDS: Needs based on Wound/ 96kg abw 25-30 kcals/kg 7625-1112 total kcals 1.25-1.5 g protein/kg 120-144 g total protein 25-30 mL/kg 5585-4206 total fluid mLs NUTRITION DIAGNOSIS: Increase kcal and protein needs r/t wound healing as evidenced by full thickness wound @ R malleolus. CURRENT DIET:Regular PO DIET RECOMMENDATIONS: Regular as tolerated ADDITIONAL RECOMMENDATIONS: * Standing wt for accurate CBW * Wound healing: add MVI x 1, Vit C 500mg BID add ZnSO4 220mg QD x 10 days [place] 1ptk BID added to tray * High prot snacks in b/w meals
[2019-11-29] MEDS: cefTRIAXone 1 GM in D5W 55 ML IVPB SCH (15:29)
[2019-11-29] MEDS: Heparin 5000 units/ml inj SUBQ SCH ×2 (15:30→21:17)
[2019-11-29 16:00] VITALS: BP 135/71
[2019-11-29] MEDS ORDERED: Naloxone 0.4mg/ml Inj IVP PRN (16:05)
--- NOTE | 2019-11-29 16:22 | NUR ---
NURSE NOTES: Patient noted with bottle of Hydromorphone from home at bedside. When RN asked for medications to be reconciled with pharmacy for safekeeping, patient refused stating that the pills inside the bottle are vitamins. Per patient, he does not need to give the bottle to RN for reconciliation. social media developerLuigi, made aware. Patient was counseled by lithopone charger re policy for medications brought from home. Patient agreed to provide bottle to pharmacy for safekeeping. Upon reconciling contents of bottle, RN noted only one red pill left inside bottle. social media developerLuigi, made aware.
--- NOTE | 2019-11-29 16:30 | History & Physical ---
History and Physical History & Physicial job # [id number] Jose E Reddy MD Nov 29, 2019 16:30
[2019-11-29] MEDS: MS Contin 15mg tab ORAL SCH (17:45)
--- NOTE | 2019-11-29 17:45 | Diagnostic Imaging Report ---
Indication: Nonhealing wound medial portion of the right ankle, history of fevers and chills and discharge from the site Technique: Sagittal, axial, and coronal T1 FSE and FSE STIR images of the right ankle. Pre and postcontrast axial and coronal T1 fat-saturated images also obtained Comparison: Ankle CT scan 11/28/2019 Findings: No significant marrow edema demonstrated. There is mild edema of the subcutaneous fat, particularly medially. No organized discrete fluid collection demonstrated. No unusual contrast enhancement demonstrated on the postcontrast images other than enhancement of the edematous subcutaneous fat. The large tendons appear intact.. Impression: Soft tissue edema of the subcutaneous fat, mild, likely related to cellulitis given stated clinical history. This could also be edema due to hemodynamic changes. No focal drainable abscess demonstrated No marrow abnormalities suggest acute osteomyelitis
--- NOTE | 2019-11-29 17:53 | Consultation ---
History of Present Illness General Date patient seen: Nov 29, 2019 Time patient seen: 17:41 Chief Complaint: Lower extremity wound Referring physician: Dr Varela Reason for Consultation: OM Present Illness HPI Patient has had right ankle wound for many years. He also has very painful knees. He states he thinks he developed the lesions on his toes from his shoes. Has mild pain with right hallux lesion. No pain with left hallux lesion or right medial ankle wound. Allergies: Coded Allergies: No Known Allergies (Unverified , 02/08/13) Medication History Scheduled Cephalexin* (Keflex*), 500 MG ORAL EVERY 6 HOURS Cephalexin* (Keflex*), 500 MG ORAL QID, (Reported) Gabapentin* (Gabapentin*), Unknown Dose ORAL THREE TIMES A DAY, (Reported) Tamsulosin HCl (Flomax), 0.4 MG ORAL DAILY, (Reported) Scheduled PRN Hydromorphone HCl (Dilaudid), 8 MG ORAL THREE TIMES A DAY PRN for For Pain, (Reported) Methadone HCl (Methadone HCl), 10 MG PO Q6HR PRN for For Pain, (Reported) Oxycodone Hcl Er* (Oxycontin*), 30 MG ORAL EVERY 12 HOURS PRN for Severe Pain (Pain Scale 7-10), (Reported) Oxymorphone Hcl (Opana Er), 40 MG ORAL Q6HR PRN for For Pain, (Reported) Tetrahydrz/Dext 70/Peg 400/Pvp (Eye Drops), 15 ML OP TID PRN for Dry Eyes, (Reported) Patient History History Provided By: Patient Healthcare decision maker Resuscitation status Advanced Directive on File Past Medical/Surgical History Past Medical/Surgical History: (1) Venous stasis of lower extremity (2) Lumbar radiculopathy (3) Femoral neck fracture (4) Hyponatremia (5) Narcotic dependence (6) Sepsis (7) DDD (degenerative disc disease), lumbar (8) OA (osteoarthritis) of knee (9) Cellulitis of left upper extremity (10) Chronic epididymitis (11) Ankle ulcer (12) Cellulitis of right foot Review of Systems Constitutional: Denies: chills, sweats, fever, malaise, weakness, other Respiratory: Denies: cough, orthopnea, shortness of breath, stridor, wheezing, CARDONA, sputum, other Cardiovascular: Reports: edema; Denies: chest pain, other Gastrointestinal: Denies: constipation, diarrhea, nausea, vomiting, other Musculoskeletal: Reports: joint pain Skin: Reports: change in color, lesions Physical Exam General Appearance: WD/WN, no apparent distress Cardiovascular/Chest: normal peripheral pulses Extremities: normal capillary refill, non-pitting Skin Exam: other - hyperpigmented Neurologic: no motor/sensory deficits, abnormal gait Musculoskeletal: normal muscle bulk Physical Exam Narrative Wounds: Full thickness wound noted on medial right ankle - no bone or tendon exposed. Moderate serous drainage. No malodor Eschars noted at the distal tip of bilateral hallux R>L. No signs of infection noted. Patient : CONNIE GUARDADO Referring Physician: Jeannette Holloway ID Number:[id number] Service Date: 11/28/19 : 1955 Report Date: 11/29/19 Gender: M Accession No.: [id number] Location: [facility] Procedure: CT Ankle no Contrast R EXAM: CT Right Lower Extremity Without Intravenous Contrast, Ankle CLINICAL HISTORY: OSTEOMY TECHNIQUE: Axial computed tomography images of the right ankle without intravenous contrast. CTDI is 3.3 mGy and DLP is 142.4 mGy-cm. One or more of the following dose reduction techniques were used: automated exposure control, adjustment of the mA and/or kV according to patient size, use of iterative reconstruction technique. COMPARISON: Right ankle radiograph dated 08/29/13. FINDINGS: Bones/joints: The patient is status post amputation at this distal phalanx of the right first toe. At the site of amputation no destructive bony lesion is seen. Degenerative changes of the ankle. No acute fracture. No dislocation. Soft tissues: There is edema involving the cutaneous and subcutaneous tissue of the right ankle and foot consistent with cellulitis. Other findings: No abscess. No other fluid collection. IMPRESSION: 1. 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 No CT evidence of osteomyelitis. No abscess collection. 2. Cellulitis of the right ankle foot with degenerative changes of the ankle. Dictated By: Modesto Rosario MD Electronically Signed By:Modesto Rosario MD Signed Date/Time 11/29/19 0034 Last 24 Hour Vital Signs Date Time Temp Pulse Resp B/P (MAP) Pulse Ox O2 Delivery O2 Flow Rate FiO2 11/29/19 16:00 98.1 60 16 135/71 (92) 96 11/29/19 12:00 98.1 72 16 130/67 (88) 94 11/29/19 09:00 Room Air 11/29/19 08:00 98.4 62 16 128/61 (83) 98 11/29/19 04:00 98.3 72 18 124/73 (90) 96 11/29/19 02:24 98.3 61 18 118/72 96 Room Air 11/29/19 01:30 98.2 81 18 136/76 99 Room Air 11/28/19 23:00 98.2 79 18 145/76 96 Room Air 11/28/19 22:51 98.2 84 20 142/80 (100) 94 Room Air Intake and Output 11/28/19 11/29/19 19:00 07:00 Intake Total 665 ml Balance 665 ml Intake Oral 500 ml IV Total 165 ml # Voids 2 Laboratory Tests Test 11/29/19 00:07 White Blood Count 7.7 K/UL (4.8-10.8) Red Blood Count 4.57 M/UL (4.70-6.10) L Hemoglobin 12.4 G/DL (14.2-18.0) L Hematocrit 37.4 % (42.0-52.0) L Mean Corpuscular Volume 82 FL (80-99) Mean Corpuscular Hemoglobin 27.0 PG (27.0-31.0) Mean Corpuscular Hemoglobin Concent 33.0 G/DL (32.0-36.0) Red Cell Distribution Width 13.8 % (11.6-14.8) Platelet Count 190 K/UL (150-450) Mean Platelet Volume 8.1 FL (6.5-10.1) Neutrophils (%) (Auto) 65.1 % (45.0-75.0) Lymphocytes (%) (Auto) 17.5 % (20.0-45.0) L Monocytes (%) (Auto) 14.1 % (1.0-10.0) H Eosinophils (%) (Auto) 1.3 % (0.0-3.0) Basophils (%) (Auto) 2.0 % (0.0-2.0) Erythrocyte Sedimentation Rate 60 MM/HR (0-20) H Prothrombin Time 12.0 SEC (9.30-11.50) H Prothromb Time International Ratio 1.1 (0.9-1.1) Activated Partial Thromboplast Time 28 SEC (23-33) Sodium Level 140 MMOL/L (136-145) Potassium Level 4.3 MMOL/L (3.5-5.1) Chloride Level 105 MMOL/L (98-107) Carbon Dioxide Level 30 MMOL/L (21-32) Anion Gap 6 mmol/L (5-15) Blood Urea Nitrogen 11 mg/dL (7-18) Creatinine 0.8 MG/DL (0.55-1.30) Estimat Glomerular Filtration Rate > 60 mL/min (>60) Glucose Level 112 MG/DL (74-106) H Lactic Acid Level 1.40 mmol/L (0.4-2.0) Calcium Level 8.9 MG/DL (8.5-10.1) Total Bilirubin 0.5 MG/DL (0.2-1.0) Aspartate Amino Transf (AST/SGOT) 30 U/L (15-37) Alanine Aminotransferase (ALT/SGPT) 40 U/L (12-78) Alkaline Phosphatase 69 U/L (46-116) C-Reactive Protein, Quantitative 1.2 mg/dL (0.00-0.90) H Total Protein 7.9 G/DL (6.4-8.2) Albumin 3.3 G/DL (3.4-5.0) L Globulin 4.6 g/dL Albumin/Globulin Ratio 0.7 (1.0-2.7) L Height (Feet): 6 Height (Inches): 4.00 Weight (Pounds): 239 Medications Current Medications Medications (Trade) Dose Ordered Sig/Dmitriy Route PRN Reason Start Time Stop Time Status Last Admin Dose Admin Acetaminophen (Tylenol) 650 mg Q4H PRN ORAL fever 11/29/19 07:15 12/29/19 07:14 Acetaminophen (Tylenol) 650 mg Q6H PRN ORAL Mild Pain (Pain Scale 1-3) 11/29/19 07:45 12/29/19 07:44 Albuterol/ Ipratropium (Albuterol/ Ipratropium) 3 ml Q4H PRN HHN Shortness of Breath 11/29/19 07:15 12/04/19 07:14 Ceftriaxone Sodium 1 gm/ Dextrose 55 ml @ 110 mls/hr Q24H IVPB 11/29/19 14:00 12/06/19 13:59 11/29/19 15:29 Dextrose (Dextrose 50%) 25 ml Q30M PRN IV Hypoglycemia 11/29/19 07:15 02/27/20 07:14 Dextrose (Dextrose 50%) 50 ml Q30M PRN IV Hypoglycemia 11/29/19 07:15 02/27/20 07:14 Gabapentin (Neurontin) 300 mg THREE TIMES A DAY ORAL 11/29/19 09:00 12/29/19 08:59 11/29/19 08:48 Gadobutrol (Gadavist) 7.5 mmol NOW PRN IV Radiology Procedure 11/29/19 13:00 12/03/19 12:59 Heparin Sodium (Porcine) (Heparin 5000 units/ml) 5,000 units EVERY 8 HOURS SUBQ 11/29/19 14:00 01/13/20 13:59 11/29/19 15:30 Hydromorphone HCl (Dilaudid) 4 mg Q6H PRN ORAL Severe Pain (Pain Scale 7-10) 11/29/19 12:37 12/06/19 12:36 Morphine Sulfate (MS Contin) 30 mg BID ORAL 11/29/19 18:00 12/06/19 17:59 Naloxone HCl (Narcan) 0.4 mg PRN PRN IVP resp depression 11/29/19 16:05 02/27/20 16:04 Nicotine (Nicoderm) 1 patch Q24H TDERMAL 11/29/19 17:00 02/27/20 16:59 Ondansetron HCl (Zofran) 4 mg Q6H PRN IVP Nausea & Vomiting 11/29/19 07:15 12/29/19 07:14 Polyethylene Glycol (Miralax) 17 gm DAILYPRN PRN ORAL Constipation 11/29/19 07:15 12/29/19 07:14 Tamsulosin HCl (Flomax) 0.4 mg DAILY ORAL 11/29/19 09:00 12/29/19 08:59 11/29/19 08:48 Temazepam (Restoril) 15 mg HSPRN PRN ORAL Insomnia 11/29/19 07:15 12/06/19 07:14 Tetrahydrozoline HCl (Visine With Dropper) 1 drop TIDPRN PRN BOTH EYES Dry Eyes 11/29/19 08:00 02/27/20 07:59 Vancomycin HCl (Vanco pharmacy to dose) 1 ea DAILY PRN MISC . 11/29/19 07:15 12/29/19 07:14 Vancomycin HCl 1 gm/Sodium Chloride 250 ml @ 167.007 mls/hr Q12HR@0000,1200 IVPB 11/29/19 12:00 12/04/19 11:59 11/29/19 12:20 Assessment/Plan Assessment/Plan: A/ 1) Cellulitis RLE 2) Venous stasis ulcer RLE 3) Eschars bilateral hallux 4) Abnormal gait P/ 1) Cont abx per ID. CT shows no OM of right foot/ankle. MRI done, results pending. 2) No surgical intervention indicated at this time. Agree with current wound care regimen, but with addition of compression. Will use ARMANDO wraps 3) Will follow Thank you Roberto Flores DPM Nov 29, 2019 17:53
--- NOTE | 2019-11-29 18:06 | NUR ---
CNMTPEEL OVEN TENDER 64 YO MALE FROM HOME TO ER CC RIGHT ANKLE PAIN SI: RIGHT ANKLE OSTEOMYELITIS T. 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 No CT evidence of osteomyelitis. No abscess collection. 2. Cellulitis of the right ankle foot with degenerative changes of the ankle. IS: VANCO IV CEFEPIME IV ROCEPHIN IV ADMITTED TO MED/SURG MED/SURG STATUS DCP PENDING HOSPITAL STAY
--- NOTE | 2019-11-29 19:10 | NUR ---
NURSE HAND-OFF: Important Events on Shift: Patient asks for pain medications for LLE pain; IV abx given; wound culture specimen sent to lab; wound dressing changed with Dr. Flores; new wound care orders received Patient Status: stable Diet: Regular Pending Orders: n/a Pending Results/Labs: labs in AM; pending wound cx results Pending MD notification: n/a Latest Vital Signs: Temperature 98.1 , Pulse 60 , B/P 135 /71 , Respiratory Rate 16 , O2 SAT 96 , Room Air, O2 Flow Rate . Vital Sign Comment: stable Latest Ervin Fall Score: 60 Fall Risk: High Risk Safety Measures: Call light Within Reach, Bed Alarm Zone 1, Side Rails Side Rails x2, Bed position Low and Locked. Fall Precautions: Yellow Socks Yellow Gown Door Sign Patient Fall Education Report given to PAVEL Barraza. Endorsed POC.
[2019-11-29 20:00] VITALS: BP 139/70
--- NOTE | 2019-11-29 20:20 | NUR ---
NURSE NOTES: The patient is alert and oriented x4 and is presently sleeping.The Resp is even and unlabored an he is room air.The patient is able to walk to the bathroom without any difficulty. He was noted with a left ankle wound that has clean dressing with no evidence of bleeding noted. The patient also did not complain of any pain at this time. Patient noted with a R. hand 22g that is patent and asymptomatic. will continue to monitor
[2019-11-29] MEDS: HYDROmorphone 2mg tab ORAL PRN (21:25)
--- NOTE | 2019-11-29 23:00 | History and Physical Report ---
DATE OF ADMISSION: 11/29/2019 CHIEF COMPLAINT: Right lower extremity infection. HISTORY OF PRESENT ILLNESS: This is a 64 years old gentleman with past medical history significant for venous stasis with chronic right ankle ulcer. It has been going on and off for 7 years. The patient has a history of left hip fracture, status post ORIF 5 years ago, who presented to the emergency department complaining about increased swelling and drainage from the ulcer. The patient stated that he has been having venous stasis in the past with the ulcer and got progressively worsening and not fully healed. He has some drainage material. He has been on antibiotics in the past, but failed therapy. He denies any fever, chills, nausea, vomiting. Denies any hemoptysis or hematochezia. Shortly after initial evaluation in the emergency department, the patient was admitted to the hospital with right foot ulcer, chronic infection. PAST MEDICAL HISTORY/PAST SURGICAL HISTORY: As above, history of right ankle debridement due to the ulcer as well as chronic venous stasis, left hip fracture status post ORIF 5 years ago. The patient has a history of BPH. The patient has a history of chronic epididymitis, degenerative joint disease of the lumbar spine, osteoarthritis of the knees, history of chronic opiate dependency, lumbar radiculopathy. MEDICATIONS: At home, please refer to medication reconciliation. ALLERGIES: No known drug allergies. SOCIAL HISTORY: The patient currently smokes half a pack of cigarettes a day. Denies any alcohol, substance abuse. He is unemployed. 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 FAMILY HISTORY: Noncontributory. REVIEW OF SYSTEMS: Mostly as above. Denies any dysuria, frequency, hematuria. Denies any hemoptysis or hematochezia. Denies any suicidal or homicidal ideation. Denies any loss of consciousness. Denies any fall or head trauma. PHYSICAL EXAMINATION: VITAL SIGNS: On admission, temperature 98.2, pulse of 84, respirations 20, and blood pressure 142/80, repeat one is 130/67. GENERAL: The patient is awake, responsive, in no acute distress. HEAD AND NECK: Pupils are equal and reactive to light. Extraocular movements intact. NECK: Supple. No JVD. LUNGS: Good air entry. No wheezing or rales. HEART: S1, S2. Regular rhythm. No gallops. ABDOMEN: Soft, nondistended, nontender. Positive bowel sounds. EXTREMITIES: No cyanosis, clubbing, or edema. The patient has a right ankle ulceration was noted with discharge. No foul smell. NEUROLOGIC: Cranial nerves II through XII are intact. Motor is 5/5 in all extremities. Gait is intact. RECTAL: Refused and deferred. : Refused and deferred. PSYCHIATRIC: Mood and affect is intact. LABORATORY AND DIAGNOSTIC DATA: Laboratory on admission, WBC of 7.7, hemoglobin 12, hematocrit 37, platelets is 190. Sodium 140, potassium 4.3, chloride 105, bicarb 30, BUN 11, creatinine 0.8, and glucose is 112. CRP is 1.2. AST of 30, ALT of 40. Albumin is 3.3. PT of 12, INR 1.1, PTT of 28. The patient had a CT of the ankle, status post amputation of the distal pharynx of the right first toe. No abscess. No osteomyelitis. Cellulitis of the right ankle, foot with degenerative changes of the ankle was identified. ASSESSMENT: 1. Cellulitis of the right lower extremity. 2. Venous stasis ulcer on the right lower extremity. 3. Bilateral . 4. Abnormal gait. 5. History of fall with left hip fracture, status post ORIF. 6. BPH. PLAN: Admit the patient to medical floor. We will follow up with Dr. Cartwright, Pulmonary, Critical Care as well as Dr. Flores from Podiatry. Follow up with Dr. Rod from the Infectious Disease and Dr. Harman Varela for wound care. Start the patient on broad-spectrum antibiotics with Rocephin and vancomycin. Follow up the pain control. Code status is Full code. DVT prophylaxis, heparin subcutaneously. Jose E Reddy M.D. DR: KITA JOB#: [id number] CC:
[2019-11-30] VITALS: BP 141/71
[2019-11-30] MEDS ORDERED: Vancomycin 1 GM in D5W 275 ML IV SCH (00:30)
[2019-11-30 04:00] VITALS: BP 134/71
[2019-11-30] MEDS: HYDROmorphone 2mg tab ORAL PRN ×3 (05:56→21:41)
[2019-11-30] MEDS: Heparin 5000 units/ml inj SUBQ SCH ×3 (05:57→21:45)
--- NOTE | 2019-11-30 07:20 | NUR ---
NURSE NOTES: Received report from PAVEL Rachel. Patient is AAO x 4, able to make needs known, ambulatory using a cane, unsteady gait. Pt receives Dilaudid PRN and morphine routinely for pain management. Pt is continent x 2, uses bathroom independently. LBM on 11/29/19. Pt has dry dressing on L leg wrapped with mat bandage. pIV to R hand 22g, asymptomatic. Bed in lowest position, locked, call light within reach. Will continue POC.
--- NOTE | 2019-11-30 07:56 | NUR ---
HAND-OFF: Report given to James ZHAO.
[2019-11-30 08:00] VITALS: BP 128/69
[2019-11-30] MEDS: Tamsulosin 0.4mg cap ORAL SCH (08:53)
[2019-11-30] MEDS: MS Contin 15mg tab ORAL SCH ×2 (08:54→18:09)
[2019-11-30 09:10] LABS: BASOPHILS % (AUTO) 1.4 % (0.0-2.0); EOSINOPHILS % (AUTO) 1.4 % (0.0-3.0); HEMATOCRIT 37.6 % (42.0-52.0); HEMOGLOBIN 12.6 G/DL (14.2-18.0); LYMPHOCYTES % (AUTO) 25.7 % (20.0-45.0); MEAN CORPUSCULAR VOLUME 81 FL (80-99); MONOCYTES % (AUTO) 12.8 % (1.0-10.0); NEUTROPHILS % (AUTO) 58.7 % (45.0-75.0); PLATELET COUNT 204 K/UL (150-450); RED BLOOD COUNT 4.66 M/UL (4.70-6.10); RED CELL DISTRIBUTION WIDTH 13.1 % (11.6-14.8); WHITE BLOOD COUNT 6.7 K/UL (4.8-10.8)
--- NOTE | 2019-11-30 09:13 | Surgery Progress Note ---
Surgery Progress Note Subjective Additional Comments MRI noted no osteo improved comfortable Objective Last 24 Hour Vital Signs Date Time Temp Pulse Resp B/P (MAP) Pulse Ox O2 Delivery O2 Flow Rate FiO2 11/30/19 08:00 98.5 60 18 128/69 (88) 97 11/30/19 04:00 97.8 78 18 134/71 (92) 96 11/30/19 00:00 98.1 74 18 141/71 (94) 97 11/29/19 21:00 Room Air 11/29/19 20:00 98.0 69 16 139/70 (93) 96 11/29/19 16:00 98.1 60 16 135/71 (92) 96 11/29/19 12:00 98.1 72 16 130/67 (88) 94 I&O Intake and Output 11/29/19 11/30/19 19:00 07:00 Intake Total 1100 ml 320 ml Output Total 850 ml 1200 ml Balance 250 ml -880 ml Intake Oral 1100 ml 320 ml Output Urine Total 850 ml 1200 ml # Voids 5 2 # Bowel Movements 2 Dressing: dry Wound: clean Cardiovascular: RSR Respiratory: clear Abdomen: soft, non-tender, present bowel sounds Extremities: edema, no tenderness, no cyanosis, other Laboratory Tests Test 11/30/19 08:45 White Blood Count 6.7 K/UL (4.8-10.8) Red Blood Count 4.66 M/UL (4.70-6.10) L Hemoglobin 12.6 G/DL (14.2-18.0) L Hematocrit 37.6 % (42.0-52.0) L Mean Corpuscular Volume 81 FL (80-99) Mean Corpuscular Hemoglobin 27.0 PG (27.0-31.0) Mean Corpuscular Hemoglobin Concent 33.4 G/DL (32.0-36.0) Red Cell Distribution Width 13.1 % (11.6-14.8) Platelet Count 204 K/UL (150-450) Mean Platelet Volume 8.6 FL (6.5-10.1) Neutrophils (%) (Auto) 58.7 % (45.0-75.0) Lymphocytes (%) (Auto) 25.7 % (20.0-45.0) Monocytes (%) (Auto) 12.8 % (1.0-10.0) H Eosinophils (%) (Auto) 1.4 % (0.0-3.0) Basophils (%) (Auto) 1.4 % (0.0-2.0) Erythrocyte Sedimentation Rate Pending Sodium Level Pending Potassium Level Pending Chloride Level Pending Carbon Dioxide Level Pending Blood Urea Nitrogen Pending Creatinine Pending Estimat Glomerular Filtration Rate Pending Glucose Level Pending Calcium Level Pending Phosphorus Level Pending Magnesium Level Pending Total Bilirubin Pending Aspartate Amino Transf (AST/SGOT) Pending Alanine Aminotransferase (ALT/SGPT) Pending Alkaline Phosphatase Pending C-Reactive Protein, Quantitative Pending Total Protein Pending Albumin Pending Globulin Pending Plan Problems: (1) Venous stasis of lower extremity (2) Lumbar radiculopathy (3) Femoral neck fracture (4) Hyponatremia (5) Narcotic dependence (6) Sepsis (7) DDD (degenerative disc disease), lumbar (8) OA (osteoarthritis) of knee (9) Cellulitis of left upper extremity (10) Chronic epididymitis (11) Ankle ulcer (12) Cellulitis of right foot Assessment & Plan: Pt presented on admission with Full thickness ulcer medial R malleolus (L)6.5cm x (W)6.2cm x(D)0.3cm. . Edges are macerated . Small amt serous exudate noted. Smaller ulcer proximally but within close proximity noted(L)0.5cm x (W)0.3cm.100% yellow slough at base of wound .Edges are macerated. Xerosis skin noted to padmini-areas of wounds. Pt verbalized having wounds for a year and stated he has been treating wounds himself. Pt stated wound exudes heavily at times. Both lower extremities are edematous. Haemosiderin noted to both lower ext. Plantar aspects of both feet and both heels are callused and dry. Recommendations: Cleanse wound with Saline.Apply Therahoney with Calcium Alginate. Apply Cavilon Skin Barrier periwound Cover with ABD Pad and wrap with Kerlix from Base of toes Daily and prn. Off-load heels with Pillow. IV abx as per ID will monitor podiatry Soft tissue edema of the subcutaneous fat, mild, likely related to cellulitis given stated clinical history. This could also be edema due to hemodynamic changes. No focal drainable abscess demonstrated No marrow abnormalities suggest acute osteomyelitis Harman Varela Nov 30, 2019 09:13
--- NOTE | 2019-11-30 09:17 | Infectious Diseases Prog Note ---
Assessment/Plan 64 yo male with PMHx of venous stasis and chronic right ankle ulcer who pres ented to the ED on 11/28/19 with increased swelling and drainage from his ulcer. Right ankle chronic ulcer CT scan showed no OM MRI 11/29/19 - Soft tissue edema of the subcutaneous fat, mild, likely related to cellulitis given stated clinical history. This could also be edema due to hemodynamic changes. No focal drainable abscess demonstrated. No marrow abnormalities suggest acute osteomyelitis Wound Cx Pend No fever No leukocytosis Hx Right ankle debridement Chronic venous stasis Plan - Continue Vancomycin #3 and Ceftriaxone #3 Empiric Treatment would be bactrim DS BID 7-10 days - f/u wound Cultures - Monitor CBC and Temps Thank you for this consult. [facility] will continue to follow Ms. Welsh with you during her hospitalization. Subjective Allergies: Coded Allergies: No Known Allergies (Unverified , 02/08/13) Afebrile No Leukocytosis MRI yesterday no sigh of OM Objective Last 24 Hour Vital Signs Date Time Temp Pulse Resp B/P (MAP) Pulse Ox O2 Delivery O2 Flow Rate FiO2 11/30/19 08:00 98.5 60 18 128/69 (88) 97 11/30/19 04:00 97.8 78 18 134/71 (92) 96 11/30/19 00:00 98.1 74 18 141/71 (94) 97 11/29/19 21:00 Room Air 11/29/19 20:00 98.0 69 16 139/70 (93) 96 11/29/19 16:00 98.1 60 16 135/71 (92) 96 11/29/19 12:00 98.1 72 16 130/67 (88) 94 Height (Feet): 6 Height (Inches): 4.00 Weight (Pounds): 239 GEN: NAD on RA HEENT: NCAT, MMM, EOMI CHEST Equal rise and fall B/L ABD: Soft, NT EXT: Right foot in bandage NEURO: A/O x 3 No focal deficits Microbiology Date/Time Source Procedure Growth Status 11/29/19 00:17 Blood Blood Culture - Preliminary NO GROWTH AFTER 24 HOURS Resulted 11/29/19 00:07 Blood Blood Culture - Preliminary NO GROWTH AFTER 24 HOURS Resulted Laboratory Tests Test 11/30/19 08:45 White Blood Count 6.7 K/UL (4.8-10.8) Red Blood Count 4.66 M/UL (4.70-6.10) L Hemoglobin 12.6 G/DL (14.2-18.0) L Hematocrit 37.6 % (42.0-52.0) L Mean Corpuscular Volume 81 FL (80-99) Mean Corpuscular Hemoglobin 27.0 PG (27.0-31.0) Mean Corpuscular Hemoglobin Concent 33.4 G/DL (32.0-36.0) Red Cell Distribution Width 13.1 % (11.6-14.8) Platelet Count 204 K/UL (150-450) Mean Platelet Volume 8.6 FL (6.5-10.1) Neutrophils (%) (Auto) 58.7 % (45.0-75.0) Lymphocytes (%) (Auto) 25.7 % (20.0-45.0) Monocytes (%) (Auto) 12.8 % (1.0-10.0) H Eosinophils (%) (Auto) 1.4 % (0.0-3.0) Basophils (%) (Auto) 1.4 % (0.0-2.0) Erythrocyte Sedimentation Rate Pending Sodium Level Pending Potassium Level Pending Chloride Level Pending Carbon Dioxide Level Pending Blood Urea Nitrogen Pending Creatinine Pending Estimat Glomerular Filtration Rate Pending Glucose Level Pending Calcium Level Pending Phosphorus Level Pending Magnesium Level Pending Total Bilirubin Pending Aspartate Amino Transf (AST/SGOT) Pending Alanine Aminotransferase (ALT/SGPT) Pending Alkaline Phosphatase Pending C-Reactive Protein, Quantitative Pending Total Protein Pending Albumin Pending Globulin Pending Current Medications Medications (Trade) Dose Ordered Sig/Dmitriy Route PRN Reason Start Time Stop Time Status Last Admin Dose Admin Acetaminophen (Tylenol) 650 mg Q4H PRN ORAL fever 11/29/19 07:15 12/29/19 07:14 Acetaminophen (Tylenol) 650 mg Q6H PRN ORAL Mild Pain (Pain Scale 1-3) 11/29/19 07:45 12/29/19 07:44 Albuterol/ Ipratropium (Albuterol/ Ipratropium) 3 ml Q4H PRN HHN Shortness of Breath 11/29/19 07:15 12/04/19 07:14 Ceftriaxone Sodium 1 gm/ Dextrose 55 ml @ 110 mls/hr Q24H IVPB 11/29/19 14:00 12/06/19 13:59 11/29/19 15:29 Dextrose (Dextrose 50%) 25 ml Q30M PRN IV Hypoglycemia 11/29/19 07:15 02/27/20 07:14 Dextrose (Dextrose 50%) 50 ml Q30M PRN IV Hypoglycemia 11/29/19 07:15 02/27/20 07:14 Gabapentin (Neurontin) 300 mg THREE TIMES A DAY ORAL 11/29/19 09:00 12/29/19 08:59 11/29/19 08:48 Gadobutrol (Gadavist) 7.5 mmol NOW PRN IV Radiology Procedure 11/29/19 13:00 12/03/19 12:59 Heparin Sodium (Porcine) (Heparin 5000 units/ml) 5,000 units EVERY 8 HOURS SUBQ 11/29/19 14:00 01/13/20 13:59 11/30/19 05:57 Hydromorphone HCl (Dilaudid) 4 mg Q6H PRN ORAL Severe Pain (Pain Scale 7-10) 11/29/19 12:37 12/06/19 12:36 11/30/19 05:56 Morphine Sulfate (MS Contin) 30 mg BID ORAL 11/29/19 18:00 12/06/19 17:59 11/30/19 08:54 Naloxone HCl (Narcan) 0.4 mg PRN PRN IVP resp depression 11/29/19 16:05 02/27/20 16:04 Nicotine (Nicoderm) 1 patch Q24H TDERMAL 11/29/19 17:00 02/27/20 16:59 11/29/19 17:43 Ondansetron HCl (Zofran) 4 mg Q6H PRN IVP Nausea & Vomiting 11/29/19 07:15 12/29/19 07:14 Polyethylene Glycol (Miralax) 17 gm DAILYPRN PRN ORAL Constipation 11/29/19 07:15 12/29/19 07:14 Tamsulosin HCl (Flomax) 0.4 mg DAILY ORAL 11/29/19 09:00 12/29/19 08:59 11/30/19 08:53 Temazepam (Restoril) 15 mg HSPRN PRN ORAL Insomnia 11/29/19 07:15 12/06/19 07:14 Tetrahydrozoline HCl (Visine With Dropper) 1 drop TIDPRN PRN BOTH EYES Dry Eyes 11/29/19 08:00 02/27/20 07:59 Vancomycin HCl (Vanco pharmacy to dose) 1 ea DAILY PRN MISC . 11/29/19 07:15 12/29/19 07:14 Vancomycin HCl 1 gm/Sodium Chloride 250 ml @ 167.007 mls/hr Q12HR@0000,1200 IVPB 11/29/19 12:00 12/04/19 11:59 11/30/19 00:21 Luigi Rod MD Nov 30, 2019 09:17
[2019-11-30 09:45] LABS: ALANINE AMINOTRANSFERASE 36 U/L (12-78); ALBUMIN 3.2 G/DL (3.4-5.0); ALBUMIN/GLOBULIN RATIO 0.8 (1.0-2.7); ALKALINE PHOSPHATASE 65 U/L (46-116); ANION GAP 7 mmol/L (5-15); ASPARTATE AMINO TRANSFERASE 28 U/L (15-37); BILIRUBIN,TOTAL 0.7 MG/DL (0.2-1.0); BLOOD UREA NITROGEN 9 mg/dL (7-18); CALCIUM 8.8 MG/DL (8.5-10.1); CARBON DIOXIDE 28 MMOL/L (21-32); CHLORIDE 105 MMOL/L (98-107); CREATININE 0.7 MG/DL (0.55-1.30); POTASSIUM 4.2 MMOL/L (3.5-5.1); SODIUM 140 MMOL/L (136-145)
[2019-11-30 12:00] VITALS: BP 127/67
--- NOTE | 2019-11-30 12:38 | Internal Med Progress Note ---
Subjective Date of Service: Nov 30, 2019 Physician Name Iam Costa Attending Physician Jose E Reddy MD Current Medications Medications (Trade) Dose Ordered Sig/Dmitriy Route PRN Reason Start Time Stop Time Status Last Admin Dose Admin Acetaminophen (Tylenol) 650 mg Q4H PRN ORAL fever 11/29/19 07:15 12/29/19 07:14 Acetaminophen (Tylenol) 650 mg Q6H PRN ORAL Mild Pain (Pain Scale 1-3) 11/29/19 07:45 12/29/19 07:44 Albuterol/ Ipratropium (Albuterol/ Ipratropium) 3 ml Q4H PRN HHN Shortness of Breath 11/29/19 07:15 12/04/19 07:14 Ceftriaxone Sodium 1 gm/ Dextrose 55 ml @ 110 mls/hr Q24H IVPB 11/29/19 14:00 12/06/19 13:59 11/29/19 15:29 Dextrose (Dextrose 50%) 25 ml Q30M PRN IV Hypoglycemia 11/29/19 07:15 02/27/20 07:14 Dextrose (Dextrose 50%) 50 ml Q30M PRN IV Hypoglycemia 11/29/19 07:15 02/27/20 07:14 Gabapentin (Neurontin) 300 mg THREE TIMES A DAY ORAL 11/29/19 09:00 12/29/19 08:59 11/29/19 08:48 Gadobutrol (Gadavist) 7.5 mmol NOW PRN IV Radiology Procedure 11/29/19 13:00 12/03/19 12:59 Heparin Sodium (Porcine) (Heparin 5000 units/ml) 5,000 units EVERY 8 HOURS SUBQ 11/29/19 14:00 01/13/20 13:59 11/30/19 05:57 Hydromorphone HCl (Dilaudid) 4 mg Q6H PRN ORAL Severe Pain (Pain Scale 7-10) 11/29/19 12:37 12/06/19 12:36 11/30/19 12:21 Morphine Sulfate (MS Contin) 30 mg BID ORAL 11/29/19 18:00 12/06/19 17:59 11/30/19 08:54 Naloxone HCl (Narcan) 0.4 mg PRN PRN IVP resp depression 11/29/19 16:05 02/27/20 16:04 Nicotine (Nicoderm) 1 patch Q24H TDERMAL 11/29/19 17:00 02/27/20 16:59 11/29/19 17:43 Ondansetron HCl (Zofran) 4 mg Q6H PRN IVP Nausea & Vomiting 11/29/19 07:15 12/29/19 07:14 Polyethylene Glycol (Miralax) 17 gm DAILYPRN PRN ORAL Constipation 11/29/19 07:15 12/29/19 07:14 Tamsulosin HCl (Flomax) 0.4 mg DAILY ORAL 11/29/19 09:00 12/29/19 08:59 11/30/19 08:53 Temazepam (Restoril) 15 mg HSPRN PRN ORAL Insomnia 11/29/19 07:15 12/06/19 07:14 Tetrahydrozoline HCl (Visine With Dropper) 1 drop TIDPRN PRN BOTH EYES Dry Eyes 11/29/19 08:00 02/27/20 07:59 Vancomycin HCl (Vanco pharmacy to dose) 1 ea DAILY PRN MISC . 11/29/19 07:15 12/29/19 07:14 Vancomycin HCl 1 gm/Sodium Chloride 250 ml @ 167.007 mls/hr Q12HR@0000,1200 IVPB 11/29/19 12:00 11/30/19 18:00 11/30/19 12:21 Vancomycin/Sodium Chloride 275 ml @ 183.333 mls/hr Q12HR@0000,1200 IVPB 12/01/19 00:00 12/06/19 00:00 Allergies: Coded Allergies: No Known Allergies (Unverified , 02/08/13) ROS Limited/Unobtainable: No Constitutional: Reports: no symptoms HEENT: Reports: no symptoms Cardiovascular: Reports: no symptoms Respiratory: Reports: no symptoms Gastrointestinal/Abdominal: Reports: no symptoms Genitourinary: Reports: no symptoms Neurologic/Psychiatric: Reports: no symptoms Subjective 64YO M admitted with right leg pain. Now cellulitis right ankle. Cover for Int raya-Dr Reddy Objective Last Vital Signs Date Time Temp Pulse Resp B/P (MAP) Pulse Ox O2 Delivery O2 Flow Rate FiO2 11/30/19 12:00 97.7 52 14 127/67 (87) 96 11/30/19 09:00 Room Air Laboratory Tests Test 11/30/19 08:45 11/30/19 11:00 White Blood Count 6.7 K/UL (4.8-10.8) Red Blood Count 4.66 M/UL (4.70-6.10) L Hemoglobin 12.6 G/DL (14.2-18.0) L Hematocrit 37.6 % (42.0-52.0) L Mean Corpuscular Volume 81 FL (80-99) Mean Corpuscular Hemoglobin 27.0 PG (27.0-31.0) Mean Corpuscular Hemoglobin Concent 33.4 G/DL (32.0-36.0) Red Cell Distribution Width 13.1 % (11.6-14.8) Platelet Count 204 K/UL (150-450) Mean Platelet Volume 8.6 FL (6.5-10.1) Neutrophils (%) (Auto) 58.7 % (45.0-75.0) Lymphocytes (%) (Auto) 25.7 % (20.0-45.0) Monocytes (%) (Auto) 12.8 % (1.0-10.0) H Eosinophils (%) (Auto) 1.4 % (0.0-3.0) Basophils (%) (Auto) 1.4 % (0.0-2.0) Erythrocyte Sedimentation Rate 54 MM/HR (0-20) H Sodium Level 140 MMOL/L (136-145) Potassium Level 4.2 MMOL/L (3.5-5.1) Chloride Level 105 MMOL/L (98-107) Carbon Dioxide Level 28 MMOL/L (21-32) Anion Gap 7 mmol/L (5-15) Blood Urea Nitrogen 9 mg/dL (7-18) Creatinine 0.7 MG/DL (0.55-1.30) Estimat Glomerular Filtration Rate > 60 mL/min (>60) Glucose Level 112 MG/DL (74-106) H Calcium Level 8.8 MG/DL (8.5-10.1) Phosphorus Level 3.0 MG/DL (2.5-4.9) Magnesium Level 2.0 MG/DL (1.8-2.4) Total Bilirubin 0.7 MG/DL (0.2-1.0) Aspartate Amino Transf (AST/SGOT) 28 U/L (15-37) Alanine Aminotransferase (ALT/SGPT) 36 U/L (12-78) Alkaline Phosphatase 65 U/L (46-116) C-Reactive Protein, Quantitative 1.0 mg/dL (0.00-0.90) H Total Protein 7.4 G/DL (6.4-8.2) Albumin 3.2 G/DL (3.4-5.0) L Globulin 4.2 g/dL Albumin/Globulin Ratio 0.8 (1.0-2.7) L Vancomycin Level Trough 7.9 ug/mL (5.0-12.0) Microbiology Date/Time Source Procedure Growth Status 11/29/19 00:17 Blood Blood Culture - Preliminary NO GROWTH AFTER 24 HOURS Resulted 11/29/19 00:07 Blood Blood Culture - Preliminary NO GROWTH AFTER 24 HOURS Resulted Intake and Output 11/29/19 11/30/19 19:00 07:00 Intake Total 1100 ml 320 ml Output Total 850 ml 1200 ml Balance 250 ml -880 ml Intake Oral 1100 ml 320 ml Output Urine Total 850 ml 1200 ml # Voids 5 2 # Bowel Movements 2 Objective PHYSICAL EXAMINATION: GENERAL: The patient is awake, responsive, in no acute distress. HEAD AND NECK: Pupils are equal and reactive to light. Extraocular movements intact. NECK: Supple. No JVD. LUNGS: Good air entry. No wheezing or rales. HEART: S1, S2. Regular rhythm. No gallops. ABDOMEN: Soft, nondistended, nontender. Positive bowel sounds. EXTREMITIES: No cyanosis, clubbing, or edema. The patient has a right ankle ulceration was noted with discharge. No foul smell. NEUROLOGIC: Cranial nerves II through XII are intact. Motor is 5/5 in all extremities. Gait is intact. RECTAL: Refused and deferred. : Refused and deferred. PSYCHIATRIC: Mood and affect is intact. Assessment/Plan Assessment/Plan ASSESSMENT: 1. Cellulitis of the right lower extremity. 2. Venous stasis ulcer on the right lower extremity. 3. Bilateral lower extremity edema 4. Abnormal gait. 5. History of fall with left hip fracture, status post ORIF. 6. BPH. 7. Osteomyelitis right ankle PLAN: 1. Admit the patient to medical floor. 2. Dr. Cartwright= Pulmonary/Critical Care 3. Dr. Flores = Podiatry. 4. Dr. Rod = Infectious Disease 5. Dr. Harman Varela for wound care. 6. antibiotics= Rocephin and vancomycin. 7. Code status is Full code. 8. DVT prophylaxis=heparin subcutaneously. Iam Costa MD Nov 30, 2019 12:38
[2019-11-30] MEDS: cefTRIAXone 1 GM in D5W 55 ML IVPB SCH (14:50)
--- NOTE | 2019-11-30 15:13 | Pulmonology Progress Note ---
Subjective ROS Limited/Unobtainable: No Constitutional: Reports: no symptoms HEENT: Repors: no symptoms Respiratory: Reports: no symptoms Allergies: Coded Allergies: No Known Allergies (Unverified , 02/08/13) Objective Last 24 Hour Vital Signs Date Time Temp Pulse Resp B/P (MAP) Pulse Ox O2 Delivery O2 Flow Rate FiO2 11/30/19 12:00 97.7 52 14 127/67 (87) 96 11/30/19 09:00 Room Air 11/30/19 08:00 98.5 60 18 128/69 (88) 97 11/30/19 04:00 97.8 78 18 134/71 (92) 96 11/30/19 00:00 98.1 74 18 141/71 (94) 97 11/29/19 21:00 Room Air 11/29/19 20:00 98.0 69 16 139/70 (93) 96 11/29/19 16:00 98.1 60 16 135/71 (92) 96 Intake and Output 11/29/19 11/30/19 19:00 07:00 Intake Total 1100 ml 320 ml Output Total 850 ml 1200 ml Balance 250 ml -880 ml Intake Oral 1100 ml 320 ml Output Urine Total 850 ml 1200 ml # Voids 5 2 # Bowel Movements 2 General Appearance: WD/WN HEENT: normocephalic, atraumatic Respiratory: chest wall non-tender, lungs clear Cardiovascular: normal peripheral pulses, normal rate Abdomen: normal bowel sounds, soft, non tender Genitourinary: normal external genitalia Extremities: no cyanosis 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 Microbiology Date/Time Source Procedure Growth Status 11/29/19 00:17 Blood Blood Culture - Preliminary NO GROWTH AFTER 24 HOURS Resulted 11/29/19 00:07 Blood Blood Culture - Preliminary NO GROWTH AFTER 24 HOURS Resulted Laboratory Tests 11/30/19 08:45: White Blood Count 6.7, Red Blood Count 4.66L, Hemoglobin 12.6L, Hematocrit 37.6L , Mean Corpuscular Volume 81, Mean Corpuscular Hemoglobin 27.0, Mean Corpuscular Hemoglobin Concent 33.4, Red Cell Distribution Width 13.1, Platelet Count 204, Mean Platelet Volume 8.6, Neutrophils (%) (Auto) 58.7, Lymphocytes (%) (Auto) 25.7, Monocytes (%) (Auto) 12.8H, Eosinophils (%) (Auto) 1.4, Basophils (%) (Auto) 1.4, Erythrocyte Sedimentation Rate 54H, Sodium Level 140, Potassium Level 4.2, Chloride Level 105, Carbon Dioxide Level 28, Anion Gap 7, Blood Urea Nitrogen 9, Creatinine 0.7, Estimat Glomerular Filtration Rate > 60, Glucose Level 112H, Calcium Level 8.8, Phosphorus Level 3.0, Magnesium Level 2.0, Total Bilirubin 0.7, Aspartate Amino Transf (AST/SGOT) 28, Alanine Aminotransferase (ALT/SGPT) 36, Alkaline Phosphatase 65, C-Reactive Protein, Quantitative 1.0H, Total Protein 7.4, Albumin 3.2L, Globulin 4.2, Albumin/Globulin Ratio 0.8L 11/30/19 11:00: Vancomycin Level Trough 7.9 Current Medications Medications (Trade) Dose Ordered Sig/Dmitriy Route PRN Reason Start Time Stop Time Status Last Admin Dose Admin Acetaminophen (Tylenol) 650 mg Q4H PRN ORAL fever 11/29/19 07:15 12/29/19 07:14 Acetaminophen (Tylenol) 650 mg Q6H PRN ORAL Mild Pain (Pain Scale 1-3) 11/29/19 07:45 12/29/19 07:44 Albuterol/ Ipratropium (Albuterol/ Ipratropium) 3 ml Q4H PRN HHN Shortness of Breath 11/29/19 07:15 12/04/19 07:14 Ceftriaxone Sodium 1 gm/ Dextrose 55 ml @ 110 mls/hr Q24H IVPB 11/29/19 14:00 12/06/19 13:59 11/30/19 14:50 Dextrose (Dextrose 50%) 25 ml Q30M PRN IV Hypoglycemia 11/29/19 07:15 02/27/20 07:14 Dextrose (Dextrose 50%) 50 ml Q30M PRN IV Hypoglycemia 11/29/19 07:15 02/27/20 07:14 Gabapentin (Neurontin) 300 mg THREE TIMES A DAY ORAL 11/29/19 09:00 12/29/19 08:59 11/29/19 08:48 Gadobutrol (Gadavist) 7.5 mmol NOW PRN IV Radiology Procedure 11/29/19 13:00 12/03/19 12:59 Heparin Sodium (Porcine) (Heparin 5000 units/ml) 5,000 units EVERY 8 HOURS SUBQ 11/29/19 14:00 01/13/20 13:59 11/30/19 14:48 Hydromorphone HCl (Dilaudid) 4 mg Q6H PRN ORAL Severe Pain (Pain Scale 7-10) 11/29/19 12:37 12/06/19 12:36 11/30/19 12:21 Morphine Sulfate (MS Contin) 30 mg BID ORAL 11/29/19 18:00 12/06/19 17:59 11/30/19 08:54 Naloxone HCl (Narcan) 0.4 mg PRN PRN IVP resp depression 11/29/19 16:05 02/27/20 16:04 Nicotine (Nicoderm) 1 patch Q24H TDERMAL 11/29/19 17:00 02/27/20 16:59 11/29/19 17:43 Ondansetron HCl (Zofran) 4 mg Q6H PRN IVP Nausea & Vomiting 11/29/19 07:15 12/29/19 07:14 Polyethylene Glycol (Miralax) 17 gm DAILYPRN PRN ORAL Constipation 11/29/19 07:15 12/29/19 07:14 Tamsulosin HCl (Flomax) 0.4 mg DAILY ORAL 11/29/19 09:00 12/29/19 08:59 11/30/19 08:53 Temazepam (Restoril) 15 mg HSPRN PRN ORAL Insomnia 11/29/19 07:15 12/06/19 07:14 Tetrahydrozoline HCl (Visine With Dropper) 1 drop TIDPRN PRN BOTH EYES Dry Eyes 11/29/19 08:00 02/27/20 07:59 Vancomycin HCl (Vanco pharmacy to dose) 1 ea DAILY PRN MISC . 11/29/19 07:15 12/29/19 07:14 Vancomycin HCl 1 gm/Sodium Chloride 250 ml @ 167.007 mls/hr Q12HR@0000,1200 IVPB 11/29/19 12:00 11/30/19 18:00 11/30/19 12:21 Vancomycin/Sodium Chloride 275 ml @ 183.333 mls/hr Q12HR@0000,1200 IVPB 12/01/19 00:00 12/06/19 00:00 Assessment/Plan Problems: (1) Ankle ulcer (2) Cellulitis of right foot (3) Lumbar radiculopathy Assessment/Plan wound care podiatry to see iv abx MRI didn't show any sign of Osteomyelitis ID consult pain management symptomatic treatment dvt prophylaxis. Ken Cartwright MD Nov 30, 2019 15:13
[2019-11-30 16:00] VITALS: BP 130/79
--- NOTE | 2019-11-30 18:56 | NUR ---
NURSE HAND-OFF: Important Events on Shift: No acute events during shift, pain managed with current regimen, MRI negative for osteomyelitis Patient Status: stable Diet: Regular Pending Orders: n/a Pending Results/Labs: n/a Pending MD notification: n/a Latest Vital Signs: Temperature 98.0 , Pulse 72 , B/P 130 /79 , Respiratory Rate 17 , O2 SAT 98 , Room Air, O2 Flow Rate . Vital Sign Comment: stable Latest Ervin Fall Score: 60 Fall Risk: High Risk Safety Measures: Call light Within Reach, Bed Alarm Zone 1, Side Rails Side Rails x2, Bed position Low and Locked. Fall Precautions: Yellow Socks Yellow Gown Door Sign Patient Fall Education . Addendum: 11/30/19 at 1935 by James Brink RN HAND-OFF: Report given to PAVEL Barraza. Endorsed POC.
--- NOTE | 2019-11-30 19:34 | NUR ---
NURSE NOTES: The patient remained alert and stable and doesn't appear to be in any active distress at this time.The patient is able to walk to the bathroom without any difficulty. He was noted with a left ankle wound that has clean dressing with no evidence of bleeding noted. The patient also did not complain of any pain at this time. Patient noted with a R. hand 22g that is patent and asymptomatic. Bed in low and locked level and call light within easy reach. Will continue to monitor
[2019-11-30 20:00] VITALS: BP 128/77
[2019-12-01] VITALS: BP 132/74
[2019-12-01] MEDS: Vancomycin 1.25gm/NS Premix IVPB SCH ×2 (00:36→11:36)
[2019-12-01 04:00] VITALS: BP 121/64
--- NOTE | 2019-12-01 04:14 | NUR ---
NURSE NOTES: The patient remained alert and stable. He complained of pain earlier and was given his PRN Dilaudid 4mg well tolerated. Presently sleeping. Will continue to monitor as indicated
[2019-12-01] MEDS: HYDROmorphone 2mg tab ORAL PRN ×3 (06:29→19:28)
[2019-12-01] MEDS: Heparin 5000 units/ml inj SUBQ SCH ×3 (06:32→22:00)
--- NOTE | 2019-12-01 07:10 | NUR ---
HAND-OFF: Report given to FUNMI ZHAO.
--- NOTE | 2019-12-01 07:45 | NUR ---
NURSE NOTES: Received report from PAVEL Barraza. Patient in bed eating breakfast, resting comfortably. no complaints of pain or any distress. Pupils reactive to lights, lungs sound clear bilaterally, abdominal sounds present on all four quadrants, pedal pulses present. Patient has a left forearm IV 22G SL that is patent and dressing is clean. Patient has a right chronic ankle chronic ulcer, dressing is clean. no drainage. Patient will be monitored for pain and safety.
[2019-12-01 08:00] VITALS: BP 132/57
--- NOTE | 2019-12-01 08:12 | General Progress Note ---
Progress Note Progress Note Podiatry Patient : CONNIE GUARDADO Referring Physician: Luigi Rod MD ID Number:[id number] Service Date: 11/29/19 : 1955 Report Date: 11/29/19 Gender: M Accession No.: [id number] Location: Procedure: MRI Ankle wo/w Contrast RT Indication: Nonhealing wound medial portion of the right ankle, history of fevers and chills and discharge from the site Technique: Sagittal, axial, and coronal T1 FSE and FSE STIR images of the right ankle. Pre and postcontrast axial and coronal T1 fat-saturated images also obtained Comparison: Ankle CT scan 11/28/2019 Findings: No significant marrow edema demonstrated. There is mild edema of the subcutaneous fat, particularly medially. No organized discrete fluid collection demonstrated. No unusual contrast enhancement demonstrated on the postcontrast images other than enhancement of the edematous subcutaneous fat. The large tendons appear intact.. Impression: Soft tissue edema of the subcutaneous fat, mild, likely related to cellulitis given stated clinical history. This could also be edema due to hemodynamic changes. No focal drainable abscess demonstrated No marrow abnormalities suggest acute osteomyelitis Dictated By: Jovan Marquez MD Electronically Signed By:Jovan Marquez MD Signed Date/Time11/29/19 [id number] CC: Luigi Rod MD; Jose E Reddy [id number] 0 A/ 1) Cellulitis RLE 2) Venous stasis ulcer RLE 3) Eschars bilateral hallux 4) Abnormal gait P/ 1) Cont abx per ID. CT shows no OM of right foot/ankle. MRI NO OM 2) No surgical intervention indicated at this time. Cont current wound care regimen 3) Clear for discharge from my standpoint. Needs outpatient follow up Roberto Flores DPM Dec 01, 2019 08:12
[2019-12-01] MEDS: Tamsulosin 0.4mg cap ORAL SCH (09:12)
[2019-12-01] MEDS: MS Contin 15mg tab ORAL SCH ×2 (09:13→17:54)
[2019-12-01 12:00] VITALS: BP 129/63
--- NOTE | 2019-12-01 13:08 | Pulmonology Progress Note ---
Subjective ROS Limited/Unobtainable: No Constitutional: Reports: no symptoms HEENT: Repors: no symptoms Respiratory: Reports: no symptoms Allergies: Coded Allergies: No Known Allergies (Unverified , 02/08/13) Objective Last 24 Hour Vital Signs Date Time Temp Pulse Resp B/P (MAP) Pulse Ox O2 Delivery O2 Flow Rate FiO2 12/01/19 12:00 98.1 53 18 129/63 (85) 96 12/01/19 09:00 Room Air 12/01/19 08:00 98.1 60 18 132/57 (82) 96 12/01/19 04:00 98.3 52 18 121/64 (83) 96 12/01/19 00:00 98.1 59 18 132/74 (93) 96 11/30/19 21:00 Room Air 11/30/19 20:00 98.1 55 18 128/77 (94) 96 11/30/19 16:00 98.0 72 17 130/79 (96) 98 Intake and Output 11/30/19 12/01/19 19:00 07:00 Intake Total 1105.000 ml Output Total 400 ml Balance 1105.000 ml -400 ml IV Total 305.000 ml Other 800 ml Output Urine Total 400 ml # Voids 2 General Appearance: WD/WN HEENT: normocephalic, atraumatic Respiratory: chest wall non-tender, lungs clear Cardiovascular: normal peripheral pulses, normal rate Abdomen: normal bowel sounds, soft, non tender Genitourinary: normal external genitalia Extremities: no 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 Microbiology Date/Time Source Procedure Growth Status 11/29/19 17:30 Wound Gram Stain - Final Resulted 11/29/19 17:30 Wound Culture - Preliminary Gram Negative Qasim Strep Species, Gamma-Hemolytic Resulted 11/29/19 00:17 Blood Blood Culture - Preliminary NO GROWTH AFTER 24 HOURS Resulted 11/29/19 00:07 Blood Blood Culture - Preliminary NO GROWTH AFTER 24 HOURS Resulted Current Medications Medications (Trade) Dose Ordered Sig/Dmitriy Route PRN Reason Start Time Stop Time Status Last Admin Dose Admin Acetaminophen (Tylenol) 650 mg Q4H PRN ORAL fever 11/29/19 07:15 12/29/19 07:14 Acetaminophen (Tylenol) 650 mg Q6H PRN ORAL Mild Pain (Pain Scale 1-3) 11/29/19 07:45 12/29/19 07:44 Albuterol/ Ipratropium (Albuterol/ Ipratropium) 3 ml Q4H PRN HHN Shortness of Breath 11/29/19 07:15 12/04/19 07:14 Ceftriaxone Sodium 1 gm/ Dextrose 55 ml @ 110 mls/hr Q24H IVPB 11/29/19 14:00 12/06/19 13:59 11/30/19 14:50 Dextrose (Dextrose 50%) 25 ml Q30M PRN IV Hypoglycemia 11/29/19 07:15 02/27/20 07:14 Dextrose (Dextrose 50%) 50 ml Q30M PRN IV Hypoglycemia 11/29/19 07:15 02/27/20 07:14 Gabapentin (Neurontin) 300 mg THREE TIMES A DAY ORAL 11/29/19 09:00 12/29/19 08:59 11/30/19 18:09 Gadobutrol (Gadavist) 7.5 mmol NOW PRN IV Radiology Procedure 11/29/19 13:00 12/03/19 12:59 Heparin Sodium (Porcine) (Heparin 5000 units/ml) 5,000 units EVERY 8 HOURS SUBQ 11/29/19 14:00 01/13/20 13:59 12/01/19 06:32 Hydromorphone HCl (Dilaudid) 4 mg Q6H PRN ORAL Severe Pain (Pain Scale 7-10) 11/29/19 12:37 12/06/19 12:36 12/01/19 12:49 Morphine Sulfate (MS Contin) 30 mg BID ORAL 11/29/19 18:00 12/06/19 17:59 12/01/19 09:13 Naloxone HCl (Narcan) 0.4 mg PRN PRN IVP resp depression 11/29/19 16:05 02/27/20 16:04 Nicotine (Nicoderm) 1 patch Q24H TDERMAL 11/29/19 17:00 02/27/20 16:59 11/30/19 18:09 Ondansetron HCl (Zofran) 4 mg Q6H PRN IVP Nausea & Vomiting 11/29/19 07:15 12/29/19 07:14 Polyethylene Glycol (Miralax) 17 gm DAILYPRN PRN ORAL Constipation 11/29/19 07:15 12/29/19 07:14 Tamsulosin HCl (Flomax) 0.4 mg DAILY ORAL 11/29/19 09:00 12/29/19 08:59 12/01/19 09:12 Temazepam (Restoril) 15 mg HSPRN PRN ORAL Insomnia 11/29/19 07:15 12/06/19 07:14 12/01/19 00:36 Tetrahydrozoline HCl (Visine With Dropper) 1 drop TIDPRN PRN BOTH EYES Dry Eyes 11/29/19 08:00 02/27/20 07:59 Vancomycin HCl (Vanco pharmacy to dose) 1 ea DAILY PRN MISC . 11/29/19 07:15 12/29/19 07:14 Vancomycin/Sodium Chloride 275 ml @ 183.333 mls/hr Q12HR@0000,1200 IVPB 12/01/19 00:00 12/06/19 00:00 12/01/19 11:36 Assessment/Plan Problems: (1) Ankle ulcer (2) Cellulitis of right foot (3) Lumbar radiculopathy Assessment/Plan doing better wound care podiatry to see iv abx MRI didn't show any sign of Osteomyelitis ID consult pain management symptomatic treatment dvt prophylaxis. Ken Cartwright MD Dec 01, 2019 13:08
[2019-12-01] MEDS: cefTRIAXone 1 GM in D5W 55 ML IVPB SCH (14:11)
--- NOTE | 2019-12-01 15:03 | NUR ---
NURSE NOTES: RIGHT FOOT DRESSING CHANGED ORDERED. PT PARTICIPATED IN CARE. RIGHT PEDAL PULSE PRESENT, STRONG. SLIGHT DEPENDENT EDEMA. PT EDUCATED TO KEEP FOOT ELEVATED ON PILLOW. PT VERBALIZED UNDERSTANDING. CALL LIGHT WITHIN REACH. PT HAS HIS OWN SINGLE POINT CANE AT BEDSIDE. PT DENIES SOB OR DIZZINESS WHEN AMBULATING. WILL CONTINUE TO MONITOR.
--- NOTE | 2019-12-01 15:09 | NUR ---
CASE MANAGEMENT: Faxed CM review and clinical info (face sheet / H&P/ ER MD report/ lab and imaging reports inc admit order/ progress notes to [facility] @ [phone]. T#[id number] and [facility] @ [phone].
[2019-12-01 16:00] VITALS: BP 137/76
--- NOTE | 2019-12-01 16:10 | Surgery Progress Note ---
Surgery Progress Note Subjective Additional Comments improved wrap in place mri noted Objective Last 24 Hour Vital Signs Date Time Temp Pulse Resp B/P (MAP) Pulse Ox O2 Delivery O2 Flow Rate FiO2 12/01/19 12:00 98.1 53 18 129/63 (85) 96 12/01/19 09:00 Room Air 12/01/19 08:00 98.1 60 18 132/57 (82) 96 12/01/19 04:00 98.3 52 18 121/64 (83) 96 12/01/19 00:00 98.1 59 18 132/74 (93) 96 11/30/19 21:00 Room Air 11/30/19 20:00 98.1 55 18 128/77 (94) 96 I&O Intake and Output 11/30/19 12/01/19 19:00 07:00 Intake Total 1105.000 ml Output Total 400 ml Balance 1105.000 ml -400 ml IV Total 305.000 ml Other 800 ml Output Urine Total 400 ml # Voids 2 Dressing: dry Wound: clean Cardiovascular: RSR Respiratory: clear Abdomen: soft, non-tender, present bowel sounds Extremities: no edema, other Plan Problems: (1) Venous stasis of lower extremity (2) Lumbar radiculopathy (3) Femoral neck fracture (4) Hyponatremia (5) Narcotic dependence (6) Sepsis (7) DDD (degenerative disc disease), lumbar (8) OA (osteoarthritis) of knee (9) Cellulitis of left upper extremity (10) Chronic epididymitis (11) Ankle ulcer (12) Cellulitis of right foot Assessment & Plan: Pt presented on admission with Full thickness ulcer medial R malleolus (L)6.5cm x (W)6.2cm x(D)0.3cm. . Edges are macerated . Small amt serous exudate noted. Smaller ulcer proximally but within close proximity noted(L)0.5cm x (W)0.3cm.100% yellow slough at base of wound .Edges are macerated. Xerosis skin noted to padmini-areas of wounds. Pt verbalized having wounds for a year and stated he has been treating wounds himself. Pt stated wound exudes heavily at times. Both lower extremities are edematous. Haemosiderin noted to both lower ext. Plantar aspects of both feet and both heels are callused and dry. Recommendations: Cleanse wound with Saline.Apply Therahoney with Calcium Alginate. Apply Cavilon Skin Barrier periwound Cover with ABD Pad and wrap with Kerlix from Base of toes Daily and prn. Off-load heels with Pillow. IV abx as per ID will monitor podiatry Soft tissue edema of the subcutaneous fat, mild, likely related to cellulitis given stated clinical history. This could also be edema due to hemodynamic changes. No focal drainable abscess demonstrated No marrow abnormalities suggest acute osteomyelitis Harman Varela Dec 01, 2019 16:10
--- NOTE | 2019-12-01 17:18 | Internal Med Progress Note ---
Subjective Date of Service: Dec 01, 2019 Physician Name Iam Costa Attending Physician Jose E Reddy MD Current Medications Medications (Trade) Dose Ordered Sig/Dmitriy Route PRN Reason Start Time Stop Time Status Last Admin Dose Admin Acetaminophen (Tylenol) 650 mg Q4H PRN ORAL fever 11/29/19 07:15 12/29/19 07:14 Acetaminophen (Tylenol) 650 mg Q6H PRN ORAL Mild Pain (Pain Scale 1-3) 11/29/19 07:45 12/29/19 07:44 Albuterol/ Ipratropium (Albuterol/ Ipratropium) 3 ml Q4H PRN HHN Shortness of Breath 11/29/19 07:15 12/04/19 07:14 Ceftriaxone Sodium 1 gm/ Dextrose 55 ml @ 110 mls/hr Q24H IVPB 11/29/19 14:00 12/06/19 13:59 12/01/19 14:11 Dextrose (Dextrose 50%) 25 ml Q30M PRN IV Hypoglycemia 11/29/19 07:15 02/27/20 07:14 Dextrose (Dextrose 50%) 50 ml Q30M PRN IV Hypoglycemia 11/29/19 07:15 02/27/20 07:14 Gabapentin (Neurontin) 300 mg THREE TIMES A DAY ORAL 11/29/19 09:00 12/29/19 08:59 11/30/19 18:09 Gadobutrol (Gadavist) 7.5 mmol NOW PRN IV Radiology Procedure 11/29/19 13:00 12/03/19 12:59 Heparin Sodium (Porcine) (Heparin 5000 units/ml) 5,000 units EVERY 8 HOURS SUBQ 11/29/19 14:00 01/13/20 13:59 12/01/19 06:32 Hydromorphone HCl (Dilaudid) 4 mg Q6H PRN ORAL Severe Pain (Pain Scale 7-10) 11/29/19 12:37 12/06/19 12:36 12/01/19 12:49 Morphine Sulfate (MS Contin) 30 mg BID ORAL 11/29/19 18:00 12/06/19 17:59 12/01/19 09:13 Naloxone HCl (Narcan) 0.4 mg PRN PRN IVP resp depression 11/29/19 16:05 02/27/20 16:04 Nicotine (Nicoderm) 1 patch Q24H TDERMAL 11/29/19 17:00 02/27/20 16:59 11/30/19 18:09 Ondansetron HCl (Zofran) 4 mg Q6H PRN IVP Nausea & Vomiting 11/29/19 07:15 12/29/19 07:14 Polyethylene Glycol (Miralax) 17 gm DAILYPRN PRN ORAL Constipation 11/29/19 07:15 12/29/19 07:14 Tamsulosin HCl (Flomax) 0.4 mg DAILY ORAL 11/29/19 09:00 12/29/19 08:59 12/01/19 09:12 Temazepam (Restoril) 15 mg HSPRN PRN ORAL Insomnia 11/29/19 07:15 12/06/19 07:14 12/01/19 00:36 Tetrahydrozoline HCl (Visine With Dropper) 1 drop TIDPRN PRN BOTH EYES Dry Eyes 11/29/19 08:00 02/27/20 07:59 Vancomycin HCl (Vanco pharmacy to dose) 1 ea DAILY PRN MISC . 11/29/19 07:15 12/29/19 07:14 Vancomycin/Sodium Chloride 275 ml @ 183.333 mls/hr Q12HR@0000,1200 IVPB 12/01/19 00:00 12/06/19 00:00 12/01/19 11:36 Allergies: Coded Allergies: No Known Allergies (Unverified , 02/08/13) ROS Limited/Unobtainable: No Constitutional: Reports: no symptoms HEENT: Reports: no symptoms Cardiovascular: Reports: no symptoms Respiratory: Reports: no symptoms Gastrointestinal/Abdominal: Reports: no symptoms Genitourinary: Reports: no symptoms Neurologic/Psychiatric: Reports: no symptoms Subjective 64YO M admitted with right leg pain. Now cellulitis right ankle. Cover for Int raya-Dr Reddy Objective Last Vital Signs Date Time Temp Pulse Resp B/P (MAP) Pulse Ox O2 Delivery O2 Flow Rate FiO2 12/01/19 16:00 97.7 52 18 137/76 (96) 98 12/01/19 09:00 Room Air Microbiology Date/Time Source Procedure Growth Status 11/29/19 17:30 Wound Gram Stain - Final Resulted 11/29/19 17:30 Wound Culture - Preliminary Gram Negative Qasim Strep Species, Gamma-Hemolytic Resulted 11/29/19 00:17 Blood Blood Culture - Preliminary NO GROWTH AFTER 24 HOURS Resulted 11/29/19 00:07 Blood Blood Culture - Preliminary NO GROWTH AFTER 24 HOURS Resulted Intake and Output 11/30/19 12/01/19 19:00 07:00 Intake Total 1105.000 ml Output Total 400 ml Balance 1105.000 ml -400 ml IV Total 305.000 ml Other 800 ml Output Urine Total 400 ml # Voids 2 Objective PHYSICAL EXAMINATION: GENERAL: The patient is awake, responsive, in no acute distress. HEAD AND NECK: Pupils are equal and reactive to light. Extraocular movements intact. NECK: Supple. No JVD. LUNGS: Good air entry. No wheezing or rales. HEART: S1, S2. Regular rhythm. No gallops. ABDOMEN: Soft, nondistended, nontender. Positive bowel sounds. EXTREMITIES: No cyanosis, clubbing, or edema. The patient has a right ankle ulceration was noted with discharge. No foul smell. NEUROLOGIC: Cranial nerves II through XII are intact. Motor is 5/5 in all extremities. Gait is intact. RECTAL: Refused and deferred. : Refused and deferred. PSYCHIATRIC: Mood and affect is intact. Assessment/Plan Assessment/Plan ASSESSMENT: 1. Cellulitis of the right lower extremity. 2. Venous stasis ulcer on the right lower extremity. 3. Bilateral lower extremity edema 4. Abnormal gait. 5. History of fall with left hip fracture, status post ORIF. 6. BPH. 7. CT=negative for osteomyelitis right ankle PLAN: 1. Admit the patient to medical floor. 2. Dr. Cartwright= Pulmonary/Critical Care 3. Dr. Flores = Podiatry. 4. Dr. Rod = Infectious Disease 5. Dr. Harman Varela for wound care. 6. antibiotics= Rocephin and vancomycin. 7. Code status is Full code. 8. DVT prophylaxis=heparin subcutaneously. Iam Costa MD Dec 01, 2019 17:18
--- NOTE | 2019-12-01 18:46 | NUR ---
NURSE HAND-OFF: Important Events on Shift:RIGHT FOOT DRESSING CHANGED ORDERED. PT TOLERATED WELL. Patient Status: STABLE Diet: REGULAR Pending Orders: N/A Pending Results/Labs:N/A Pending MD notification:N/A Latest Vital Signs: Temperature 97.7 , Pulse 52 , B/P 137 /76 , Respiratory Rate 18 , O2 SAT 98 , Room Air, O2 Flow Rate . Vital Sign Comment: STABLE Latest Ervin Fall Score: 60 Fall Risk: High Risk Safety Measures: Call light Within Reach, Bed Alarm Zone 1, Side Rails Side Rails x2, Bed position Low and Locked. Fall Precautions: Yellow Socks Yellow Gown Door Sign Patient Fall Education Addendum: 12/01/19 at 1937 by FUNMI COTTO RN RN HAND-OFF: Report given to Lino COSTA RN.
--- NOTE | 2019-12-01 19:00 | NUR ---
NURSE NOTES: The patient is alert and oriented x4 and is awake. Respirations are even and unlabored on room air.The patient is able to walk to the bathroom without any difficulty. He was noted with a left ankle wound that has clean dressing with no evidence of bleeding noted. The patient also did complain of pain at 5/10, to receive pain med soon. Patient noted with a L fa 22g, patent and asymptomatic. will continue to monitor
[2019-12-01 20:00] VITALS: BP 120/73
[2019-12-02] VITALS: BP 120/71
[2019-12-02] MEDS: Vancomycin 1.25gm/NS Premix IVPB SCH (00:20)
[2019-12-02] MEDS: HYDROmorphone 2mg tab ORAL PRN ×2 (01:52→07:45)
--- NOTE | 2019-12-02 01:52 | NUR ---
NURSE NOTES: Patient complained of pain on lower extremity,given PRN pain medication as ordered. Call light is at bedside. Will continue plan of care.
[2019-12-02 04:00] VITALS: BP 113/60
[2019-12-02] MEDS: Heparin 5000 units/ml inj SUBQ SCH (06:00)
[2019-12-02 06:12] LABS: BASOPHILS % (AUTO) 1.4 % (0.0-2.0); EOSINOPHILS % (AUTO) 1.3 % (0.0-3.0); HEMATOCRIT 36.2 % (42.0-52.0); LYMPHOCYTES % (AUTO) 25.9 % (20.0-45.0); MEAN CORPUSCULAR VOLUME 81 FL (80-99); MONOCYTES % (AUTO) 13.4 % (1.0-10.0); PLATELET COUNT 197 K/UL (150-450); RED BLOOD COUNT 4.46 M/UL (4.70-6.10); RED CELL DISTRIBUTION WIDTH 13.3 % (11.6-14.8); WHITE BLOOD COUNT 6.7 K/UL (4.8-10.8)
[2019-12-02 06:22] LABS: ALBUMIN/GLOBULIN RATIO 0.7 (1.0-2.7); ALKALINE PHOSPHATASE 61 U/L (46-116); ANION GAP 2 mmol/L (5-15); ASPARTATE AMINO TRANSFERASE 39 U/L (15-37); BILIRUBIN,TOTAL 0.3 MG/DL (0.2-1.0); BLOOD UREA NITROGEN 16 mg/dL (7-18); CALCIUM 8.8 MG/DL (8.5-10.1); CARBON DIOXIDE 29 MMOL/L (21-32); CHLORIDE 105 MMOL/L (98-107); CREATININE 0.8 MG/DL (0.55-1.30); POTASSIUM 4.3 MMOL/L (3.5-5.1); SODIUM 136 MMOL/L (136-145)
--- NOTE | 2019-12-02 07:52 | NUR ---
NURSE HAND-OFF: Important Events on Shift: Pt complained of some pain, currently 08/06, just received 4 mg dilaudid (given two doses during shift, beginning and end) Patient Status: STABLE Diet: REGULAR Latest Vital Signs: Temperature 97.7 , Pulse 52 , B/P 137 /76 , Respiratory Rate 18 , O2 SAT 98 , Room Air, O2 Flow Rate . Vital Sign Comment: STABLE Latest Ervin Fall Score: 60 Fall Risk: High Risk Safety Measures: Call light Within Reach, Bed Alarm Zone 1, Side Rails Side Rails x2, Bed position Low and Locked. Fall Precautions: Yellow Socks Yellow Gown Door Sign Patient Fall Education - HAND-OFF: Report given to Anahi Gomez RN
[2019-12-02 08:00] VITALS: BP 116/59
--- NOTE | 2019-12-02 08:01 | NUR ---
NURSE NOTES: Patient alert x4; on room air, no sign of distress and shortness of breath; no sing of chest pain; IV Left For-arm flushes well; wound dressing on Right foot dry and intact; patient's own cane within reach; side rails up x2, breaks engaged, bed at lowest position. call light within reach; will keep monitoring.
[2019-12-02] MEDS: Tamsulosin 0.4mg cap ORAL SCH (08:36)
[2019-12-02] MEDS: MS Contin 15mg tab ORAL SCH (08:38)
[2019-12-02 10:15] LABS: ALANINE AMINOTRANSFERASE 46 U/L (12-78)
--- NOTE | 2019-12-02 11:18 | Pulmonology Progress Note ---
Subjective ROS Limited/Unobtainable: No Constitutional: Reports: no symptoms HEENT: Repors: no symptoms Respiratory: Reports: no symptoms Allergies: Coded Allergies: No Known Allergies (Unverified , 02/08/13) Objective Last 24 Hour Vital Signs Date Time Temp Pulse Resp B/P (MAP) Pulse Ox O2 Delivery O2 Flow Rate FiO2 12/02/19 09:08 98.1 12/02/19 09:00 Room Air 12/02/19 08:15 98.1 12/02/19 08:00 98.1 56 18 116/59 (78) 96 12/02/19 04:00 98.1 50 18 113/60 (77) 98 12/02/19 02:22 98.1 12/02/19 00:00 97.9 54 18 120/71 (87) 97 12/01/19 21:00 Room Air 12/01/19 20:00 98.1 56 18 120/73 (89) 98 12/01/19 19:58 97.7 12/01/19 16:00 97.7 52 18 137/76 (96) 98 12/01/19 12:00 98.1 53 18 129/63 (85) 96 Intake and Output 12/01/19 12/02/19 19:00 07:00 Intake Total 1350.000 ml 200 ml Output Total 500 ml 300 ml Balance 850.000 ml -100 ml Intake Oral 1020 ml 200 ml IV Total 330.000 ml Output Urine Total 500 ml 300 ml # Voids 5 2 General Appearance: WD/WN HEENT: normocephalic, atraumatic Respiratory: chest wall non-tender, lungs clear Cardiovascular: normal peripheral pulses, normal rate Abdomen: normal bowel sounds, soft, non tender Genitourinary: normal external genitalia Extremities: no cyanosis Neurologic: rn lvn II-XII grossly normal Microbiology Date/Time Source Procedure Growth Status 11/29/19 17:30 Wound Gram Stain - Final Complete 11/29/19 17:30 Wound Culture - Final Pseudomonas Aeruginosa Enterococcus Faecalis Complete Laboratory Tests 12/02/19 05:40: White Blood Count 6.7, Red Blood Count 4.46L, Hemoglobin 12.0L, Hematocrit 36.2L , Mean Corpuscular Volume 81, Mean Corpuscular Hemoglobin 26.9L, Mean Corpuscular Hemoglobin Concent 33.1, Red Cell Distribution Width 13.3, Platelet Count 197, Mean Platelet Volume 8.1, Neutrophils (%) (Auto) 58.0, Lymphocytes (%) (Auto) 25.9, Monocytes (%) (Auto) 13.4H, Eosinophils (%) (Auto) 1.3, Basophils (%) (Auto) 1.4, Erythrocyte Sedimentation Rate 63H, Sodium Level 136, Potassium Level 4.3, Chloride Level 105, Carbon Dioxide Level 29, Anion Gap 2L, Blood Urea Nitrogen 16, Creatinine 0.8, Estimat Glomerular Filtration Rate > 60, Glucose Level 88, Calcium Level 8.8, Phosphorus Level 4.0, Magnesium Level 1.9, Total Bilirubin 0.3, Aspartate Amino Transf (AST/SGOT) 39H, Alanine Aminotra nsferase (ALT/SGPT) 46, Alkaline Phosphatase 61, C-Reactive Protein, Quantitative 0.6, Total Protein 7.3, Albumin 3.0L, Globulin 4.3, Albumin/Globulin Ratio 0.7L Current Medications Medications (Trade) Dose Ordered Sig/Dmitriy Route PRN Reason Start Time Stop Time Status Last Admin Dose Admin Acetaminophen (Tylenol) 650 mg Q4H PRN ORAL fever 11/29/19 07:15 12/29/19 07:14 Acetaminophen (Tylenol) 650 mg Q6H PRN ORAL Mild Pain (Pain Scale 1-3) 11/29/19 07:45 12/29/19 07:44 Albuterol/ Ipratropium (Albuterol/ Ipratropium) 3 ml Q4H PRN HHN Shortness of Breath 11/29/19 07:15 12/04/19 07:14 Ceftriaxone Sodium 1 gm/ Dextrose 55 ml @ 110 mls/hr Q24H IVPB 11/29/19 14:00 12/06/19 13:59 12/01/19 14:11 Dextrose (Dextrose 50%) 25 ml Q30M PRN IV Hypoglycemia 11/29/19 07:15 02/27/20 07:14 Dextrose (Dextrose 50%) 50 ml Q30M PRN IV Hypoglycemia 11/29/19 07:15 02/27/20 07:14 Gabapentin (Neurontin) 300 mg THREE TIMES A DAY ORAL 11/29/19 09:00 12/29/19 08:59 12/02/19 08:36 Gadobutrol (Gadavist) 7.5 mmol NOW PRN IV Radiology Procedure 11/29/19 13:00 12/03/19 12:59 Heparin Sodium (Porcine) (Heparin 5000 units/ml) 5,000 units EVERY 8 HOURS SUBQ 11/29/19 14:00 01/13/20 13:59 12/01/19 06:32 Hydromorphone HCl (Dilaudid) 4 mg Q6H PRN ORAL Severe Pain (Pain Scale 7-10) 11/29/19 12:37 12/06/19 12:36 12/02/19 07:45 Morphine Sulfate (MS Contin) 30 mg BID ORAL 11/29/19 18:00 12/06/19 17:59 12/02/19 08:38 Naloxone HCl (Narcan) 0.4 mg PRN PRN IVP resp depression 11/29/19 16:05 02/27/20 16:04 Nicotine (Nicoderm) 1 patch Q24H TDERMAL 11/29/19 17:00 02/27/20 16:59 12/01/19 17:38 Ondansetron HCl (Zofran) 4 mg Q6H PRN IVP Nausea & Vomiting 11/29/19 07:15 12/29/19 07:14 Polyethylene Glycol (Miralax) 17 gm DAILYPRN PRN ORAL Constipation 11/29/19 07:15 12/29/19 07:14 Tamsulosin HCl (Flomax) 0.4 mg DAILY ORAL 11/29/19 09:00 12/29/19 08:59 12/02/19 08:36 Temazepam (Restoril) 15 mg HSPRN PRN ORAL Insomnia 11/29/19 07:15 12/06/19 07:14 12/02/19 02:09 Tetrahydrozoline HCl (Visine With Dropper) 1 drop TIDPRN PRN BOTH EYES Dry Eyes 11/29/19 08:00 02/27/20 07:59 Vancomycin HCl (Vanco pharmacy to dose) 1 ea DAILY PRN MISC . 11/29/19 07:15 12/29/19 07:14 Vancomycin/Sodium Chloride 275 ml @ 183.333 mls/hr Q12HR@0000,1200 IVPB 12/01/19 00:00 12/06/19 00:00 12/02/19 00:20 Assessment/Plan Problems: (1) Ankle ulcer (2) Cellulitis of right foot (3) Lumbar radiculopathy Assessment/Plan no new complains afebriel doing better wound care podiatry to see iv abx MRI didn't show any sign of Osteomyelitis ID consult pain management symptomatic treatment dvt prophylaxis. Ken Cartwright MD Dec 02, 2019 11:18
[2019-12-02] MEDS ORDERED: BACTRIM DS TAB1 EAC1 ORAL (11:20)
--- NOTE | 2019-12-02 11:55 | NUR ---
NURSE NOTES: Dr Cartwright puts a discharge order for this patient; I inform patient regarding the order; however patient is saying that he wanna to talk MD Cartwright regarding this matter; I communicated MD Cartwright; wafting for order;
[2019-12-02] MEDS ORDERED: Tubing IV Secondary IV ONE (13:29)
--- NOTE | 2019-12-02 13:40 | NUR ---
NURSE NOTES: Patient discharge to Home via Taxi; Taxi voucher provided to the mixer driver; patient's belonging crossed match and signed by primary nurse and patient; patient IV and name tag removed upon discharge; Wound dressing dry and intact; wound care supplies and patient teaching provided regarding wound; prescription medication faxed to patient's preferred pharmacy to [facility]; patient taken to the lobby via wheelchair; patient stable upon discharge.
--- NOTE | 2019-12-02 14:35 | Surgery Progress Note ---
Surgery Progress Note Subjective Symptoms: improved, pain absent, tolerating diet, passing flatus, BM Objective Last 24 Hour Vital Signs Date Time Temp Pulse Resp B/P (MAP) Pulse Ox O2 Delivery O2 Flow Rate FiO2 12/02/19 09:08 98.1 12/02/19 09:00 Room Air 12/02/19 08:15 98.1 12/02/19 08:00 98.1 56 18 116/59 (78) 96 12/02/19 04:00 98.1 50 18 113/60 (77) 98 12/02/19 02:22 98.1 12/02/19 00:00 97.9 54 18 120/71 (87) 97 12/01/19 21:00 Room Air 12/01/19 20:00 98.1 56 18 120/73 (89) 98 12/01/19 19:58 97.7 12/01/19 16:00 97.7 52 18 137/76 (96) 98 I&O Intake and Output0 12/01/19 12/02/19 19:00 07:00 Intake Total 1350.000 ml 200 ml Output Total 500 ml 300 ml Balance 850.000 ml -100 ml Intake Oral 1020 ml 200 ml IV Total 330.000 ml Output Urine Total 500 ml 300 ml # Voids 5 2 Dressing: dry Wound: clean Cardiovascular: RSR Respiratory: clear Abdomen: soft, non-tender, present bowel sounds Extremities: no edema, no tenderness, no cyanosis, pulses, other Laboratory Tests Test 12/02/19 05:40 White Blood Count 6.7 K/UL (4.8-10.8) Red Blood Count 4.46 M/UL (4.70-6.10) L Hemoglobin 12.0 G/DL (14.2-18.0) L Hematocrit 36.2 % (42.0-52.0) L Mean Corpuscular Volume 81 FL (80-99) Mean Corpuscular Hemoglobin 26.9 PG (27.0-31.0) L Mean Corpuscular Hemoglobin Concent 33.1 G/DL (32.0-36.0) Red Cell Distribution Width 13.3 % (11.6-14.8) Platelet Count 197 K/UL (150-450) Mean Platelet Volume 8.1 FL (6.5-10.1) Neutrophils (%) (Auto) 58.0 % (45.0-75.0) Lymphocytes (%) (Auto) 25.9 % (20.0-45.0) Monocytes (%) (Auto) 13.4 % (1.0-10.0) H Eosinophils (%) (Auto) 1.3 % (0.0-3.0) Basophils (%) (Auto) 1.4 % (0.0-2.0) Erythrocyte Sedimentation Rate 63 MM/HR (0-20) H Sodium Level 136 MMOL/L (136-145) Potassium Level 4.3 MMOL/L (3.5-5.1) Chloride Level 105 MMOL/L (98-107) Carbon Dioxide Level 29 MMOL/L (21-32) Anion Gap 2 mmol/L (5-15) L Blood Urea Nitrogen 16 mg/dL (7-18) Creatinine 0.8 MG/DL (0.55-1.30) Estimat Glomerular Filtration Rate > 60 mL/min (>60) Glucose Level 88 MG/DL (74-106) Calcium Level 8.8 MG/DL (8.5-10.1) Phosphorus Level 4.0 MG/DL (2.5-4.9) Magnesium Level 1.9 MG/DL (1.8-2.4) Total Bilirubin 0.3 MG/DL (0.2-1.0) Aspartate Amino Transf (AST/SGOT) 39 U/L (15-37) H Alanine Aminotransferase (ALT/SGPT) 46 U/L (12-78) Alkaline Phosphatase 61 U/L (46-116) C-Reactive Protein, Quantitative 0.6 mg/dL (0.00-0.90) Total Protein 7.3 G/DL (6.4-8.2) Albumin 3.0 G/DL (3.4-5.0) L Globulin 4.3 g/dL Albumin/Globulin Ratio 0.7 (1.0-2.7) L Plan Problems: (1) Venous stasis of lower extremity (2) Lumbar radiculopathy (3) Femoral neck fracture (4) Hyponatremia (5) Narcotic dependence (6) Sepsis (7) DDD (degenerative disc disease), lumbar (8) OA (osteoarthritis) of knee (9) Cellulitis of left upper extremity (10) Chronic epididymitis (11) Ankle ulcer (12) Cellulitis of right foot Assessment & Plan: Pt presented on admission with Full thickness ulcer medial R malleolus (L)6.5cm x (W)6.2cm x(D)0.3cm. . Edges are macerated . Small amt serous exudate noted. Smaller ulcer proximally but within close proximity noted(L)0.5cm x (W)0.3cm.100% yellow slough at base of wound .Edges are macerated. Xerosis skin noted to pdamini-areas of wounds. Pt verbalized having wounds for a year and stated he has been treating wounds himself. Pt stated wound exudes heavily at times. Both lower extremities are edematous. Haemosiderin noted to both lower ext. Plantar aspects of both feet and both heels are callused and dry. Recommendations: Cleanse wound with Saline.Apply Therahoney with Calcium Alginate. Apply Cavilon Skin Barrier periwound Cover with ABD Pad and wrap with Kerlix from Base of toes Daily and prn. Off-load heels with Pillow. IV abx as per ID will monitor podiatry Soft tissue edema of the subcutaneous fat, mild, likely related to cellulitis given stated clinical history. This could also be edema due to hemodynamic changes. No focal drainable abscess demonstrated No marrow abnormalities suggest acute osteomyelitis d/c home f/u podiatry outpatient Harman Varela Dec 02, 2019 14:35
--- NOTE | 2019-12-03 09:26 | Discharge Summary ---
Discharge Summary Discharge Summary _ DATE OF ADMISSION: 11/29/2019 DATE OF DISCHARGE: 12/02/2019 DISCHARGED BY: Dr. Reddy REASON FOR ADMISSION: 64 years old male with past medical history significant for chronic venous stasis with chronic right ankle ulcer for near 7 years, history of left hip fracture, status post open reduction internal fixation about 5 years ago, BPH, presented to emergency department complaining of increased swelling and drainage from the right ankle ulcer. Patient was on oral antibiotic in the past , but failed oral antibiotic therapy. He stated that he had this ulcer for some time , but it was never completely healed. He denied fever and chills. He denied chest pain or shortness of breath. Patient subsequently was admitted for further management. CONSULTANTS: pulmonary/critical care Dr. Cartwright ID specialist Dr. Rod general surgery Dr. Gil cork insulator Dr. Iyer [facility] COURSE: Patient admitted to medical surgical floor. Patient was kept on broad-spectrum antibiotic as per ID specialist recommendation. Pain management was addressed. 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 No CT evidence of osteomyelitis. No abscess collection. Cellulitis of the right ankle/foot with degenerative changes of the ankle. MRI of the right ankle revealed soft tissue edema of the subcutaneous fat, mild , likely related to cellulitis. No focal drainable abscess was demonstrated. No marrow abnormality to suggest acute osteomyelitis. Blood cultures were negative. Wound culture revealed Pseudomonas and Enterococci. No fevers, no leukocytosis. Patient was on IV antibiotic while in the hospital and switched to oral antibiotic to complete the treatment at home for 7 to 10 days. Wound care provided as per general surgeon recommendation. Road Monkey seen and evaluated patient. No surgical intervention was indicated at this time as per cork insulator. Continue with wound care regimen as recommended by general surgeon. Patient clinically stabilized and was ready for discharge home with home health services. Patient was strongly encouraged to complete oral antibiotic as prescribed. FINAL DIAGNOSES: Right lower extremity cellulitis Right ankle chronic ulcer Chronic venous stasis Eschars bilateral hallux History of left hip fracture , status post open reduction internal fixation BPH Abnormal gait DISCHARGE MEDICATIONS: See Medication Reconciliation list. DISCHARGE INSTRUCTIONS: Patient was discharged home with home health services. Follow-up with a primary care provider in 1 week. I have been assigned to dictate discharge summary for this account. I was not involved in the patient's management. Lorri Jean NP Dec 03, 2019 09:26
== END 2019-12-02 13:30 | disposition home or self-care (01) | DRG 383 ==
LOC: EMR 23:10 → 4E 11-29 01:17 → EDBEDREQ 11-29 01:46
DX: L03.115 Cellulitis of right lower limb (principal); M86.171 Other acute osteomyelitis, right ankle and foot; L97.319 Non-pressure chronic ulcer of right ankle with unspecified severity; I83.019 Varicose veins of right lower extremity with ulcer of unspecified site; N40.1 Benign prostatic hyperplasia with lower urinary tract symptoms; R26.89 Other abnormalities of gait and mobility; F17.200 Nicotine dependence, unspecified, uncomplicated; M17.0 Bilateral primary osteoarthritis of knee; Z91.81 History of falling; M51.16 Intervertebral disc disorders with radiculopathy, lumbar region; N45.1 Epididymitis
CPT/HCPCS: 36415; 80053; 80202; 83605; 83735; 84100; 85025; 85610; 85651; 85730; 86140; 87040; 87070; 87181; 87205; 96365; 96368; 99285; A9585

== ENCOUNTER 2019-12-09 13:07 | Outpatient (RCR) | payer MEDICARE, MEDICAID ==
[~2019-12-09 13:07] MED LIST changes: +OXYCONTIN20 MG ORAL
== END 2019-12-28 | disposition home or self-care (01) ==
LOC: WCC 13:07
DX: L97.812 Non-pressure chronic ulcer of other part of right lower leg with fat layer exposed (principal); L97.511 Non-pressure chronic ulcer of other part of right foot limited to breakdown of skin; I87.311 Chronic venous hypertension (idiopathic) with ulcer of right lower extremity; R26.89 Other abnormalities of gait and mobility; B35.1 Tinea unguium; M79.672 Pain in left foot; M79.671 Pain in right foot; Z96.642 Presence of left artificial hip joint; Z96.651 Presence of right artificial knee joint; M19.90 Unspecified osteoarthritis, unspecified site; Z86.11 Personal history of tuberculosis
CPT/HCPCS: 11042; 11045; 11721; 29580; 93922

== ENCOUNTER 2019-12-31 14:35 | Outpatient (RCR) | payer MEDICARE, MEDICAID | END 2020-01-27 | disposition home or self-care (01) | LOC: WCC 14:35 | DX: L97.812 Non-pressure chronic ulcer of other part of right lower leg with fat layer exposed (principal); L97.511 Non-pressure chronic ulcer of other part of right foot limited to breakdown of skin; I87.311 Chronic venous hypertension (idiopathic) with ulcer of right lower extremity; R26.89 Other abnormalities of gait and mobility; Z96.643 Presence of artificial hip joint, bilateral; M19.90 Unspecified osteoarthritis, unspecified site; Z86.11 Personal history of tuberculosis | CPT/HCPCS: 11042; 11044; 11045; 29580; 87070; 87181; 87205 ==

== ENCOUNTER 2020-02-10 13:09 | Outpatient (RCR) | payer MEDICARE, MEDICAID | END 2020-02-27 | disposition home or self-care (01) | LOC: WCC 13:09 | DX: L97.812 Non-pressure chronic ulcer of other part of right lower leg with fat layer exposed (principal); L97.516 Non-pressure chronic ulcer of other part of right foot with bone involvement without evidence of necrosis; I87.311 Chronic venous hypertension (idiopathic) with ulcer of right lower extremity; R26.89 Other abnormalities of gait and mobility; L97.815 Non-pressure chronic ulcer of other part of right lower leg with muscle involvement without evidence of necrosis; L84 Corns and callosities; M79.671 Pain in right foot; M19.90 Unspecified osteoarthritis, unspecified site; Z96.642 Presence of left artificial hip joint; Z96.651 Presence of right artificial knee joint; F17.200 Nicotine dependence, unspecified, uncomplicated; Z86.11 Personal history of tuberculosis | CPT/HCPCS: 10060; 11043; 11055; 29580; 87070; 87181; 87205 ==

== ENCOUNTER 2020-03-03 13:39 | Outpatient (RCR) | payer MEDICARE, MEDICAID | END 2020-03-29 | disposition home or self-care (01) | LOC: WCC 13:39 | DX: L97.812 Non-pressure chronic ulcer of other part of right lower leg with fat layer exposed (principal); L97.516 Non-pressure chronic ulcer of other part of right foot with bone involvement without evidence of necrosis; I87.311 Chronic venous hypertension (idiopathic) with ulcer of right lower extremity; R26.89 Other abnormalities of gait and mobility; F17.200 Nicotine dependence, unspecified, uncomplicated; Z96.653 Presence of artificial knee joint, bilateral; Z86.11 Personal history of tuberculosis; M19.90 Unspecified osteoarthritis, unspecified site | CPT/HCPCS: 11042; 11043 ==

== ENCOUNTER 2020-03-31 14:17 | Outpatient (RCR) | payer MEDICARE, MEDICAID | END 2020-04-26 | disposition home or self-care (01) | LOC: WCC 14:17 | DX: I87.311 Chronic venous hypertension (idiopathic) with ulcer of right lower extremity (principal); R26.89 Other abnormalities of gait and mobility; L97.815 Non-pressure chronic ulcer of other part of right lower leg with muscle involvement without evidence of necrosis; M79.671 Pain in right foot; L97.512 Non-pressure chronic ulcer of other part of right foot with fat layer exposed | CPT/HCPCS: 11042; 11043; 29580; 87070; 87181; 87205 ==